=== PATIENT | female | born 1945 | race Hispanic/Latino ===

== ENCOUNTER 2016-11-25 12:51 | Inpatient (IN) | payer MEDICARE, MEDICAID ==
[2016-11-25 13:02] VITALS: BMI 23.1
--- NOTE | 2016-11-25 13:15 | ED PDOC ---
Arrival/HPI - General Time Seen by Provider: 11/25/16 13:14 Historian: Patient - History of Present Illness Narrative History of Present Illness (Text): 11/25/16 13:15 A 71 year old female is brought into the emergency department by EMS after a mechanical fall from this morning. Patient reports she tripped while getting out of bed and hit the back of her head. Patient denies any loss of consciousness, headache, dizziness, neck pain, back pain, fever, chills, nausea , vomiting, abdominal pain, chest pain, shortness of breath or any other complaints. PMD: Dr. Gallego Time/Duration: Other (This morning) Quality: Other Context: Home Past Medical History - Provider Review Nursing Documentation Reviewed: Yes - Infectious Disease Hx of Infectious Diseases: None - Cardiac Hx Cardiac Disorders: Yes Hx Pacemaker: No - Pulmonary Hx Respiratory Disorders: Yes Hx Chronic Obstructive Pulmonary Disease (COPD): Yes - Neurological Hx Neurological Disorder: No Hx Paralysis: No - HEENT Hx HEENT Disorder: No - Renal Hx Renal Disorder: No - Endocrine/Metabolic Hx Endocrine Disorders: No - Hematological/Oncological Hx Blood Disorders: No Hx Blood Transfusions: No Hx Blood Transfusion Reaction: No - Integumentary Hx Dermatological Disorder: No - Musculoskeletal/Rheumatological Hx Musculoskeletal Disorders: Yes - Gastrointestinal Hx Gastrointestinal Disorders: No - Genitourinary/Gynecological Hx Genitourinary Disorders: No - Psychiatric Hx Psychophysiologic Disorder: Yes Hx Depression: Yes Hx Emotional Abuse: No Hx Physical Abuse: No Hx Substance Use: No - Surgical History Other/Comment: cardiac stent. L carotid artery surgery. R kidney surgery - Anesthesia Hx Anesthesia Reactions: No Hx Malignant Hyperthermia: No - Suicidal Assessment Feels Threatened In Home Enviroment: No Family/Social History - Physician Review Nursing Documentation Reviewed: Yes Family/Social History: No Known Family HX Smoking Status: Never Smoked Hx Alcohol Use: No Hx Substance Use: No Allergies/Home Meds Allergies/Adverse Reactions: Allergies acetaminophen [From Percocet] Allergy (Verified 06/13/16 13:09) ANAPHYLAXIS codeine Allergy (Verified 06/13/16 13:09) ANAPHYLAXIS oxycodone HCl [From Percocet] Allergy (Verified 06/13/16 13:09) ANAPHYLAXIS Penicillins Allergy (Verified 06/13/16 13:09) ANAPHYLAXIS Home Medications: Home Meds Medication Instructions Recorded Confirmed Alprazolam [Xanax] 1 mg PO QID 03/18/14 06/13/16 Carvedilol [Coreg] 3.125 mg PO BID 03/18/14 06/13/16 Citalopram Hydrobromide [Celexa] 20 mg PO HS 03/18/14 06/13/16 Fluticasone/Salmeterol 250/50 2 puff IH BID 03/18/14 06/13/16 [Advair Diskus 250/50] Ipratropium/Albuterol Sulfate 2 marcelle IH QID 03/18/14 06/13/16 [Combivent] Levothyroxine Sodium [Levoxyl] 100 mcg PO QAM 03/18/14 06/13/16 Rosuvastatin Calcium [Crestor] 20 mg PO HS 03/18/14 06/13/16 Apixaban [Eliquis] 5 mg PO BID 03/10/15 12/09/15 Irbesartan [Avapro] 150 mg PO QAM 03/10/15 06/13/16 Isosorbide Mononitrate [Imdur] 60 mg PO QAM 09/18/15 06/13/16 diltiaZEM [Cardizem] 120 mg PO DAILY 09/18/15 06/13/16 Aspirin [Ecotrin] 81 mg PO DAILY 12/08/15 06/13/16 Omeprazole [Prilosec] 40 mg PO DAILY 12/09/15 06/13/16 Physical Exam - Physical Exam Narrative Physical Exam (Text): - Review of Systems Constitutional: (+) Head injury absent: Fatigue, Weight Change, Fevers Eyes: Normal ENT: Normal Respiratory: Normal absent: SOB, Cough, Sputum Cardiovascular: Normal absent: Chest pain, Palpitations, Syncope Gastrointestinal: Normal absent: Abdominal pain, Diarrhea, Nausea, Vomiting Genitourinary: Normal. absent: Dysuria, Frequency, Hematuria Musculoskeletal: Normal. absent: Arthralgias, Back Pain, Neck Pain Skin: Normal Neurological: Normal absent: Focal Weakness Endocrine: Normal Hemo/Lymphatic: Normal Psychiatric: Normal - Physical exam Patient appears age appropriate, speaking full sentences without difficulty Head atraumatic. No nasal bone deformity or tenderness, no facial or jaw pain/ swelling. No neck midline tenderness, thoracic and lumbar spine with no midline tenderness. Pt moving b/l upper and lower extremities without difficulty, 5/5 strength, with full active and passive ROM. Distal neurovasc fully intact. Abd soft/nt/ng, no hematomas, no peritoneal signs. Neg. pelvic rock. - Systems Exam Head: Present: Atraumatic, Normocephalic Pupils: Present: PERRL Extraocular Muscles: Present: EOMI Conjunctiva: Present: Normal Mouth: Present: Moist Mucous Membranes Neck: Present: Normal Range of Motion. No: MIDLINE TENDERNESS, Paraspinal Tenderness Respiratory/Chest: Present: Clear to Auscultation, Good Air Exchange. No: Respiratory Distress, Accessory Muscle Use, Tachypnic Cardiovascular: Present: Regular Rate and Rhythm, Normal S1, S2, Peripheral Pulses Present. No: Murmurs Abdomen: Present: Normal Bowel Sounds, No: Tenderness, Peritoneal Signs, Rebound, Guarding, Distention Back: Present: Normal Inspection. No: Midline Tenderness, Paraspinal Tenderness Upper Extremity: Present: Normal Inspection. No: Cyanosis, Edema Lower Extremity: Present: Normal Inspection. No: Edema Neurological: Present: GCS=15, Speech Normal, cranial nerves II through XII fully intact with no cerebellar abnormality, neuro-sensory fully intact. No focal neurological deficits. Skin: Present: Warm, Dry, Normal Color. No: Rashes Lymphatic: Present: OX3, NI, NC Psychiatric: Present: Alert, Oriented x 3, Normal Insight, Normal Concentration Vital Signs Reviewed: Yes Vital Signs Temp Pulse Resp BP Pulse Ox 11/25/16 15:39 67 18 133/66 98 11/25/16 14:43 68 18 135/64 98 11/25/16 13:02 98.2 F 62 18 137/67 98 Temperature: Afebrile Blood Pressure: Normal Pulse: Regular Respiratory Rate: Normal Appearance: Positive for: Well-Appearing, Non-Toxic, Comfortable Pain Distress: None Mental Status: Positive for: Alert and Oriented X 3 Medical Decision Making ED Course and Treatment: 11/25/16 13:15 Impression: A 71 year old female with head injury after mechanical fall. Physical exam unremarkable. Plan: -- Head CT -- Cervical spine CT -- Motrin -- Reassess and disposition Progress Notes: Report Date : 11/25/2016 13:53:35 PROCEDURE: CT HEAD WITHOUT CONTRAST. Dictator : Hebert Sanders MD IMPRESSION: No intracranial hemorrhage. Age-appropriate involutional change. Minimal chronic ethmoid sinusitis. Report Date : 11/25/2016 14:16:16 PROCEDURE: CT Cervical Spine without contrast Dictator : Hebert Sanders MD IMPRESSION: No fracture/dislocation. Degenerative disc disease C4-5 and C5-6. Emphysema. 11/25/16 15:58 pt unable to ambulate without assistance, states she feels too weak labs ordered will be obs'd for further w/u Dr. Shamika agustin, awaiting callback 11/25/16 16:[address] Gallego, agrees with obs under his service pt aware of and agrees with plan - RAD Interpretation Radiology Orders: 11/25/16 13:15 CERVICAL SPINE W/O CONTRAST [CT] Stat HEAD W/O CONTRAST [CT] Stat - Medication Orders Current Medication Orders: Sodium Chloride (Sodium Chloride 0.9%) 1,000 mls @ 1,000 mls/hr IV .Q1H STA Stop: 11/25/16 16:50 Discontinued Medications Acetaminophen (Tylenol 325mg Tab) 975 mg PO STAT STA Stop: 11/25/16 15:41 Ibuprofen (Motrin Tab) 600 mg PO STAT STA Stop: 11/25/16 13:16 Meclizine HCl (Antivert) 25 mg PO STAT STA Stop: 11/25/16 15:52 - Scribe Statement The provider has reviewed the documentation as recorded by the Mildred Baker Provider Scribe Attestation: All medical record entries made by the Scribe were at my direction and personally dictated by me. I have reviewed the chart and agree that the record accurately reflects my personal performance of the history, physical exam, medical decision making, and the department course for this patient. I have also personally directed, reviewed, and agree with the discharge instructions and disposition. Disposition/Present on Arrival - Present on Arrival Any Indicators Present on Arrival: No History of DVT/PE: No History of Uncontrolled Diabetes: No Urinary Catheter: No History Surgical Site Infection Following: None - Disposition Have Diagnosis and Disposition been Completed?: Yes Diagnosis: Weakness Disposition: HOSPITALIZED Disposition Time: 16:02 Patient Plan: Observation Patient Problems: Current Active Problems Problem Status Onset Weakness Acute Condition: FAIR Discharge Instructions (ExitCare): Weakness (ED)
--- NOTE | 2016-11-25 13:55 | CT ---
PROCEDURE: CT HEAD WITHOUT CONTRAST. HISTORY: fall COMPARISON: 06/13/2016 TECHNIQUE: Axial computed tomography images were obtained through the head/brain without intravenous contrast. Radiation dose: Total exam DLP = 677.45 mGy-cm. This CT exam was performed using one or more of the following dose reduction techniques: Automated exposure control, adjustment of the mA and/or kV according to patient size, and/or use of iterative reconstruction technique. FINDINGS: HEMORRHAGE: No intracranial hemorrhage. BRAIN: No mass effect or edema. Moderate diffuse age-appropriate cerebral atrophy. Mild periventricular white matter lucency consistent with chronic microvascular ischemic change. No evidence of acute infarct. VENTRICLES: Unremarkable. No hydrocephalus. CALVARIUM: Unremarkable. PARANASAL SINUSES: Minimal chronic ethmoid sinusitis. MASTOID AIR CELLS: Unremarkable as visualized. No inflammatory changes. OTHER FINDINGS: None. IMPRESSION: No intracranial hemorrhage. Age-appropriate involutional change. Minimal chronic ethmoid sinusitis.
--- NOTE | 2016-11-25 14:18 | CT ---
PROCEDURE: CT Cervical Spine without contrast HISTORY: Status post fall COMPARISON: None available. TECHNIQUE: Axial computed tomography images were obtained of the cervical spine without the use of intravenous contrast. Coronal and sagittal reformatted images were created and reviewed. Radiation dose: Total exam DLP = 456.87 mGy-cm. This CT exam was performed using one or more of the following dose reduction techniques: Automated exposure control, adjustment of the mA and/or kV according to patient size, and/or use of iterative reconstruction technique. FINDINGS: VERTEBRAE: Vertebral bodies are maintained height. Transverse processes and posterior elements are intact. Atlantoaxial articulation and odontoid process are intact. Normal alignment is maintained. DISCS/SPINAL CANAL/NEURAL FORAMINA: Narrowing of the C4-5 and C5-6 intervertebral disc spaces consistent with degenerative disc disease. Bilateral neural foraminal stenosis at C4-5 and C5-6. No significant central spinal stenosis. PARASPINAL SOFT TISSUES: Unremarkable. OTHER FINDINGS: Severe bilateral emphysematous change noted. IMPRESSION: No fracture/dislocation. Degenerative disc disease C4-5 and C5-6. Emphysema.
[2016-11-25] MEDS ORDERED: Sodium Chloride 0.9% 1,000 ML IV STA (15:51)
[2016-11-25] MEDS ORDERED: Fluticasone-Salmeterol 250-50mcg Diskus IH SCH (18:00)
[2016-11-25 19:07] LABS: ALB/GLOB RATIO 1.2 (1.1-1.8); ALKALINE PHOSPHATASE 56 U/L (38-133); ALT/SGPT 26 U/L (7-56); AST/SGOT 19 U/L (15-39); BILIRUBIN,TOTAL 0.7 mg/dL (0.2-1.3); BLOOD UREA NITROGEN 10 mg/dL (7-21); CARBON DIOXIDE 31 mmol/L (21-33); CHLORIDE 100 mmol/L (98-107); GFR AFRICAN-AMERICAN 54; GLUCOSE,RANDOM 124 mg/dL (70-110); SODIUM 138 mmol/L (132-148)
[2016-11-25 19:39] LABS: TROPONIN I < 0.01 ng/mL
[2016-11-25] MEDS ORDERED: Albuterol-Ipratrop 3 mg / 0.5 (3 ml) UD IH PRN (20:00)
[2016-11-25 20:13] LABS: ADD MANUAL DIFF? NO
[2016-11-25 20:17] LABS: BASO # 0.06 K/mm3 (0.0-2.0); BASO % 0.9 % (0.0-3.0); EOS # 0.3 (0.0-0.7); EOS % 4.5 % (1.5-5.0); GRAN # 4.56 (1.4-6.5); GRAN % 64.6 % (50.0-68.0); HEMATOCRIT 36.7 % (36.0-48.0); LYMPH # 1.6 (1.2-3.4); LYMPH % 22.3 % (22.0-35.0); MEAN CELL VOLUME 90.4 fL (80.0-105.0); MEAN CORPUSCULAR HEMOGLOBIN 29.1 pg (25.0-35.0); MEAN CORPUSCULAR HGB CONC 32.2 g/dl (31.0-37.0); MEAN PLATELET VOLUME 10.8 fl (7.0-11.0); MONO # 0.5 (0.1-0.6); MONO % 7.7 % (1.0-6.0); PLATELET COUNT 214 10^3/uL (120.0-450.0); RED CELL DISTRIBUTION WIDTH 13.8 % (11.5-14.5); WHITE BLOOD COUNT 7.1 10^3/ul (4.5-11.0)
--- NOTE | 2016-11-25 20:55 | CON ---
DATE: 11/25/2016 HISTORY OF PRESENT ILLNESS: This is a 71-year-old female with past medical history of chronic COPD, also had a stroke and history of stroke and cardiac problem, came here because she tripped while gett ing out of the bed and hit the back of her head. Before this, patient was trying to sit in a chair a nd fell. Denies any loss of consciousness. Slight neck pain and dizziness. Denies any back pain. No nausea, vomiting, or abdominal pain. PAST MEDICAL HISTORY: Coronary artery disease, COPD, stroke. ALLERGIES: ACETAMINOPHEN, CODEINE, OXYCODONE AND PENICILLIN. HOME MEDICATIONS: The patient is on Coreg, Xanax, Celexa, Levoxyl, diltiazem, Cardizem, Ecotrin. REVIEW OF SYSTEMS: A 10-point review of systems was negative. PHYSICAL EXAMINATION: HEENT: Normocephalic, atraumatic. NECK: Supple. NEUROLOGIC: Alert, awake, oriented to self and place. Cranial nerves II through XII were tested. P upils reactive. EOM intact. Visual terrazas full. No facial asymmetry. Tongue midline. Motor exami nation: Moves all the extremities spontaneously. Deep tendon reflexes 1+. Both plantars are downg oing. Sensory appears intact. Cerebellar gait deferred. IMPRESSION: Syncope and status post fall and multiple medical problems, hypothyroidism, coronary art gina disease, asthma, chronic obstructive pulmonary disease. No loss of consciousness. CAT scan of t he head was done, which was reported negative and CT spine was also negative and workup is in progres s. We will follow up. Karri Whitfield MD cc: [id number] TT: 11/25/2016 20:54:42 Confirmation # [id number] Dictation # [id number] talita
--- NOTE | 2016-11-25 22:26 | CP.PCM.HP ---
<Waylon Barr - Last Filed: 11/25/16 22:43> History of Present Illness - History of Present Illness History of Present Illness: A 71 year old female with pmh of vertigo, CAD, HTN, hypothyroidism is brought into the emergency department by EMS after a mechanical fall from this morning. Patient reports she tripped while getting out of bed and hit the back of her head on her heater and then on her cabinet. She also fell on 2 days earlier in her dining room while trying to sit. She complains of headache, dizziness, mild SOB, and nausea. She denies any loss of consciousness, fever, chills, chest pain , abdominal pain or vomiting PMD: Dr. Wick PMH: Vertigo CAD HTN 3 Strokes Hypothyroidism COPD PSH: 7 bypass surgeries Subclavian bypass cataracts Kidney Surgery SH: lives alone denies recent travel Tob: smoked 2.5packs/day for 40 years, quit 5 years ago Alc: denies Drugs: denies All: PCN, codein Present on Admission - Present on Admission Any Indicators Present on Admission: No Review of Systems - Constitutional Constitutional: Headache. absent: Chills, Fever, Weakness - EENT Eyes: absent: Change in Vision Ears: absent: Decreased Hearing Nose/Mouth/Throat: Neck Pain. absent: Sore Throat - Cardiovascular Cardiovascular: Dyspnea, Palpitations. absent: Chest Pain, Irregular Heart Rhythm, Pedal Edema - Respiratory Respiratory: Cough (dry), Dyspnea (mild) - Gastrointestinal Gastrointestinal: Nausea. absent: Abdominal Pain, Diarrhea, Vomiting - Genitourinary Genitourinary: absent: Dysuria - Musculoskeletal Musculoskeletal: Back Pain, Neck Pain. absent: Joint Swelling - Integumentary Integumentary: absent: Rash, Skin Pain, Wounds - Neurological Neurological: Dizziness. absent: Focal Weakness, Loss of Vision, Syncope, Weakness - Psychiatric Psychiatric: Depression - Endocrine Endocrine: Palpitations. absent: Polydipsia, Polyphagia, Polyuria Past Patient History - Infectious Disease Hx of Infectious Diseases: None - Past Medical History & Family History Past Medical History?: Yes - Past Social History Smoking Status: Former Smoker Chewing Tobacco Use: No Cigar Use: No Alcohol: None Drugs: Denies Home Situation {Lives}: Alone - CARDIAC Hx Cardiac Disorders: Yes Hx Pacemaker: No - PULMONARY Hx Respiratory Disorders: Yes Hx Chronic Obstructive Pulmonary Disease (COPD): Yes - NEUROLOGICAL Hx Neurological Disorder: No Hx Paralysis: No - HEENT Hx HEENT Problems: No - RENAL Hx Chronic Kidney Disease: No - ENDOCRINE/METABOLIC Hx Endocrine Disorders: No - HEMATOLOGICAL/ONCOLOGICAL Hx Blood Disorders: No Hx Blood Transfusions: No Hx Blood Transfusion Reaction: No - INTEGUMENTARY Hx Dermatological Problems: No - MUSCULOSKELETAL/RHEUMATOLOGICAL Hx Musculoskeletal Disorders: Yes - GASTROINTESTINAL Hx Gastrointestinal Disorders: No - GENITOURINARY/GYNECOLOGICAL Hx Genitourinary Disorders: No - PSYCHIATRIC Hx Psychophysiologic Disorder: Yes Hx Depression: Yes Hx Emotional Abuse: No Hx Physical Abuse: No Hx Substance Use: No - SURGICAL HISTORY Other/Comment: cardiac stent. L carotid artery surgery. R kidney surgery - ANESTHESIA Hx Anesthesia Reactions: No Hx Malignant Hyperthermia: No Meds Allergies/Adverse Reactions: Allergies Allergy/AdvReac Type Severity Reaction Status Date / Time acetaminophen [From Percocet] Allergy ANAPHYLAXIS Verified 12/01/16 20:08 codeine Allergy ANAPHYLAXIS Verified 12/01/16 20:08 oxycodone HCl [From Percocet] Allergy ANAPHYLAXIS Verified 12/01/16 20:08 Penicillins Allergy ANAPHYLAXIS Verified 12/01/16 20:08 Physical Exam - Constitutional Appears: Non-toxic, No Acute Distress - Head Exam Head Exam: ATRAUMATIC, NORMAL INSPECTION, NORMOCEPHALIC Additional comments: mild swelling on occiput with no visible trauma - Eye Exam Eye Exam: EOMI - ENT Exam ENT Exam: Mucous Membranes Moist - Neck Exam Neck exam: Positive for: Full Rom Additional comments: tenderness to palpation - Respiratory Exam Respiratory Exam: Clear to Auscultation Bilateral, NORMAL BREATHING PATTERN - Cardiovascular Exam Cardiovascular Exam: REGULAR RHYTHM, RRR, +S1, +S2 Additional comments: distant heart sounds - GI/Abdominal Exam GI & Abdominal Exam: Normal Bowel Sounds, Soft. absent: Tenderness - Extremities Exam Extremities exam: Positive for: full ROM, normal inspection. Negative for: joint swelling, pedal edema - Back Exam Back exam: paraspinal tenderness (lumbar spine). absent: CVA tenderness (L), CVA tenderness (R) - Neurological Exam Neurological exam: Alert, CN II-XII Intact, Oriented x3 - Psychiatric Exam Psychiatric exam: Normal Affect, Normal Mood - Skin Skin Exam: Dry, Intact, Normal Color, Warm Results - Vital Signs Recent Vital Signs: Last Vital Signs Temp 98.2 F 11/25/16 13:02 Pulse 63 11/25/16 20:07 Resp 18 11/25/16 20:07 BP 135/69 11/25/16 20:07 Pulse Ox 98 11/25/16 20:07 - Labs Result Diagrams: 11/25/16 20:00 11/25/16 18:45 Labs: Laboratory Results - last 24 hr 11/25/16 11/25/16 18:45 20:00 WBC 7.1 D RBC 4.06 Hgb 11.8 L Hct 36.7 MCV 90.4 MCH 29.1 MCHC 32.2 RDW 13.8 Plt Count 214 MPV 10.8 Gran % 64.6 Lymph % (Auto) 22.3 [place] % (Auto) 7.7 H Eos % (Auto) 4.5 Baso % (Auto) 0.9 Gran # 4.56 Lymph # 1.6 [place] # 0.5 Eos # 0.3 Baso # 0.06 Sodium 138 Potassium 4.0 Chloride 100 Carbon Dioxide 31 Anion Gap 11 BUN 10 Creatinine 1.2 Est GFR ( Amer) 54 Est GFR (Non-Af Amer) 44 Random Glucose 124 H Calcium 9.0 Total Bilirubin 0.7 AST 19 ALT 26 Alkaline Phosphatase 56 Troponin I < 0.01 Total Protein 7.0 Albumin 3.8 Globulin 3.2 Albumin/Globulin Ratio 1.2 Assessment & Plan - Assessment and Plan (Free Text) Assessment: 71F presents s/p mulitple falls 2/2 to syncope vs mechanical Plan: Head/Neck Trauma -CT Head w/o contrast - see full report -no hemorrhage -no mass effect or edema -Ct Cervical spine - see full report -No fracture/dislocation -Degenerative disk dz -emphysema Neuro consult - Dr. Georgina Whitfield - appreciate recs Syncope -Orthostatic vitals -Caroitd Doppler -Echocardiogram -EKG -Chest Xray -Trop negative x1 -Cardio consult - Dr. Leiva - appreciate recs Vertigo -Meclizine -Phys Therapy Hypertension -Cozaar -Carvedilol -Cardizem Hypothyroidism -Synthroid CAD -ASA -Eliquis -Lipitor COPD -Albuterol/Ipratropium -Brovana Anxiety/Depression -Xanax GERD -Protonix - Date & Time Date: 11/25/16 Time: 04:00 <Lopez Gallego - Last Filed: 12/18/16 18:53> Results - Vital Signs Recent Vital Signs: Last Vital Signs Temp 98.2 F 11/29/16 08:07 Pulse 58 L 11/29/16 09:23 Resp 18 11/29/16 08:07 BP 113/52 L 11/29/16 09:23 Pulse Ox 97 11/29/16 08:07 - Labs Result Diagrams: 11/29/16 06:30 11/29/16 06:30 Attending/Attestation - Attestation I have personally seen and examined this patient.: Yes I have fully participated in the care of the patient.: Yes I have reviewed all pertinent clinical information: Yes Notes (Text): 12/18/16 18:53 Medical record note made by the resident after discussion with my direction and input after the patient was personally seen and examined by me. I have reviewed the chart and agree that the record accurately reflects by personal performance of the history, physical exam, data review, and medical decision-making, in the course for the patient. I have also personally directed the plan of care.
--- NOTE | 2016-11-26 07:07 | CP.PCM.PN ---
<Sarah Mendez - Last Filed: 11/26/16 10:56> Subjective - Date & Time of Evaluation Date of Evaluation: 11/26/16 Time of Evaluation: 07:55 - Subjective Subjective: Medicine progress note for Dr Wick and Dr Gallego service. Patient with no overnight acute events. Patient denies cp or sob. Patient the dizziness and nausea has improved. Patient denies dysurea, vomiting or diarrhea. Objective - Vital Signs/Intake and Output Vital Signs (last 24 hours): Temp Pulse Resp BP Pulse Ox 98 F 58 L 19 118/40 L 98 11/26/16 02:20 11/26/16 02:20 11/26/16 02:20 11/26/16 02:20 11/25/16 20:07 Intake and Output: 11/26/16 11/26/16 06:59 18:59 Intake Total 120 Balance 120 - Medications Medications: Current Medications Albuterol/Ipratropium (Duoneb 3 Mg/0.5 Mg (3 Ml) Ud) 3 ml IH [id number] PRN PRN Reason: Shortness of Breath Alprazolam (Xanax) 1 mg PO QID [facility] PRN Reason: Protocol Last Admin: 11/26/16 04:07 Dose: 1 mg Apixaban (Eliquis) 5 mg PO BID [facility] PRN Reason: Protocol Arformoterol Tartrate (Brovana) 15 mcg IH [id number] [facility] Aspirin (Ecotrin) 81 mg PO DAILY [facility] Atorvastatin Calcium (Lipitor) 80 mg PO HS [facility] Budesonide (Pulmicort Respules) 0.5 mg IH [id number] [facility] Carvedilol (Coreg) 3.125 mg PO BID [facility] Citalopram Hydrobromide (Celexa) 20 mg PO HS [facility] Last Admin: 11/25/16 22:38 Dose: 20 mg Diltiazem HCl (Cardizem Cd) 120 mg PO DAILY [facility] Ibuprofen (Motrin Tab) 600 mg PO Q6 PRN PRN Reason: Pain, moderate (4-7) Isosorbide Mononitrate (Imdur) 60 mg PO QAM [facility] Levothyroxine Sodium (Synthroid) 100 mcg PO ACB [facility] Losartan Potassium (Cozaar) 50 mg PO DAILY [facility] Pantoprazole Sodium (Protonix Ec Tab) 40 mg PO ACB [facility] - Labs Labs: 11/25/16 20:00 11/25/16 18:45 - Constitutional Appears: No Acute Distress, Chronically Ill - Head Exam Head Exam: ATRAUMATIC, NORMAL INSPECTION, NORMOCEPHALIC - Eye Exam Eye Exam: Normal appearance, PERRL. absent: Scleral icterus - ENT Exam ENT Exam: Mucous Membranes Dry - Neck Exam Neck Exam: Normal Inspection - Respiratory Exam Respiratory Exam: Clear to Ausculation Bilateral, NORMAL BREATHING PATTERN. absent: Rales, Rhonchi, Wheezes, Respiratory Distress, Stridor - Cardiovascular Exam Cardiovascular Exam: REGULAR RHYTHM, +S1, +S2. absent: Murmur - GI/Abdominal Exam GI & Abdominal Exam: Soft, Normal Bowel Sounds. absent: Distended, Firm, Guarding, Rigid, Tenderness - Extremities Exam Extremities Exam: absent: Pedal Edema - Back Exam Back Exam: NORMAL INSPECTION - Neurological Exam Neurological Exam: Alert, Awake, CN II-XII Intact, Oriented x3, Reflexes Normal Neuro motor strength exam: Left Upper Extremity: 5, Right Upper Extremity: 5, Left Lower Extremity: 5, Right Lower Extremity: 5 - Psychiatric Exam Psychiatric exam: Normal Affect, Normal Mood - Skin Skin Exam: Dry, Intact, Normal Color, Warm Assessment and Plan - Assessment and Plan (Free Text) Assessment: Patient is a 71 y/o F with PMH of Vertigo, CAD, HTN, h/o CVA x3, Hypothyroidism , afib, COPD ( on 2 l home oxygen), subclavian bypass and stent presenting s/p syncope and fall. Plan: 1) Syncope and fall - autonomic versus vertigo versus gait instability. r/o CVA - CT of head w/o contrast with no acute ischemic changes - carotid artery u/s pending - orthostatic vital signs pending - will obtain ua and TSH - Trop was normal, ekg with no acute ST/T wave changes. - neuro on consult - cardio on consult - echo pending - Pending PT/OT eval 2) h/o afib - will continue eliquis and cardizem 3) CAD - continue lipitor, and asa - continue imdur for angina - coreg on hold 4) HTN - cozaar on hold 5) Hypothyroidism - continue synthroid 100 mcg daily 6) COPD - continue home oxygen - continue pulmocort, duoneb, brovana 7) h/o depression and anxiety - continue celexa and xanax. 8) Cervical neck pain/spasm: - CT spine with degenerative changes. - will start flexeril 5 mg tid. 9) DVT and gi prophylaxis: on eliquis, and protonix. Patient seen, examined, case discussed with the attending. <Lopez Gallego - Last Filed: 12/18/16 18:54> Objective - Vital Signs/Intake and Output Vital Signs (last 24 hours): Temp Pulse Resp BP Pulse Ox 98.2 F 58 L 18 113/52 L 97 11/29/16 08:07 11/29/16 09:23 11/29/16 08:07 11/29/16 09:23 11/29/16 08:07 - Labs Labs: 11/29/16 06:30 11/29/16 06:30 PT 11.5 Seconds (9.9-11.8) 11/26/16 09:05 INR 1.06 (0.93-1.08) 11/26/16 09:05 APTT 27.3 Seconds (23.7-30.8) 11/26/16 09:05 Attending/Attestation - Attestation I have personally seen and examined this patient.: Yes I have fully participated in the care of the patient.: Yes I have reviewed all pertinent clinical information, including history, physical exam and plan: Yes Notes (Text): 12/18/16 18:54 Medical record note made by the resident after discussion with my direction and input after the patient was personally seen and examined by me. I have reviewed the chart and agree that the record accurately reflects by personal performance of the history, physical exam, data review, and medical decision-making, in the course for the patient. I have also personally directed the plan of care.
[2016-11-26] MEDS: Budesonide 0.5 mg/2 ml Inhal Susp UD IH SCH ×2 (07:14→21:24)
[2016-11-26] MEDS: Arformoterol 15 mcg/2 ml Inh Sol IH SCH ×2 (07:15→21:23)
[2016-11-26 08:12] LABS: ADD MANUAL DIFF? NO
[2016-11-26 08:29] LABS: ALB/GLOB RATIO 1.1 (1.1-1.8); ALKALINE PHOSPHATASE 60 U/L (38-133); ALT/SGPT 31 U/L (7-56); AST/SGOT 16 U/L (15-39); BILIRUBIN,TOTAL 0.7 mg/dL (0.2-1.3); BLOOD UREA NITROGEN 10 mg/dL (7-21); CALCIUM 9.1 mg/dL (8.4-10.5); CARBON DIOXIDE 35 mmol/L (21-33); CHLORIDE 101 mmol/L (98-107); GFR AFRICAN-AMERICAN > 60; GLUCOSE,RANDOM 101 mg/dL (70-110); POTASSIUM 4.2 mmol/L (3.6-5.0); SODIUM 140 mmol/L (132-148); TOTAL PROTEIN 6.6 g/dL (5.8-8.3)
[2016-11-26 08:31] LABS: BASO # 0.06 K/mm3 (0.0-2.0); EOS # 0.3 (0.0-0.7); EOS % 4.9 % (1.5-5.0); GRAN # 3.93 (1.4-6.5); GRAN % 65.9 % (50.0-68.0); HEMATOCRIT 36.9 % (36.0-48.0); LYMPH # 1.3 (1.2-3.4); LYMPH % 21.5 % (22.0-35.0); MEAN CELL VOLUME 91.3 fL (80.0-105.0); MEAN CORPUSCULAR HGB CONC 31.7 g/dl (31.0-37.0); MONO # 0.4 (0.1-0.6); MONO % 6.7 % (1.0-6.0); PLATELET COUNT 215 10^3/uL (120.0-450.0); RED CELL DISTRIBUTION WIDTH 13.8 % (11.5-14.5)
[2016-11-26 08:39] LABS: TROPONIN I < 0.01 ng/mL
[2016-11-26 09:00] LABS: FREE T4 1.45 ng/dL (0.78-2.19)
[2016-11-26 09:14] LABS: THYROID STIMULATING HORMONE 0.78 mIU/mL (0.46-4.68)
[2016-11-26 09:26] LABS: INR 1.06 (0.93-1.08); PARTIAL THROMBOPLASTIN TIME 27.3 Seconds (23.7-30.8)
--- NOTE | 2016-11-26 09:45 | CARD ---
APPROVED REPORT EKG Measurement Heart [id number] <Conclusion> Normal sinus rhythm with sinus arrhythmia No change
[2016-11-26] MEDS: Pantoprazole 40 mg EC Tab PO SCH (10:42)
[2016-11-26] MEDS: diltiaZEM 120 mg/24 Hours CD Cap PO SCH (10:43)
[2016-11-26] MEDS: Levothyroxine 100 MCG TAB PO SCH (10:43)
--- NOTE | 2016-11-26 10:54 | RAD ---
PROCEDURE: CHEST RADIOGRAPH, 1 VIEW HISTORY: r/o acs COMPARISON: 12/03/2013 FINDINGS: LUNGS: Clear. PLEURA: There is blunting of the left costophrenic angle when compared to the prior radiograph. This could represent scarring versus a small effusion. CARDIOVASCULAR: Normal. OSSEOUS STRUCTURES: The osseous structures demonstrate degenerative changes. VISUALIZED UPPER ABDOMEN: Upper abdomen is suboptimally evaluated. OTHER FINDINGS: None. IMPRESSION: Clear lungs. Questionable small effusion on the left. Please note that chest radiographs have low sensitivity for small pulmonary nodules. If indicated, chest CT should be obtained.
--- NOTE | 2016-11-26 13:42 | PN ---
DATE: 11/26/2016 CHIEF COMPLAINT: Status post fall. SUBJECTIVE: The patient seen and examined at bedside. Denies any dizziness or any headache or any c hange in sense of vision, taste or smell. She had a carotid Doppler, results are pending. Her CT he ad from yesterday showed no acute intracranial abnormalities. She is on Eliquis for AFib. She has h ad a history of falls in the past. She is no longer dizzy in terms of lightheaded. Orthostatic pamela l signs are pending. No acute events overnight. PAST MEDICAL HISTORY: History of vertigo, CAD, hypertension, history of cerebrovascular accident x 3 , hypothyroidism, AFib, COPD, subclavian bypass and stent. REVIEW OF SYSTEMS: A 14-point review of systems is negative except as in HPI. MEDICATIONS: Reviewed via nurse's reconciliation sheet. ALLERGIES: ALLERGIC TO ACETAMINOPHEN, CODEINE, OXYCODONE, PENICILLINS. SOCIAL HISTORY: No illicit drug use, smoking, or ETOH abuse at this time. FAMILY HISTORY: Noncontributory. PHYSICAL EXAMINATION: VITAL SIGNS: Temperature 98.4, pulse rate of 54, blood pressure 127/52, respiratory rate of 18, oxyg en saturation 98% on room air. GENERAL: The patient is sitting up in bed in no acute distress. HEENT: Atraumatic, normocephalic. PERRLA. Extraocular muscles intact. NECK: Supple, no JVD, no adenopathy noted. LUNGS: Clear to auscultation. No adventitious sounds. HEART: S1, S2, normal rate and rhythm. No murmurs, rubs, or gallops. ABDOMEN: Soft, nontender, nondistended. Bowel sounds are present. EXTREMITIES: No clubbing, no cyanosis. Peripheral pulses 2+ felt bilaterally. NEUROLOGIC: The patient is alert, oriented to person, place, month and year. Speech is fluent, with out any errors. Recall after 5 minutes is 2/3. Poor attention span. Slow thought process. Cranial nerves II-XII are intact. Speech is fluent, without any errors. MOTOR: Normal tone, normal bulk of muscle. Moves all extremities equally. Toes are downgoing bilat erally. SENSORY: Light touch, pinprick, proprioception, vibration intact. DTRs 2+ throughout except for 1 a t the knees and ankles. COORDINATION: Obtllt-wg-vpcu intact. GAIT: Deferred for now. LABORATORIES: Sodium is 140, potassium 4.2, chloride 101, carbon dioxide 35, BUN of 10, creatinine a t 1. Random glucose of 101. ASSESSMENT AND PLAN: This is a 71-year-old woman with past medical history of vertigo, coronary johnny ry disease, hypertension, history of cerebrovascular accident, hypothyroidism, atrial fibrillation on Eliquis, chronic obstructive pulmonary disease on home oxygen, subclavian bypass and stent, presente d with a mechanical fall and dizziness. She has had multiple falls in the past. Gait instability is likely secondary to deconditioned state and possibly transient drop in blood pressures. At this cyril e, recommend carotid ultrasound, which is pending, as well as orthostatic vital signs and physical th erapy and possibly subacute rehabilitation. At this time, she is clinically stable from my standpoin t. Please reconsult if necessary and awaiting the results of the carotids. Dallas Whitfield MD cc: [id number] TT: 11/26/2016 13:42:01 Confirmation # [id number] Dictation # [id number] lakshmi
[2016-11-27 08:01] LABS: ADD MANUAL DIFF? NO
[2016-11-27 08:29] LABS: BASO # 0.04 K/mm3 (0.0-2.0); BASO % 0.6 % (0.0-3.0); EOS # 0.3 (0.0-0.7); EOS % 4.8 % (1.5-5.0); GRAN # 4.31 (1.4-6.5); HEMATOCRIT 37.3 % (36.0-48.0); LYMPH # 1.4 (1.2-3.4); MEAN CELL VOLUME 91.2 fL (80.0-105.0); MEAN CORPUSCULAR HEMOGLOBIN 29.1 pg (25.0-35.0); MEAN CORPUSCULAR HGB CONC 31.9 g/dl (31.0-37.0); MEAN PLATELET VOLUME 11.2 fl (7.0-11.0); MONO # 0.4 (0.1-0.6); MONO % 5.6 % (1.0-6.0); PLATELET COUNT 215 10^3/uL (120.0-450.0); RED CELL DISTRIBUTION WIDTH 13.8 % (11.5-14.5); WHITE BLOOD COUNT 6.4 10^3/ul (4.5-11.0)
[2016-11-27 08:34] LABS: BLOOD UREA NITROGEN 14 mg/dL (7-21); CALCIUM 8.9 mg/dL (8.4-10.5); CARBON DIOXIDE 32 mmol/L (21-33); CHLORIDE 100 mmol/L (98-107); GFR AFRICAN-AMERICAN > 60; GLUCOSE,RANDOM 103 mg/dL (70-110); POTASSIUM 4.4 mmol/L (3.6-5.0); SODIUM 138 mmol/L (132-148)
[2016-11-27] MEDS: Levothyroxine 100 MCG TAB PO SCH (09:49)
[2016-11-27] MEDS: diltiaZEM 120 mg/24 Hours CD Cap PO SCH (09:50)
[2016-11-27] MEDS: Pantoprazole 40 mg EC Tab PO SCH (09:50)
--- NOTE | 2016-11-27 10:03 | CARD ---
APPROVED REPORT EXAM: Two-dimensional and M-mode echocardiogram with Doppler and color Doppler. Other Information Quality : FairRhythm : INDICATION Syncope 2D DIMENSIONS IVSd0.7 (0.7-1.1cm)LVDd4.6 (3.9-5.9cm) PWd1.0 (0.7-1.1cm)LVDs3.3 (2.5-4.0cm) FS (%) 29.3 %LVEF (%)56.0 (>50%) M-Mode DIMENSIONS Left Atrium (MM)3.00 (2.5-4.0cm)Aortic Root2.30 (2.2-3.7cm) Aortic Cusp Exc.1.60 (1.5-2.0cm) Aortic Valve AoV Peak Gbkxdrxt935.0cm/sAoV VTI29.3cmLVOT Peak Cfjunrrw50.2cm/s LVOT VTI15.10cm Mitral Valve MV E Xkwmsicn69.5cm/sMV A Vshnprix47.9cm/sE/A ratio1.0 TDI Lateral E' Peak V10.70cm/sMedial E' Peak V7.31cm/sE/Lateral E'7.5 E/Medial E'11.0 Tricuspid Valve TR Peak Dvkhfiwf223dl/sTR Peak Gr.5mmHg LEFT VENTRICLE The left ventricle is normal size. There is normal left ventricular wall thickness. The left ventricular function is normal. The left ventricular ejection fraction is within the normal range. RIGHT VENTRICLE The right ventricle is normal size. ATRIA The left atrium size is normal. The right atrium size is normal. The interatrial septum is intact with no evidence for an atrial septal defect. AORTIC VALVE The aortic valve is not well visualized. MITRAL VALVE The mitral valve is moderately thickened but opens well. Mitral regurgitation is trace. TRICUSPID VALVE The tricuspid valve is normal in structure. There is trace tricuspid regurgitation. PULMONIC VALVE The pulmonic valve is not well visualized. GREAT VESSELS The aortic root is normal in size. PERICARDIAL EFFUSION There is no pericardial effusion. <Conclusion> This is a limited study. The left ventricle is normal size. There is normal left ventricular wall thickness. The left ventricular function is normal.
--- NOTE | 2016-11-27 11:22 | PN ---
DATE: 11/27/[address] Wick and Dr. Gallego. She is resting comfortably in bed, no acute distress. No chest pain or shortness of breath. I talke d to her about going to rehab, TCU. She understands what might happen. She is being seen by neurolo elias. PHYSICAL EXAMINATION: VITAL SIGNS: She has a 98.7 temp, 58 pulse, 104/49 blood pressure, 18 respiratory rate, 96% O2 sat o n room air. HEENT: Head is atraumatic, normocephalic. GENERAL: No acute distress. LUNGS: Clear to auscultation. HEART: Regular rate. Normal S1, S2. ABDOMEN: Soft, positive bowel sounds, nontender, no guarding, no rebound. EXTREMITIES: Have no edema. CENTRAL NERVOUS SYSTEM: She is alert and comfortable. She had syncope and a fall. It looks like she might need to have some physical therapy before she go es home. She has history of hypertension, hypothyroid, chronic obstructive pulmonary disease, depres michael. She is currently on Ambien, Brovana, Cardizem, Celexa, Coreg, Cozaar, DuoNeb, Ecotrin, Eliquis, Flexe ril, Imdur, Lipitor, Motrin, Protonix, Pulmicort, Synthroid, Xanax. White count 6.4, 11.9 hemoglobin, 37.3 hematocrit with 215 platelets. She had a fall. Sodium 138, p otassium 4.4, BUN is 14, creatinine 0.8, GFR is greater than 60, sugar is 103, calcium is 8.9. She is weak and will probably need TCU or subacute rehabilitation. I do not see a physical therapy e penny. I will reorder physical therapy and try and get her out of bed to chair. Ted Molina DO cc: [id number] TT: 11/27/2016 11:21:34 Confirmation # [id number] Dictation # [id number] en
[2016-11-27] MEDS: Arformoterol 15 mcg/2 ml Inh Sol IH SCH (22:23)
[2016-11-27] MEDS: Budesonide 0.5 mg/2 ml Inhal Susp UD IH SCH (22:24)
[2016-11-28 06:48] LABS: ADD MANUAL DIFF? NO
[2016-11-28 07:16] LABS: BASO # 0.05 K/mm3 (0.0-2.0); BASO % 0.7 % (0.0-3.0); EOS # 0.4 (0.0-0.7); EOS % 5.3 % (1.5-5.0); GRAN # 4.51 (1.4-6.5); GRAN % 66.6 % (50.0-68.0); HEMATOCRIT 37.5 % (36.0-48.0); LYMPH # 1.4 (1.2-3.4); LYMPH % 21.1 % (22.0-35.0); MEAN CELL VOLUME 91.2 fL (80.0-105.0); MEAN CORPUSCULAR HEMOGLOBIN 29.2 pg (25.0-35.0); MEAN PLATELET VOLUME 11.3 fl (7.0-11.0); MONO # 0.4 (0.1-0.6); MONO % 6.3 % (1.0-6.0); PLATELET COUNT 217 10^3/uL (120.0-450.0); RED CELL DISTRIBUTION WIDTH 13.9 % (11.5-14.5); WHITE BLOOD COUNT 6.8 10^3/ul (4.5-11.0)
[2016-11-28 07:39] LABS: BLOOD UREA NITROGEN 15 mg/dL (7-21); CALCIUM 9.4 mg/dL (8.4-10.5); CARBON DIOXIDE 33 mmol/L (21-33); CHLORIDE 100 mmol/L (98-107); GFR AFRICAN-AMERICAN > 60; GLUCOSE,RANDOM 102 mg/dL (70-110); POTASSIUM 4.3 mmol/L (3.6-5.0); SODIUM 139 mmol/L (132-148)
[2016-11-28] MEDS: Levothyroxine 100 MCG TAB PO SCH (08:37)
[2016-11-28] MEDS: Pantoprazole 40 mg EC Tab PO SCH (08:37)
[2016-11-28] MEDS: Budesonide 0.5 mg/2 ml Inhal Susp UD IH SCH ×2 (08:56→20:35)
[2016-11-28] MEDS: Arformoterol 15 mcg/2 ml Inh Sol IH SCH ×2 (08:57→20:35)
--- NOTE | 2016-11-28 09:25 | US ---
PROCEDURE: Bilateral carotid artery duplex ultrasound HISTORY: Carotid stenosis dizziness. Previous right -left subclavian bypass. Known left common carotid artery occlusion PHYSICIAN(S): Hebert Lawrence MD. TECHNIQUE: Duplex sonography and color-flow Doppler were used to evaluate the carotid bifurcations and limited segments of the vertebral arteries bilaterally. FINDINGS: There is moderate smooth heterogeneous echogenic plaque noted at the carotid bifurcations bilaterally. The peak systolic velocity in the proximal right internal carotid artery is 101 cm/sec. This corresponds to a 20 to 39% proximal right ICA stenosis. Normal systolic velocities are noted in the proximal right external carotid artery. There is antegrade flow in the right vertebral artery. The patient has a known left common carotid artery occlusion. There is reconstitution of the left carotid bifurcation. The left vertebral artery is not visualized and may be occluded P IMPRESSION: 1. 20-39 percent proximal right ICA stenosis. 2. Known chronic left common carotid artery occlusion. 3. Patent right vertebral artery. The left vertebral artery is not visualized and may be occluded.
[2016-11-28] MEDS: diltiaZEM 120 mg/24 Hours CD Cap PO SCH (09:30)
--- NOTE | 2016-11-28 11:08 | CP.PCM.PN ---
<Sarah Mendez - Last Filed: 11/28/16 14:47> Subjective - Date & Time of Evaluation Date of Evaluation: 11/28/16 Time of Evaluation: 07:50 - Subjective Subjective: Medicine progress note for Dr Gallego and Dr Wick service. Patient with no acute events overnight. Patient feel better overall. Patient denies fever, chills, n/v/d. Patient had PT yesterday, with unsteady gait. Patient requesting to go to TCU for PT. Objective - Vital Signs/Intake and Output Vital Signs (last 24 hours): Temp Pulse Resp BP Pulse Ox 98.0 F 67 16 107/57 L 98 11/28/16 08:00 11/28/16 08:00 11/28/16 08:00 11/28/16 09:30 11/28/16 08:00 - Medications Medications: Current Medications Albuterol/Ipratropium (Duoneb 3 Mg/0.5 Mg (3 Ml) Ud) 3 ml IH [id number] PRN PRN Reason: Shortness of Breath Alprazolam (Xanax) 1 mg PO Q6 [facility] PRN Reason: Protocol Last Admin: 11/28/16 06:25 Dose: 1 mg Apixaban (Eliquis) 5 mg PO BID [facility] PRN Reason: Protocol Last Admin: 11/28/16 09:29 Dose: 5 mg Arformoterol Tartrate (Brovana) 15 mcg IH [id number] [facility] Last Admin: 11/28/16 08:57 Dose: 15 mcg Aspirin (Ecotrin) 81 mg PO DAILY [facility] Last Admin: 11/28/16 09:29 Dose: 81 mg Atorvastatin Calcium (Lipitor) 80 mg PO [facility] Last Admin: 11/27/16 22:11 Dose: 80 mg Budesonide (Pulmicort Respules) 0.5 mg IH [id number] [facility] Last Admin: 11/28/16 08:56 Dose: 0.5 mg Carvedilol (Coreg) 3.125 mg PO BID [facility] Last Admin: 11/26/16 10:42 Dose: 3.125 mg Citalopram Hydrobromide (Celexa) 20 mg PO [facility] Last Admin: 11/27/16 22:10 Dose: 20 mg Cyclobenzaprine HCl (Flexeril) 5 mg PO Q8 [facility] Last Admin: 11/28/16 08:37 Dose: 5 mg Diltiazem HCl (Cardizem Cd) 120 mg PO DAILY [facility] Last Admin: 11/28/16 09:30 Dose: Not Given Ibuprofen (Motrin Tab) 600 mg PO Q6 PRN PRN Reason: Pain, moderate (4-7) Isosorbide Mononitrate (Imdur) 60 mg PO QAM [facility] Last Admin: 11/28/16 09:29 Dose: 60 mg Levothyroxine Sodium (Synthroid) 100 mcg PO ACB [facility] Last Admin: 11/28/16 08:37 Dose: 100 mcg Losartan Potassium (Cozaar) 50 mg PO DAILY [facility] Last Admin: 11/26/16 10:42 Dose: 50 mg Pantoprazole Sodium (Protonix Ec Tab) 40 mg PO ACB [facility] Last Admin: 11/28/16 08:37 Dose: 40 mg Zolpidem Tartrate (Ambien) 5 mg PO HS PRN; Protocol PRN Reason: Insomnia Last Admin: 11/28/16 00:50 Dose: 5 mg - Labs Labs: 11/28/16 06:30 11/28/16 06:30 PT 11.5 Seconds (9.9-11.8) 11/26/16 09:05 INR 1.06 (0.93-1.08) 11/26/16 09:05 APTT 27.3 Seconds (23.7-30.8) 11/26/16 09:05 - Constitutional Appears: No Acute Distress, Chronically Ill - Head Exam Head Exam: ATRAUMATIC, NORMAL INSPECTION, NORMOCEPHALIC - Eye Exam Eye Exam: Normal appearance - ENT Exam ENT Exam: Mucous Membranes Moist - Neck Exam Neck Exam: Normal Inspection - Respiratory Exam Respiratory Exam: Clear to Ausculation Bilateral, NORMAL BREATHING PATTERN. absent: Rales, Rhonchi, Wheezes, Respiratory Distress, Stridor - Cardiovascular Exam Cardiovascular Exam: REGULAR RHYTHM, RRR, +S1, +S2 - GI/Abdominal Exam GI & Abdominal Exam: Soft, Normal Bowel Sounds. absent: Distended, Tenderness - Extremities Exam Extremities Exam: Normal Inspection. absent: Pedal Edema - Back Exam Back Exam: NORMAL INSPECTION - Neurological Exam Neurological Exam: Alert, Awake, Oriented x3 - Psychiatric Exam Psychiatric exam: Normal Affect, Normal Mood - Skin Skin Exam: Dry, Intact, Normal Color, Warm Assessment and Plan - Assessment and Plan (Free Text) Assessment: Patient is a 71 y/o F with PMH of Vertigo, CAD, HTN, h/o CVA x3, Hypothyroidism , afib, COPD ( on 2 l home oxygen), subclavian bypass and stent presenting s/p syncope and fall. Plan: 1) Syncope and fall 2nd to gait instability and hypotension - Carotid smith/s with 20-39% ICA stenosis, known chronic left common carotid artery occlusion - CT of head w/o contrast with no acute ischemic changes - cardiac echo with normal ef - TSH and ua kathy, chest x-ray with no acute pathology - neuro signed - cardio on consult - TCU for PT 2) h/o afib - will continue eliquis and cardizem 3) CAD - continue lipitor, and asa - continue imdur for angina - coreg on hold 4) HTN - cozaar on hold 5) Hypothyroidism - continue synthroid 100 mcg daily 6) COPD - continue home oxygen - continue pulmocort, duoneb, brovana 7) h/o depression and anxiety - continue celexa and xanax. 8) Cervical neck pain/spasm: - CT spine with degenerative changes. - will continue flexeril 5 mg tid. 9) DVT and gi prophylaxis: on eliquis, and protonix. Patient seen, examined, case discussed with Dr Gallego. <Lopez Gallego - Last Filed: 12/18/16 18:55> Objective - Vital Signs/Intake and Output Vital Signs (last 24 hours): Temp Pulse Resp BP Pulse Ox 98.2 F 58 L 18 113/52 L 97 11/29/16 08:07 11/29/16 09:23 11/29/16 08:07 11/29/16 09:23 11/29/16 08:07 - Labs Labs: 11/29/16 06:30 11/29/16 06:30 PT 11.5 Seconds (9.9-11.8) 11/26/16 09:05 INR 1.06 (0.93-1.08) 11/26/16 09:05 APTT 27.3 Seconds (23.7-30.8) 11/26/16 09:05 Attending/Attestation - Attestation I have personally seen and examined this patient.: Yes I have fully participated in the care of the patient.: Yes I have reviewed all pertinent clinical information, including history, physical exam and plan: Yes Notes (Text): 12/18/16 18:55 Medical record note made by the resident after discussion with my direction and input after the patient was personally seen and examined by me. I have reviewed the chart and agree that the record accurately reflects by personal performance of the history, physical exam, data review, and medical decision-making, in the course for the patient. I have also personally directed the plan of care.
--- NOTE | 2016-11-28 17:14 | CON ---
DATE: 11/28/2016 HISTORY OF PRESENT ILLNESS: The patient is a 71-year-old woman who presented after a mechanical fall . She does admit to tripping and hitting the back of her head, no loss of consciousness noted. PAST MEDICAL HISTORY: Notable for history of coronary artery disease and status post PTCA and stent remotely. The last stress test over a year ago was unremarkable. The patient is on anticoagulation with a questionable history of paroxysmal atrial fibrillation in th e past. She does suffer from COPD from a previous smoking history, hypercholesterolemia and hypertension. SOCIAL HISTORY: She is a former smoker. REVIEW OF SYSTEMS: A 14-point review of systems was reviewed. Negative palpitations. Negative valerie na, negative shortness of breath, negative edema in the lower extremities. PHYSICAL EXAMINATION: VITAL SIGNS: Blood pressure is 107/30, heart rate in the 60s. NECK: Negative JVD. LUNGS: Without rales. HEART: Reveals S1, S2. EXTREMITIES: Without edema. EKG shows normal sinus rhythm with nonspecific ST-T changes. LABORATORY DATA: Hemoglobin is 12.0. Chemistries were unremarkable. Troponins are negative x 2. TF Ts unremarkable. Echocardiogram reveals good LV function. IMPRESSION: 1. Status post mechanical fall. 2. Stable angina. 3. Remote history of percutaneous transluminal coronary angioplasty and stent. 4. Chronic obstructive pulmonary disease. 5. Hypercholesterolemia. 6. Hypertension. 7. History of paroxysmal atrial fibrillation. The patient is on Eliquis. Given these findings, the patient's cardiac status appears to be stable. She is participating with p hysical therapy. After she recovers from this fall, will consider an outpatient stress test. Hebert Leiva MD cc: [id number] TT: 11/28/2016 17:13:20 Confirmation # [id number] Dictation # [id number] ln
[2016-11-28 19:15] VITALS: RESP 18
[2016-11-29 06:54] LABS: ADD MANUAL DIFF? NO
[2016-11-29 07:12] LABS: BASO # 0.06 K/mm3 (0.0-2.0); BASO % 0.9 % (0.0-3.0); EOS # 0.4 (0.0-0.7); EOS % 5.2 % (1.5-5.0); GRAN # 4.71 (1.4-6.5); GRAN % 69.8 % (50.0-68.0); HEMATOCRIT 36.9 % (36.0-48.0); LYMPH # 1.2 (1.2-3.4); MEAN CELL VOLUME 91.3 fL (80.0-105.0); MEAN CORPUSCULAR HGB CONC 31.7 g/dl (31.0-37.0); MEAN PLATELET VOLUME 11.1 fl (7.0-11.0); MONO # 0.4 (0.1-0.6); MONO % 6.1 % (1.0-6.0); PLATELET COUNT 211 10^3/uL (120.0-450.0); RED CELL DISTRIBUTION WIDTH 13.9 % (11.5-14.5); WHITE BLOOD COUNT 6.7 10^3/ul (4.5-11.0)
[2016-11-29] MEDS: Budesonide 0.5 mg/2 ml Inhal Susp UD IH SCH (07:15)
[2016-11-29] MEDS: Arformoterol 15 mcg/2 ml Inh Sol IH SCH (07:15)
[2016-11-29 07:28] LABS: BLOOD UREA NITROGEN 13 mg/dL (7-21); CALCIUM 9.2 mg/dL (8.4-10.5); CARBON DIOXIDE 33 mmol/L (21-33); CHLORIDE 99 mmol/L (98-107); GFR AFRICAN-AMERICAN > 60; GLUCOSE,RANDOM 102 mg/dL (70-110); POTASSIUM 4.4 mmol/L (3.6-5.0); SODIUM 140 mmol/L (132-148)
[2016-11-29] MEDS: Pantoprazole 40 mg EC Tab PO SCH (07:56)
[2016-11-29] MEDS: Levothyroxine 100 MCG TAB PO SCH (07:56)
[2016-11-29 08:08] VITALS: TEMP 98.2; O2SAT 97
[2016-11-29] MEDS: diltiaZEM 120 mg/24 Hours CD Cap PO SCH (09:23)
[2016-11-29 09:26] VITALS: BP 113/52; PULSE 58
--- NOTE | 2016-11-29 11:11 | CP.PCM.DIS ---
<Sarah Mendez - Last Filed: 12/03/16 07:23> Provider - Provider Date of Admission: 11/26/16 11:15 Attending physician: Macho Wick MD Primary care physician: Macho Wick MD Consults: Cardiology- Dr Leiva. Neurology- Dr Whitfield. Time Spent in preparation of Discharge (in minutes): 40 Diagnosis - Discharge Diagnosis (1) Gait instability Status: Acute (2) Hypotension Status: Acute (3) Afib Status: Chronic (4) Vertigo Status: Chronic (5) Anxiety Status: Chronic Hospital Course - Lab Results Lab Results: Most Recent Lab Values WBC 6.7 10^3/ul (4.5-11.0) 11/29/16 06:30 RBC 4.04 10^6/uL (3.5-6.1) 11/29/16 06:30 Hgb 11.7 gm/dL (12.0-16.0) L 11/29/16 06:30 Hct 36.9 % (36.0-48.0) 11/29/16 06:30 MCV 91.3 fL (80.0-105.0) 11/29/16 06:30 MCH 29.0 pg (25.0-35.0) 11/29/16 06:30 MCHC 31.7 g/dl (31.0-37.0) 11/29/16 06:30 RDW 13.9 % (11.5-14.5) 11/29/16 06:30 Plt Count 211 10^3/uL (120.0-450.0) 11/29/16 06:30 MPV 11.1 fl (7.0-11.0) H 11/29/16 06:30 Gran % 69.8 % (50.0-68.0) H 11/29/16 06:30 Lymph % (Auto) 18.0 % (22.0-35.0) L 11/29/16 06:30 [place] % (Auto) 6.1 % (1.0-6.0) H 11/29/16 06:30 Eos % (Auto) 5.2 % (1.5-5.0) H 11/29/16 06:30 Baso % (Auto) 0.9 % (0.0-3.0) 11/29/16 06:30 Gran # 4.71 (1.4-6.5) 11/29/16 06:30 Lymph # 1.2 (1.2-3.4) 11/29/16 06:30 [place] # 0.4 (0.1-0.6) 11/29/16 06:30 Eos # 0.4 (0.0-0.7) 11/29/16 06:30 Baso # 0.06 K/mm3 (0.0-2.0) 11/29/16 06:30 PT 11.5 Seconds (9.9-11.8) 11/26/16 09:05 INR 1.06 (0.93-1.08) 11/26/16 09:05 APTT 27.3 Seconds (23.7-30.8) 11/26/16 09:05 Sodium 140 mmol/L (132-148) 11/29/16 06:30 Potassium 4.4 mmol/L (3.6-5.0) 11/29/16 06:30 Chloride 99 mmol/L (98-107) 11/29/16 06:30 Carbon Dioxide 33 mmol/L (21-33) 11/29/16 06:30 Anion Gap 12 (10-20) 11/29/16 06:30 BUN 13 mg/dL (7-21) 11/29/16 06:30 Creatinine 1.0 mg/dL (0.5-1.4) 11/29/16 06:30 Est GFR ( Amer) > 60 11/29/16 06:30 Est GFR (Non-Af Amer) 55 11/29/16 06:30 Random Glucose 102 mg/dL (70-110) 11/29/16 06:30 Calcium 9.2 mg/dL (8.4-10.5) 11/29/16 06:30 Total Bilirubin 0.7 mg/dL (0.2-1.3) 11/26/16 08:11 AST 16 U/L (15-39) 11/26/16 08:11 ALT 31 U/L (7-56) 11/26/16 08:11 Alkaline Phosphatase 60 U/L (38-133) 11/26/16 08:11 Troponin I < 0.01 ng/mL 11/26/16 08:11 Total Protein 6.6 g/dL (5.8-8.3) 11/26/16 08:11 Albumin 3.5 g/dL (3.0-4.8) 11/26/16 08:11 Globulin 3.1 gm/dL 11/26/16 08:11 Albumin/Globulin Ratio 1.1 (1.1-1.8) 11/26/16 08:11 Free T4 1.45 ng/dL (0.78-2.19) 11/26/16 07:00 TSH 3rd Generation 0.78 mIU/mL (0.46-4.68) 11/26/16 07:00 - Hospital Course Hospital Course: Patient is a 71 y/o with pmh of Vertigo, CAD, HTN, cva x3 , Hypothyroidism, COPD on home oxygen whom presented to [facility] s/p syncope and fall and was admitted for further work up. Patient had CT head with no acute ischemic changes. Patient had carotid u/s which revealed chronic left carotid occlusion. Patient was suspected to have hypotension. Patient's BP meds were held. Patient was evaluated by PT, and was transferred to TCU to continue PT. - Date & Time of H&P Date of H&P: 11/25/16 Time of H&P: 22:26 Discharge Exam - Head Exam Head Exam: ATRAUMATIC, NORMAL INSPECTION, NORMOCEPHALIC - Eye Exam Eye Exam: EOMI, Normal appearance, PERRL. absent: Scleral icterus - ENT Exam ENT Exam: Mucous Membranes Moist - Neck Exam Neck exam: Full Rom, Normal Inspection, Tenderness - Respiratory Exam Respiratory Exam: Clear to PA & Lateral, NORMAL BREATHING PATTERN, UNREMARKABLE. absent: Rales, Rhonchi, Wheezes, Respiratory Distress, Stridor - Cardiovascular Exam Cardiovascular Exam: REGULAR RHYTHM, RRR, +S1, +S2. absent: Systolic Murmur - GI/Abdominal Exam GI & Abdominal Exam: Normal Bowel Sounds, Unremarkable. absent: Distended, Firm , Guarding, Rigid, Soft, Tenderness - Extremities Exam Extremities exam: normal inspection - Back Exam Back exam: NORMAL INSPECTION - Neurological Exam Neurological exam: Abnormal Gait, Alert, Oriented x3, Reflexes Normal - Psychiatric Exam Psychiatric exam: Normal Affect, Normal Mood - Skin Skin Exam: Dry, Intact, Normal Color, Warm Discharge Plan - Follow Up Plan Condition: GOOD Disposition: TRANSF TO SNF Patient education suggested?: Yes Instructions: Coronary Artery Disease (DC), Atrial Fibrillation (DC), Vertigo ( DC), COPD (Chronic Obstructive Pulmonary Disease) (DC), Weakness (GEN), Hypertension (DC), Anxiety (GEN), Fall Prevention (GEN) Referrals: Macho Wick MD [Primary Care Provider] - <Macho Wick - Last Filed: 12/21/16 13:45> Provider - Provider Date of Admission: 11/26/16 11:15 Attending physician: Macho Wick MD Primary care physician: Macho Wick MD Hospital Course - Lab Results Lab Results: Most Recent Lab Values WBC 6.7 10^3/ul (4.5-11.0) 11/29/16 06:30 RBC 4.04 10^6/uL (3.5-6.1) 11/29/16 06:30 Hgb 11.7 gm/dL (12.0-16.0) L 11/29/16 06:30 Hct 36.9 % (36.0-48.0) 11/29/16 06:30 MCV 91.3 fL (80.0-105.0) 11/29/16 06:30 MCH 29.0 pg (25.0-35.0) 11/29/16 06:30 MCHC 31.7 g/dl (31.0-37.0) 11/29/16 06:30 RDW 13.9 % (11.5-14.5) 11/29/16 06:30 Plt Count 211 10^3/uL (120.0-450.0) 11/29/16 06:30 MPV 11.1 fl (7.0-11.0) H 11/29/16 06:30 Gran % 69.8 % (50.0-68.0) H 11/29/16 06:30 Lymph % (Auto) 18.0 % (22.0-35.0) L 11/29/16 06:30 [place] % (Auto) 6.1 % (1.0-6.0) H 11/29/16 06:30 Eos % (Auto) 5.2 % (1.5-5.0) H 11/29/16 06:30 Baso % (Auto) 0.9 % (0.0-3.0) 11/29/16 06:30 Gran # 4.71 (1.4-6.5) 11/29/16 06:30 Lymph # 1.2 (1.2-3.4) 11/29/16 06:30 [place] # 0.4 (0.1-0.6) 11/29/16 06:30 Eos # 0.4 (0.0-0.7) 11/29/16 06:30 Baso # 0.06 K/mm3 (0.0-2.0) 11/29/16 06:30 PT 11.5 Seconds (9.9-11.8) 11/26/16 09:05 INR 1.06 (0.93-1.08) 11/26/16 09:05 APTT 27.3 Seconds (23.7-30.8) 11/26/16 09:05 Sodium 140 mmol/L (132-148) 11/29/16 06:30 Potassium 4.4 mmol/L (3.6-5.0) 11/29/16 06:30 Chloride 99 mmol/L (98-107) 11/29/16 06:30 Carbon Dioxide 33 mmol/L (21-33) 11/29/16 06:30 Anion Gap 12 (10-20) 11/29/16 06:30 BUN 13 mg/dL (7-21) 11/29/16 06:30 Creatinine 1.0 mg/dL (0.5-1.4) 11/29/16 06:30 Est GFR ( Amer) > 60 11/29/16 06:30 Est GFR (Non-Af Amer) 55 11/29/16 06:30 Random Glucose 102 mg/dL (70-110) 11/29/16 06:30 Calcium 9.2 mg/dL (8.4-10.5) 11/29/16 06:30 Total Bilirubin 0.7 mg/dL (0.2-1.3) 11/26/16 08:11 AST 16 U/L (15-39) 11/26/16 08:11 ALT 31 U/L (7-56) 11/26/16 08:11 Alkaline Phosphatase 60 U/L (38-133) 11/26/16 08:11 Troponin I < 0.01 ng/mL 11/26/16 08:11 Total Protein 6.6 g/dL (5.8-8.3) 11/26/16 08:11 Albumin 3.5 g/dL (3.0-4.8) 11/26/16 08:11 Globulin 3.1 gm/dL 11/26/16 08:11 Albumin/Globulin Ratio 1.1 (1.1-1.8) 11/26/16 08:11 Free T4 1.45 ng/dL (0.78-2.19) 11/26/16 07:00 TSH 3rd Generation 0.78 mIU/mL (0.46-4.68) 11/26/16 07:00 Attending/Attestation - Attestation I have personally seen and examined this patient.: Yes I have fully participated in the care of the patient.: Yes I have reviewed all pertinent clinical information, including history, physical exam and plan: Yes Notes (Text): 12/21/16 13:45 Resident note done after seen and examined by me with discussion. The note is a representation of my history, physical and plan for patient.
--- NOTE | 2016-11-29 14:05 | PN ---
DATE: 11/29/2016 The patient is no longer dizzy. PHYSICAL EXAMINATION: VITAL SIGNS: Blood pressure is 113/52. The heart rate is in the 50s. NECK: Negative JVD. LUNGS: Without rales. HEART: Revealed S1, S2. EXTREMITIES: Without edema. Echocardiogram shows no LV outflow obstruction. The hemoglobin is 11.7. Chemistry is unremarkable. IMPRESSION: 1. Status post dizziness, which is now resolved. 2. No evidence for left ventricular outflow obstruction on echocardiogram. 3. History of percutaneous transluminal coronary angioplasty. 4. Chronic obstructive pulmonary disease. 5. Hypertension. 6. Hypercholesterolemia. Given these findings, the patient is stable from a cardiac perspective for discharge. We will arrang e for an outpatient stress test. Hebert Leiva MD cc: [id number] TT: 11/29/2016 14:04:56 Confirmation # [id number] Dictation # [id number]
== END 2016-11-29 16:03 | DRG 316 ==
LOC: ED 12:51 → ERH 16:04 → 5RSO 21:35 → OBSVTOIN 11-26 11:15 → 5RNO 11-27 21:44
PROVIDERS: ADMIT Internal Medicine; ATTEND Internal Medicine
DX: I95.9 Hypotension, unspecified (principal); R26.81 Unsteadiness on feet; R42 Dizziness and giddiness; J44.9 Chronic obstructive pulmonary disease, unspecified; I25.118 Atherosclerotic heart disease of native coronary artery with other forms of angina pectoris; I10 Essential (primary) hypertension; E78.00 Pure hypercholesterolemia, unspecified; E03.9 Hypothyroidism, unspecified; I48.0 Paroxysmal atrial fibrillation; F41.9 Anxiety disorder, unspecified; F32.9 Major depressive disorder, single episode, unspecified; Z99.81 Dependence on supplemental oxygen; R29.6 Repeated falls; Z91.81 History of falling; Z79.01 Long term (current) use of anticoagulants; Z86.73 Personal history of transient ischemic attack (TIA), and cerebral infarction without residual deficits; Z95.5 Presence of coronary angioplasty implant and graft; Z87.891 Personal history of nicotine dependence

== ENCOUNTER 2016-11-29 15:34 | Inpatient (IN) | payer OTHER, MEDICAID ==
[2016-11-29 16:13] VITALS: BMI 24.0
[2016-11-29] MEDS ORDERED: Albuterol-Ipratrop 3 mg / 0.5 (3 ml) UD IH PRN (16:50)
--- NOTE | 2016-11-29 19:18 | CON ---
DATE: 11/29/2016 CHIEF COMPLAINT: Fall. HISTORY OF PRESENT ILLNESS: A 71-year-old woman with past medical history of vertigo, history of cor onary artery disease, hypertension, history of CVA, hypothyroidism, AFib on Eliquis, chronic obstruct amara pulmonary disease, on home oxygen, subclavian bypass and stent, presented initially to ____ [facility] for mechanical fall and dizziness in terms of lightheadedness and occasional spinning sensation i n the room. She has multiple falls in the past. She has gait instability, which is secondary decond itioned state and transient drop in her blood pressures. A carotid Doppler showed 20%-39% proximal I CA stenosis and chronic left common carotid occlusion. Cardiology has seen the patient and deemed sh aniceto is on Eliquis 5 mg p.o. b.i.d. and aspirin 81 mg, and Lipitor for stroke prevention. She is on José Luis ax for her underlying anxiety. Her blood pressures have been systolically and diastolically on the l ower side. Currently, she is following commands, moving all extremities. PAST MEDICAL HISTORY: Vertigo, coronary artery disease, history of CVA x 3, , hypothyroidism, AFib, COPD, subclavian bypass stent. REVIEW OF SYSTEMS: A 14-point review of systems is negative except for the HPI. MEDICATIONS: Reviewed via nurse's reconciliation sheet. ALLERGIES: ACETAMINOPHEN, CODEINE, OXYCODONE, PENICILLIN. SOCIAL HISTORY: No illicit drug use, smoking, or ETOH abuse. FAMILY HISTORY: Noncontributory. PHYSICAL EXAMINATION: VITAL SIGNS: Temperature of 98.3, pulse rate is 66, blood pressure 112/58, respiratory rate 20, oxyg en 97% on room air. GENERAL: The patient is sitting up in bed in no acute distress. HEENT: Atraumatic, normocephalic. PERRLA. Extraocular muscles intact. NECK: Supple, no JVD, no adenopathy noted. LUNGS: Clear to auscultation. No adventitious sounds. HEART: S1, S2, normal rate and rhythm. No murmurs, rubs, or gallops. ABDOMEN: Soft, nontender, nondistended. Bowel sounds are present. EXTREMITIES: No clubbing, no cyanosis. Peripheral pulses 2+ felt bilaterally. NEUROLOGIC: The patient is alert, oriented to person, place, month and year. Speech is fluent, with out any errors. Cranial nerves II through XII are intact. MOTOR: Moves all extremities equally. Toes are downgoing bilaterally. SENSORY: Light touch, pinprick, proprioception, vibration at DTRs 2+ throughout, 1 at the ankles and knees. COORDINATION: [id number] intact. GAIT: Deferred for now. LABORATORIES: Sodium is 140, potassium 4.4, chloride 99, BUN of 13, carbon dioxide 33, creatinine of 1. Random glucose of 102.. ASSESSMENT AND PLAN: This is a 71-year-old woman with past medical history of vertigo, coronary johnny ry disease, hypertension, history of cerebrovascular accident, history of hypothyroidism, atrial fibr illation on Eliquis, chronic obstructive pulmonary disease on home oxygen, subclavian bypass and sten t, presented initially to the hospital for mechanical fall and was worked up and found to have dizzin ess which is likely secondary to transient drop in her blood pressures. She has had multiple falls i n the past, likely secondary deconditioned state, causing her gait instability. At this time she at [facility] for rehabilitation. Her carotid Doppler showed 20%-39% proximal right internal carotid artery s tenosis and chronic left common carotid artery occlusion. Her CT head showed no acute intracranial a bnormality. Currently, recommend: 1. Continue with physical and occupational therapy for underlying deconditioned state and for dizzin ess in the current rehabilitation. 2. Continue aspirin, Eliquis as well as statin for stroke prevention. 3. Keep her systolic blood pressure slightly elevated above 120-130 mmHg given her systolic and henry tolic blood pressures have fluctuated be low causing her to be dizzy and continue on current present medical management. Thank you for this consult. Dallas Whitfield MD cc: [phone] TT: 11/29/2016 19:17:26 Confirmation # [id number] Dictation # [id number]
[2016-11-29] MEDS: Budesonide 0.5 mg/2 ml Inhal Susp UD IH SCH (19:39)
[2016-11-29] MEDS: Arformoterol 15 mcg/2 ml Inh Sol IH SCH ×2 (19:39)
[2016-11-30] MEDS: Pantoprazole 40 mg EC Tab PO SCH (05:42)
[2016-11-30] MEDS: Levothyroxine 100 MCG TAB PO SCH (05:42)
--- NOTE | 2016-11-30 07:01 | CP.PCM.HP ---
<Sarah Mendez - Last Filed: 11/30/16 17:06> History of Present Illness - History of Present Illness History of Present Illness: Patient is a 71 y/o with pmh of Vertigo, CAD, HTN, cva x3 , Hypothyroidism, COPD on home oxygen whom presented to [facility] s/p syncope and fall and was admitted for further work up. Patient had CT head with no acute ischemic changes. Patient had carotid u/s which revealed chronic left carotid occlusion. Patient was suspected to have hypotension. Patient's BP meds were held. Patient was evaluated by PT, and was transferred to TCU to continue PT. Patient is currently resting on the bed, denies cp, sob, headache, dizziness, n/ v/d. Patient admits to constipation. Pmh: as mentioned above PSH: cardiac bypass, carotid endarterectomy. Social: former tobacco use. Present on Admission - Present on Admission Any Indicators Present on Admission: No History of DVT/PE: No History of Uncontrolled Diabetes: No Urinary Catheter: No Decubitus Ulcer Present: No Review of Systems - Review of Systems All systems: reviewed and no additional remarkable complaints except Review of Systems: As mentioned in HPI. Past Patient History - Infectious Disease Hx of Infectious Diseases: None - Past Medical History & Family History Past Medical History?: Yes - Past Social History Smoking Status: Former Smoker Alcohol: None Drugs: Denies Home Situation {Lives}: With Family - CARDIAC Hx Cardiac Disorders: Yes Hx Hypertension: Yes - PULMONARY Hx Chronic Obstructive Pulmonary Disease (COPD): Yes - NEUROLOGICAL Hx Neurological Disorder: No - HEENT Hx HEENT Problems: No - RENAL Hx Chronic Kidney Disease: No - ENDOCRINE/METABOLIC Hx Hypothyroidism: Yes - HEMATOLOGICAL/ONCOLOGICAL Hx Blood Disorders: No - INTEGUMENTARY Hx Dermatological Problems: No - MUSCULOSKELETAL/RHEUMATOLOGICAL Hx Falls: Yes - GASTROINTESTINAL Hx Gastrointestinal Disorders: No - GENITOURINARY/GYNECOLOGICAL Hx Genitourinary Disorders: No Hx Reproductive Disorders: No - PSYCHIATRIC Hx Psychophysiologic Disorder: Yes Hx Depression: Yes Hx Emotional Abuse: No Hx Physical Abuse: No - SURGICAL HISTORY Other/Comment: cardiac stent. L carotid artery surgery. R kidney surgery - ANESTHESIA Hx Anesthesia Reactions: No Hx Malignant Hyperthermia: No Meds Allergies/Adverse Reactions: Allergies Allergy/AdvReac Type Severity Reaction Status Date / Time acetaminophen [From Percocet] Allergy ANAPHYLAXIS Verified 05/18/17 20:08 codeine Allergy ANAPHYLAXIS Verified 12/01/16 20:08 oxycodone HCl [From Percocet] Allergy ANAPHYLAXIS Verified 12/01/16 20:08 Penicillins Allergy ANAPHYLAXIS Verified 12/01/16 20:08 Physical Exam - Constitutional Appears: No Acute Distress - Head Exam Head Exam: ATRAUMATIC, NORMAL INSPECTION, NORMOCEPHALIC - Eye Exam Eye Exam: Normal appearance, PERRL. absent: Scleral icterus - ENT Exam ENT Exam: Mucous Membranes Moist - Neck Exam Neck exam: Positive for: Normal Inspection - Respiratory Exam Respiratory Exam: Clear to Auscultation Bilateral, NORMAL BREATHING PATTERN. absent: Rales, Rhonchi, Wheezes, Respiratory Distress, Stridor - Cardiovascular Exam Cardiovascular Exam: REGULAR RHYTHM, RRR, +S1, +S2. absent: Systolic Murmur - GI/Abdominal Exam GI & Abdominal Exam: Normal Bowel Sounds, Soft. absent: Distended, Firm, Guarding, Tenderness - Extremities Exam Extremities exam: Positive for: normal inspection - Back Exam Back exam: NORMAL INSPECTION - Neurological Exam Neurological exam: Alert, Oriented x3 - Psychiatric Exam Psychiatric exam: Normal Affect, Normal Mood - Skin Skin Exam: Dry, Intact, Normal Color, Warm Results - Vital Signs Recent Vital Signs: Last Vital Signs Temp 98.3 F 11/29/16 16:16 Pulse 66 11/29/16 16:16 Resp 20 11/29/16 16:16 BP 112/58 L 11/29/16 16:16 Pulse Ox Assessment & Plan - Assessment and Plan (Free Text) Assessment: Patient is a 71 y/o with pmh of Vertigo, CAD, HTN, cva x3 , Hypothyroidism, COPD on home oxygen whom presented to [facility] s/p syncope and fall. Patient is admitted to tcu for PT. Plan: 1) Syncope and fall 2nd to gait instability and hypotension - Patient to resume PT in tcu. 2) h/o afib - will continue eliquis and cardizem 3) CAD - continue lipitor, and asa - continue imdur for angina - coreg on hold 4) HTN - cozaar on hold 5) Hypothyroidism - continue synthroid 100 mcg daily 6) COPD - continue home oxygen - continue pulmocort, duoneb, brovana 7) h/o depression and anxiety - continue celexa and xanax. 8) Cervical neck pain/spasm: - continue flexeril. 9) DVT and gi prophylaxis: on eliquis, and protonix. Patient seen, examined, case discussed with Dr Gallego. - Date & Time Date: 11/30/16 Time: 08:45 <Lopez Gallego - Last Filed: 12/18/16 19:00> Results - Vital Signs Recent Vital Signs: Last Vital Signs Temp 98 F 12/06/16 10:00 Pulse 63 12/06/16 11:18 Resp 16 12/06/16 10:00 BP 119/46 L 12/06/16 11:18 Pulse Ox 100 12/06/16 10:00 - Labs Result Diagrams: 12/04/16 08:15 12/04/16 08:15 Attending/Attestation - Attestation I have personally seen and examined this patient.: Yes I have fully participated in the care of the patient.: Yes I have reviewed all pertinent clinical information: Yes Notes (Text): 12/18/16 19:00 Medical record note made by the resident after discussion with my direction and input after the patient was personally seen and examined by me. I have reviewed the chart and agree that the record accurately reflects by personal performance of the history, physical exam, data review, and medical decision-making, in the course for the patient. I have also personally directed the plan of care.
[2016-11-30] MEDS: Arformoterol 15 mcg/2 ml Inh Sol IH SCH ×3 (07:30→20:48)
[2016-11-30] MEDS: Budesonide 0.5 mg/2 ml Inhal Susp UD IH SCH ×2 (07:30→20:48)
[2016-11-30] MEDS: diltiaZEM 120 mg/24 Hours CD Cap PO SCH (11:09)
[2016-12-01] MEDS: Arformoterol 15 mcg/2 ml Inh Sol IH SCH (21:13)
[2016-12-01] MEDS: Budesonide 0.5 mg/2 ml Inhal Susp UD IH SCH (21:14)
[2016-12-02] MEDS: Pantoprazole 40 mg EC Tab PO SCH (05:30)
[2016-12-02] MEDS: Levothyroxine 100 MCG TAB PO SCH (05:30)
--- NOTE | 2016-12-02 06:37 | CP.PCM.PN ---
<Sarah Mendez - Last Filed: 12/02/16 19:30> Subjective - Date & Time of Evaluation Date of Evaluation: 12/02/16 Time of Evaluation: 07:00 - Subjective Subjective: Medicine progress note for Dr Wick and Dr Gallego. Patient in no acute distress. Patient undergoing PT. Patient states her gait has been improving. Patient denies cp, sob, headache, dizziness. Patient states she has h/o chronic diarrhea, no recent antibiotic use. Takes imodium at home. Objective - Vital Signs/Intake and Output Vital Signs (last 24 hours): Temp Pulse Resp BP Pulse Ox 97.8 F 66 15 120/55 L 96 11/30/16 16:00 11/30/16 18:12 11/30/16 16:00 11/30/16 18:12 11/30/16 16:00 Intake and Output: 12/01/16 12/02/16 18:59 06:59 Intake Total 480 Balance 480 - Medications Medications: Current Medications Albuterol/Ipratropium (Duoneb 3 Mg/0.5 Mg (3 Ml) Ud) 3 ml IH [id number] PRN; Protocol PRN Reason: Shortness of Breath Alprazolam (Xanax) 1 mg PO Q6 STACY PRN Reason: Protocol Last Admin: 12/02/16 05:30 Dose: 1 mg Apixaban (Eliquis) 5 mg PO BID STACY PRN Reason: Protocol Last Admin: 11/30/16 18:12 Dose: 5 mg Arformoterol Tartrate (Brovana) 15 mcg IH [id number] STACY PRN Reason: Protocol Last Admin: 12/01/16 21:13 Dose: 15 mcg Arformoterol Tartrate (Brovana) 15 mcg IH [id number] STACY Last Admin: 11/30/16 07:31 Dose: Not Given Aspirin (Ecotrin) 81 mg PO 0800 STACY PRN Reason: Protocol Last Admin: 11/30/16 08:48 Dose: 81 mg Atorvastatin Calcium (Lipitor) 80 mg PO HS STACY PRN Reason: Protocol Last Admin: 12/01/16 21:30 Dose: 80 mg Budesonide (Pulmicort Respules) 0.5 mg IH [id number] STACY PRN Reason: Protocol Last Admin: 12/01/16 21:14 Dose: 0.5 mg Carvedilol (Coreg) 3.125 mg PO 0800,1800 [facility] PRN Reason: Protocol Last Admin: 11/30/16 18:12 Dose: 3.125 mg Citalopram Hydrobromide (Celexa) 20 mg PO HS STACY PRN Reason: Protocol Last Admin: 12/01/16 21:30 Dose: 20 mg Cyclobenzaprine HCl (Flexeril) 5 mg PO 0600,1400,2200 [facility] PRN Reason: Protocol Last Admin: 12/02/16 05:29 Dose: 5 mg Diltiazem HCl (Cardizem Cd) 120 mg PO DAILY [facility] Last Admin: 11/30/16 11:09 Dose: 120 mg Ibuprofen (Motrin Tab) 600 mg PO Q6 PRN; Protocol PRN Reason: Pain, moderate (4-7) Isosorbide Mononitrate (Imdur) 60 mg PO 0630 STACY PRN Reason: Protocol Last Admin: 12/02/16 05:29 Dose: 60 mg Levothyroxine Sodium (Synthroid) 100 mcg PO 0630 STACY PRN Reason: Protocol Last Admin: 12/02/16 05:30 Dose: 100 mcg Pantoprazole Sodium (Protonix Ec Tab) 40 mg PO 0630 STACY PRN Reason: Protocol Last Admin: 12/02/16 05:30 Dose: 40 mg Zolpidem Tartrate (Ambien) 5 mg PO HS PRN; Protocol PRN Reason: Insomnia Last Admin: 12/01/16 21:30 Dose: 5 mg - Constitutional Appears: No Acute Distress - Head Exam Head Exam: ATRAUMATIC, NORMAL INSPECTION, NORMOCEPHALIC - Eye Exam Eye Exam: Normal appearance, PERRL. absent: Scleral icterus - ENT Exam ENT Exam: Mucous Membranes Moist - Neck Exam Neck Exam: Normal Inspection - Respiratory Exam Respiratory Exam: Clear to Ausculation Bilateral, NORMAL BREATHING PATTERN. absent: Rales, Rhonchi, Wheezes, Respiratory Distress, Stridor - Cardiovascular Exam Cardiovascular Exam: REGULAR RHYTHM, RRR, +S1, +S2 - GI/Abdominal Exam GI & Abdominal Exam: Soft, Normal Bowel Sounds. absent: Distended, Firm, Guarding, Rigid, Tenderness - Extremities Exam Extremities Exam: Normal Inspection - Back Exam Back Exam: NORMAL INSPECTION - Neurological Exam Neurological Exam: Alert, Awake, Oriented x3 - Psychiatric Exam Psychiatric exam: Normal Affect, Normal Mood - Skin Skin Exam: Dry, Intact, Normal Color, Warm Assessment and Plan - Assessment and Plan (Free Text) Assessment: Patient is a 71 y/o with pmh of htn, Vertigo, CAD, cva x3 , Hypothyroidism, COPD on home oxygen presented with syncope and fall, currently admitted in TCU for physical rehabilitation. Plan: 1) Right knee pain -Knee x-ray pending. - pain control - continue PT. 2) Chronic diarrhea - will resume home imodium. 3) syncope and fall - continue PT - holding htn meds, except cardizem. 4) Hypothyroidism- continue synthroid 5) h/o afib- continue cardizem and eliquis 6) COPD- continue oxygen, and bronchodilators. 7) h/o htn- hold htn meds 2nd to hypotension. 8) DVT/GI prophylaxis: protonix and scds. <Lopez Gallego - Last Filed: 12/18/16 19:03> Objective - Vital Signs/Intake and Output Vital Signs (last 24 hours): Temp Pulse Resp BP Pulse Ox 98 F 63 16 119/46 L 100 12/06/16 10:00 12/06/16 11:18 12/06/16 10:00 12/06/16 11:18 12/06/16 10:00 - Labs Labs: 12/04/16 08:15 12/04/16 08:15 Attending/Attestation - Attestation I have personally seen and examined this patient.: Yes I have fully participated in the care of the patient.: Yes I have reviewed all pertinent clinical information, including history, physical exam and plan: Yes Notes (Text): 12/18/16 19:02 Medical record note made by the resident after discussion with my direction and input after the patient was personally seen and examined by me. I have reviewed the chart and agree that the record accurately reflects by personal performance of the history, physical exam, data review, and medical decision-making, in the course for the patient. I have also personally directed the plan of care.
[2016-12-02] MEDS: Arformoterol 15 mcg/2 ml Inh Sol IH SCH ×3 (07:23→21:00)
[2016-12-02] MEDS: Budesonide 0.5 mg/2 ml Inhal Susp UD IH SCH ×2 (07:24→21:00)
[2016-12-02 08:50] LABS: ADD MANUAL DIFF? NO
[2016-12-02 08:55] LABS: BASO # 0.03 K/mm3 (0.0-2.0); BASO % 0.4 % (0.0-3.0); EOS # 0.4 (0.0-0.7); EOS % 5.7 % (1.5-5.0); GRAN # 5.03 (1.4-6.5); GRAN % 72.4 % (50.0-68.0); HEMATOCRIT 36.6 % (36.0-48.0); LYMPH # 1.2 (1.2-3.4); LYMPH % 16.5 % (22.0-35.0); MEAN CELL VOLUME 89.7 fL (80.0-105.0); MEAN CORPUSCULAR HEMOGLOBIN 29.2 pg (25.0-35.0); MEAN CORPUSCULAR HGB CONC 32.5 g/dl (31.0-37.0); MEAN PLATELET VOLUME 11.3 fl (7.0-11.0); MONO # 0.4 (0.1-0.6); PLATELET COUNT 212 10^3/uL (120.0-450.0); RED CELL DISTRIBUTION WIDTH 13.8 % (11.5-14.5)
[2016-12-02 09:18] LABS: BLOOD UREA NITROGEN 18 mg/dL (7-21); CALCIUM 9.2 mg/dL (8.4-10.5); CARBON DIOXIDE 29 mmol/L (21-33); CHLORIDE 98 mmol/L (98-107); GFR AFRICAN-AMERICAN > 60; GLUCOSE,RANDOM 157 mg/dL (70-110); POTASSIUM 4.5 mmol/L (3.6-5.0); SODIUM 140 mmol/L (132-148)
--- NOTE | 2016-12-02 10:11 | PN ---
DATE: 12/02/2016 SUBJECTIVE: The patient is in the TCU participating with physical therapy. PHYSICAL EXAMINATION: VITAL SIGNS: Blood pressure 117/54, heart rate in the 60s. NECK: Negative JVD. LUNGS: Decreased breath sounds. HEART: Revealed S1, S2. EXTREMITIES: Without edema. LABORATORY DATA: Hemoglobin is 11.9. Chemistries: The glucose is 157. IMPRESSION: 1. Stable angina. 2. Coronary artery disease. 3. Chronic obstructive pulmonary disease. 4. Resolution of dizziness. 5. Hypertension. 6. Hypercholesterolemia. PLAN: Given these findings, the patient will continue on her physical therapy. We will arrange for an outpatient stress test when she is discharged from physical therapy. Hebert Leiva MD cc: [id number] TT: 12/02/2016 10:10:27 Confirmation # [id number] Dictation # [id number]
[2016-12-02] MEDS: diltiaZEM 120 mg/24 Hours CD Cap PO SCH (12:06)
--- NOTE | 2016-12-02 12:59 | RAD ---
PROCEDURE: Right Knee Radiographs. HISTORY: r/o fracture COMPARISON: None. FINDINGS: BONES: Normal. No fracture. JOINTS: Normal. No osteoarthritis. JOINT EFFUSION: None. OTHER FINDINGS: None. IMPRESSION: Normal radiographs of the right knee.
[2016-12-03] MEDS: Pantoprazole 40 mg EC Tab PO SCH (05:54)
[2016-12-03] MEDS: Levothyroxine 100 MCG TAB PO SCH (05:54)
[2016-12-03] MEDS: Arformoterol 15 mcg/2 ml Inh Sol IH SCH ×2 (07:38→20:35)
[2016-12-03] MEDS: Budesonide 0.5 mg/2 ml Inhal Susp UD IH SCH ×2 (07:38→20:34)
[2016-12-03] MEDS: diltiaZEM 120 mg/24 Hours CD Cap PO SCH (10:45)
--- NOTE | 2016-12-03 14:27 | PN ---
DATE: 12/03/2016 I saw the patient in the transitional care unit. She is resting comfortably. She had a fall with so me hypertension. She is being seen by cardiology. She had a right knee x-ray normal. She had some knee pain, angina, CAD, COPD, status post dizziness, high cholesterol, hypertension, chronic diarrhea , hypothyroid, atrial fibrillation and the right knee pain with a normal x-ray. PHYSICAL EXAMINATION: VITAL SIGNS: 97.9 temp, 62 pulse, 124/61 blood pressure, 18 respiratory rate. HEENT: Head is atraumatic, normocephalic. NECK: Supple. HEART: Regular rate. LUNGS: Decreased breath sounds, but clear. ABDOMEN: Soft. EXTREMITIES: No edema. LABORATORY DATA: 7 white count, 11.9 hemoglobin, 36.6 hematocrit with 212 platelets. Sodium 140, po tassium 4.5, BUN 18, creatinine 0.8, GFR is greater than 60, sugar is 157, calcium 9.2. We will continue with physical therapy and care. For Dr. Wick who is off this weekend. Ted Molina DO cc: [id number] TT: 12/03/2016 14:27:24 Confirmation # [id number] Dictation # [id number]
[2016-12-04] MEDS: Pantoprazole 40 mg EC Tab PO SCH (05:44)
[2016-12-04] MEDS: Levothyroxine 100 MCG TAB PO SCH (05:44)
--- NOTE | 2016-12-04 07:27 | CP.PCM.CON ---
Past Patient History - Infectious Disease Hx of Infectious Diseases: None - Past Medical History & Family History Past Medical History?: Yes - Past Social History Smoking Status: Former Smoker Alcohol: None Drugs: Denies Home Situation {Lives}: With Family - CARDIAC Hx Cardiac Disorders: Yes Hx Hypertension: Yes - PULMONARY Hx Chronic Obstructive Pulmonary Disease (COPD): Yes - NEUROLOGICAL Hx Neurological Disorder: No - HEENT Hx HEENT Problems: No - RENAL Hx Chronic Kidney Disease: No - ENDOCRINE/METABOLIC Hx Hypothyroidism: Yes - HEMATOLOGICAL/ONCOLOGICAL Hx Blood Disorders: No - INTEGUMENTARY Hx Dermatological Problems: No - MUSCULOSKELETAL/RHEUMATOLOGICAL Hx Falls: Yes - GASTROINTESTINAL Hx Gastrointestinal Disorders: No - GENITOURINARY/GYNECOLOGICAL Hx Genitourinary Disorders: No Hx Reproductive Disorders: No - PSYCHIATRIC Hx Psychophysiologic Disorder: Yes Hx Depression: Yes Hx Emotional Abuse: No Hx Physical Abuse: No - SURGICAL HISTORY Other/Comment: cardiac stent. L carotid artery surgery. R kidney surgery - ANESTHESIA Hx Anesthesia Reactions: No Hx Malignant Hyperthermia: No Meds Allergies/Adverse Reactions: Allergies Allergy/AdvReac Type Severity Reaction Status Date / Time acetaminophen [From Percocet] Allergy ANAPHYLAXIS Verified 12/01/16 20:08 codeine Allergy ANAPHYLAXIS Verified 12/01/16 20:08 oxycodone HCl [From Percocet] Allergy ANAPHYLAXIS Verified 12/01/16 20:08 Penicillins Allergy ANAPHYLAXIS Verified 12/01/16 20:08 - Medications Medications: Current Medications Albuterol/Ipratropium (Duoneb 3 Mg/0.5 Mg (3 Ml) Ud) 3 ml IH [id number] PRN; Protocol PRN Reason: Shortness of Breath Alprazolam (Xanax) 1 mg PO Q6 STACY PRN Reason: Protocol Last Admin: 12/04/16 05:04 Dose: 1 mg Apixaban (Eliquis) 5 mg PO BID STACY PRN Reason: Protocol Last Admin: 12/03/16 17:38 Dose: 5 mg Arformoterol Tartrate (Brovana) 15 mcg IH [id number] STACY PRN Reason: Protocol Last Admin: 12/03/16 20:35 Dose: 15 mcg Aspirin (Ecotrin) 81 mg PO 0800 STACY PRN Reason: Protocol Last Admin: 12/03/16 08:39 Dose: 81 mg Atorvastatin Calcium (Lipitor) 80 mg PO HS STACY PRN Reason: Protocol Last Admin: 12/03/16 21:10 Dose: 80 mg Budesonide (Pulmicort Respules) 0.5 mg IH [id number] STACY PRN Reason: Protocol Last Admin: 12/03/16 20:34 Dose: 0.5 mg Carvedilol (Coreg) 3.125 mg PO 0800,1800 STACY PRN Reason: Protocol Last Admin: 12/02/16 17:25 Dose: 3.125 mg Citalopram Hydrobromide (Celexa) 20 mg PO HS STACY PRN Reason: Protocol Last Admin: 12/03/16 21:10 Dose: 20 mg Cyclobenzaprine HCl (Flexeril) 5 mg PO 0600,1400,2200 STACY PRN Reason: Protocol Last Admin: 12/04/16 05:05 Dose: 5 mg Diltiazem HCl (Cardizem Cd) 120 mg PO DAILY [facility] Last Admin: 12/03/16 10:45 Dose: Not Given Ibuprofen (Motrin Tab) 600 mg PO Q6 PRN; Protocol PRN Reason: Pain, moderate (4-7) Isosorbide Mononitrate (Imdur) 60 mg PO 0630 STACY PRN Reason: Protocol Last Admin: 12/02/16 05:29 Dose: 60 mg Levothyroxine Sodium (Synthroid) 100 mcg PO 0630 STACY PRN Reason: Protocol Last Admin: 12/04/16 05:44 Dose: 100 mcg Loperamide HCl (Imodium) 2 mg PO QID PRN PRN Reason: Diarrhea Pantoprazole Sodium (Protonix Ec Tab) 40 mg PO 0630 STACY PRN Reason: Protocol Last Admin: 12/04/16 05:44 Dose: 40 mg Zolpidem Tartrate (Ambien) 5 mg PO HS PRN; Protocol PRN Reason: Insomnia Last Admin: 12/03/16 21:10 Dose: 5 mg Results - Vital Signs Recent Vital Signs: Last Vital Signs Temp 97.9 F 12/02/16 16:00 Pulse 56 L 12/03/16 10:45 Resp 18 12/02/16 16:00 BP 122/53 L 12/03/16 10:45 Pulse Ox 97 12/02/16 10:00 - Labs Result Diagrams: 12/02/16 08:30 12/02/16 08:30
[2016-12-04] MEDS: Arformoterol 15 mcg/2 ml Inh Sol IH SCH ×2 (07:29→20:12)
[2016-12-04] MEDS: Budesonide 0.5 mg/2 ml Inhal Susp UD IH SCH ×2 (07:30→20:12)
[2016-12-04 09:06] LABS: ALB/GLOB RATIO 1.3 (1.1-1.8); ALKALINE PHOSPHATASE 52 U/L (38-133); ALT/SGPT 31 U/L (7-56); AST/SGOT 29 U/L (15-39); BILIRUBIN,TOTAL 0.8 mg/dL (0.2-1.3); BLOOD UREA NITROGEN 12 mg/dL (7-21); CALCIUM 9.2 mg/dL (8.4-10.5); CARBON DIOXIDE 29 mmol/L (21-33); CHLORIDE 103 mmol/L (98-107); GFR AFRICAN-AMERICAN > 60; GLUCOSE,RANDOM 159 mg/dL (70-110); POTASSIUM 4.6 mmol/L (3.6-5.0); SODIUM 139 mmol/L (132-148); TOTAL PROTEIN 7.2 g/dL (5.8-8.3)
[2016-12-04 09:14] LABS: HEMATOCRIT 38.1 % (36.0-48.0); MEAN CELL VOLUME 90.3 fL (80.0-105.0); MEAN CORPUSCULAR HEMOGLOBIN 28.9 pg (25.0-35.0); MEAN PLATELET VOLUME 11.4 fl (7.0-11.0); RED CELL DISTRIBUTION WIDTH 13.8 % (11.5-14.5); WHITE BLOOD COUNT 6.8 10^3/ul (4.5-11.0)
[2016-12-04] MEDS: diltiaZEM 120 mg/24 Hours CD Cap PO SCH (11:00)
--- NOTE | 2016-12-04 12:08 | PN ---
DATE: 12/04/2016 I saw her in the transitional care unit. She is resting comfortably in bed. She ate her breakfast w ell. She is trying in physical therapy. She is slowly improving. She is in good spirits, no acute complaints this morning. She is on Ambien, Brovana, Cardizem, Celexa, Coreg, DuoNeb, Ecotrin, Eliquis, Flexeril, Imdur, Imodiu m, Lipitor, Motrin, Protonix, Pulmicort, Synthroid, and Xanax. PHYSICAL EXAMINATION: VITAL SIGNS: She has a 97.9 temp, 62 pulse, 124/61 blood pressure, 18 respiratory rate, 97% O2 sat. HEENT: Head is atraumatic, normocephalic. HEART: Regular rate. LUNGS: Clear to auscultation. ABDOMEN: Soft, mildly obese. EXTREMITIES: No edema. She has a 6.8 white count, 12.2 hemoglobin, 38.1 hematocrit with 203 platelets. Sodium 139, potassiu m is 4.6, BUN 12, creatinine 0.8, GFR is greater than 60, sugar is 159, calcium is 9.2, total bili is 0.8, AST is 29, ALT is 31, alk phos 52, total protein 7.2, albumin is 4.3. She is being seen by GI, cardiology. She is here for stable angina, coronary artery disease, chronic obstructive pulmonary disease, status post dizziness, chronic diarrhea, hypothyroidism, atrial fibri llation, right knee pain, high cholesterol, hypertension. The x-ray showed normal radiographs of the knee. We will continue with aggressive treatment and care and physical therapy. Ted Molina DO cc: [id number] TT: 12/04/2016 12:07:50 Confirmation # [id number] Dictation # [id number]
[2016-12-05] MEDS: Pantoprazole 40 mg EC Tab PO SCH (05:49)
[2016-12-05] MEDS: Levothyroxine 100 MCG TAB PO SCH (05:50)
[2016-12-05] MEDS: Arformoterol 15 mcg/2 ml Inh Sol IH SCH ×2 (07:37→21:10)
[2016-12-05] MEDS: Budesonide 0.5 mg/2 ml Inhal Susp UD IH SCH ×2 (07:37→21:11)
[2016-12-05] MEDS: diltiaZEM 120 mg/24 Hours CD Cap PO SCH (09:13)
[2016-12-05] MEDS: Simethicone 40 mg/0.6 ml Liquid (30 ml) PO SCH (17:31)
--- NOTE | 2016-12-05 19:18 | CON ---
DATE: 12/05/2016 REQUESTING PHYSICIAN: Dr. Wick. REASON FOR CONSULTATION: I have been asked to see this 71-year-old female who was admitted to the [facility] with syncope and fall who is currently in TCU whom I have been asked to see for abdominal bloa ting, distension and reflux. The patient has a history of intermittent chronic constipation and GERD . She denies any nausea, vomiting, rectal bleeding or melena. PAST MEDICAL HISTORY: Notable for coronary artery disease, peripheral artery disease, COPD on home o xygen, hypothyroidism, CVA, vertigo. PAST SURGICAL HISTORY: Notable for coronary artery bypass surgery, carotid endarterectomy. SOCIAL HISTORY: The patient quit cigarette smoking years ago. FAMILY HISTORY: Noncontributory. REVIEW OF SYSTEMS: A 14-point review of systems is notable for abdominal distention, constipation an d GERD. The patient also has intermittent diarrhea. She has not had any diarrhea recently. RECOMMENDATIONS: 1. Continue PPI. 2. Check stool for C. diff toxin. 3. Stool softeners as needed should the patient develop constipation. Macho Garcia MD cc: [phone] TT: 12/05/2016 19:17:35 Confirmation # [id number] Dictation # [id number] mn
[2016-12-06] MEDS: Simethicone 40 mg/0.6 ml Liquid (30 ml) PO SCH ×2 (03:55→11:20)
[2016-12-06] MEDS: Pantoprazole 40 mg EC Tab PO SCH (06:15)
[2016-12-06] MEDS: Levothyroxine 100 MCG TAB PO SCH (06:16)
[2016-12-06 11:12] VITALS: BP 119/46; PULSE 63; RESP 16; TEMP 98; O2SAT 100
[2016-12-06] MEDS: diltiaZEM 120 mg/24 Hours CD Cap PO SCH (11:18)
--- NOTE | 2016-12-06 12:35 | CP.PCM.DIS ---
<Sarah Mendez - Last Filed: 12/08/16 06:44> Provider - Provider Date of Admission: 11/29/16 15:34 Attending physician: Macho Wick MD Primary care physician: Macho Wick MD Consults: GI- Cardiology Neurology Time Spent in preparation of Discharge (in minutes): 50 Diagnosis - Discharge Diagnosis (1) Hypotension Status: Acute (2) Gait instability Status: Acute (3) Constipation Status: Chronic (4) Diarrhea Status: Chronic (5) Afib Status: Chronic (6) Anxiety Status: Chronic (7) Left carotid artery occlusion Status: Chronic (8) Cervical paraspinal muscle spasm Status: Acute (9) History of right-sided carotid endarterectomy Status: Chronic Hospital Course - Lab Results Lab Results: Most Recent Lab Values WBC 6.8 10^3/ul (4.5-11.0) 12/04/16 08:15 RBC 4.22 10^6/uL (3.5-6.1) 12/04/16 08:15 Hgb 12.2 gm/dL (12.0-16.0) 12/04/16 08:15 Hct 38.1 % (36.0-48.0) 12/04/16 08:15 MCV 90.3 fL (80.0-105.0) 12/04/16 08:15 MCH 28.9 pg (25.0-35.0) 12/04/16 08:15 MCHC 32.0 g/dl (31.0-37.0) 12/04/16 08:15 RDW 13.8 % (11.5-14.5) 12/04/16 08:15 Plt Count 203 10^3/uL (120.0-450.0) 12/04/16 08:15 MPV 11.4 fl (7.0-11.0) H 12/04/16 08:15 Gran % 72.4 % (50.0-68.0) H 12/02/16 08:30 Lymph % (Auto) 16.5 % (22.0-35.0) L 12/02/16 08:30 [place] % (Auto) 5.0 % (1.0-6.0) 12/02/16 08:30 Eos % (Auto) 5.7 % (1.5-5.0) H 12/02/16 08:30 Baso % (Auto) 0.4 % (0.0-3.0) 12/02/16 08:30 Gran # 5.03 (1.4-6.5) 12/02/16 08:30 Lymph # 1.2 (1.2-3.4) 12/02/16 08:30 [place] # 0.4 (0.1-0.6) 12/02/16 08:30 Eos # 0.4 (0.0-0.7) 12/02/16 08:30 Baso # 0.03 K/mm3 (0.0-2.0) 12/02/16 08:30 Sodium 139 mmol/L (132-148) 12/04/16 08:15 Potassium 4.6 mmol/L (3.6-5.0) 12/04/16 08:15 Chloride 103 mmol/L (98-107) 12/04/16 08:15 Carbon Dioxide 29 mmol/L (21-33) 12/04/16 08:15 Anion Gap 12 (10-20) 12/04/16 08:15 BUN 12 mg/dL (7-21) 12/04/16 08:15 Creatinine 0.8 mg/dL (0.5-1.4) 12/04/16 08:15 Est GFR ( Amer) > 60 12/04/16 08:15 Est GFR (Non-Af Amer) > 60 12/04/16 08:15 Random Glucose 159 mg/dL (70-110) H 12/04/16 08:15 Calcium 9.2 mg/dL (8.4-10.5) 12/04/16 08:15 Total Bilirubin 0.8 mg/dL (0.2-1.3) 12/04/16 08:15 AST 29 U/L (15-39) 12/04/16 08:15 ALT 31 U/L (7-56) 12/04/16 08:15 Alkaline Phosphatase 52 U/L (38-133) 12/04/16 08:15 Total Protein 7.2 g/dL (5.8-8.3) 12/04/16 08:15 Albumin 4.1 g/dL (3.0-4.8) 12/04/16 08:15 Globulin 3.1 gm/dL 12/04/16 08:15 Albumin/Globulin Ratio 1.3 (1.1-1.8) 12/04/16 08:15 - Hospital Course Hospital Course: Patient is a 71 y/o with pmh of Vertigo, CAD WITH H/O CABG, carotid endarterectomy, HTN, cva x3 , Hypothyroidism, COPD on home oxygen whom presented to [facility] s/p syncope and fall and was admitted for further work up. Patient had CT head with no acute ischemic changes. Patient had carotid u/s which revealed chronic left carotid occlusion. Patient was suspected to have hypotension. Patient's BP meds were held. Patient was evaluated by PT, and was transferred to TCU to continue PT secondary to gait instability. Patient's gait and strength improved as per TCU records. Patient to be discharged home. patient will follow up with Dr Wick, and Dr Leiva for stress test. Coreg held due to hypotension, and bradycardia. Patient to continue cardizem and eliquis. - Date & Time of H&P Date of H&P: 11/30/16 Time of H&P: 07:00 Discharge Exam - Head Exam Head Exam: ATRAUMATIC, NORMAL INSPECTION, NORMOCEPHALIC - Eye Exam Eye Exam: Normal appearance, PERRL. absent: Scleral icterus - ENT Exam ENT Exam: Mucous Membranes Moist - Neck Exam Neck exam: Normal Inspection - Respiratory Exam Respiratory Exam: Clear to PA & Lateral, NORMAL BREATHING PATTERN, UNREMARKABLE. absent: Rhonchi, Wheezes, Respiratory Distress, Stridor - Cardiovascular Exam Cardiovascular Exam: REGULAR RHYTHM, RRR, +S1, +S2 - GI/Abdominal Exam GI & Abdominal Exam: Normal Bowel Sounds, Unremarkable. absent: Distended, Firm , Guarding, Soft, Tenderness - Extremities Exam Extremities exam: normal inspection - Back Exam Back exam: NORMAL INSPECTION. absent: vertebral tenderness - Neurological Exam Neurological exam: Alert, Oriented x3, Reflexes Normal - Psychiatric Exam Psychiatric exam: Normal Affect, Normal Mood - Skin Skin Exam: Dry, Intact, Normal Color, Warm Discharge Plan - Discharge Medications Prescriptions: Simethicone [Mylicon Liq] 40 mg PO QID #30 ml - Follow Up Plan Condition: GOOD Disposition: HOME/ ROUTINE Instructions: Atrial Fibrillation (DC), Fall Prevention for Older Adults (GEN) , Hypotension (DC) Additional Instructions: Take cardizem 120 mg once a day Don't take coreg Continue eliquis Follow up with Dr Leiva as outpatient for stress test. Follow up with Dr Wick in the office. Drink plenty of water Continue PT. Referrals: Macho Wick MD [Primary Care Provider] - <JuliánLopez - Last Filed: 12/29/16 18:43> Provider - Provider Date of Admission: 11/29/16 15:34 Attending physician: Macho Wick MD Primary care physician: Macho Wick MD Hospital Course - Lab Results Lab Results: Most Recent Lab Values WBC 6.8 10^3/ul (4.5-11.0) 12/04/16 08:15 RBC 4.22 10^6/uL (3.5-6.1) 12/04/16 08:15 Hgb 12.2 gm/dL (12.0-16.0) 12/04/16 08:15 Hct 38.1 % (36.0-48.0) 12/04/16 08:15 MCV 90.3 fL (80.0-105.0) 12/04/16 08:15 MCH 28.9 pg (25.0-35.0) 12/04/16 08:15 MCHC 32.0 g/dl (31.0-37.0) 12/04/16 08:15 RDW 13.8 % (11.5-14.5) 12/04/16 08:15 Plt Count 203 10^3/uL (120.0-450.0) 12/04/16 08:15 MPV 11.4 fl (7.0-11.0) H 12/04/16 08:15 Gran % 72.4 % (50.0-68.0) H 12/02/16 08:30 Lymph % (Auto) 16.5 % (22.0-35.0) L 12/02/16 08:30 [place] % (Auto) 5.0 % (1.0-6.0) 12/02/16 08:30 Eos % (Auto) 5.7 % (1.5-5.0) H 12/02/16 08:30 Baso % (Auto) 0.4 % (0.0-3.0) 12/02/16 08:30 Gran # 5.03 (1.4-6.5) 12/02/16 08:30 Lymph # 1.2 (1.2-3.4) 12/02/16 08:30 [place] # 0.4 (0.1-0.6) 12/02/16 08:30 Eos # 0.4 (0.0-0.7) 12/02/16 08:30 Baso # 0.03 K/mm3 (0.0-2.0) 12/02/16 08:30 Sodium 139 mmol/L (132-148) 12/04/16 08:15 Potassium 4.6 mmol/L (3.6-5.0) 12/04/16 08:15 Chloride 103 mmol/L (98-107) 12/04/16 08:15 Carbon Dioxide 29 mmol/L (21-33) 12/04/16 08:15 Anion Gap 12 (10-20) 12/04/16 08:15 BUN 12 mg/dL (7-21) 12/04/16 08:15 Creatinine 0.8 mg/dL (0.5-1.4) 12/04/16 08:15 Est GFR ( Amer) > 60 12/04/16 08:15 Est GFR (Non-Af Amer) > 60 12/04/16 08:15 Random Glucose 159 mg/dL (70-110) H 12/04/16 08:15 Calcium 9.2 mg/dL (8.4-10.5) 12/04/16 08:15 Total Bilirubin 0.8 mg/dL (0.2-1.3) 12/04/16 08:15 AST 29 U/L (15-39) 12/04/16 08:15 ALT 31 U/L (7-56) 12/04/16 08:15 Alkaline Phosphatase 52 U/L (38-133) 12/04/16 08:15 Total Protein 7.2 g/dL (5.8-8.3) 12/04/16 08:15 Albumin 4.1 g/dL (3.0-4.8) 12/04/16 08:15 Globulin 3.1 gm/dL 12/04/16 08:15 Albumin/Globulin Ratio 1.3 (1.1-1.8) 12/04/16 08:15 Attending/Attestation - Attestation I have personally seen and examined this patient.: Yes I have fully participated in the care of the patient.: Yes I have reviewed all pertinent clinical information, including history, physical exam and plan: Yes Notes (Text): 12/28/16 15:12 Medical record note made by the resident after discussion with my direction and input after the patient was personally seen and examined by me. I have reviewed the chart and agree that the record accurately reflects by personal performance of the history, physical exam, data review, and medical decision-making, in the course for the patient. I have also personally directed the plan of care.
--- NOTE | 2016-12-06 14:02 | PN ---
DATE: 12/06/2016 SUBJECTIVE: The patient is lying in bed, comfortable. She has not had any further diarrhea. She singh d 2 soft bowel movements yesterday. She denies any reflux. PHYSICAL EXAMINATION: Reflux: VITAL SIGNS: Reveal temperature of 98, blood pressure 119/46, heart rate 63. ABDOMEN: Soft, nontender. There is no new laboratory data. IMPRESSION: A 71-year-old female admitted to the hospital with exacerbation of chronic obstructive p ulmonary disease with chronic gastroesophageal reflux disease, diarrhea alternating with constipation , most likely secondary to irritable bowel. RECOMMENDATIONS: 1. Continue PPI. 2. Continue MiraLax as needed for constipation. The patient is stable from GI. Macho Garcia MD cc: 79 TT: 12/06/2016 14:02:05 Confirmation # [id number] Dictation # [id number] tn
== END 2016-12-06 16:55 | disposition home or self-care (01) | DRG 315 ==
LOC: TRCU 15:34
PROVIDERS: ADMIT Internal Medicine; ATTEND Internal Medicine
PROC: F07Z9FZ Gait Training/Functional Ambulation Treatment using Assistive, Adaptive, Supportive or Protective Equipment (ICD-10-PCS; principal; 2016-12-02)
PROC: F07Z8ZZ Transfer Training Treatment (ICD-10-PCS; 2016-12-02)
PROC: F07L6ZZ Therapeutic Exercise Treatment of Musculoskeletal System - Lower Back / Lower Extremity (ICD-10-PCS; 2016-12-02)
PROC: F08Z2FZ Grooming/Personal Hygiene Treatment using Assistive, Adaptive, Supportive or Protective Equipment (ICD-10-PCS; 2016-12-04)
PROC: F08Z1ZZ Dressing Techniques Treatment (ICD-10-PCS; 2016-12-05)
DX: I95.9 Hypotension, unspecified (principal); J44.1 Chronic obstructive pulmonary disease with (acute) exacerbation; I48.2 Chronic atrial fibrillation; Z99.81 Dependence on supplemental oxygen; R26.9 Unspecified abnormalities of gait and mobility; F41.9 Anxiety disorder, unspecified; M62.830 Muscle spasm of back; I25.118 Atherosclerotic heart disease of native coronary artery with other forms of angina pectoris; I10 Essential (primary) hypertension; E03.9 Hypothyroidism, unspecified; F32.9 Major depressive disorder, single episode, unspecified; I65.23 Occlusion and stenosis of bilateral carotid arteries; K21.9 Gastro-esophageal reflux disease without esophagitis; K59.09 Other constipation; M25.561 Pain in right knee; E78.00 Pure hypercholesterolemia, unspecified; K58.0 Irritable bowel syndrome with diarrhea; Z95.1 Presence of aortocoronary bypass graft; Z88.0 Allergy status to penicillin; Z86.73 Personal history of transient ischemic attack (TIA), and cerebral infarction without residual deficits

== ENCOUNTER 2017-02-08 12:46 | Inpatient (IN) | payer MEDICARE, MEDICAID ==
[2017-02-08 13:02] VITALS: BMI 23.0
--- NOTE | 2017-02-08 14:33 | ED PDOC ---
Arrival/HPI - General Historian: Patient - General Chief Complaint: Female Genitourinary Time Seen by Provider: 02/08/17 13:22 - History of Present Illness Narrative History of Present Illness (Text): 02/08/17 15:19 Pt is a 71 year old female with past medical history of CAD s/p CABG, Carotid enarterectomy, cva x3, hypothyroidism, COPD on home O2 and renal reconfiguration surgery who complains of bilateral lower back pain. She reports that starting yesterday the patient began experiencing her symptoms with associated nausea and vomiting. She describes the pain as dull with out radiation. She also describes experiencing an increase in her urine with a burning sensation and dark discoloration of her urine. She denies fever, chest pain, and shortness of breath. (Jose A Mcdermott) Past Medical History - Provider Review Nursing Documentation Reviewed: Yes - Infectious Disease Hx of Infectious Diseases: None - Cardiac Hx Cardiac Disorders: Yes Hx Hypertension: Yes - Pulmonary Hx Chronic Obstructive Pulmonary Disease (COPD): Yes - Neurological Hx Neurological Disorder: No - HEENT Hx HEENT Disorder: No - Renal Hx Renal Disorder: No - Endocrine/Metabolic Hx Hypothyroidism: Yes - Hematological/Oncological Hx Blood Disorders: No - Integumentary Hx Dermatological Disorder: No - Musculoskeletal/Rheumatological Hx Falls: Yes - Gastrointestinal Hx Gastrointestinal Disorders: No - Genitourinary/Gynecological Hx Genitourinary Disorders: No Hx Reproductive Disorders: No - Psychiatric Hx Psychophysiologic Disorder: Yes Hx Depression: Yes Hx Emotional Abuse: No Hx Physical Abuse: No Hx Substance Use: No - Surgical History Other/Comment: cardiac stent. L carotid artery surgery. R kidney surgery - Anesthesia Hx Anesthesia Reactions: No Hx Malignant Hyperthermia: No - Suicidal Assessment Feels Threatened In Home Enviroment: No Family/Social History - Physician Review Nursing Documentation Reviewed: Yes Family/Social History: Unknown Family HX Smoking Status: Former Smoker Hx Alcohol Use: No Hx Substance Use: No Allergies/Home Meds Allergies/Adverse Reactions: Allergies acetaminophen [From Percocet] Allergy (Verified 12/01/16 20:08) ANAPHYLAXIS codeine Allergy (Verified 12/01/16 20:08) ANAPHYLAXIS oxycodone HCl [From Percocet] Allergy (Verified 12/01/16 20:08) ANAPHYLAXIS Penicillins Allergy (Verified 12/01/16 20:08) ANAPHYLAXIS Home Medications: Home Meds Medication Instructions Recorded Confirmed Alprazolam [Xanax] 1 mg PO QID 03/18/14 12/01/16 Citalopram Hydrobromide [Celexa] 20 mg PO HS 03/18/14 12/01/16 Fluticasone/Salmeterol 250/50 2 puff IH BID 03/18/14 12/01/16 [Advair Diskus 250/50] Ipratropium/Albuterol Sulfate 2 marcelle IH QID 03/18/14 12/01/16 [Combivent Inhaler] Levothyroxine Sodium [Levoxyl] 100 mcg PO QAM 03/18/14 12/01/16 Rosuvastatin Calcium [Crestor] 20 mg PO HS 03/18/14 12/01/16 Apixaban [Eliquis] 5 mg PO BID 03/10/15 12/01/16 Isosorbide Mononitrate [Imdur] 60 mg PO QAM 09/18/15 12/01/16 diltiaZEM [Cardizem] 120 mg PO DAILY 09/18/15 12/01/16 Aspirin [Ecotrin] 81 mg PO DAILY 12/08/15 12/01/16 Omeprazole [Prilosec] 40 mg PO DAILY 12/09/15 12/01/16 Review of Systems - Physician Review All systems were reviewed & negative as marked: Yes - Review of Systems Constitutional: absent: Fevers Gastrointestinal: absent: Abdominal Pain Genitourinary Female: Dysuria, Frequency (elevated). absent: Hematuria Musculoskeletal: Back Pain (lower back - both sides) Physical Exam Vital Signs Reviewed: Yes Temperature: Afebrile Blood Pressure: Normal Pulse: Tachycardic Respiratory Rate: Normal Appearance: Positive for: Well-Appearing Pain Distress: None Mental Status: Positive for: Alert and Oriented X 3 - Systems Exam Head: Present: Atraumatic, Normocephalic Pupils: Present: PERRL Extroacular Muscles: Present: EOMI Conjunctiva: Present: Normal Mouth: Present: Moist Mucous Membranes Neck: Present: Normal Range of Motion Respiratory/Chest: Present: Good Air Exchange, Wheezes (expiratory ), Decreased Breath Sounds. No: Respiratory Distress, Accessory Muscle Use Cardiovascular: Present: Regular Rate and Rhythm, Normal S1, S2. No: Murmurs Abdomen: Present: Normal Bowel Sounds. No: Tenderness, Distention, Peritoneal Signs Upper Extremity: Present: Normal Inspection. No: Cyanosis, Edema Lower Extremity: Present: Normal Inspection. No: Edema Neurological: Present: GCS=15, CN II-XII Intact, Speech Normal Skin: Present: Warm, Dry, Normal Color. No: Rashes Psychiatric: Present: Alert, Oriented x 3, Normal Insight, Normal Concentration Vital Signs Temp Pulse Resp BP Pulse Ox 02/08/17 17:32 65 18 144/61 98 02/08/17 16:17 69 16 146/63 98 02/08/17 15:30 102 H 18 117/65 97 02/08/17 12:56 97.8 F 121 H 18 115/68 Medical Decision Making - Lab Interpretations I have reviewed the lab results: Yes - RAD Interpretation Derrick Boat Operator: Radiologist ED Course and Treatment: 02/08/17 15:36 Patient Seen With Resident: In agreement with resident note which contains more details about the patient. Patient was seen and evaluated with resident. Came up with plan and treatment together.. (Moisés Melvin DO) 02/08/17 15:25 Impression: Differential Diagnosis included but are not limited to: - UTI - Pyelonephritis - Cystitis - Renal stones Plan: - Labs: CBC, CMP, Urinalysis, - Meds: Toradol, IVF, Tylenol - Imaging: CT scan abdomen and pelvis without contrast - Reassess and disposition Progress Notes: 02/08/17 15:35 PROCEDURE: CT Abdomen and Pelvis without intravenous contrast LOWER THORAX:Unremarkable. LIVER:Unremarkable. No gross lesion or ductal dilatation. GALLBLADDER AND BILE DUCTS:Gallbladder removed PANCREAS:Unremarkable. No gross lesion or ductal dilatation. SPLEEN:Unremarkable. ADRENALS:Unremarkable. No mass. KIDNEYS AND URETERS:The renal collecting systems are dilated bilaterally. This is a chronic finding. There is an extrarenal pelvis configuration bilaterally. There is some perinephric stranding on the right side which could represent a urinary tract infection. VASCULATURE:Unremarkable. No aortic aneurysm. BOWEL:Unremarkable. No obstruction. No gross mural thickening. Diverticulosis of the sigmoid colon APPENDIX:Unremarkable. Normal appendix. PERITONEUM:Unremarkable. No free fluid. No free air. LYMPH NODES:Unremarkable. No enlarged lymph nodes. BLADDER:Unremarkable. REPRODUCTIVE:Unremarkable. BONES:Degenerative changes are seen at L3-4 and L4-5 OTHER FINDINGS:None. IMPRESSION:Minimal perinephric stranding around the right kidney. Possible UTI. 02/08/17 17:57 - Discussed case with Dr. Heart and resident covering for admistion. 02/08/17 18:09 (Jose A Mcdermott) - Lab Interpretations Lab Results: 02/08/17 15:09 02/08/17 16:10 Lab Results 02/08/17 17:30: Urine Color Yellow, Urine Appearance Turbid, Urine pH 6.0, Ur Specific [place] 1.025, Urine Protein >=300 H, Urine Glucose (UA) Negative, Urine Ketones Negative, Urine Blood Large H, Urine Nitrate Positive H, Urine Bilirubin Negative, Urine Urobilinogen 0.2, Ur Leukocyte Esterase Small H, Urine RBC 25 - 30, Urine WBC Tntc, Urine Bacteria Many 02/08/17 16:10: Sodium 137, Potassium 3.9, Chloride 95 L, Carbon Dioxide 34 H, Anion Gap 12, BUN 13, Creatinine 0.7, Est GFR ( Amer) > 60, Est GFR (Non- Af Amer) > 60, Random Glucose 105, Calcium 8.9, Total Bilirubin 0.6, AST 19, ALT 25, Alkaline Phosphatase 68, Total Protein 6.9, Albumin 3.7, Globulin 3.2, Albumin/Globulin Ratio 1.2, Lipase 29 02/08/17 15:09: APTT 27.3 02/08/17 15:09: WBC 17.1 H D, RBC 4.53, Hgb 13.1, Hct 40.6, MCV 89.6, MCH 28.9, MCHC 32.3, RDW 13.4, Plt Count 230, MPV 11.2 H, Gran % 90.8 H, Lymph % (Auto) 3.0 L, [place] % (Auto) 5.7, Eos % (Auto) 0.3 L, Baso % (Auto) 0.2, Gran # 15.51 H , Lymph # 0.5 L, [place] # 1.0 H, Eos # 0.1, Baso # 0.03 - RAD Interpretation Narrative RAD Interpretations (Text): 02/08/17 15:33 02/08/17 15:35 (Jose A Mcdermott) Radiology Orders: 02/08/17 13:44 ABD & PELVIS W/O PO OR IV CONT [CT] Stat - Medication Orders Current Medication Orders: Levofloxacin/Dextrose (Levaquin 500mg) 500 mg in 100 mls @ 100 mls/hr IVPB STAT STA Stop: 02/08/17 18:50 Discontinued Medications Ketorolac Tromethamine (Toradol) 30 mg IVP STAT STA Stop: 02/08/17 13:32 - PA / BLOCK MECHANIC / Resident Statement ETHAN has reviewed & agrees with the documentation as recorded. ETHAN has examined the patient and agrees with the treatment plan. - Scribe Statement Magan Goodwin Provider Scribe Attestation: All medical record entries made by the Scribe were at my direction and personally dictated by me. I have reviewed the chart and agree that the record accurately reflects my personal performance of the history, physical exam, medical decision making, and the department course for this patient. I have also personally directed, reviewed, and agree with the discharge instructions and disposition. (Moisés Melvin DO) Disposition/Present on Arrival - Present on Arrival Any Indicators Present on Arrival: No History of DVT/PE: No History of Uncontrolled Diabetes: No Urinary Catheter: No History of Decub. Ulcer: No History Surgical Site Infection Following: None - Disposition Have Diagnosis and Disposition been Completed?: Yes Disposition Time: 17:20 Patient Plan: Admission - Disposition Diagnosis: Pyelonephritis Disposition: HOSPITALIZED Patient Problems: Current Active Problems Problem Status Onset Pyelonephritis Acute Condition: STABLE Referrals: Macho Wick MD [Primary Care Provider] - Follow up with primary Forms: [employer] (Samoan)
--- NOTE | 2017-02-08 14:57 | CT ---
PROCEDURE: CT Abdomen and Pelvis without intravenous contrast HISTORY: bilateral flank pain/lower back pain COMPARISON: None. TECHNIQUE: Without contrast. Contrast Dose: Radiation dose: Total exam DLP = 283 mGy-cm. This CT exam was performed using one or more of the following dose reduction techniques: Automated exposure control, adjustment of the mA and/or kV according to patient size, and/or use of iterative reconstruction technique. FINDINGS: LOWER THORAX: Unremarkable. LIVER: Unremarkable. No gross lesion or ductal dilatation. GALLBLADDER AND BILE DUCTS: Gallbladder removed PANCREAS: Unremarkable. No gross lesion or ductal dilatation. SPLEEN: Unremarkable. ADRENALS: Unremarkable. No mass. KIDNEYS AND URETERS: The renal collecting systems are dilated bilaterally. This is a chronic finding. There is an extrarenal pelvis configuration bilaterally. There is some perinephric stranding on the right side which could represent a urinary tract infection. VASCULATURE: Unremarkable. No aortic aneurysm. BOWEL: Unremarkable. No obstruction. No gross mural thickening. Diverticulosis of the sigmoid colon APPENDIX: Unremarkable. Normal appendix. PERITONEUM: Unremarkable. No free fluid. No free air. LYMPH NODES: Unremarkable. No enlarged lymph nodes. BLADDER: Unremarkable. REPRODUCTIVE: Unremarkable. BONES: Degenerative changes are seen at L3-4 and L4-5 OTHER FINDINGS: None. IMPRESSION: Minimal perinephric stranding around the right kidney. Possible UTI.
[2017-02-08 15:16] LABS: ADD MANUAL DIFF? NO
[2017-02-08 15:29] LABS: BASO # 0.03 K/mm3 (0.0-2.0); BASO % 0.2 % (0.0-3.0); EOS # 0.1 (0.0-0.7); EOS % 0.3 % (1.5-5.0); GRAN # 15.51 (1.4-6.5); GRAN % 90.8 % (50.0-68.0); HEMATOCRIT 40.6 % (36.0-48.0); LYMPH # 0.5 (1.2-3.4); MEAN CELL VOLUME 89.6 fL (80.0-105.0); MEAN CORPUSCULAR HEMOGLOBIN 28.9 pg (25.0-35.0); MEAN CORPUSCULAR HGB CONC 32.3 g/dl (31.0-37.0); MEAN PLATELET VOLUME 11.2 fl (7.0-11.0); MONO % 5.7 % (1.0-6.0); PLATELET COUNT 230 10^3/uL (120.0-450.0); RED CELL DISTRIBUTION WIDTH 13.4 % (11.5-14.5); WHITE BLOOD COUNT 17.1 10^3/ul (4.5-11.0)
[2017-02-08 16:30] LABS: ALB/GLOB RATIO 1.2 (1.1-1.8); ALKALINE PHOSPHATASE 68 U/L (38-133); ALT/SGPT 25 U/L (7-56); AST/SGOT 19 U/L (15-39); BILIRUBIN,TOTAL 0.6 mg/dL (0.2-1.3); BLOOD UREA NITROGEN 13 mg/dL (7-21); CALCIUM 8.9 mg/dL (8.4-10.5); CARBON DIOXIDE 34 mmol/L (21-33); GFR AFRICAN-AMERICAN > 60; GLUCOSE,RANDOM 105 mg/dL (70-110); LIPASE 29 U/L (23-300); POTASSIUM 3.9 mmol/L (3.6-5.0); SODIUM 137 mmol/L (132-148); TOTAL PROTEIN 6.9 g/dL (5.8-8.3)
[2017-02-08 16:31] LABS: CHLORIDE 95 mmol/L (98-107)
[2017-02-08 17:38] LABS: URINE BILIRUBIN NEGATIVE (NEGATIVE); URINE BLOOD LARGE (NEGATIVE); URINE GLUCOSE (UA) NEGATIVE (NEGATIVE); URINE KETONE NEGATIVE (NEGATIVE); URINE LEUKOCYTE ESTERASE SMALL Leu/uL (NEGATIVE); URINE PROTEIN >=300 mg/dL (<30 mg/dL); URINE UROBILINOGEN 0.2 E.U./dL (<1 E.U./dL)
[2017-02-08 17:40] LABS: URINE APPEARANCE TURBID (CLEAR); URINE COLOR YELLOW (YELLOW)
[2017-02-08 17:47] LABS: URINE RBC 25 - 30 /hpf (0-2)
[2017-02-08 17:48] LABS: URINE BACTERIA MANY (NEG); URINE WBC TNTC /hpf (0-6)
[2017-02-08] MEDS ORDERED: levoFLOXacin 500 mg in D5W 500 MG/100 ML BAG IVPB STA (17:51)
[2017-02-08] MEDS ORDERED: Sodium Chloride 0.9% 1,000 ML IV ONE (18:03)
[2017-02-08] MEDS ORDERED: Arformoterol 15 mcg/2 ml Inh Sol IH SCH (20:00)
--- NOTE | 2017-02-08 21:30 | CP.PCM.HP ---
<AnthonyHernán - Last Filed: 02/08/17 21:38> History of Present Illness - History of Present Illness History of Present Illness: Pt is a 71 year old female with past medical history of CAD s/p CABG, Carotid endarterectomy, cva x3, hypothyroidism, COPD on home O2 and renal reconfiguration surgery who complains of abdominal pain. Ms. Del Rosario states that 2 weeks ago she presented with similar symptoms that resolved in the hospital. Then, two days ago, she began experiencing her symptoms with associated nausea and vomiting. She describes the pain as dull and radiating to her lower back, bilaterally. She also describes experiencing an increase in urination and dark discoloration of her urine. She denies fever, chest pain, and shortness of breath. PSurgHx: 7 CABGs, Carotid endarterectomy, Cataract PMHx: Atrial fibrillation, CAD, Carotid stenosis, CVAX3, hypothyroidism, COPD on home O2, Depression/anxiety, Vertigo All: PCNs; minor rash with oxycodone and codeine SocHx:Tob: Smoked 2.5packs/day for 40 years, quit 5 years ago; Denies EtOH, Illicits FamHx: CAD, HLD Meds: See MAR Present on Admission - Present on Admission Any Indicators Present on Admission: No Review of Systems - Hematologic/Lymphatic Additional comments: ROS: Constitutional: pt denies fever, chills, generalized weakness ENT: pt denies dysphagia, otalgia, hearing deficit, rhinorrhea Eyes: pt denies sudden loss of vision, diplopia, blurred vision MSK: pt denies muscle stiffness, joint pain, extremity cramping Cardio: pt denies sob, heart murmur, cp Pulm: pt denies cough, hemoptysis, wheeze GI: +diffusely tender abdomen; +Nausea; pt denies loss of appetite, constipation , melena, v/d : +hematuria; pt denies burning on urination, urinary frequency, urinary urgency Neuro: pt denies paresis, paresthesia, dizziness, singh, numbness, tingling Derm: pt denies skin changes, lesions, nail changes Endo: pt denies intolerance to heat/cold, diaphoresis, night sweats, polydipsia Psych: pt denies anxiety, depression, mood changes Past Patient History - Infectious Disease Hx of Infectious Diseases: None - Past Medical History & Family History Past Medical History?: Yes - Past Social History Smoking Status: Former Smoker - CARDIAC Hx Cardiac Disorders: Yes Hx Hypertension: Yes - PULMONARY Hx Chronic Obstructive Pulmonary Disease (COPD): Yes - NEUROLOGICAL Hx Neurological Disorder: No - HEENT Hx HEENT Problems: No - RENAL Hx Chronic Kidney Disease: No - ENDOCRINE/METABOLIC Hx Hypothyroidism: Yes - HEMATOLOGICAL/ONCOLOGICAL Hx Blood Disorders: No - INTEGUMENTARY Hx Dermatological Problems: No - MUSCULOSKELETAL/RHEUMATOLOGICAL Hx Falls: Yes - GASTROINTESTINAL Hx Gastrointestinal Disorders: No - GENITOURINARY/GYNECOLOGICAL Hx Genitourinary Disorders: No Hx Reproductive Disorders: No - PSYCHIATRIC Hx Psychophysiologic Disorder: Yes Hx Depression: Yes Hx Emotional Abuse: No Hx Physical Abuse: No Hx Substance Use: No - SURGICAL HISTORY Other/Comment: cardiac stent. L carotid artery surgery. R kidney surgery - ANESTHESIA Hx Anesthesia Reactions: No Hx Malignant Hyperthermia: No Meds Allergies/Adverse Reactions: Allergies Allergy/AdvReac Type Severity Reaction Status Date / Time codeine Allergy ANAPHYLAXIS Verified 12/01/16 20:08 oxycodone HCl [From Percocet] Allergy ANAPHYLAXIS Verified 12/01/16 20:08 Penicillins Allergy ANAPHYLAXIS Verified 12/01/16 20:08 Physical Exam - Additional Findings Additional findings: Phys Exam: VS as below Constitutional: a&o x 4, mild distress Head and Neck: neck supple, no jvd, trachea midline, carotid midline, no cervical/head mass Eyes: [place], nonicteric sclera, eom intact ENT: auditory acuity grossly intact, throat not congested, no nasal deformity Cardio: +tachycardia, regular rhythm, no m/r/g, no carotid bruit, nml s1, s2 Pulm: no accessory muscle use, equal nml breath sounds bilaterally, ctab Abd: +tender, s/nd, nbs x 4 q, no palpable masses Derm: no rashes, no ulcers, no lesions Extr: no edema, no cyanosis, no calf tenderness, no lesions, no varicosities Neuro: cn II-XII grossly intact, ue and le 5/5 muscle strength bilaterally, no los ue, le bilaterally and core Results - Vital Signs Recent Vital Signs: Last Vital Signs Temp 97.8 F 02/08/17 12:56 Pulse 88 02/08/17 19:40 Resp 16 02/08/17 19:40 BP 157/66 H 02/08/17 19:40 Pulse Ox 96 02/08/17 19:40 - Labs Result Diagrams: 02/08/17 15:09 02/08/17 16:10 Labs: Laboratory Results - last 24 hr 02/08/17 17:30 Urine Color Yellow Urine Appearance Turbid Urine pH 6.0 Ur Specific [place] 1.025 Urine Protein >=300 H Urine Glucose (UA) Negative Urine Ketones Negative Urine Blood Large H Urine Nitrate Positive H Urine Bilirubin Negative Urine Urobilinogen 0.2 Ur Leukocyte Esterase Small H Urine RBC 25 - 30 Urine WBC Tntc Urine Bacteria Many Assessment & Plan - Assessment and Plan (Free Text) Assessment: Assessment: Pt is a 71 year old female with past medical history of CAD s/p CABG , Carotid enarterectomy, cva x3, hypothyroidism, COPD on home O2 and renal reconfiguration surgery who complains of abdominal pain radiating two her back, bilaterally. 1. Pyelonephritis -Levaquin -Pain control with prn morphine -Fluids -ID C/s 2. Leukocytosis - Likely secondary to #1 - Monitor CBC 3. Hx/O Atrial fibrillation - On eliquis - Cont home diltiazem - Currently rate-controlled 4. Hx/O CAD s/p CABG - Cont asa, lipitor, imdur 5. Hx/O L carotid stenosis s/p endarterectomy - On US carotids 11/2016 6. Hx/O cva x3 - Cont asa, lipitor 7. Hx/O hypothyroidism - Cont synthroid 8. Hx/O COPD on home O2 - Cont home pulmicort, brovana, combivent inh 9. Depression/anxiety - Cont home celexa, xanax, ambien 10. GI/DVT prophylaxis - Protonix/Heparin <Lopez Gallego - Last Filed: 02/10/17 19:32> Results - Vital Signs Recent Vital Signs: Last Vital Signs Temp 97.3 F L 02/10/17 17:02 Pulse 51 L 02/10/17 17:02 Resp 18 02/10/17 17:02 BP 125/51 L 02/10/17 17:02 Pulse Ox 98 02/10/17 17:02 - Labs Result Diagrams: 02/10/17 07:00 02/10/17 06:30 Labs: Laboratory Results - last 24 hr 02/09/17 02/10/17 02/10/17 06:00 06:30 07:00 WBC 6.6 RBC 3.43 L Hgb 9.5 L Hct 30.6 L MCV 89.2 MCH 27.7 MCHC 31.0 RDW 13.5 Plt Count 181 MPV 11.1 H Gran % 70.4 H Lymph % (Auto) 16.7 L [place] % (Auto) 7.8 H Eos % (Auto) 4.5 Baso % (Auto) 0.6 Gran # 4.67 Lymph # 1.1 L [place] # 0.5 Eos # 0.3 Baso # 0.04 Sodium 139 Potassium 3.9 Chloride 100 Carbon Dioxide 31 Anion Gap 12 BUN 8 Creatinine 0.7 Est GFR ( Amer) > 60 Est GFR (Non-Af Amer) > 60 Random Glucose 82 Calcium 8.8 Total Bilirubin 0.4 AST 27 ALT 70 H Alkaline Phosphatase 66 Total Protein 5.8 Albumin 3.2 Globulin 2.5 Albumin/Globulin Ratio 1.3 Serum Immunofixation Not detected Attending/Attestation - Attestation I have personally seen and examined this patient.: Yes I have fully participated in the care of the patient.: Yes I have reviewed all pertinent clinical information: Yes Notes (Text): 02/10/17 19:32 Medical record note made by the resident after discussion with my direction and input after the patient was personally seen and examined by me. I have reviewed the chart and agree that the record accurately reflects by personal performance of the history, physical exam, data review, and medical decision-making, in the course for the patient. I have also personally directed the plan of care.
[2017-02-08] MEDS: Arformoterol 15 mcg/2 ml Inh Sol IH SCH ×2 (21:47→23:17)
[2017-02-08] MEDS: Sodium Chloride 0.9% 1,000 ML IV SCH (21:48)
[2017-02-08] MEDS: Budesonide 0.5 mg/2 ml Inhal Susp UD IH SCH ×2 (21:48→23:17)
[2017-02-08] MEDS: IPRATROPIUM IH SCH (21:52)
[2017-02-08] MEDS: ALBUTEROL SULFATE IH SCH (21:52)
[2017-02-08] MEDS ORDERED: Non Formulary Medication (Rosuvastatin Calcium [Crestor] 20 MG) PO SCH (22:00)
[2017-02-08] MEDS: Morphine 2 mg/ml ISec IVP PRN (22:27)
[2017-02-09] MEDS: Sodium Chloride 0.9% 1,000 ML IV SCH (03:52)
[2017-02-09] MEDS: Morphine 2 mg/ml ISec IVP PRN (04:36)
[2017-02-09 06:56] LABS: ADD MANUAL DIFF? NO
[2017-02-09 07:39] LABS: ALB/GLOB RATIO 1.1 (1.1-1.8); ALKALINE PHOSPHATASE 67 U/L (38-133); ALT/SGPT 94 U/L (7-56); AST/SGOT 100 U/L (15-39); BILIRUBIN,TOTAL 0.6 mg/dL (0.2-1.3); BLOOD UREA NITROGEN 15 mg/dL (7-21); CALCIUM 8.2 mg/dL (8.4-10.5); CARBON DIOXIDE 30 mmol/L (21-33); CHLORIDE 99 mmol/L (98-107); GFR AFRICAN-AMERICAN > 60; GLUCOSE,RANDOM 83 mg/dL (70-110); POTASSIUM 3.6 mmol/L (3.6-5.0); SODIUM 135 mmol/L (132-148); TOTAL PROTEIN 5.8 g/dL (5.8-8.3)
[2017-02-09 07:55] LABS: BASO # 0.03 K/mm3 (0.0-2.0); BASO % 0.4 % (0.0-3.0); EOS # 0.2 (0.0-0.7); GRAN # 5.17 (1.4-6.5); GRAN % 73.1 % (50.0-68.0); LYMPH % 14.6 % (22.0-35.0); MEAN CELL VOLUME 88.2 fL (80.0-105.0); MEAN CORPUSCULAR HEMOGLOBIN 27.5 pg (25.0-35.0); MEAN CORPUSCULAR HGB CONC 31.1 g/dl (31.0-37.0); MONO # 0.6 (0.1-0.6); MONO % 8.9 % (1.0-6.0); PLATELET COUNT 146 10^3/uL (120.0-450.0); RED CELL DISTRIBUTION WIDTH 13.2 % (11.5-14.5); WHITE BLOOD COUNT 7.1 10^3/ul (4.5-11.0)
[2017-02-09 07:58] LABS: HEMATOCRIT 30.5 % (36.0-48.0)
[2017-02-09] MEDS: Arformoterol 15 mcg/2 ml Inh Sol IH SCH ×2 (08:05→19:42)
[2017-02-09] MEDS: Budesonide 0.5 mg/2 ml Inhal Susp UD IH SCH ×2 (08:05→19:43)
[2017-02-09] MEDS: Levothyroxine 100 MCG TAB PO SCH (08:25)
[2017-02-09 09:52] LABS: IRON 48 ug/dL (45-180)
[2017-02-09] MEDS ORDERED: levoFLOXacin 750 mg in D5W 750 MG/150 ML BAG IVPB SCH (10:00)
[2017-02-09] MEDS ORDERED: Levothyroxine 75 MCG TAB PO SCH (10:00)
[2017-02-09] MEDS ORDERED: Fluticasone-Salmeterol 250-50mcg Diskus IH SCH (10:00)
[2017-02-09] MEDS: diltiaZEM 120 mg/24 Hours CD Cap PO SCH (10:26)
[2017-02-09] MEDS: IPRATROPIUM IH SCH ×4 (10:50→23:56)
[2017-02-09] MEDS: ALBUTEROL SULFATE IH SCH ×4 (10:50→23:56)
--- NOTE | 2017-02-09 11:18 | CP.PCM.CON ---
History of Present Illness - History of Present Illness History of Present Illness: PGY-[address] Whitfield. Reason for consult: worsening dementia Patient is a 71 y/o with pmh of afib, cad s.p cabg, carotid endarterectomy, vertigo, cvax3, hypothyroidism, copd ( home o2), renal surgery, depression, anxiety whom presented with abdominal pain and was found to have pyelonephritis. Neurology is consulted for worsening dementia. Patient reports she has been forgetful lately, however patient can't tell exactly what she has been forgetting. Patient used to Dr Lopez in the past, however has not been able to follow up in the office due to oxygen tank. Patient currently has no complaints, denies headache, dizziness, n.v.d. Patient states she's worried about dementia because her mom of it. PSurgHx: 7 CABGs, Carotid endarterectomy, Cataract PMHx: Atrial fibrillation, CAD, Carotid stenosis, CVAX3, hypothyroidism, COPD on home O2, Depression/anxiety, Vertigo Review of Systems - Review of Systems All systems: reviewed and no additional remarkable complaints except Review of Systems: All 12 point ROS reviewed, all negative except as per HPI. Past Patient History - Infectious Disease Hx of Infectious Diseases: None - Past Medical History & Family History Past Medical History?: Yes - Past Social History Smoking Status: Former Smoker Home Situation {Lives}: Alone - CARDIAC Hx Cardiac Disorders: Yes Hx Hypertension: Yes - PULMONARY Hx Chronic Obstructive Pulmonary Disease (COPD): Yes - NEUROLOGICAL Hx Neurological Disorder: No - HEENT Hx HEENT Problems: No - RENAL Hx Chronic Kidney Disease: No - ENDOCRINE/METABOLIC Hx Hypothyroidism: Yes - HEMATOLOGICAL/ONCOLOGICAL Hx Blood Disorders: No - INTEGUMENTARY Hx Dermatological Problems: No - MUSCULOSKELETAL/RHEUMATOLOGICAL Hx Falls: Yes - GASTROINTESTINAL Hx Gastrointestinal Disorders: No - GENITOURINARY/GYNECOLOGICAL Hx Genitourinary Disorders: No Hx Reproductive Disorders: No - PSYCHIATRIC Hx Psychophysiologic Disorder: Yes Hx Depression: Yes Hx Emotional Abuse: No Hx Physical Abuse: No Hx Substance Use: No - SURGICAL HISTORY Other/Comment: cardiac stent. L carotid artery surgery. R kidney surgery - ANESTHESIA Hx Anesthesia Reactions: No Hx Malignant Hyperthermia: No Meds Allergies/Adverse Reactions: Allergies Allergy/AdvReac Type Severity Reaction Status Date / Time codeine Allergy ANAPHYLAXIS Verified 12/01/16 20:08 oxycodone HCl [From Percocet] Allergy ANAPHYLAXIS Verified 12/01/16 20:08 Penicillins Allergy ANAPHYLAXIS Verified 12/01/16 20:08 - Medications Medications: Current Medications Acetaminophen (Tylenol 325mg Tab) 650 mg PO Q6H PRN PRN Reason: Fever >100.4 F Alprazolam (Xanax) 1 mg PO QID [facility] PRN Reason: Protocol Last Admin: 02/09/17 10:51 Dose: Not Given Apixaban (Eliquis) 5 mg PO BID [facility] PRN Reason: Protocol Last Admin: 02/09/17 10:28 Dose: 5 mg Arformoterol Tartrate (Brovana) 15 mcg IH [id number] [facility] Last Admin: 02/09/17 08:05 Dose: 15 mcg Aspirin (Ecotrin) 81 mg PO DAILY [facility] Last Admin: 02/09/17 10:26 Dose: 81 mg Atorvastatin Calcium (Lipitor) 80 mg PO HS [facility] Last Admin: 02/08/17 21:52 Dose: 80 mg Budesonide (Pulmicort Respules) 0.5 mg IH [id number] [facility] Last Admin: 02/09/17 08:05 Dose: 0.5 mg Citalopram Hydrobromide (Celexa) 20 mg PO HS [facility] Last Admin: 02/08/17 21:52 Dose: 20 mg Diltiazem HCl (Cardizem Cd) 120 mg PO DAILY [facility] Last Admin: 02/09/17 10:26 Dose: 120 mg Heparin Sodium (Porcine) (Heparin) 5,000 units SC Q12 [facility] PRN Reason: Protocol Last Admin: 02/09/17 10:27 Dose: 5,000 units Levofloxacin/Dextrose (Levaquin 750mg) 750 mg in 150 mls @ 100 mls/hr IVPB DAILY [facility] Last Admin: 02/09/17 10:30 Dose: 100 mls/hr Ibuprofen (Motrin Tab) 600 mg PO Q6 PRN PRN Reason: Pain, moderate (4-7) Last Admin: 02/09/17 03:51 Dose: 600 mg Isosorbide Mononitrate (Imdur) 60 mg PO QAM [facility] Last Admin: 02/09/17 10:26 Dose: 60 mg Levothyroxine Sodium (Synthroid) 100 mcg PO ACB [facility] Last Admin: 02/09/17 08:25 Dose: 100 mcg Morphine Sulfate (Morphine) 1 mg IVP Q6H PRN PRN Reason: Pain, severe (8-10) Last Admin: 02/09/17 04:36 Dose: 1 mg Ipratropium/Albuterol Sulfate [ Combivent Inhaler] 2 marcelle IH QID [facility] Last Admin: 02/09/17 10:50 Dose: Not Given Ondansetron HCl (Zofran Inj) 4 mg IVP Q6H PRN PRN Reason: Nausea/Vomiting Last Admin: 02/09/17 00:31 Dose: 4 mg Pantoprazole Sodium (Protonix Inj) 40 mg IVP DAILY [facility] Last Admin: 02/09/17 10:26 Dose: 40 mg Zolpidem Tartrate (Ambien) 5 mg PO HS PRN; Protocol PRN Reason: Insomnia Last Admin: 02/08/17 22:28 Dose: 5 mg Physical Exam - Constitutional Appears: No Acute Distress, Cachectic, Chronically Ill - Head Exam Head Exam: ATRAUMATIC, NORMAL INSPECTION, NORMOCEPHALIC - Eye Exam Eye Exam: EOMI, Normal appearance, PERRL. absent: Scleral icterus Pupil Exam: NORMAL ACCOMODATION, PERRL - ENT Exam ENT Exam: Mucous Membranes Moist - Neck Exam Neck exam: Positive for: Full Rom, Normal Inspection - Respiratory Exam Respiratory Exam: Clear to Auscultation Bilateral, NORMAL BREATHING PATTERN. absent: Rales, Rhonchi, Wheezes, Respiratory Distress, Stridor - Cardiovascular Exam Cardiovascular Exam: REGULAR RHYTHM, +S1, +S2 - GI/Abdominal Exam GI & Abdominal Exam: Normal Bowel Sounds, Soft. absent: Distended, Tenderness - Extremities Exam Extremities exam: Positive for: full ROM, normal inspection - Back Exam Back exam: NORMAL INSPECTION - Neurological Exam Neurological exam: Alert, CN II-XII Intact, Oriented x3, Reflexes Normal Additional comments: Mini mental status exam of 2 ( able to recall 1 out 3 objects). Patient appears sad, but is in no distress wake and alert, thought process is normal. Patient speaking in full sentences, aware of her surrounding and is able to focus. CNII to VII intact, tongue is midline, masseter muscle symmetrical. No pronator drift, Patient has mixed resting and intention tremors. 5/5 flexion and extension motor strength in upper and lower extremities b/l. Negative babinski, reflexes +2 throughout Gait deferred. - Psychiatric Exam Psychiatric exam: Depressed - Skin Skin Exam: Dry, Warm Results - Vital Signs Recent Vital Signs: Last Vital Signs Temp 98.3 F 02/09/17 09:38 Pulse 60 02/09/17 09:38 Resp 20 02/09/17 09:38 BP 127/50 L 02/09/17 09:38 Pulse Ox 97 02/09/17 09:38 - Labs Result Diagrams: 02/09/17 06:30 02/09/17 06:30 Labs: Laboratory Results - last 24 hr 02/08/17 02/09/17 02/09/17 17:30 06:00 06:30 WBC 7.1 D RBC 3.46 L Hgb 9.5 L Hct 30.5 L MCV 88.2 MCH 27.5 MCHC 31.1 RDW 13.2 Plt Count 146 MPV 10.0 Gran % 73.1 H Lymph % (Auto) 14.6 L [place] % (Auto) 8.9 H Eos % (Auto) 3.0 Baso % (Auto) 0.4 Gran # 5.17 Lymph # 1.0 L [place] # 0.6 Eos # 0.2 Baso # 0.03 Sodium Potassium Chloride Carbon Dioxide Anion Gap BUN Creatinine Est GFR ( Amer) Est GFR (Non-Af Amer) Random Glucose Calcium Iron 48 TIBC 339 % Saturation 14 L Total Bilirubin AST ALT Alkaline Phosphatase Total Protein Albumin Globulin Albumin/Globulin Ratio Urine Color Yellow Urine Appearance Turbid Urine pH 6.0 Ur Specific [place] 1.025 Urine Protein >=300 H Urine Glucose (UA) Negative Urine Ketones Negative Urine Blood Large H Urine Nitrate Positive H Urine Bilirubin Negative Urine Urobilinogen 0.2 Ur Leukocyte Esterase Small H Urine RBC 25 - 30 Urine WBC Tntc Urine Bacteria Many 02/09/17 06:30 WBC RBC Hgb Hct MCV MCH MCHC RDW Plt Count MPV Gran % Lymph % (Auto) [place] % (Auto) Eos % (Auto) Baso % (Auto) Gran # Lymph # [place] # Eos # Baso # Sodium 135 Potassium 3.6 Chloride 99 Carbon Dioxide 30 Anion Gap 10 BUN 15 Creatinine 0.8 Est GFR ( Amer) > 60 Est GFR (Non-Af Amer) > 60 Random Glucose 83 Calcium 8.2 L Iron TIBC % Saturation Total Bilirubin 0.6 AST 100 H ALT 94 H Alkaline Phosphatase 67 Total Protein 5.8 Albumin 3.1 Globulin 2.7 Albumin/Globulin Ratio 1.1 Urine Color Urine Appearance Urine pH Ur Specific [place] Urine Protein Urine Glucose (UA) Urine Ketones Urine Blood Urine Nitrate Urine Bilirubin Urine Urobilinogen Ur Leukocyte Esterase Urine RBC Urine WBC Urine Bacteria Assessment & Plan - Assessment and Plan (Free Text) Assessment: Patient is a 71 y/o with pmh of afib, cad s.p cabg, carotid endarterectomy, cvax3, hypothyroidism, copd ( home o2), renal surgery, depression, anxiety whom presented with abdominal pain and was found to have pyelonephritis. Neuro consulted for worsening dementia. CT head from 11/30 with no acute ischemic changes, age appropriate involutional changes. Impression: mild cognitive impairment Plan: - Treat the underlying infection - Avoid delirium - Avoid night time interruption - Maintain adequate hydration - avoid sedatives and opioid - Recommend attention and memory training exercises - Consider B complex vitamins - Rec Tumeric 1000 mg once a day as outpatient - Follow up as outpatient for dementia work up - Thank you for consulting Dr whitfield. Patient seen, examined, and case discussed with Dr Whitfeild. - Date & Time Date: 02/09/17 Time: 13:00
[2017-02-09 14:24] LABS: FOLATE 12.4 ng/mL
--- NOTE | 2017-02-09 15:44 | CP.PCM.PN ---
Addendum entered and electronically signed by Barron Rapp DO 02/15/17 15:46: Patient was seen and case was discussed at length with Dr. Bach. Patient to continue on IV abx at this time. Continue hydration. Pending anemia work up. Barron Rapp D.O. PGY-2 Original Note: <LORENA BACH - Last Filed: 02/09/17 15:34> Subjective - Date & Time of Evaluation Date of Evaluation: 02/09/17 Time of Evaluation: 06:45 - Subjective Subjective: Lorena Bach DO PGY1 - Internal Medicine Progress Note - Dedousis/Adaniel Service Patient seed and examined at bedside. Admitted yesterday for abdominal pain radiating to the back, diagnosed as pyelonephritis on CT abd/pelv. Today, patient still has mild abdominal pain, but significantly improved since yesterday. She is complaining of difficulty sleeping last night. She denies any CP, SOB, palpitations, F/V, N/V/D/C. Objective - Vital Signs/Intake and Output Vital Signs (last 24 hours): Temp Pulse Resp BP Pulse Ox 98.3 F 60 20 127/50 L 97 02/09/17 09:38 02/09/17 09:38 02/09/17 09:38 02/09/17 09:38 02/09/17 09:38 Intake and Output: 02/09/17 02/09/17 06:59 18:59 Intake Total 0 1330 Balance 0 1330 - Medications Medications: Current Medications Acetaminophen (Tylenol 325mg Tab) 650 mg PO Q6H PRN PRN Reason: Fever >100.4 F Alprazolam (Xanax) 1 mg PO QID [facility] PRN Reason: Protocol Last Admin: 02/09/17 14:51 Dose: 1 mg Apixaban (Eliquis) 5 mg PO BID [facility] PRN Reason: Protocol Last Admin: 02/09/17 10:28 Dose: 5 mg Arformoterol Tartrate (Brovana) 15 mcg IH [id number] [facility] Last Admin: 02/09/17 08:05 Dose: 15 mcg Aspirin (Ecotrin) 81 mg PO DAILY [facility] Last Admin: 02/09/17 10:26 Dose: 81 mg Atorvastatin Calcium (Lipitor) 80 mg PO HS [facility] Last Admin: 02/08/17 21:52 Dose: 80 mg Budesonide (Pulmicort Respules) 0.5 mg IH [id number] [facility] Last Admin: 02/09/17 08:05 Dose: 0.5 mg Citalopram Hydrobromide (Celexa) 20 mg PO HS [facility] Last Admin: 02/08/17 21:52 Dose: 20 mg Diltiazem HCl (Cardizem Cd) 120 mg PO DAILY [facility] Last Admin: 02/09/17 10:26 Dose: 120 mg Heparin Sodium (Porcine) (Heparin) 5,000 units SC Q12 [facility] PRN Reason: Protocol Last Admin: 02/09/17 10:27 Dose: 5,000 units Levofloxacin/Dextrose (Levaquin 750mg) 750 mg in 150 mls @ 100 mls/hr IVPB DAILY [facility] Last Admin: 02/09/17 10:30 Dose: 100 mls/hr Ibuprofen (Motrin Tab) 600 mg PO Q6 PRN PRN Reason: Pain, moderate (4-7) Last Admin: 02/09/17 03:51 Dose: 600 mg Isosorbide Mononitrate (Imdur) 60 mg PO QAM [facility] Last Admin: 02/09/17 10:26 Dose: 60 mg Levothyroxine Sodium (Synthroid) 100 mcg PO ACB [facility] Last Admin: 02/09/17 08:25 Dose: 100 mcg Morphine Sulfate (Morphine) 1 mg IVP Q6H PRN PRN Reason: Pain, severe (8-10) Last Admin: 02/09/17 04:36 Dose: 1 mg Ipratropium/Albuterol Sulfate [ Combivent Inhaler] 2 marcelle IH QID [facility] Last Admin: 02/09/17 10:50 Dose: Not Given Ondansetron HCl (Zofran Inj) 4 mg IVP Q6H PRN PRN Reason: Nausea/Vomiting Last Admin: 02/09/17 00:31 Dose: 4 mg Pantoprazole Sodium (Protonix Inj) 40 mg IVP DAILY [facility] Last Admin: 02/09/17 10:26 Dose: 40 mg Zolpidem Tartrate (Ambien) 5 mg PO HS PRN; Protocol PRN Reason: Insomnia Last Admin: 02/08/17 22:28 Dose: 5 mg - Labs Labs: 02/09/17 06:30 02/09/17 06:30 APTT 27.3 Seconds (23.7-30.8) 02/08/17 15:09 - Constitutional Appears: Non-toxic, No Acute Distress - Head Exam Head Exam: ATRAUMATIC, NORMOCEPHALIC - Eye Exam Eye Exam: EOMI, Normal appearance, PERRL - ENT Exam ENT Exam: Mucous Membranes Moist - Respiratory Exam Respiratory Exam: Clear to Ausculation Bilateral. absent: Rales, Rhonchi, Wheezes - Cardiovascular Exam Cardiovascular Exam: RRR, +S1, +S2 - GI/Abdominal Exam GI & Abdominal Exam: Soft, Tenderness (Right mid-abdomen), Normal Bowel Sounds - Extremities Exam Extremities Exam: Normal Inspection - Back Exam Back Exam: CVA tenderness (R) - Neurological Exam Neurological Exam: Alert, Oriented x3 - Psychiatric Exam Psychiatric exam: Normal Affect, Normal Mood - Skin Skin Exam: Dry, Intact, Normal Color Assessment and Plan - Assessment and Plan (Free Text) Assessment: Pt is a 71 year old female with past medical history of CAD s/p CABG, Carotid enarterectomy, cva x3, hypothyroidism, COPD on home O2 and renal reconfiguration surgery who complains of abdominal pain radiating two her back, bilaterally. Plan: 1. Pyelonephritis - H&P, leukocytosis, urinalysis with hematuria, leukocytes, nitrites, and bacteriuria, and CT of abdomen and pelvis with hydronephrosis and perinephric fat stranding all lead to the most likely diagnosis of pyelonephritis. - Urine culture pending - Continue levaquin - Continue pain control with prn morphine - Patient has committed to drinking plenty of fluids, and the importance of this was stressed; will d/c IVF - ID consulted (Alexis) 2. Leukocytosis - 2/2 to pyelonephritis, resolved after starting levaquin and hydration 3. Acute anemia - Likely 2/2 to aggresive rehydration vs GI bleed - IVF stopped - Order iron studies, folate, B12, stool for occult blood - Check CBC in AM 4. Insomnia - Patient is on ambien at home, as well as Xanax 1mg QID, did recieve ambien last night, but has not been taking the Xanax since coming to the hospital - Continue ambien - Start Xanax 1mg QID 3. Hx of Atrial fibrillation - Continue Eliquis - Cont home diltiazem - Currently rate-controlled 4. Hx of CAD s/p CABG, CVA - Cont asa, lipitor, imdur 7. Hx of hypothyroidism - Cont Synthroid 8. Hx of COPD on home O2 - Cont home pulmicort, brovana, combivent inh 9. Hx of MDD/JENNIFER - Cont home celexa, xanax, ambien GI/DVT prophylaxis - Protonix, on Eliquis, stop heparin <Macho Wick - Last Filed: 02/23/17 09:11> Objective - Vital Signs/Intake and Output Vital Signs (last 24 hours): Temp Pulse Resp BP Pulse Ox 98.2 F 60 18 124/56 L 100 02/11/17 08:55 02/11/17 09:37 02/11/17 08:55 02/11/17 09:37 02/11/17 08:55 - Labs Labs: 02/11/17 06:00 02/11/17 06:00 APTT 27.3 Seconds (23.7-30.8) 02/08/17 15:09 Attending/Attestation - Attestation I have personally seen and examined this patient.: Yes I have fully participated in the care of the patient.: Yes I have reviewed all pertinent clinical information, including history, physical exam and plan: Yes Notes (Text): 02/23/17 09:11 Medical record note made by the resident done after discussion with my direction and input after the patient was personally seen by me. I have reviewed the chart and agree that the record accurately reflects my personal history, physical, data review, decision making and course for the patient.
[2017-02-09] MEDS: Aztreonam 1 Gm in NS 100mL 100 ML IV SCH ×2 (17:06→23:56)
--- NOTE | 2017-02-09 21:53 | CON ---
DATE: 02/09/2017 The patient was seen in room 371, bed 2. CHIEF COMPLAINT: Weakness from several days. HISTORY OF PRESENT ILLNESS: This is a 71-year-old female with past medical history of coronary artery disease, hypertension, cerebrovascular accident, hypothyroidism, chronic obstructive lung disease on home O2 therapy, was admitted with a diagnosis of pyelonephritis, urinary tract infection and infectious disease consultation requested. REVIEW OF SYSTEMS: The patient has low-grade fevers, no chills. She did have flank pain more so on the left side, although she states she felt that this is bilaterally at times. No nausea or vomiting. No chest pain. No abdominal pain now. No headaches or blurred vision. PAST MEDICAL HISTORY: Significant for COPD, on home O2 therapy, chronic respiratory failure, hypothyroidism, cerebrovascular accident, coronary artery disease, and hypertension. PAST SURGICAL HISTORY: Significant for coronary bypass graft and carotid endarterectomy. ALLERGIES: THE PATIENT IS ALLERGIC TO PENICILLIN. SHE DESCRIBES A TYPE 1 ANAPHYLAXIS WITH PENICILLIN. THE PATIENT IS ALSO ALLERGIC TO CODEINE AND OXYCODONE. HOME MEDICATIONS: Include the patient to be on Cardizem, rosuvastatin, omeprazole, levothyroxine, Imdur, Xanax, Eliquis, Brovana and Ecotrin. PHYSICAL EXAMINATION: GENERAL: The patient is in bed, in no acute distress and nontoxic; however weak. VITAL SIGNS: Temperature of 98, blood pressure 127/50, respiratory rate of 20, and heart rate of 102 to 121 down to 60 now. HEENT: Unremarkable. NECK: Supple. LUNGS: Decreased breath sounds. HEART: Normal S1 and S2. ABDOMEN: Soft and nontender. No rebound or guarding. No masses. There is left-sided CVA tenderness. LABORATORY DATA: Reveals a white count of 17,000 with 90% granulocytosis. Coagulation and chemistry reveals a BUN of 13, creatinine of 0.7, AST of 100 and was normal yesterday. Urinalysis reveals too numerous to count WBCs with many bacteria with a small leucocyte esterase and positive nitrite and greater than 300 protein. Microbiology is pending. The patient had a CAT scan of the abdomen and pelvis, which revealed to be without p.o. or IV contrast and showed perinephric stranding on the right kidney. Dr. Rodriguez's progress note is reviewed. ASSESSMENT AND PLAN: This is a 71-year-old female with coronary artery disease, hypertension, cerebrovascular accident, hypothyroidism and chronic obstructive lung disease, on home O2 therapy with positive leukocytosis of 17,000, tachycardia with a heart rate of 121 and positive urinalysis and positive CAT scan for a right-sided pyelonephritis sepsis with right-sided pyelonephritis in a patient, who is allergic to penicillin type 1 allergy. We will treat the patient with Azactam and pending blood and urine culture. We will discontinue the Levaquin, is 45-48% resistant to Escherichia coli to Levaquin, was a common organism; although we do not have the blood and urine cultures at this time and a patient with history of coronary artery disease, hypertension, cerebrovascular accident hypothyroidism, chronic obstructive lung disease, history of coronary artery bypass graft and carotid endarterectomy. We will follow closely with you. Weston Espinoza MD
[2017-02-10] MEDS: Aztreonam 1 Gm in NS 100mL 100 ML IV SCH ×3 (05:52→21:17)
[2017-02-10] MEDS: Pantoprazole 40 mg EC Tab PO SCH (05:57)
[2017-02-10] MEDS: Levothyroxine 100 MCG TAB PO SCH (07:51)
[2017-02-10] MEDS: Budesonide 0.5 mg/2 ml Inhal Susp UD IH SCH ×2 (08:02→19:36)
[2017-02-10] MEDS: Arformoterol 15 mcg/2 ml Inh Sol IH SCH ×2 (08:02→19:36)
[2017-02-10 08:52] LABS: ALB/GLOB RATIO 1.3 (1.1-1.8); ALKALINE PHOSPHATASE 66 U/L (38-133); ALT/SGPT 70 U/L (7-56); AST/SGOT 27 U/L (15-39); BILIRUBIN,TOTAL 0.4 mg/dL (0.2-1.3); BLOOD UREA NITROGEN 8 mg/dL (7-21); CALCIUM 8.8 mg/dL (8.4-10.5); CARBON DIOXIDE 31 mmol/L (21-33); CHLORIDE 100 mmol/L (95-110); GFR AFRICAN-AMERICAN > 60; GLUCOSE,RANDOM 82 mg/dL (70-110); POTASSIUM 3.9 mmol/L (3.6-5.0); SODIUM 139 mmol/L (132-148); TOTAL PROTEIN 5.8 g/dL (5.8-8.3)
[2017-02-10 09:06] LABS: ADD MANUAL DIFF? NO
[2017-02-10] MEDS: diltiaZEM 120 mg/24 Hours CD Cap PO SCH (09:13)
[2017-02-10 09:17] LABS: BASO # 0.04 K/mm3 (0.0-2.0); BASO % 0.6 % (0.0-3.0); EOS # 0.3 (0.0-0.7); EOS % 4.5 % (1.5-5.0); GRAN # 4.67 (1.4-6.5); GRAN % 70.4 % (50.0-68.0); HEMATOCRIT 30.6 % (36.0-48.0); LYMPH # 1.1 (1.2-3.4); LYMPH % 16.7 % (22.0-35.0); MEAN CELL VOLUME 89.2 fL (80.0-105.0); MEAN CORPUSCULAR HEMOGLOBIN 27.7 pg (25.0-35.0); MEAN PLATELET VOLUME 11.1 fl (7.0-11.0); MONO # 0.5 (0.1-0.6); MONO % 7.8 % (1.0-6.0); PLATELET COUNT 181 10^3/uL (120.0-450.0); RED CELL DISTRIBUTION WIDTH 13.5 % (11.5-14.5); WHITE BLOOD COUNT 6.6 10^3/ul (4.5-11.0)
[2017-02-10] MEDS: IPRATROPIUM IH SCH (10:24)
[2017-02-10] MEDS: ALBUTEROL SULFATE IH SCH (10:24)
--- NOTE | 2017-02-10 14:14 | PN ---
DATE: 02/10/2017 SUBJECTIVE: The patient seen earlier this morning in room 371, Bed 2. She is doing well. She had from night. No fevers. She tolerating antibiotics well. PHYSICAL EXAMINATION: VITAL SIGNS: Temperature is 98, blood pressure is 109/40, respiratory rate of 18, and heart rate of 60. HEENT: Unremarkable. NECK: Supple. LUNGS: Decrease breath sounds. HEART: Normal S1 and S2. ABDOMEN: Soft and nontender. LABORATORY DATA: Reveals white count of 6.6, hemoglobin of 9.5, and platelets of 181. Chemistry reveals BUN of 8, creatinine of 0.7 and urinalysis is noted. Microbiology reveals a Gram-negative wilbert in the urine culture and waiting for identification and sensitivity, the blood cultures are pending and review of orders reveals the patient to be on aztreonam. ASSESSMENT AND PLAN: This is a 71-year-old female with past medical history of coronary artery disease, hypertension, cerebrovascular accident, hypothyroidism, chronic obstructive lung disease on home oxygen therapy, and chronic respiratory failure. Admitted with Gram-negative wilbert, pyelonephritis, has a TYPE-I ALLERGY TO PENICILLIN currently on Azactam day #2 and waiting for identification Gram-negative wilbert in the urine and awaiting for blood culture results and will continue the Azactam, will need a total of 10 days of antibiotics today is day #2. We will follow with you. Weston Espinoza MD
[2017-02-10 17:03] VITALS: RESP 18
--- NOTE | 2017-02-11 06:23 | CP.PCM.PN ---
Subjective - Date & Time of Evaluation Date of Evaluation: 02/10/17 Time of Evaluation: 06:45 - Subjective Subjective: Lorena Bach DO PGY1 - Internal Medicine Progress Note - Shamika/Julián Service Patient seed and examined at bedside. No acute events reported overnight. Today , patient no longer complains of abdominal pain, but continues to have some dysuria. She is also no longer complaining of trouble sleeping since restarting Xanax. She was seen by ID yesterday and Abx were switched, but culture and sensitivity are still pending before she can safely be d/c'd on PO medications. She denies any CP, SOB, palpitations, F/V, N/V/D/C. Objective - Vital Signs/Intake and Output Vital Signs (last 24 hours): Temp Pulse Resp BP Pulse Ox 97.3 F L 51 L 18 125/51 L 98 02/10/17 17:02 02/10/17 17:02 02/10/17 17:02 02/10/17 17:02 02/10/17 17:02 Intake and Output: 02/10/17 02/11/17 18:59 06:59 Intake Total 420 Balance 420 - Medications Medications: Current Medications Acetaminophen (Tylenol 325mg Tab) 650 mg PO Q6H PRN PRN Reason: Fever >100.4 F Alprazolam (Xanax) 1 mg PO QID [facility] PRN Reason: Protocol Last Admin: 02/10/17 21:18 Dose: 1 mg Apixaban (Eliquis) 5 mg PO BID [facility] PRN Reason: Protocol Last Admin: 02/10/17 18:01 Dose: 5 mg Arformoterol Tartrate (Brovana) 15 mcg IH [id number] [facility] Last Admin: 02/10/17 19:36 Dose: 15 mcg Aspirin (Ecotrin) 81 mg PO DAILY [facility] Last Admin: 02/10/17 09:14 Dose: 81 mg Atorvastatin Calcium (Lipitor) 80 mg PO [facility] Last Admin: 02/10/17 21:52 Dose: 80 mg Budesonide (Pulmicort Respules) 0.5 mg IH [id number] [facility] Last Admin: 02/10/17 19:36 Dose: 0.5 mg Citalopram Hydrobromide (Celexa) 20 mg PO [facility] Last Admin: 02/10/17 21:52 Dose: 20 mg Diltiazem HCl (Cardizem Cd) 120 mg PO DAILY [facility] Last Admin: 02/10/17 09:13 Dose: 120 mg Docusate Sodium (Colace) 100 mg PO BID [facility] Last Admin: 02/10/17 21:17 Dose: 100 mg Aztreonam (Azactam 1 Gm) 100 mls @ 100 mls/hr IV Q8 STACY PRN Reason: Protocol Stop: 02/18/17 16:08 Last Admin: 02/10/17 21:17 Dose: 100 mls/hr Ibuprofen (Motrin Tab) 600 mg PO Q6 PRN PRN Reason: Pain, moderate (4-7) Last Admin: 02/10/17 10:52 Dose: 600 mg Isosorbide Mononitrate (Imdur) 60 mg PO QAM [facility] Last Admin: 02/10/17 09:13 Dose: 60 mg Levothyroxine Sodium (Synthroid) 100 mcg PO ACB [facility] Last Admin: 02/10/17 07:51 Dose: 100 mcg Morphine Sulfate (Morphine) 1 mg IVP Q6H PRN PRN Reason: Pain, severe (8-10) Last Admin: 02/09/17 04:36 Dose: 1 mg Ipratropium/Albuterol Sulfate [ Combivent Inhaler] 2 marcelle IH QID [facility] Last Admin: 02/10/17 10:24 Dose: Not Given Ondansetron HCl (Zofran Inj) 4 mg IVP Q6H PRN PRN Reason: Nausea/Vomiting Last Admin: 02/09/17 00:31 Dose: 4 mg Pantoprazole Sodium (Protonix Ec Tab) 40 mg PO 0600 [facility] Last Admin: 02/10/17 05:57 Dose: 40 mg Zolpidem Tartrate (Ambien) 5 mg PO HS PRN; Protocol PRN Reason: Insomnia Last Admin: 02/09/17 23:56 Dose: 5 mg - Labs Labs: 02/10/17 07:00 02/10/17 06:30 APTT 27.3 Seconds (23.7-30.8) 02/08/17 15:09 - Constitutional Appears: Non-toxic, No Acute Distress - Head Exam Head Exam: ATRAUMATIC, NORMOCEPHALIC - Eye Exam Eye Exam: EOMI, Normal appearance, PERRL - ENT Exam ENT Exam: Mucous Membranes Moist - Neck Exam Neck Exam: Full ROM, Normal Inspection. absent: Lymphadenopathy, Meningismus, Thyromegaly - Respiratory Exam Respiratory Exam: Clear to Ausculation Bilateral. absent: Rales, Rhonchi, Wheezes - Cardiovascular Exam Cardiovascular Exam: RRR, +S1, +S2, Murmur (early systolic) - GI/Abdominal Exam GI & Abdominal Exam: Soft, Normal Bowel Sounds. absent: Tenderness - Extremities Exam Extremities Exam: Normal Inspection. absent: Calf Tenderness, Pedal Edema - Back Exam Back Exam: CVA tenderness (L), CVA tenderness (R) - Neurological Exam Neurological Exam: Alert, Awake, Oriented x3 - Psychiatric Exam Psychiatric exam: Normal Affect, Normal Mood Additional comments: Forgetful - Skin Skin Exam: Dry, Intact Assessment and Plan - Assessment and Plan (Free Text) Assessment: Pt is a 71 year old female with past medical history of CAD s/p CABG, Carotid enarterectomy, cva x3, hypothyroidism, COPD on home O2 and renal reconfiguration surgery who complains of abdominal pain radiating to her back, bilaterally. Currently being treated emperically for pyelonephritis. Plan: 1. Pyelonephritis - H&P, leukocytosis, urinalysis with hematuria, leukocytes, nitrites, and bacteriuria, and CT of abdomen and pelvis with hydronephrosis and perinephric fat stranding all lead to the most likely diagnosis of pyelonephritis. - Urine culture and sensitivity pending - Stop levaquin, continue Aztreonam due to local resistance per ID - Continue pain control with prn morphine - Restart IVF to push fluids - ID consulted (Alexis), all recs appreciated 3. Acute anemia - Stable - Likely 2/2 to aggresive rehydration vs GI bleed - Order iron studies, folate, B12 normal. Stool for occult blood pending - Continue to monitor CBC 4. Insomnia - improved - Restarted Xanax, patient slept well last night - Continue circadian rhythm retraining - Continue ambien 3. Hx of Atrial fibrillation - Continue Eliquis - Cont home diltiazem - Currently rate-controlled 4. Hx of CAD s/p CABG, CVA - Cont asa, lipitor, imdur 7. Hx of hypothyroidism - Cont Synthroid 8. Hx of COPD on home O2 - Cont home pulmicort, brovana, combivent inh 9. Hx of MDD/JENNIFER - Cont home celexa, xanax, ambien GI/DVT prophylaxis - Protonix, Eliquis Patient seen and discussed with attending Dr. Gallego
[2017-02-11] MEDS: Pantoprazole 40 mg EC Tab PO SCH (06:38)
[2017-02-11] MEDS: Aztreonam 1 Gm in NS 100mL 100 ML IV SCH ×2 (06:38→14:18)
[2017-02-11 06:50] LABS: ADD MANUAL DIFF? NO
[2017-02-11 07:09] LABS: ALB/GLOB RATIO 1.1 (1.1-1.8); ALKALINE PHOSPHATASE 50 U/L (38-133); ALT/SGPT 52 U/L (7-56); AST/SGOT 18 U/L (15-39); BILIRUBIN,TOTAL 0.4 mg/dL (0.2-1.3); BLOOD UREA NITROGEN 9 mg/dL (7-21); CALCIUM 8.7 mg/dL (8.4-10.5); CARBON DIOXIDE 33 mmol/L (21-33); CHLORIDE 102 mmol/L (98-107); GFR AFRICAN-AMERICAN > 60; GLUCOSE,RANDOM 86 mg/dL (70-110); POTASSIUM 3.9 mmol/L (3.6-5.0); SODIUM 140 mmol/L (132-148); TOTAL PROTEIN 5.8 g/dL (5.8-8.3)
[2017-02-11 07:11] LABS: BASO # 0.05 K/mm3 (0.0-2.0); BASO % 0.8 % (0.0-3.0); EOS # 0.3 (0.0-0.7); EOS % 3.8 % (1.5-5.0); GRAN # 4.55 (1.4-6.5); GRAN % 68.9 % (50.0-68.0); HEMATOCRIT 29.5 % (36.0-48.0); LYMPH # 1.2 (1.2-3.4); LYMPH % 17.5 % (22.0-35.0); MEAN CELL VOLUME 89.4 fL (80.0-105.0); MEAN CORPUSCULAR HEMOGLOBIN 27.6 pg (25.0-35.0); MEAN CORPUSCULAR HGB CONC 30.8 g/dl (31.0-37.0); MEAN PLATELET VOLUME 10.4 fl (7.0-11.0); MONO # 0.6 (0.1-0.6); PLATELET COUNT 189 10^3/uL (120.0-450.0); RED CELL DISTRIBUTION WIDTH 13.6 % (11.5-14.5); WHITE BLOOD COUNT 6.6 10^3/ul (4.5-11.0)
[2017-02-11] MEDS: Arformoterol 15 mcg/2 ml Inh Sol IH SCH (07:50)
[2017-02-11] MEDS: Budesonide 0.5 mg/2 ml Inhal Susp UD IH SCH (07:50)
[2017-02-11] MEDS: Levothyroxine 100 MCG TAB PO SCH (07:53)
[2017-02-11 08:56] VITALS: TEMP 98.2; O2SAT 100
[2017-02-11] MEDS: diltiaZEM 120 mg/24 Hours CD Cap PO SCH (09:37)
[2017-02-11] MEDS: ALBUTEROL SULFATE IH SCH ×2 (09:39→14:19)
[2017-02-11] MEDS: IPRATROPIUM IH SCH ×2 (09:39→14:19)
[2017-02-11 09:41] VITALS: BP 124/56; PULSE 60
--- NOTE | 2017-02-11 10:53 | PN ---
DATE: 02/11/2017 SUBJECTIVE: The patient is in bed, no acute distress, nontoxic. PHYSICAL EXAMINATION: VITAL SIGNS: Temperature is 98, blood pressure is 120/50, respiratory rate of 18, and heart rate of 46. HEENT: Unremarkable. NECK: Supple. LUNGS: Decreased breath sounds. HEART: Normal S1, S2. ABDOMEN: Soft and nontender. LABORATORY DATA: Reveals the blood cultures are negative. The urine cultures are Gram-negative wilbert. Review of orders reveal the patient is on aztreonam. ASSESSMENT AND PLAN: This is a 71-year-old female with past medical history of coronary artery disease, hypertension, cerebrovascular accident, hypothyroidism, chronic obstructive lung disease and chronic respiratory failure on home O2 oxygen therapy, and admitted with pyelonephritis with a Gram-negative wilbert, waiting for identification of sensitivity of Gram-negative wilbert, currently on Azactam day #3. The patient does have TYPE-1 ALLERGY TO PENICILLIN and limited with p.o. antibiotics pending identification of sensitivity of a Gram-negative wilbert. Case discussed with . We will follow with you. Weston Espinoza MD
--- NOTE | 2017-02-11 15:55 | CP.PCM.DIS ---
<STEPHANEMILIA - Last Filed: 02/11/17 15:09> Provider - Provider Date of Admission: 02/08/17 17:20 Attending physician: Macho Wick MD Primary care physician: Macho Wick MD Consults: ID: Alexis Neuro: Roseann Time Spent in preparation of Discharge (in minutes): 55 Diagnosis - Discharge Diagnosis (1) Pyelonephritis Status: Acute Priority: High (2) Gait instability Status: Chronic Priority: Medium (3) Weakness Status: Chronic Priority: Medium Hospital Course - Lab Results Lab Results: Micro Results 02/08/17 17:30 Urine Urine Culture - Final Escherichia Coli 02/10/17 06:30 Blood Blood Culture - Preliminary NO GROWTH AFTER 24 HOURS 02/10/17 06:30 Blood Blood Culture - Preliminary NO GROWTH AFTER 24 HOURS Most Recent Lab Values WBC 6.6 10^3/ul (4.5-11.0) 02/11/17 06:00 RBC 3.30 10^6/uL (3.5-6.1) L 02/11/17 06:00 Hgb 9.1 gm/dL (12.0-16.0) L 02/11/17 06:00 Hct 29.5 % (36.0-48.0) L 02/11/17 06:00 MCV 89.4 fL (80.0-105.0) 02/11/17 06:00 MCH 27.6 pg (25.0-35.0) 02/11/17 06:00 MCHC 30.8 g/dl (31.0-37.0) L 02/11/17 06:00 RDW 13.6 % (11.5-14.5) 02/11/17 06:00 Plt Count 189 10^3/uL (120.0-450.0) 02/11/17 06:00 MPV 10.4 fl (7.0-11.0) 02/11/17 06:00 Gran % 68.9 % (50.0-68.0) H 02/11/17 06:00 Lymph % (Auto) 17.5 % (22.0-35.0) L 02/11/17 06:00 [place] % (Auto) 9.0 % (1.0-6.0) H 02/11/17 06:00 Eos % (Auto) 3.8 % (1.5-5.0) 02/11/17 06:00 Baso % (Auto) 0.8 % (0.0-3.0) 02/11/17 06:00 Gran # 4.55 (1.4-6.5) 02/11/17 06:00 Lymph # 1.2 (1.2-3.4) 02/11/17 06:00 [place] # 0.6 (0.1-0.6) 02/11/17 06:00 Eos # 0.3 (0.0-0.7) 02/11/17 06:00 Baso # 0.05 K/mm3 (0.0-2.0) 02/11/17 06:00 APTT 27.3 Seconds (23.7-30.8) 02/08/17 15:09 Sodium 140 mmol/L (132-148) 02/11/17 06:00 Potassium 3.9 mmol/L (3.6-5.0) 02/11/17 06:00 Chloride 102 mmol/L (98-107) 02/11/17 06:00 Carbon Dioxide 33 mmol/L (21-33) 02/11/17 06:00 Anion Gap 9 (10-20) L 02/11/17 06:00 BUN 9 mg/dL (7-21) 02/11/17 06:00 Creatinine 0.7 mg/dL (0.5-1.4) 02/11/17 06:00 Est GFR ( Amer) > 60 02/11/17 06:00 Est GFR (Non-Af Amer) > 60 02/11/17 06:00 Random Glucose 86 mg/dL (70-110) 02/11/17 06:00 Calcium 8.7 mg/dL (8.4-10.5) 02/11/17 06:00 Iron 48 ug/dL (45-180) 02/09/17 06:00 TIBC 339 ug/dL (265-497) 02/09/17 06:00 % Saturation 14 % (20-55) L 02/09/17 06:00 Ferritin 21.8 ng/mL 02/09/17 06:00 Total Bilirubin 0.4 mg/dL (0.2-1.3) 02/11/17 06:00 AST 18 U/L (15-39) 02/11/17 06:00 ALT 52 U/L (7-56) 02/11/17 06:00 Alkaline Phosphatase 50 U/L (38-133) 02/11/17 06:00 Total Protein 5.8 g/dL (5.8-8.3) 02/11/17 06:00 Albumin 3.1 g/dL (3.0-4.8) 02/11/17 06:00 Globulin 2.8 gm/dL 02/11/17 06:00 Albumin/Globulin Ratio 1.1 (1.1-1.8) 02/11/17 06:00 Lipase 29 U/L (23-300) 02/08/17 16:10 Vitamin B12 309 pg/mL (239-931) 02/09/17 06:00 Folate 12.4 ng/mL 02/09/17 06:00 Urine Color Yellow (YELLOW) 02/08/17 17:30 Urine Appearance Turbid (CLEAR) 02/08/17 17:30 Urine pH 6.0 (4.7-8.0) 02/08/17 17:30 Ur Specific [place] 1.025 (1.005-1.035) 02/08/17 17:30 Urine Protein >=300 mg/dL (<30 mg/dL) H 02/08/17 17:30 Urine Glucose (UA) Negative mg/dL (NEGATIVE) 02/08/17 17:30 Urine Ketones Negative mg/dL (NEGATIVE) 02/08/17 17:30 Urine Blood Large (NEGATIVE) H 02/08/17 17:30 Urine Nitrate Positive (NEGATIVE) H 02/08/17 17:30 Urine Bilirubin Negative (NEGATIVE) 02/08/17 17:30 Urine Urobilinogen 0.2 E.U./dL (<1 E.U./dL) 02/08/17 17:30 Ur Leukocyte Esterase Small Gonzalez/uL (NEGATIVE) H 02/08/17 17:30 Urine RBC 25 - 30 /hpf (0-2) 02/08/17 17:30 Urine WBC Tntc /hpf (0-6) 02/08/17 17:30 Urine Bacteria Many (NEG) 02/08/17 17:30 Serum Immunofixation Not detected (Not Detected) 02/09/17 06:00 - Hospital Course Hospital Course: 71 yo F with PMH of CAD s/p CABG, carotid endarterectomy, CVAx3, hypothyroidism , COPD on home O2, renal reconfiguration surgery, aortic stenosis, and subclavian stenosis s/p stent, [place] [facility] with abdominal pain radiating to low back bilaterally, as well as polyuria and dark urine. UA and CT abd/pel in ER were indicative of pyelonephritis. Blood and urine samples were collected for culture and sensitivity, levaquin was started, and ID was consulted. The following day, her abdominal pain improved and she felt significantly better, though she still had CVA tenderness. She was also noted to have an acute anemia, which was deemed 2/2 to aggressive rehydration when FOBT was negative and H/H stabilized. That day, her abx were changed to Azactam by ID. Today, patient denies any abdominal pain or back pain. She is sleeping much better. Today is day 3 for Azactam. Urine culture and sensitive came back positive for E. coli, resistant to ampicillin, ciprofloxacin, and TMP/SMX. Per ID, she will need to stay on IV Azactam to complete a 10 day course. She admits to weakness and fatigue. Patients medications were discussed and all questions were answered to her satisfaction, and she was discharged to TCU for rehabilitation of weakness and deconditioning. Patient seen and reviewed with attending Dr. Molina Discharge Exam - Head Exam Head Exam: ATRAUMATIC, NORMOCEPHALIC - Eye Exam Eye Exam: EOMI, Normal appearance - ENT Exam ENT Exam: Mucous Membranes Moist - Neck Exam Neck exam: Full Rom, Normal Inspection - Respiratory Exam Respiratory Exam: Clear to PA & Lateral. absent: Rales, Rhonchi, Wheezes - Cardiovascular Exam Cardiovascular Exam: RRR, +S1, +S2 - GI/Abdominal Exam GI & Abdominal Exam: Normal Bowel Sounds, Soft. absent: Tenderness - Extremities Exam Extremities exam: normal inspection - Back Exam Back exam: CVA tenderness (L), CVA tenderness (R) Additional comments: Decreased since yesterday - Neurological Exam Neurological exam: Alert, Oriented x3 - Psychiatric Exam Psychiatric exam: Normal Affect, Normal Mood - Skin Skin Exam: Dry, Intact Discharge Plan - Follow Up Plan Condition: STABLE Disposition: REHAB FACILITY/REHAB UNIT Instructions: Urinary Tract Infection in Women (DC), Urinary Tract Infection in Men (DC), Dysuria (GEN) Additional Instructions: 1. Start physical therapy in TCU 2. Continue IV Abx 3. Follow up with PCP after discharge from TCU Referrals: Macho Wick MD [Primary Care Provider] - <Ted Molina - Last Filed: 02/11/17 16:09> Provider - Provider Date of Admission: 02/08/17 17:20 Attending physician: Macho Wick MD Primary care physician: Macho Wick MD Hospital Course - Lab Results Lab Results: Micro Results 02/08/17 17:30 Urine Urine Culture - Final Escherichia Coli 02/10/17 06:30 Blood Blood Culture - Preliminary NO GROWTH AFTER 24 HOURS 02/10/17 06:30 Blood Blood Culture - Preliminary NO GROWTH AFTER 24 HOURS Most Recent Lab Values WBC 6.6 10^3/ul (4.5-11.0) 02/11/17 06:00 RBC 3.30 10^6/uL (3.5-6.1) L 02/11/17 06:00 Hgb 9.1 gm/dL (12.0-16.0) L 02/11/17 06:00 Hct 29.5 % (36.0-48.0) L 02/11/17 06:00 MCV 89.4 fL (80.0-105.0) 02/11/17 06:00 MCH 27.6 pg (25.0-35.0) 02/11/17 06:00 MCHC 30.8 g/dl (31.0-37.0) L 02/11/17 06:00 RDW 13.6 % (11.5-14.5) 02/11/17 06:00 Plt Count 189 10^3/uL (120.0-450.0) 02/11/17 06:00 MPV 10.4 fl (7.0-11.0) 02/11/17 06:00 Gran % 68.9 % (50.0-68.0) H 02/11/17 06:00 Lymph % (Auto) 17.5 % (22.0-35.0) L 02/11/17 06:00 [place] % (Auto) 9.0 % (1.0-6.0) H 02/11/17 06:00 Eos % (Auto) 3.8 % (1.5-5.0) 02/11/17 06:00 Baso % (Auto) 0.8 % (0.0-3.0) 02/11/17 06:00 Gran # 4.55 (1.4-6.5) 02/11/17 06:00 Lymph # 1.2 (1.2-3.4) 02/11/17 06:00 [place] # 0.6 (0.1-0.6) 02/11/17 06:00 Eos # 0.3 (0.0-0.7) 02/11/17 06:00 Baso # 0.05 K/mm3 (0.0-2.0) 02/11/17 06:00 APTT 27.3 Seconds (23.7-30.8) 02/08/17 15:09 Sodium 140 mmol/L (132-148) 02/11/17 06:00 Potassium 3.9 mmol/L (3.6-5.0) 02/11/17 06:00 Chloride 102 mmol/L (98-107) 02/11/17 06:00 Carbon Dioxide 33 mmol/L (21-33) 02/11/17 06:00 Anion Gap 9 (10-20) L 02/11/17 06:00 BUN 9 mg/dL (7-21) 02/11/17 06:00 Creatinine 0.7 mg/dL (0.5-1.4) 02/11/17 06:00 Est GFR ( Amer) > 60 02/11/17 06:00 Est GFR (Non-Af Amer) > 60 02/11/17 06:00 Random Glucose 86 mg/dL (70-110) 02/11/17 06:00 Calcium 8.7 mg/dL (8.4-10.5) 02/11/17 06:00 Iron 48 ug/dL (45-180) 02/09/17 06:00 TIBC 339 ug/dL (265-497) 02/09/17 06:00 % Saturation 14 % (20-55) L 02/09/17 06:00 Ferritin 21.8 ng/mL 02/09/17 06:00 Total Bilirubin 0.4 mg/dL (0.2-1.3) 02/11/17 06:00 AST 18 U/L (15-39) 02/11/17 06:00 ALT 52 U/L (7-56) 02/11/17 06:00 Alkaline Phosphatase 50 U/L (38-133) 02/11/17 06:00 Total Protein 5.8 g/dL (5.8-8.3) 02/11/17 06:00 Albumin 3.1 g/dL (3.0-4.8) 02/11/17 06:00 Globulin 2.8 gm/dL 02/11/17 06:00 Albumin/Globulin Ratio 1.1 (1.1-1.8) 02/11/17 06:00 Lipase 29 U/L (23-300) 02/08/17 16:10 Vitamin B12 309 pg/mL (239-931) 02/09/17 06:00 Folate 12.4 ng/mL 02/09/17 06:00 Urine Color Yellow (YELLOW) 02/08/17 17:30 Urine Appearance Turbid (CLEAR) 02/08/17 17:30 Urine pH 6.0 (4.7-8.0) 02/08/17 17:30 Ur Specific [place] 1.025 (1.005-1.035) 02/08/17 17:30 Urine Protein >=300 mg/dL (<30 mg/dL) H 02/08/17 17:30 Urine Glucose (UA) Negative mg/dL (NEGATIVE) 02/08/17 17:30 Urine Ketones Negative mg/dL (NEGATIVE) 02/08/17 17:30 Urine Blood Large (NEGATIVE) H 02/08/17 17:30 Urine Nitrate Positive (NEGATIVE) H 02/08/17 17:30 Urine Bilirubin Negative (NEGATIVE) 02/08/17 17:30 Urine Urobilinogen 0.2 E.U./dL (<1 E.U./dL) 02/08/17 17:30 Ur Leukocyte Esterase Small Gonzalez/uL (NEGATIVE) H 02/08/17 17:30 Urine RBC 25 - 30 /hpf (0-2) 02/08/17 17:30 Urine WBC Tntc /hpf (0-6) 02/08/17 17:30 Urine Bacteria Many (NEG) 02/08/17 17:30 Serum Immunofixation Not detected (Not Detected) 02/09/17 06:00 - Hospital Course Hospital Course: went over labs orders consults iv abs and to d/c to tcu for further iv abs and pt and care discussed w/ nurse and resident
--- NOTE | 2017-02-13 15:29 | PQF SEPSIS ---
02/13/17 Dr. Gallego/DONAL Wick physician mentions "sepsis" on consult of 02/09. Was systemic sepsis ruled out , ruled in, other, undetermined? Thank you. Clarification of your documentation is requested to better reflect the severity of illness and intensity of treatment of your patient. Indicators present [] Temp < 96.8 or > 100.4 [] WBC count > 12,000/mm3 or <000/mm3 or 10% immature neutrophils [] Heart Rate > 90 [] Respiratory Rate > 20 [] Fever or hypothermia [] Chills [] Positive blood cultures [] Hypotension [] Metabolic acidosis (Elevated lactate level, anion gap or reduced blood pH) [] Acute confusion /Altered Mental Status [] Shock [X] Other: [] Please elaborate on the sepsis diagnosis Location in the medical record that reflects the above clinical findings: [] Treatment Provided: [] PHYSICIAN'S RESPONSE Based on your medical judgment of the clinical indicators outlined above, are you treating this patient for a known or suspected: [] Sepsis / Septicemia Please specify organism if known [] [] SIRS (Systemic Inflammatory Response Syndrome) [] Severe Sepsis (Sepsis with Associated Organ Dysfunction) [] Fever of Unknown Origin [] Other, please indicate: [] [] If Unable to Determine, please check the box, sign and date. Present On Admission (POA) Indicator: [] Present at the time of admission [] Not present at the time of admission [] Clinically Undetermined In responding to this query, please exercise your independent professional judgment. The fact that a question is asked does not imply that any particular answer is desired or expected. Thank you for your clarification on this documentation. If you have any questions please call:[ ] * Thank you, [ ] animal caretaker RAMONA
== END 2017-02-11 17:03 | DRG 690 ==
LOC: ED 12:46 → ERH 17:20 → 3RSO 20:15
PROVIDERS: ADMIT Internal Medicine; ATTEND Internal Medicine
DX: N10 Acute pyelonephritis (principal); J96.10 Chronic respiratory failure, unspecified whether with hypoxia or hypercapnia; Z99.81 Dependence on supplemental oxygen; R65.10 Systemic inflammatory response syndrome (SIRS) of non-infectious origin without acute organ dysfunction; F03.90 Unspecified dementia, unspecified severity, without behavioral disturbance, psychotic disturbance, mood disturbance, and anxiety; I48.91 Unspecified atrial fibrillation; J44.9 Chronic obstructive pulmonary disease, unspecified; N12 Tubulo-interstitial nephritis, not specified as acute or chronic; D64.9 Anemia, unspecified; E03.9 Hypothyroidism, unspecified; R53.1 Weakness; R26.81 Unsteadiness on feet; Z82.49 Family history of ischemic heart disease and other diseases of the circulatory system; F32.89 Other specified depressive episodes; F41.9 Anxiety disorder, unspecified; Z98.49 Cataract extraction status, unspecified eye; I10 Essential (primary) hypertension; I25.10 Atherosclerotic heart disease of native coronary artery without angina pectoris; Z95.1 Presence of aortocoronary bypass graft; Z95.5 Presence of coronary angioplasty implant and graft; Z88.0 Allergy status to penicillin; Z87.891 Personal history of nicotine dependence; I35.0 Nonrheumatic aortic (valve) stenosis; Z86.73 Personal history of transient ischemic attack (TIA), and cerebral infarction without residual deficits; I70.8 Atherosclerosis of other arteries; N20.0 Calculus of kidney; N30.90 Cystitis, unspecified without hematuria; B96.20 Unspecified Escherichia coli [E. coli] as the cause of diseases classified elsewhere; Z16.11 Resistance to penicillins; Z79.01 Long term (current) use of anticoagulants; Z79.82 Long term (current) use of aspirin; Z79.899 Other long term (current) drug therapy; Z88.6 Allergy status to analgesic agent; Z88.5 Allergy status to narcotic agent; Z87.892 Personal history of anaphylaxis; M54.5 Low back pain; R00.0 Tachycardia, unspecified; G47.00 Insomnia, unspecified; F41.1 Generalized anxiety disorder

== ENCOUNTER 2017-02-11 17:05 | Inpatient (IN) | payer OTHER, MEDICAID ==
[2017-02-11 17:29] VITALS: BMI 24.8
[2017-02-11] MEDS ORDERED: IPRATROPIUM IH SCH (18:00)
[2017-02-11] MEDS ORDERED: ALBUTEROL SULFATE IH SCH (18:00)
[2017-02-11] MEDS ORDERED: Levothyroxine 100 MCG TAB PO ONE (18:45)
[2017-02-11] MEDS: Arformoterol 15 mcg/2 ml Inh Sol IH SCH (19:58)
[2017-02-11] MEDS: Budesonide 0.5 mg/2 ml Inhal Susp UD IH SCH (19:59)
[2017-02-11] MEDS: Albuterol-Ipratrop 3 mg / 0.5 (3 ml) UD IH SCH (19:59)
[2017-02-11] MEDS: Aztreonam 1 Gm in NS 100mL 100 ML IVPB SCH (23:42)
[2017-02-12] MEDS ORDERED: Pneumococcal 23-Valent Vaccine IM ONE (01:11)
[2017-02-12] MEDS: Albuterol-Ipratrop 3 mg / 0.5 (3 ml) UD IH SCH ×4 (02:20→19:46)
[2017-02-12] MEDS: Aztreonam 1 Gm in NS 100mL 100 ML IVPB SCH ×3 (05:44→21:42)
[2017-02-12] MEDS: Levothyroxine 100 MCG TAB PO SCH (05:46)
[2017-02-12] MEDS: Pantoprazole 40 mg EC Tab PO SCH (05:46)
[2017-02-12] MEDS ORDERED: Levothyroxine 75 MCG TAB PO SCH (06:00)
[2017-02-12 06:51] LABS: ALB/GLOB RATIO 1.1 (1.1-1.8); ALBUMIN 3.1 g/dL (3.0-4.8); ALT/SGPT 42 U/L (7-56); AST/SGOT 20 U/L (15-39); BLOOD UREA NITROGEN 10 mg/dL (7-21); CALCIUM 8.7 mg/dL (8.4-10.5); GFR AFRICAN-AMERICAN > 60; GFR NON-AFRICAN AMERICAN > 60
[2017-02-12 07:07] LABS: BASO # 0.03 K/mm3 (0.0-2.0); BASO % 0.4 % (0.0-3.0); EOS # 0.2 (0.0-0.7); EOS % 3.3 % (1.5-5.0); GRAN % 74.5 % (50.0-68.0); HEMOGLOBIN 9.2 gm/dL (12.0-16.0); LYMPH # 0.9 (1.2-3.4); LYMPH % 13.9 % (22.0-35.0); MEAN CELL VOLUME 89.4 fL (80.0-105.0); MEAN CORPUSCULAR HEMOGLOBIN 27.1 pg (25.0-35.0); MEAN CORPUSCULAR HGB CONC 30.3 g/dl (31.0-37.0); MEAN PLATELET VOLUME 10.6 fl (7.0-11.0); MONO # 0.5 (0.1-0.6); MONO % 7.9 % (1.0-6.0); PLATELET COUNT 175 10^3/uL (120.0-450.0); RED CELL DISTRIBUTION WIDTH 13.7 % (11.5-14.5); WHITE BLOOD COUNT 6.7 10^3/ul (4.5-11.0)
[2017-02-12] MEDS: Arformoterol 15 mcg/2 ml Inh Sol IH SCH ×2 (07:31→19:45)
[2017-02-12] MEDS: Budesonide 0.5 mg/2 ml Inhal Susp UD IH SCH ×2 (07:31→19:45)
--- NOTE | 2017-02-12 09:39 | CP.PCM.HP ---
History of Present Illness - History of Present Illness History of Present Illness: 71 yo F with Past medical hx of of CAD s/p CABG, carotid endarterectomy, CVA x3 , hypothyroidism, COPD with home O2, renal reconfiguration surgery, aortic stenosis, and subclavian stenosis s/p stent, presented with abdominal pain radiating to low back bilaterally, as well as polyuria and dark urine. UA and CT abd/pel in ER were indicative of pyelonephritis. Blood and urine samples were collected for culture and sensitivity, antibiotics - levaquin was started, and ID was consulted. The following day, her abdominal pain improved and she felt significantly better, though she still had CVA tenderness. She was also noted to have an acute anemia, which was deemed 2/2 to aggressive rehydration when FOBT was negative and H/H stabilized. Antibiotics Azactam by ID. Sent to TCU for deconditioning and rehab. PSurgHx: 7 CABGs, Carotid endarterectomy, Cataract PMHx: Atrial fibrillation, CAD, Carotid stenosis, CVAX3, hypothyroidism, COPD on home O2, Depression/anxiety, Vertigo All: PCNs; minor rash with oxycodone and codeine SocHx:Tob: Smoked 2.5packs/day for 40 years, quit 5 years ago; Denies EtOH, Illicits FamHx: CAD, HLD Meds: See MAR Present on Admission - Present on Admission Any Indicators Present on Admission: No Review of Systems - Review of Systems All systems: reviewed and no additional remarkable complaints except (HPI) Past Patient History - Infectious Disease Hx of Infectious Diseases: None - Past Medical History & Family History Past Medical History?: Yes - Past Social History Smoking Status: Former Smoker - CARDIAC Hx Cardiac Disorders: Yes Hx Hypertension: Yes - PULMONARY Hx Chronic Obstructive Pulmonary Disease (COPD): Yes - NEUROLOGICAL Hx Neurological Disorder: No - HEENT Hx HEENT Problems: No - RENAL Hx Chronic Kidney Disease: No - ENDOCRINE/METABOLIC Hx Hypothyroidism: Yes - HEMATOLOGICAL/ONCOLOGICAL Hx Blood Disorders: No - INTEGUMENTARY Hx Dermatological Problems: No - MUSCULOSKELETAL/RHEUMATOLOGICAL Hx Falls: Yes - GASTROINTESTINAL Hx Gastrointestinal Disorders: No - GENITOURINARY/GYNECOLOGICAL Hx Genitourinary Disorders: Yes Hx Reproductive Disorders: No - PSYCHIATRIC Hx Psychophysiologic Disorder: Yes Hx Depression: Yes Hx Emotional Abuse: No Hx Physical Abuse: No Hx Substance Use: No - SURGICAL HISTORY Other/Comment: cardiac stent. L carotid artery surgery. R kidney surgery - ANESTHESIA Hx Anesthesia Reactions: No Hx Malignant Hyperthermia: No Meds Allergies/Adverse Reactions: Allergies Allergy/AdvReac Type Severity Reaction Status Date / Time codeine Allergy ANAPHYLAXIS Verified 02/11/17 17:29 oxycodone HCl [From Percocet] Allergy ANAPHYLAXIS Verified 02/11/17 17:29 Penicillins Allergy ANAPHYLAXIS Verified 02/11/17 17:29 Physical Exam - Constitutional Appears: No Acute Distress - Head Exam Head Exam: ATRAUMATIC, NORMAL INSPECTION, NORMOCEPHALIC - Eye Exam Eye Exam: EOMI, Normal appearance, PERRL Pupil Exam: NORMAL ACCOMODATION, PERRL - ENT Exam ENT Exam: Mucous Membranes Moist, Normal Exam - Neck Exam Neck exam: Positive for: Normal Inspection - Respiratory Exam Respiratory Exam: Clear to Auscultation Bilateral, NORMAL BREATHING PATTERN. absent: Wheezes - Cardiovascular Exam Cardiovascular Exam: REGULAR RHYTHM, RRR, +S1, +S2 - GI/Abdominal Exam GI & Abdominal Exam: Normal Bowel Sounds, Soft. absent: Tenderness - Extremities Exam Extremities exam: Positive for: normal inspection - Back Exam Back exam: NORMAL INSPECTION - Neurological Exam Neurological exam: Alert, CN II-XII Intact, Normal Gait, Oriented x3, Reflexes Normal - Psychiatric Exam Psychiatric exam: Normal Affect, Normal Mood - Skin Skin Exam: Dry, Intact, Normal Color, Warm Results - Vital Signs Recent Vital Signs: Last Vital Signs Temp 97.6 F 02/12/17 00:34 Pulse 66 02/12/17 00:34 Resp 16 02/12/17 00:34 BP 137/54 L 02/12/17 00:34 Pulse Ox - Labs Result Diagrams: 02/12/17 06:00 02/12/17 06:00 Labs: Laboratory Results - last 24 hr 02/12/17 02/12/17 06:00 06:00 WBC 6.7 RBC 3.40 L Hgb 9.2 L Hct 30.4 L MCV 89.4 MCH 27.1 MCHC 30.3 L RDW 13.7 Plt Count 175 MPV 10.6 Gran % 74.5 H Lymph % (Auto) 13.9 L [place] % (Auto) 7.9 H Eos % (Auto) 3.3 Baso % (Auto) 0.4 Gran # 5.00 Lymph # 0.9 L [place] # 0.5 Eos # 0.2 Baso # 0.03 Sodium 140 Potassium 3.9 Chloride 102 Carbon Dioxide 33 Anion Gap 9 L BUN 10 Creatinine 0.6 Est GFR ( Amer) > 60 Est GFR (Non-Af Amer) > 60 Random Glucose 104 Calcium 8.7 Total Bilirubin 0.3 AST 20 ALT 42 Alkaline Phosphatase 53 Total Protein 5.7 L Albumin 3.1 Globulin 2.7 Albumin/Globulin Ratio 1.1 Assessment & Plan - Assessment and Plan (Free Text) Assessment: 71 year old female with past medical history of CAD s/p CABG, Carotid enarterectomy, cva x3, hypothyroidism, COPD on home O2 and renal reconfiguration surgery who complains of abdominal pain radiating to her back, bilaterally. Currently being treated for pyelonephritis. Sent to TCU for rehab. 1. TCU - Deconditioning and cont rehab - PT and OT 2. Pyelonephritis - continue Aztreonam due to local resistance per ID - Continue pain control with prn morphine - Restart IVF to push fluids - ID consulted , all recs appreciated 3. Acute anemia - Stable - Likely 2/2 to aggresive rehydration vs GI bleed - Continue to monitor CBC 4. Insomnia - improved - Restarted Xanax, patient slept well last night - Continue circadian rhythm retraining - Continue ambien 5. Hx of Atrial fibrillation - Continue Eliquis - Cont home diltiazem - Currently rate-controlled 6. Hx of CAD s/p CABG, CVA - Cont asa, lipitor, imdur 7. Hx of hypothyroidism - Cont Synthroid 8. Hx of COPD on home O2 - Cont home pulmicort, brovana, combivent inh 9. Hx of MDD/JENNIFER - Cont home celexa, xanax, ambien GI/DVT prophylaxis - Protonix, Eliquis Patient reviewed and discussed in detail with Dr. Molina.
[2017-02-12] MEDS: diltiaZEM 120 mg/24 Hours CD Cap PO SCH (09:56)
--- NOTE | 2017-02-12 13:05 | CP.PCM.CON ---
History of Present Illness - History of Present Illness History of Present Illness: 02/12/17 Reason for consult: worsening dementia H/P: Patient is a 71 y/o with pmh of afib, cad s.p cabg, carotid endarterectomy, vertigo, cvax3, hypothyroidism, copd ( home o2), renal surgery, depression, anxiety whom presented with abdominal pain and was found to have pyelonephritis. Neurology is consulted for worsening dementia. Patient reports she has been forgetful lately, however patient can't tell exactly what she has been forgetting. Patient used to Dr Lopez in the past, however has not been able to follow up in the office due to oxygen tank. Patient currently has no complaints, denies headache, dizziness, n.v.d. Patient states she's worried about dementia because her mom of it. She is TCU for reconditioning. She does have cognitive impairment. PSurgHx: 7 CABGs, Carotid endarterectomy, Cataract PMHx: Atrial fibrillation, CAD, Carotid stenosis, CVAX3, hypothyroidism, COPD on home O2, Depression/anxiety, Vertigo Review of Systems - Review of Systems All systems: reviewed and no additional remarkable complaints except Review of Systems: All 12 point ROS reviewed, all negative except as per HPI. Past Patient History - Infectious Disease Hx of Infectious Diseases: None - Past Medical History & Family History Past Medical History?: Yes - Past Social History Smoking Status: Former Smoker Home Situation {Lives}: Alone - CARDIAC Hx Cardiac Disorders: Yes Hx Hypertension: Yes - PULMONARY Hx Chronic Obstructive Pulmonary Disease (COPD): Yes - NEUROLOGICAL Hx Neurological Disorder: No - HEENT Hx HEENT Problems: No - RENAL Hx Chronic Kidney Disease: No - ENDOCRINE/METABOLIC Hx Hypothyroidism: Yes - HEMATOLOGICAL/ONCOLOGICAL Hx Blood Disorders: No - INTEGUMENTARY Hx Dermatological Problems: No - MUSCULOSKELETAL/RHEUMATOLOGICAL Hx Falls: Yes - GASTROINTESTINAL Hx Gastrointestinal Disorders: No - GENITOURINARY/GYNECOLOGICAL Hx Genitourinary Disorders: No Hx Reproductive Disorders: No - PSYCHIATRIC Hx Psychophysiologic Disorder: Yes Hx Depression: Yes Hx Emotional Abuse: No Hx Physical Abuse: No Hx Substance Use: No - SURGICAL HISTORY Other/Comment: cardiac stent. L carotid artery surgery. R kidney surgery - ANESTHESIA Hx Anesthesia Reactions: No Hx Malignant Hyperthermia: No Meds Allergies/Adverse Reactions: Allergies Allergy/AdvReac Type Severity Reaction Status Date / Time codeine Allergy ANAPHYLAXIS Verified 12/01/16 20:08 oxycodone HCl [From Percocet] Allergy ANAPHYLAXIS Verified 12/01/16 20:08 Penicillins Allergy ANAPHYLAXIS Verified 12/01/16 20:08 - Medications Medications: Current Medications REVIEWED VIA NURSE RECONCILLATION SHEET Physical Exam - Constitutional Appears: No Acute Distress, Cachectic, Chronically Ill - Head Exam Head Exam: ATRAUMATIC, NORMAL INSPECTION, NORMOCEPHALIC - Eye Exam Eye Exam: EOMI, Normal appearance, PERRL. absent: Scleral icterus Pupil Exam: NORMAL ACCOMODATION, PERRL - ENT Exam ENT Exam: Mucous Membranes Moist - Neck Exam Neck exam: Positive for: Full Rom, Normal Inspection - Respiratory Exam Respiratory Exam: Clear to Auscultation Bilateral, NORMAL BREATHING PATTERN. absent: Rales, Rhonchi, Wheezes, Respiratory Distress, Stridor - Cardiovascular Exam Cardiovascular Exam: REGULAR RHYTHM, +S1, +S2 - GI/Abdominal Exam GI & Abdominal Exam: Normal Bowel Sounds, Soft. absent: Distended, Tenderness - Extremities Exam Extremities exam: Positive for: full ROM, normal inspection - Back Exam Back exam: NORMAL INSPECTION - Neurological Exam Neurological exam: Alert, CN II-XII Intact, Oriented x3, Reflexes Normal Additional comments: Mini mental status exam of 2 ( able to recall 1 out 3 objects). Patient appears sad, but is in no distress wake and alert, thought process is normal. Patient speaking in full sentences, aware of her surrounding and is able to focus. CNII to VII intact, tongue is midline, masseter muscle symmetrical. No pronator drift, Patient has mixed resting and intention tremors. 5/5 flexion and extension motor strength in upper and lower extremities b/l. Negative babinski, reflexes +2 throughout Gait deferred. - Psychiatric Exam Psychiatric exam: Depressed - Skin Skin Exam: Dry, Warm Results - Vital Signs REVEIWED VIA CHART. Assessment: Patient is a 71 y/o with pmh of afib, cad s.p cabg, carotid endarterectomy, cvax3, hypothyroidism, copd ( home o2), renal surgery, depression, anxiety whom presented with abdominal pain and was found to have pyelonephritis. Neuro consulted for worsening dementia. CT head from 11/30 with no acute ischemic changes, age appropriate involutional changes. Impression: Mild cognitive impairment superimposed deconditioned state. Plan: - Treat the underlying infection - Avoid delirium - Avoid night time interruption. - Maintain adequate hydration. - Avoid sedatives and opioid. - Recommend attention and memory training exercises. - Consider B complex vitamins. - Rec Tumeric 1000 mg once a day as outpatient. - Follow up as outpatient for dementia work up. - Physical therapy for recondition state. Past Patient History - Infectious Disease Hx of Infectious Diseases: None - Past Medical History & Family History Past Medical History?: Yes - Past Social History Smoking Status: Former Smoker - CARDIAC Hx Cardiac Disorders: Yes Hx Hypertension: Yes - PULMONARY Hx Chronic Obstructive Pulmonary Disease (COPD): Yes - NEUROLOGICAL Hx Neurological Disorder: No - HEENT Hx HEENT Problems: No - RENAL Hx Chronic Kidney Disease: No - ENDOCRINE/METABOLIC Hx Hypothyroidism: Yes - HEMATOLOGICAL/ONCOLOGICAL Hx Blood Disorders: No - INTEGUMENTARY Hx Dermatological Problems: No - MUSCULOSKELETAL/RHEUMATOLOGICAL Hx Falls: Yes - GASTROINTESTINAL Hx Gastrointestinal Disorders: No - GENITOURINARY/GYNECOLOGICAL Hx Genitourinary Disorders: Yes Hx Reproductive Disorders: No - PSYCHIATRIC Hx Psychophysiologic Disorder: Yes Hx Depression: Yes Hx Emotional Abuse: No Hx Physical Abuse: No Hx Substance Use: No - SURGICAL HISTORY Other/Comment: cardiac stent. L carotid artery surgery. R kidney surgery - ANESTHESIA Hx Anesthesia Reactions: No Hx Malignant Hyperthermia: No Meds Allergies/Adverse Reactions: Allergies Allergy/AdvReac Type Severity Reaction Status Date / Time codeine Allergy ANAPHYLAXIS Verified 02/11/17 17:29 oxycodone HCl [From Percocet] Allergy ANAPHYLAXIS Verified 02/11/17 17:29 Penicillins Allergy ANAPHYLAXIS Verified 02/11/17 17:29 - Medications Medications: Current Medications Acetaminophen (Tylenol 325mg Tab) 650 mg PO Q6H PRN; Protocol PRN Reason: Fever >100.4 F Last Admin: 02/11/17 19:10 Dose: 650 mg Albuterol/Ipratropium (Duoneb 3 Mg/0.5 Mg (3 Ml) Ud) 3 ml IH [id number] [facility] Last Admin: 02/12/17 07:31 Dose: Not Given Alprazolam (Xanax) 1 mg PO QID [facility] PRN Reason: Protocol Last Admin: 02/12/17 10:00 Dose: 1 mg Apixaban (Eliquis) 5 mg PO BID [facility] PRN Reason: Protocol Last Admin: 02/12/17 09:58 Dose: 5 mg Arformoterol Tartrate (Brovana) 15 mcg IH [id number] [facility] PRN Reason: Protocol Last Admin: 02/12/17 07:31 Dose: Not Given Aspirin (Ecotrin) 81 mg PO DAILY [facility] PRN Reason: Protocol Last Admin: 02/12/17 11:50 Dose: Not Given Atorvastatin Calcium (Lipitor) 80 mg PO DIN [facility] PRN Reason: Protocol Last Admin: 02/11/17 18:45 Dose: 80 mg Budesonide (Pulmicort Respules) 0.5 mg IH [id number] [facility] PRN Reason: Protocol Last Admin: 02/12/17 07:31 Dose: Not Given Citalopram Hydrobromide (Celexa) 20 mg PO HS [facility] PRN Reason: Protocol Last Admin: 02/12/17 02:10 Dose: 20 mg Diltiazem HCl (Cardizem Cd) 120 mg PO DAILY [facility] Last Admin: 02/12/17 09:56 Dose: Not Given Docusate Sodium (Colace) 100 mg PO BID [facility] PRN Reason: Protocol Last Admin: 02/12/17 09:57 Dose: 100 mg Aztreonam (Azactam 1 Gm) 100 mls @ 100 mls/hr IVPB Q8 [facility] PRN Reason: Protocol Stop: 02/18/17 06:59 Last Admin: 02/12/17 05:44 Dose: 100 mls/hr Ibuprofen (Motrin Tab) 600 mg PO Q6 PRN; Protocol PRN Reason: Pain, moderate (4-7) Isosorbide Mononitrate (Imdur) 60 mg PO QAM [facility] PRN Reason: Protocol Last Admin: 02/12/17 09:58 Dose: Not Given Levothyroxine Sodium (Synthroid) 100 mcg PO 0600 [facility] PRN Reason: Protocol Last Admin: 02/12/17 05:46 Dose: 100 mcg Morphine Sulfate (Morphine) 1 mg IVP Q6H PRN; Protocol PRN Reason: Pain, severe (8-10) Ondansetron HCl (Zofran Inj) 4 mg IVP Q6H PRN; Protocol PRN Reason: Nausea/Vomiting Pantoprazole Sodium (Protonix Ec Tab) 40 mg PO 0600 [facility] PRN Reason: Protocol Last Admin: 02/12/17 05:46 Dose: 40 mg Zolpidem Tartrate (Ambien) 5 mg PO HS PRN; Protocol PRN Reason: Insomnia Results - Vital Signs Recent Vital Signs: Last Vital Signs Temp 97.6 F 02/12/17 00:34 Pulse 58 L 02/12/17 09:56 Resp 16 02/12/17 00:34 BP 129/45 L 02/12/17 09:56 Pulse Ox - Labs Result Diagrams: 02/12/17 06:00 02/12/17 06:00 Labs: Laboratory Results - last 24 hr 02/12/17 02/12/17 06:00 06:00 WBC 6.7 RBC 3.40 L Hgb 9.2 L Hct 30.4 L MCV 89.4 MCH 27.1 MCHC 30.3 L RDW 13.7 Plt Count 175 MPV 10.6 Gran % 74.5 H Lymph % (Auto) 13.9 L [place] % (Auto) 7.9 H Eos % (Auto) 3.3 Baso % (Auto) 0.4 Gran # 5.00 Lymph # 0.9 L [place] # 0.5 Eos # 0.2 Baso # 0.03 Sodium 140 Potassium 3.9 Chloride 102 Carbon Dioxide 33 Anion Gap 9 L BUN 10 Creatinine 0.6 Est GFR ( Amer) > 60 Est GFR (Non-Af Amer) > 60 Random Glucose 104 Calcium 8.7 Total Bilirubin 0.3 AST 20 ALT 42 Alkaline Phosphatase 53 Total Protein 5.7 L Albumin 3.1 Globulin 2.7 Albumin/Globulin Ratio 1.1
--- NOTE | 2017-02-12 22:16 | CON ---
DATE: 02/12/2017 CHIEF COMPLAINT: Weakness times several days. HISTORY OF PRESENT ILLNESS: This is a 71-year-old female who was seen and transitional care, room 317. This morning, patient was seen in the acute care and now transferred here for physical therapy and antibiotic therapy. This is a 71-year-old female with history of coronary artery disease, hypertension, cerebrovascular accident, hypothyroidism, chronic obstructive lung disease on home O2 therapy who was admitted with diagnosis of pyelonephritis, urinary tract infection. Review of systems reveals the patient had low-grade fevers at home and flank pain and there were no chills and she did have no nausea or vomiting. PAST MEDICAL HISTORY: Significant for COPD, on home O2 therapy; chronic respiratory failure; hypothyroidism; cerebrovascular accident; coronary artery disease; and hypertension. PAST SURGICAL HISTORY: Significant for coronary artery bypass graft and carotid endarterectomy. ALLERGIES: THE PATIENT IS ALLERGIC TO PENICILLIN, WHICH IS SHE DESCRIBES TYPE 1 ANAPHYLAXIS AND SHE HAD TO BE HOSPITALIZED FOR. MEDICATIONS: Reviewed. PHYSICAL EXAMINATION: VITAL SIGNS: Temperature of 98, blood pressure 130/70, and respiratory rate of 16. HEENT: Unremarkable. NECK: Supple. LUNGS: Decreased breath sounds. HEART: Normal S1 and S2. ABDOMEN: Soft and nontender. No rebound or guarding. There is CVA tenderness. LABORATORY DATA: She did have white count is 17,000 which is improved to 6000, hemoglobin of 9, platelets are noted. BUN of 9 and creatinine 0.6. Microbiology did grow E. coli in the urine. The blood cultures are negative. The E. coli is resistant to Cipro, resistant to Bactrim and sensitive to amikacin, aztreonam, ceftriaxone, and cefazolin. IMAGING DATA: The patient also had a CAT scan of the abdomen pelvis, results are noted. ASSESSMENT AND PLAN: This is a 71-year-old female with coronary artery disease, hypertension, cerebrovascular accident, hypothyroidism, chronic obstructive lung disease and chronic respiratory failure on home O2 therapy, admitted with Escherichia coli, pyelonephritis with TYPE-1 PENICILLIN ALLERGY, Escherichia coli resistant to Cipro and Bactrim, no other option, currently on Azactam, today is day number 4 of 10 days of Azactam and case discussed with resistant. The patient at the acute care was did have leukocytosis and had tachycardia. By definition, the patient had sepsis with Escherichia coli,pyelonephritis day number 4 of Azactam of 10 days. Review of the orders reveals that the patient's Azactam to be active. Weston Espinoza MD
[2017-02-13] MEDS: Morphine 2 mg/ml ISec IVP PRN (01:09)
[2017-02-13] MEDS: Albuterol-Ipratrop 3 mg / 0.5 (3 ml) UD IH SCH ×4 (01:44→20:35)
[2017-02-13] MEDS: Aztreonam 1 Gm in NS 100mL 100 ML IVPB SCH ×3 (06:08→21:56)
[2017-02-13] MEDS: Pantoprazole 40 mg EC Tab PO SCH (06:09)
[2017-02-13] MEDS: Levothyroxine 100 MCG TAB PO SCH (06:09)
[2017-02-13 07:04] LABS: BASO # 0.03 K/mm3 (0.0-2.0); BASO % 0.5 % (0.0-3.0); EOS # 0.2 (0.0-0.7); EOS % 3.5 % (1.5-5.0); GRAN # 4.36 (1.4-6.5); GRAN % 69.2 % (50.0-68.0); HEMOGLOBIN 9.4 gm/dL (12.0-16.0); LYMPH # 1.1 (1.2-3.4); LYMPH % 17.9 % (22.0-35.0); MEAN CELL VOLUME 89.6 fL (80.0-105.0); MEAN CORPUSCULAR HEMOGLOBIN 27.2 pg (25.0-35.0); MEAN CORPUSCULAR HGB CONC 30.3 g/dl (31.0-37.0); MEAN PLATELET VOLUME 11.2 fl (7.0-11.0); MONO # 0.6 (0.1-0.6); MONO % 8.9 % (1.0-6.0); PLATELET COUNT 172 10^3/uL (120.0-450.0); RBC 3.46 10^6/uL (3.5-6.1); RED CELL DISTRIBUTION WIDTH 13.7 % (11.5-14.5); WHITE BLOOD COUNT 6.3 10^3/ul (4.5-11.0)
[2017-02-13 07:18] LABS: ALB/GLOB RATIO 1.1 (1.1-1.8); ALBUMIN 3.1 g/dL (3.0-4.8); ALT/SGPT 41 U/L (7-56); AST/SGOT 18 U/L (15-39); BLOOD UREA NITROGEN 13 mg/dL (7-21); CALCIUM 8.9 mg/dL (8.4-10.5); GFR AFRICAN-AMERICAN > 60; GFR NON-AFRICAN AMERICAN > 60
[2017-02-13] MEDS: Arformoterol 15 mcg/2 ml Inh Sol IH SCH ×2 (08:38→20:35)
[2017-02-13] MEDS: Budesonide 0.5 mg/2 ml Inhal Susp UD IH SCH (08:39)
--- NOTE | 2017-02-13 08:58 | HP ---
ADDENDUM The patient is in the transitional care unit. She is doing well IV antibiotics. She has multiple issues besides deconditioning, pyelonephritis and anemia. She is doing fairly well. MEDICATIONS: She will be on Ambien, Azactam IV, Brovana, Cardizem, Celexa, Colace, DuoNebs, Ecotrin, Eliquis, Imdur, Lipitor, morphine, ibuprofen, pantoprazole, Pulmicort, Synthroid, Tylenol, Xanax and Zofran. LABORATORY DATA: Sodium 140, potassium 3.9, BUN is 10, creatinine 0.6, GFR is greater than 62, sugar is 104, calcium is 8.7. Total bilirubin is 0.38, AST is 20, ALT is 42, alkaline phosphatase is 53, albumin is 3.1. White count is 6.7, hemoglobin 9.2, hematocrit 30.4, platelets are 175. She is going to be seen by infectious disease, neurology. Continue with IV antibiotics and physical therapy. We will check her labs tomorrow. Discussed with the resident_. Ted Molina DO MTDD
[2017-02-13] MEDS: diltiaZEM 120 mg/24 Hours CD Cap PO SCH (10:54)
--- NOTE | 2017-02-13 16:44 | CP.PCM.PN ---
Subjective - Date & Time of Evaluation Date of Evaluation: 02/13/17 Time of Evaluation: 11:10 - Subjective Subjective: Comfortable, no fevers overnight. Objective - Vital Signs/Intake and Output Vital Signs (last 24 hours): Temp Pulse Resp BP Pulse Ox 98.6 F 70 20 131/49 L 99 02/13/17 16:01 02/13/17 16:01 02/13/17 16:01 02/13/17 16:01 02/13/17 16:01 Intake and Output: 02/13/17 02/13/17 06:59 18:59 Intake Total 480 Balance 480 - Medications Medications: Current Medications Acetaminophen (Tylenol 325mg Tab) 650 mg PO Q6H PRN; Protocol PRN Reason: Fever >100.4 F Last Admin: 02/11/17 19:10 Dose: 650 mg Albuterol/Ipratropium (Duoneb 3 Mg/0.5 Mg (3 Ml) Ud) 3 ml IH [id number] [facility] Last Admin: 02/13/17 13:51 Dose: Not Given Alprazolam (Xanax) 1 mg PO QID [facility]AC[facility] PRN Reason: Protocol Last Admin: 02/13/17 14:06 Dose: 1 mg Apixaban (Eliquis) 5 mg PO BID [facility] PRN Reason: Protocol Last Admin: 02/13/17 10:56 Dose: 5 mg Arformoterol Tartrate (Brovana) 15 mcg IH [id number] [facility] PRN Reason: Protocol Last Admin: 02/13/17 08:38 Dose: Not Given Aspirin (Ecotrin) 81 mg PO DAILY [facility] PRN Reason: Protocol Last Admin: 02/13/17 10:56 Dose: 81 mg Atorvastatin Calcium (Lipitor) 80 mg PO DIN [facility] PRN Reason: Protocol Last Admin: 02/12/17 17:52 Dose: 80 mg Budesonide (Pulmicort Respules) 0.5 mg IH [id number] [facility] PRN Reason: Protocol Last Admin: 02/13/17 08:39 Dose: Not Given Citalopram Hydrobromide (Celexa) 20 mg PO HS [facility]Y PRN Reason: Protocol Last Admin: 02/12/17 21:43 Dose: 20 mg Diltiazem HCl (Cardizem Cd) 120 mg PO DAILY [facility] Last Admin: 02/13/17 10:54 Dose: Not Given Docusate Sodium (Colace) 100 mg PO BID [facility] PRN Reason: Protocol Last Admin: 02/13/17 10:55 Dose: 100 mg Aztreonam (Azactam 1 Gm) 100 mls @ 100 mls/hr IVPB Q8 [facility] PRN Reason: Protocol Stop: 02/16/17 22:01 Last Admin: 02/13/17 14:06 Dose: 100 mls/hr Ibuprofen (Motrin Tab) 600 mg PO Q6 PRN; Protocol PRN Reason: Pain, moderate (4-7) Isosorbide Mononitrate (Imdur) 60 mg PO 0630 [facility] PRN Reason: Protocol Last Admin: 02/13/17 06:09 Dose: Not Given Levothyroxine Sodium (Synthroid) 100 mcg PO 0600 [facility] PRN Reason: Protocol Last Admin: 02/13/17 06:09 Dose: 100 mcg Morphine Sulfate (Morphine) 1 mg IVP Q6H PRN; Protocol PRN Reason: Pain, severe (8-10) Last Admin: 02/13/17 01:09 Dose: 1 mg Ondansetron HCl (Zofran Inj) 4 mg IVP Q6H PRN; Protocol PRN Reason: Nausea/Vomiting Pantoprazole Sodium (Protonix Ec Tab) 40 mg PO 0600 [facility] PRN Reason: Protocol Last Admin: 02/13/17 06:09 Dose: 40 mg Zolpidem Tartrate (Ambien) 5 mg PO HS PRN; Protocol PRN Reason: Insomnia - Labs Labs: 02/13/17 06:45 02/13/17 06:45 - Constitutional Appears: Non-toxic, No Acute Distress - Head Exam Head Exam: NORMAL INSPECTION - Respiratory Exam Respiratory Exam: Decreased Breath Sounds - Cardiovascular Exam Cardiovascular Exam: +S1, +S2 - GI/Abdominal Exam GI & Abdominal Exam: Soft. absent: Tenderness Assessment and Plan - Assessment and Plan (Free Text) Plan: Assessment Sepsis due to E. coli pyelonephritis CAD S/P CABG HTN COPD on home oxygen therapy CVA hypothyroidism S/P carotid endarterectomy Plan Continue Azactam (day 5) to complete 10 days of therapy
--- NOTE | 2017-02-13 19:58 | US ---
EXAM: US Abdomen Complete CLINICAL HISTORY: The patient age is 71 years old and is female; Pain; Abdominal pain; Additional info: [facility] exam id and description: Us abd abdomen complete TECHNIQUE: Real-time ultrasound of the abdomen (complete) with image documentation. EXAM DATE/TIME: 02/13/2017 4:47 PM COMPARISON: CT - ABD PELVIS W/O PO OR IV CONT 02/08/2017 2:12:47 PM FINDINGS: Liver: The liver is increased in echogenicity, most commonly due to fatty infiltration, but other chronic liver diseases may have a similar appearance. The liver meaures 15.50 cm in length. Gallbladder: The gallbladder is absent. Common bile duct: The common bile duct measures 1.1 cm in diameter, which is dilated. Pancreas: There is suboptimal evaluation of the tail of the pancreas due to bowel gas. No focal abnormality is seen within the visualized head or body of the pancreas. Kidneys: There is dilatation of the visualized proximal ureters and each renal pelvis. The right kidney measures 10.5 x 3.7 x 5.8 cm. The left kidney measures 10.0 x 5.0 x 4.8 cm. At the upper pole the right kidney, there is a 1.2 x 1.1 x 1.0 cm hypoechoic cyst, with posterior acoustic enhancement. At the mid to lower pole of the left kidney, there is a 1.7 x 1.6 x 1.6 cm hypoechoic cyst. Spleen: The spleen meaures 11.3 x 5.5 cm, with normal echotexture. Aorta: Not imaged. Inferior vena cava: Patent, as visualized. IMPRESSION: 1. The liver is increased in echogenicity, most commonly due to fatty infiltration, but other chronic liver diseases may have a similar appearance. 2. The common bile duct measures 1.1 cm in diameter, which is dilated. Correlation with serum bilirubin is recommended. 3. There is dilatation of the visualized proximal ureters and each renal pelvis. Dilatation of the renal collecting systems is visualized on the previous CT as well. Urinary obstruction cannot be excluded. 4. Small left renal cysts. 5. Additional findings described above.
[2017-02-14] MEDS: Albuterol-Ipratrop 3 mg / 0.5 (3 ml) UD IH SCH ×4 (01:04→20:06)
[2017-02-14] MEDS: Morphine 2 mg/ml ISec IVP PRN (02:38)
[2017-02-14] MEDS: Aztreonam 1 Gm in NS 100mL 100 ML IVPB SCH ×3 (06:35→22:26)
[2017-02-14] MEDS: Levothyroxine 100 MCG TAB PO SCH (06:36)
[2017-02-14] MEDS: Pantoprazole 40 mg EC Tab PO SCH (06:36)
[2017-02-14] MEDS: Arformoterol 15 mcg/2 ml Inh Sol IH SCH ×2 (07:34→20:05)
[2017-02-14] MEDS: Budesonide 0.5 mg/2 ml Inhal Susp UD IH SCH ×2 (07:34→20:06)
[2017-02-14] MEDS: diltiaZEM 120 mg/24 Hours CD Cap PO SCH (11:08)
--- NOTE | 2017-02-14 15:17 | CP.PCM.PN ---
Subjective - Date & Time of Evaluation Date of Evaluation: 02/14/17 Time of Evaluation: 10:10 - Subjective Subjective: Comfortable on a chair, no fevers. Objective - Vital Signs/Intake and Output Vital Signs (last 24 hours): Temp Pulse Resp BP Pulse Ox 98.2 F 52 L 19 123/44 L 100 02/14/17 06:00 02/14/17 06:00 02/14/17 06:00 02/14/17 06:00 02/14/17 06:00 - Medications Medications: Current Medications Acetaminophen (Tylenol 325mg Tab) 650 mg PO Q6H PRN; Protocol PRN Reason: Fever >100.4 F Last Admin: 02/11/17 19:10 Dose: 650 mg Albuterol/Ipratropium (Duoneb 3 Mg/0.5 Mg (3 Ml) Ud) 3 ml IH [id number] [facility] Last Admin: 02/14/17 07:34 Dose: Not Given Alprazolam (Xanax) 1 mg PO QID [facility]ACY PRN Reason: Protocol Last Admin: 02/13/17 22:03 Dose: 1 mg Apixaban (Eliquis) 5 mg PO BID [facility]ACY PRN Reason: Protocol Last Admin: 02/13/17 17:54 Dose: 5 mg Arformoterol Tartrate (Brovana) 15 mcg IH [id number] [facility] PRN Reason: Protocol Last Admin: 02/14/17 07:34 Dose: Not Given Aspirin (Ecotrin) 81 mg PO DAILY [facility]Y PRN Reason: Protocol Last Admin: 02/13/17 10:56 Dose: 81 mg Atorvastatin Calcium (Lipitor) 80 mg PO DIN [facility]ACY PRN Reason: Protocol Last Admin: 02/13/17 17:54 Dose: 80 mg Budesonide (Pulmicort Respules) 0.5 mg IH [id number] [facility] PRN Reason: Protocol Last Admin: 02/14/17 07:34 Dose: Not Given Citalopram Hydrobromide (Celexa) 20 mg PO HS STACY PRN Reason: Protocol Last Admin: 02/13/17 21:59 Dose: 20 mg Diltiazem HCl (Cardizem Cd) 120 mg PO DAILY [facility] Last Admin: 02/13/17 10:54 Dose: Not Given Docusate Sodium (Colace) 100 mg PO BID [facility]ACY PRN Reason: Protocol Last Admin: 02/13/17 18:14 Dose: 100 mg Aztreonam (Azactam 1 Gm) 100 mls @ 100 mls/hr IVPB Q8 [facility]Y PRN Reason: Protocol Stop: 02/16/17 22:01 Last Admin: 02/14/17 06:35 Dose: 100 mls/hr Ibuprofen (Motrin Tab) 600 mg PO Q6 PRN; Protocol PRN Reason: Pain, moderate (4-7) Isosorbide Mononitrate (Imdur) 60 mg PO 0630 [facility]Y PRN Reason: Protocol Last Admin: 02/14/17 06:36 Dose: 60 mg Levothyroxine Sodium (Synthroid) 100 mcg PO 0600 [facility] PRN Reason: Protocol Last Admin: 02/14/17 06:36 Dose: 100 mcg Morphine Sulfate (Morphine) 1 mg IVP Q6H PRN; Protocol PRN Reason: Pain, severe (8-10) Last Admin: 02/14/17 02:38 Dose: 1 mg Ondansetron HCl (Zofran Inj) 4 mg IVP Q6H PRN; Protocol PRN Reason: Nausea/Vomiting Pantoprazole Sodium (Protonix Ec Tab) 40 mg PO 0600 [facility]Y PRN Reason: Protocol Last Admin: 02/14/17 06:36 Dose: 40 mg - Labs Labs: 02/13/17 06:45 02/13/17 06:45 - Constitutional Appears: Non-toxic, No Acute Distress - Head Exam Head Exam: NORMAL INSPECTION - Neck Exam Neck Exam: absent: Meningismus - Respiratory Exam Respiratory Exam: Decreased Breath Sounds - Cardiovascular Exam Cardiovascular Exam: +S1, +S2 - GI/Abdominal Exam GI & Abdominal Exam: Soft. absent: Tenderness Assessment and Plan - Assessment and Plan (Free Text) Plan: Assessment Sepsis due to E. coli pyelonephritis, clinically improving CAD S/P CABG HTN COPD on home oxygen therapy CVA hypothyroidism S/P carotid endarterectomy Plan Continue Azactam (day 6) to complete 10 days of therapy
--- NOTE | 2017-02-14 21:03 | CP.PCM.PN ---
Subjective - Date & Time of Evaluation Date of Evaluation: 02/14/17 Time of Evaluation: 07:55 - Subjective Subjective: Pt s/e bedside. Patient did not sleep well w/o her xanax last night. Pain controlled, no new complaints. Objective - Vital Signs/Intake and Output Vital Signs (last 24 hours): Temp Pulse Resp BP Pulse Ox 98.3 F 50 L 18 123/60 99 02/14/17 16:06 02/14/17 16:06 02/14/17 16:06 02/14/17 16:06 02/14/17 16:06 - Medications Medications: Current Medications Acetaminophen (Tylenol 325mg Tab) 650 mg PO Q6H PRN; Protocol PRN Reason: Fever >100.4 F Last Admin: 02/11/17 19:10 Dose: 650 mg Albuterol/Ipratropium (Duoneb 3 Mg/0.5 Mg (3 Ml) Ud) 3 ml IH [id number] [facility] Last Admin: 02/14/17 20:06 Dose: Not Given Alprazolam (Xanax) 1 mg PO QID [facility] PRN Reason: Protocol Last Admin: 02/14/17 19:25 Dose: 1 mg Apixaban (Eliquis) 5 mg PO BID [facility] PRN Reason: Protocol Last Admin: 02/14/17 18:49 Dose: 5 mg Arformoterol Tartrate (Brovana) 15 mcg IH [id number] [facility] PRN Reason: Protocol Last Admin: 02/14/17 20:05 Dose: Not Given Aspirin (Ecotrin) 81 mg PO DAILY [facility] PRN Reason: Protocol Last Admin: 02/14/17 11:09 Dose: 81 mg Atorvastatin Calcium (Lipitor) 80 mg PO DIN [facility] PRN Reason: Protocol Last Admin: 02/14/17 18:47 Dose: 80 mg Budesonide (Pulmicort Respules) 0.5 mg IH [id number] [facility] PRN Reason: Protocol Last Admin: 02/14/17 20:06 Dose: Not Given Citalopram Hydrobromide (Celexa) 20 mg PO HS [facility] PRN Reason: Protocol Last Admin: 02/13/17 21:59 Dose: 20 mg Diltiazem HCl (Cardizem Cd) 120 mg PO DAILY [facility] Last Admin: 02/14/17 11:08 Dose: Not Given Diphenhydramine HCl (Benadryl) 50 mg PO HS [facility] Docusate Sodium (Colace) 100 mg PO BID [facility] PRN Reason: Protocol Last Admin: 02/14/17 18:50 Dose: Not Given Aztreonam (Azactam 1 Gm) 100 mls @ 100 mls/hr IVPB Q8 [facility] PRN Reason: Protocol Stop: 02/16/17 22:01 Last Admin: 02/14/17 13:11 Dose: 100 mls/hr Ibuprofen (Motrin Tab) 600 mg PO Q6 PRN; Protocol PRN Reason: Pain, moderate (4-7) Isosorbide Mononitrate (Imdur) 60 mg PO 0630 [facility] PRN Reason: Protocol Last Admin: 02/14/17 06:36 Dose: 60 mg Levothyroxine Sodium (Synthroid) 100 mcg PO 0600 [facility] PRN Reason: Protocol Last Admin: 02/14/17 06:36 Dose: 100 mcg Morphine Sulfate (Morphine) 1 mg IVP Q6H PRN; Protocol PRN Reason: Pain, severe (8-10) Last Admin: 02/14/17 02:38 Dose: 1 mg Ondansetron HCl (Zofran Inj) 4 mg IVP Q6H PRN; Protocol PRN Reason: Nausea/Vomiting Pantoprazole Sodium (Protonix Ec Tab) 40 mg PO 0600 [facility] PRN Reason: Protocol Last Admin: 02/14/17 06:36 Dose: 40 mg - Labs Labs: 02/13/17 06:45 02/13/17 06:45 - Additional Findings Additional findings: Phys Exam: VS as below Constitutional: a&o x 4, nad, Head and Neck: neck supple, no jvd, trachea midline, carotid midline, no cervical/head mass Eyes: elton, nonicteric sclera, eom intact ENT: auditory acuity grossly intact, throat not congested, no nasal deformity Cardio: rrr, no m/r/g, no carotid bruit, nml s1, s2 Pulm: no accessory muscle use, equal nml breath sounds bilaterally, ctab Abd: +Terry's sign positive; Diffuse tenderness; s/nd, nbs x 4 q, no palpable masses Derm: no rashes, no ulcers, no lesions Extr: no edema, no cyanosis, no calf tenderness, no lesions, no varicosities Neuro: cn II-XII grossly intact, ue and le 5/5 muscle strength bilaterally, no los ue, le bilaterally and core Assessment and Plan - Assessment and Plan (Free Text) Assessment: 71 F admitted for pyelonephritis, now d/c'd to TCU for ABx and deconditioning Plan: 1. TCU - Deconditioning and cont rehab - PT and OT 2. Pyelonephritis - Continue Aztreonam due to local resistance per ID - Continue pain control with prn morphine - Restart IVF to push fluids - ID consulted, all recs appreciated 3. Acute anemia - Stable - Likely 2/2 to aggresive rehydration vs GI bleed - Continue to monitor CBC - CT Abd/Pelvis shows CBD Dilation - 02/14/17 - GI to explore cause of CBD dilation - 02/15/17 4. Insomnia - improved - Restarted Xanax, patient did not sleep well last night - Continue circadian rhythm retraining 5. Hx of Atrial fibrillation - Continue Eliquis - Cont home diltiazem - Currently rate-controlled 6. Hx of CAD s/p CABG, CVA - Cont asa, lipitor, imdur 7. Hx of hypothyroidism - Cont Synthroid 8. Hx of COPD on home O2 - Cont home pulmicort, brovana, combivent inh 9. Hx of MDD/JENNIFER - Cont home celexa, xanax, ambien GI/DVT prophylaxis - Protonix, Eliquis Hernán Cruz, DO PGY-1 Patient reviewed and discussed in detail with Dr. Wick
[2017-02-15] MEDS: Albuterol-Ipratrop 3 mg / 0.5 (3 ml) UD IH SCH ×4 (02:11→21:06)
[2017-02-15] MEDS: Aztreonam 1 Gm in NS 100mL 100 ML IVPB SCH ×3 (05:55→21:06)
[2017-02-15] MEDS: Levothyroxine 100 MCG TAB PO SCH (05:56)
[2017-02-15] MEDS: Pantoprazole 40 mg EC Tab PO SCH (05:56)
[2017-02-15 07:05] LABS: BASO # 0.05 K/mm3 (0.0-2.0); BASO % 0.7 % (0.0-3.0); EOS # 0.3 (0.0-0.7); EOS % 4.3 % (1.5-5.0); GRAN % 70.7 % (50.0-68.0); HEMOGLOBIN 9.4 gm/dL (12.0-16.0); LYMPH # 1.1 (1.2-3.4); LYMPH % 16.5 % (22.0-35.0); MEAN CELL VOLUME 90.4 fL (80.0-105.0); MEAN CORPUSCULAR HEMOGLOBIN 27.5 pg (25.0-35.0); MEAN CORPUSCULAR HGB CONC 30.4 g/dl (31.0-37.0); MEAN PLATELET VOLUME 10.6 fl (7.0-11.0); MONO # 0.5 (0.1-0.6); MONO % 7.8 % (1.0-6.0); PLATELET COUNT 209 10^3/uL (120.0-450.0); RBC 3.42 10^6/uL (3.5-6.1); RED CELL DISTRIBUTION WIDTH 13.9 % (11.5-14.5); WHITE BLOOD COUNT 6.9 10^3/ul (4.5-11.0)
[2017-02-15 07:11] LABS: ALB/GLOB RATIO 1.1 (1.1-1.8); ALBUMIN 3.2 g/dL (3.0-4.8); ALT/SGPT 35 U/L (7-56); AST/SGOT 25 U/L (15-39); BILIRUBIN,DIRECT 0.3 mg/dL (0.0-0.4); BLOOD UREA NITROGEN 10 mg/dL (7-21); CALCIUM 8.8 mg/dL (8.4-10.5); GFR AFRICAN-AMERICAN > 60; GFR NON-AFRICAN AMERICAN > 60; MAGNESIUM 1.5 mg/dL (1.7-2.2)
[2017-02-15] MEDS: Arformoterol 15 mcg/2 ml Inh Sol IH SCH ×2 (08:34→21:05)
[2017-02-15] MEDS: Budesonide 0.5 mg/2 ml Inhal Susp UD IH SCH ×2 (08:35→21:06)
[2017-02-15] MEDS: diltiaZEM 120 mg/24 Hours CD Cap PO SCH (09:33)
--- NOTE | 2017-02-15 15:44 | CP.PCM.PN ---
Subjective - Date & Time of Evaluation Date of Evaluation: 02/15/17 Time of Evaluation: 09:30 - Subjective Subjective: Comfortable in bed, no flank pain, no dysuria, no fevers. Objective - Vital Signs/Intake and Output Vital Signs (last 24 hours): Temp Pulse Resp BP Pulse Ox 98.3 F 50 L 18 123/60 99 02/14/17 16:06 02/14/17 16:06 02/14/17 16:06 02/14/17 16:06 02/14/17 16:06 - Medications Medications: Current Medications Acetaminophen (Tylenol 325mg Tab) 650 mg PO Q6H PRN; Protocol PRN Reason: Fever >100.4 F Last Admin: 02/11/17 19:10 Dose: 650 mg Albuterol/Ipratropium (Duoneb 3 Mg/0.5 Mg (3 Ml) Ud) 3 ml IH [id number] [facility] Last Admin: 02/15/17 08:34 Dose: 3 ml Alprazolam (Xanax) 1 mg PO QID [facility] PRN Reason: Protocol Last Admin: 02/15/17 00:22 Dose: 1 mg Apixaban (Eliquis) 5 mg PO BID [facility] PRN Reason: Protocol Last Admin: 02/14/17 18:49 Dose: 5 mg Arformoterol Tartrate (Brovana) 15 mcg IH [id number] [facility] PRN Reason: Protocol Last Admin: 02/15/17 08:34 Dose: 15 mcg Aspirin (Ecotrin) 81 mg PO DAILY [facility] PRN Reason: Protocol Last Admin: 02/14/17 11:09 Dose: 81 mg Atorvastatin Calcium (Lipitor) 80 mg PO DIN [facility] PRN Reason: Protocol Last Admin: 02/14/17 18:47 Dose: 80 mg Budesonide (Pulmicort Respules) 0.5 mg IH [id number] [facility] PRN Reason: Protocol Last Admin: 02/15/17 08:35 Dose: 0.5 mg Citalopram Hydrobromide (Celexa) 20 mg PO HS [facility] PRN Reason: Protocol Last Admin: 02/14/17 22:26 Dose: 20 mg Diltiazem HCl (Cardizem Cd) 120 mg PO DAILY [facility] Last Admin: 02/14/17 11:08 Dose: Not Given Diphenhydramine HCl (Benadryl) 50 mg PO HS [facility] Last Admin: 02/14/17 22:26 Dose: 50 mg Docusate Sodium (Colace) 100 mg PO BID [facility] PRN Reason: Protocol Last Admin: 02/14/17 18:50 Dose: Not Given Aztreonam (Azactam 1 Gm) 100 mls @ 100 mls/hr IVPB Q8 [facility] PRN Reason: Protocol Stop: 02/16/17 22:01 Last Admin: 02/15/17 05:55 Dose: 100 mls/hr Ibuprofen (Motrin Tab) 600 mg PO Q6 PRN; Protocol PRN Reason: Pain, moderate (4-7) Isosorbide Mononitrate (Imdur) 60 mg PO 0630 [facility] PRN Reason: Protocol Last Admin: 02/15/17 05:55 Dose: 60 mg Levothyroxine Sodium (Synthroid) 100 mcg PO 0600 [facility] PRN Reason: Protocol Last Admin: 02/15/17 05:56 Dose: 100 mcg Morphine Sulfate (Morphine) 1 mg IVP Q6H PRN; Protocol PRN Reason: Pain, severe (8-10) Last Admin: 02/14/17 02:38 Dose: 1 mg Ondansetron HCl (Zofran Inj) 4 mg IVP Q6H PRN; Protocol PRN Reason: Nausea/Vomiting Pantoprazole Sodium (Protonix Ec Tab) 40 mg PO 0600 [facility] PRN Reason: Protocol Last Admin: 02/15/17 05:56 Dose: 40 mg - Labs Labs: 02/15/17 06:30 02/15/17 06:30 - Constitutional Appears: Non-toxic, No Acute Distress - Head Exam Head Exam: NORMAL INSPECTION - Neck Exam Neck Exam: absent: Meningismus - Respiratory Exam Respiratory Exam: Decreased Breath Sounds - Cardiovascular Exam Cardiovascular Exam: +S1, +S2 - GI/Abdominal Exam GI & Abdominal Exam: Soft. absent: Tenderness Assessment and Plan - Assessment and Plan (Free Text) Plan: Assessment Sepsis due to E. coli pyelonephritis, clinically improving CAD S/P CABG HTN COPD on home oxygen therapy CVA hypothyroidism S/P carotid endarterectomy Plan Continue Azactam (day 7) to complete 10 days of therapy
--- NOTE | 2017-02-15 16:51 | CON ---
DATE: 02/15/2017 SUBJECTIVE: I have been asked to see this 71-year-old female who is in transitional care for deconditioning after being admitted for flank pain and subsequently found to have pyelonephritis for an ultrasound, which shows a dilated common bile duct up to 11 mm. Her liver enzymes are normal. The patient had a cholecystectomy over 30 years ago. She denies any epigastric pain, nausea or vomiting. She currently denies any further flank pain, but does admit to some nausea. The patient had an upper endoscopy a year ago as well as a colonoscopy approximately 3 years ago. PAST MEDICAL HISTORY: Notable for severe COPD requiring oxygen at home, hypothyroidism, CVA, coronary artery disease and hypertension. PAST SURGICAL HISTORY: Notable for coronary artery bypass surgery, carotid endarterectomy. REVIEW OF SYSTEMS: A 14-point review of systems is notable for nausea, flank pain, dysuria. PHYSICAL EXAMINATION GENERAL: Elderly female appearing chronically ill, lying in bed, in no acute distress. VITAL SIGNS: Reveal a temperature of 98.3, blood pressure 118/54, heart rate of 58. HEENT: Reveal sclerae to be white. Conjunctivae pale. NECK: Supple. CHEST: Reveal distant breath sounds. HEART: Reveals regular rate and rhythm. ABDOMEN: Soft, nontender, no mass. EXTREMITIES: Show no edema. LABORATORY DATA: Reveal hemoglobin 9.4, white blood cell count 6.9, bicarbonate of 36, BUN 10, creatinine 0.6. AST, ALT, alkaline phosphatase are all normal. IMPRESSION: A 71-year-old female with multiple comorbidities including severe chronic obstructive pulmonary disease requiring home oxygen, chronic anemia, coronary artery disease, carotid artery disease with an incidental finding of dilated common bile duct on ultrasound. Her liver enzymes are normal. The liver show some increased echogenicity, but there are no dilated intrahepatic biliary ducts. I believed that the dilated common bile duct is secondary to her cholecystectomy. There is no clinical evidence of biliary obstruction. RECOMMENDATIONS: No further GI workup needed at this time for dilated common bile duct. She has had an endoscopy and colonoscopy within last several years and I suspect that her anemia is secondary to chronic disease. Macho Garcia MD [facility] # [id number]
[2017-02-16] MEDS: Albuterol-Ipratrop 3 mg / 0.5 (3 ml) UD IH SCH ×3 (01:20→13:54)
[2017-02-16] MEDS: Levothyroxine 100 MCG TAB PO SCH (06:02)
[2017-02-16] MEDS: Aztreonam 1 Gm in NS 100mL 100 ML IVPB SCH ×3 (07:31→21:22)
[2017-02-16] MEDS: Pantoprazole 40 mg EC Tab PO SCH (07:31)
[2017-02-16] MEDS: Arformoterol 15 mcg/2 ml Inh Sol IH SCH (07:44)
[2017-02-16] MEDS: Budesonide 0.5 mg/2 ml Inhal Susp UD IH SCH (07:44)
[2017-02-16] MEDS: diltiaZEM 120 mg/24 Hours CD Cap PO SCH (10:24)
[2017-02-16 16:15] LABS: BASO # 0.04 K/mm3 (0.0-2.0); BASO % 0.6 % (0.0-3.0); EOS # 0.2 (0.0-0.7); EOS % 3.2 % (1.5-5.0); GRAN % 74.1 % (50.0-68.0); HEMOGLOBIN 9.1 gm/dL (12.0-16.0); LYMPH % 13.6 % (22.0-35.0); MEAN CELL VOLUME 89.7 fL (80.0-105.0); MEAN CORPUSCULAR HEMOGLOBIN 27.7 pg (25.0-35.0); MEAN CORPUSCULAR HGB CONC 30.8 g/dl (31.0-37.0); MONO # 0.6 (0.1-0.6); MONO % 8.5 % (1.0-6.0); PLATELET COUNT 192 10^3/uL (120.0-450.0); RBC 3.29 10^6/uL (3.5-6.1); RED CELL DISTRIBUTION WIDTH 13.7 % (11.5-14.5); WHITE BLOOD COUNT 7.2 10^3/ul (4.5-11.0)
--- NOTE | 2017-02-16 16:16 | CP.PCM.CON ---
<Tejas Chicas - Last Filed: 02/16/17 16:38> History of Present Illness - History of Present Illness History of Present Illness: Heme/Onc Consult note for Dr Santillan: Consult reason: Anemia 71 yo F with Past medical hx of of CAD s/p CABG, carotid endarterectomy, CVA x3 , hypothyroidism, COPD with home O2, renal reconfiguration surgery, aortic stenosis, and subclavian stenosis s/p stent, [place] [facility] [place], dark urine, abd pain radiating to the back, and CVA tenderness. Pt was treated in the hospital for pyelonephritis. IV antibiotics were started. Pt does not report any history of anemia. She states that her last EGD was last year (showed gastroparesis otherwise normal) and last colonoscopy was 5 years ago. Initial Hb on hospital admission was 13 is currently around 9.5 currently. Pt is now in the TCU for deconditioning and cont rehab. PSurgHx: 7 CABGs, Carotid endarterectomy, Cataract PMHx: Atrial fibrillation, CAD, Carotid stenosis, CVAX3, hypothyroidism, COPD on home O2, Depression/anxiety, Vertigo All: PCNs; minor rash with oxycodone and codeine SocHx:Tob: Smoked 2.5packs/day for 40 years, quit 5 years ago; Denies EtOH, Illicits FamHx: CAD, HLD Meds: See MAR Review of Systems - Review of Systems All systems: reviewed and no additional remarkable complaints except (HPI) Past Patient History - Infectious Disease Hx of Infectious Diseases: None - Past Medical History & Family History Past Medical History?: Yes - Past Social History Smoking Status: Former Smoker - CARDIAC Hx Cardiac Disorders: Yes Hx Hypertension: Yes - PULMONARY Hx Chronic Obstructive Pulmonary Disease (COPD): Yes - NEUROLOGICAL Hx Neurological Disorder: No - HEENT Hx HEENT Problems: No - RENAL Hx Chronic Kidney Disease: No - ENDOCRINE/METABOLIC Hx Hypothyroidism: Yes - HEMATOLOGICAL/ONCOLOGICAL Hx Blood Disorders: No - INTEGUMENTARY Hx Dermatological Problems: No - MUSCULOSKELETAL/RHEUMATOLOGICAL Hx Falls: Yes - GASTROINTESTINAL Hx Gastrointestinal Disorders: No - GENITOURINARY/GYNECOLOGICAL Hx Genitourinary Disorders: Yes Hx Reproductive Disorders: No - PSYCHIATRIC Hx Psychophysiologic Disorder: Yes Hx Depression: Yes Hx Emotional Abuse: No Hx Physical Abuse: No Hx Substance Use: No - SURGICAL HISTORY Other/Comment: cardiac stent. L carotid artery surgery. R kidney surgery - ANESTHESIA Hx Anesthesia Reactions: No Hx Malignant Hyperthermia: No Meds Allergies/Adverse Reactions: Allergies Allergy/AdvReac Type Severity Reaction Status Date / Time codeine Allergy ANAPHYLAXIS Verified 02/11/17 17:29 oxycodone HCl [From Percocet] Allergy ANAPHYLAXIS Verified 02/11/17 17:29 Penicillins Allergy ANAPHYLAXIS Verified 02/11/17 17:29 - Medications Medications: Current Medications Acetaminophen (Tylenol 325mg Tab) 650 mg PO Q6H PRN; Protocol PRN Reason: Fever >100.4 F Last Admin: 02/11/17 19:10 Dose: 650 mg Albuterol/Ipratropium (Duoneb 3 Mg/0.5 Mg (3 Ml) Ud) 3 ml IH [id number] [facility] Last Admin: 02/16/17 13:54 Dose: 3 ml Alprazolam (Xanax) 1 mg PO QID [facility] PRN Reason: Protocol Last Admin: 02/16/17 14:37 Dose: 1 mg Apixaban (Eliquis) 5 mg PO BID [facility] PRN Reason: Protocol Last Admin: 02/16/17 10:23 Dose: 5 mg Arformoterol Tartrate (Brovana) 15 mcg IH [id number] [facility] PRN Reason: Protocol Last Admin: 02/16/17 07:44 Dose: 15 mcg Aspirin (Ecotrin) 81 mg PO DAILY [facility] PRN Reason: Protocol Last Admin: 02/16/17 10:23 Dose: 81 mg Atorvastatin Calcium (Lipitor) 80 mg PO DIN [facility] PRN Reason: Protocol Last Admin: 02/15/17 17:55 Dose: 80 mg Budesonide (Pulmicort Respules) 0.5 mg IH [id number] [facility] PRN Reason: Protocol Last Admin: 02/16/17 07:44 Dose: 0.5 mg Citalopram Hydrobromide (Celexa) 20 mg PO HS [facility] PRN Reason: Protocol Last Admin: 02/15/17 21:07 Dose: 20 mg Diltiazem HCl (Cardizem Cd) 120 mg PO DAILY [facility] Last Admin: 02/16/17 10:24 Dose: 120 mg Docusate Sodium (Colace) 100 mg PO BID [facility] PRN Reason: Protocol Last Admin: 02/16/17 10:23 Dose: 100 mg Aztreonam (Azactam 1 Gm) 100 mls @ 100 mls/hr IVPB Q8 [facility] PRN Reason: Protocol Stop: 02/16/17 22:01 Last Admin: 02/16/17 14:02 Dose: 100 mls/hr Iron Sucrose 100 mg/ Sodium (Chloride) 105 mls @ 210 mls/hr IVPB DAILY [facility] Stop: 02/18/17 10:29 Ibuprofen (Motrin Tab) 600 mg PO Q6 PRN; Protocol PRN Reason: Pain, moderate (4-7) Last Admin: 02/16/17 14:49 Dose: 600 mg Isosorbide Mononitrate (Imdur) 60 mg PO 0630 [facility] PRN Reason: Protocol Last Admin: 02/16/17 07:31 Dose: 60 mg Levothyroxine Sodium (Synthroid) 100 mcg PO 0600 [facility] PRN Reason: Protocol Last Admin: 02/16/17 06:02 Dose: 100 mcg Morphine Sulfate (Morphine) 1 mg IVP Q6H PRN; Protocol PRN Reason: Pain, severe (8-10) Last Admin: 02/14/17 02:38 Dose: 1 mg Ondansetron HCl (Zofran Inj) 4 mg IVP Q6H PRN; Protocol PRN Reason: Nausea/Vomiting Pantoprazole Sodium (Protonix Ec Tab) 40 mg PO 0600 [facility] PRN Reason: Protocol Last Admin: 02/16/17 07:31 Dose: 40 mg Physical Exam - Constitutional Appears: No Acute Distress - Head Exam Head Exam: ATRAUMATIC, NORMAL INSPECTION, NORMOCEPHALIC - Eye Exam Eye Exam: EOMI, Normal appearance, PERRL Pupil Exam: NORMAL ACCOMODATION, PERRL - ENT Exam ENT Exam: Mucous Membranes Moist, Normal Exam - Respiratory Exam Respiratory Exam: Clear to Auscultation Bilateral, NORMAL BREATHING PATTERN. absent: Wheezes - Cardiovascular Exam Cardiovascular Exam: REGULAR RHYTHM, RRR, +S1, +S2 - GI/Abdominal Exam GI & Abdominal Exam: Normal Bowel Sounds, Soft. absent: Tenderness - Extremities Exam Extremities exam: Negative for: calf tenderness - Back Exam Back exam: NORMAL INSPECTION - Neurological Exam Neurological exam: Alert, Oriented x3, Reflexes Normal - Psychiatric Exam Psychiatric exam: Normal Affect, Normal Mood - Skin Skin Exam: Dry, Intact, Normal Color, Warm Results - Vital Signs Recent Vital Signs: Last Vital Signs Temp 98.5 F 02/15/17 16:00 Pulse 57 L 02/15/17 16:00 Resp 14 02/15/17 16:00 BP 132/56 L 02/16/17 10:24 Pulse Ox 95 02/15/17 16:00 - Labs Result Diagrams: 02/16/17 16:11 02/15/17 06:30 Labs: Laboratory Results - last 24 hr 02/15/17 11:36 POC Glucose (mg/dL) 159 H Assessment & Plan - Assessment and Plan (Free Text) Assessment: 71 yo F with Past medical hx of of CAD s/p CABG, carotid endarterectomy, CVA x3 , hypothyroidism, COPD with home O2, renal reconfiguration surgery, aortic stenosis, and subclavian stenosis s/p stent, initially presented with pyelonephritis currently being treated with antibiotics. We are being consulted for work up of anemia. Pt is currently in TCU for deconditioning and cont rehab. Anemia Likely 2/2 anemia of chronic dx: - Lab on 02/09: Iron of 48 and % sat of 14 - F/u CBC, retic count, erythropoitin level - Iron sucrose 100mg daily x 3 - F/u peripheral smear with path review - F/u stool occult - F/u GI recs Thank you for the courtesy of the consult. Will follow closely. Case and plan was reviewed and discussed in detail with Dr Santillan. <Liat Santillan - Last Filed: 02/18/17 11:31> Meds - Medications Medications: Current Medications Acetaminophen (Tylenol 325mg Tab) 650 mg PO Q6H PRN; Protocol PRN Reason: Fever >100.4 F Last Admin: 02/11/17 19:10 Dose: 650 mg Albuterol/Ipratropium (Duoneb 3 Mg/0.5 Mg (3 Ml) Ud) 3 ml IH [id number] [facility] Last Admin: 02/18/17 07:16 Dose: Not Given Alprazolam (Xanax) 1 mg PO TID [facility] PRN Reason: Protocol Last Admin: 02/18/17 11:02 Dose: 1 mg Alprazolam (Xanax) 1 mg PO HS [facility] PRN Reason: Protocol Apixaban (Eliquis) 5 mg PO BID [facility] PRN Reason: Protocol Last Admin: 02/18/17 11:01 Dose: 5 mg Arformoterol Tartrate (Brovana) 15 mcg IH [id number] [facility] PRN Reason: Protocol Last Admin: 02/18/17 07:16 Dose: Not Given Aspirin (Ecotrin) 81 mg PO DAILY [facility] PRN Reason: Protocol Last Admin: 02/18/17 11:01 Dose: 81 mg Atorvastatin Calcium (Lipitor) 80 mg PO DIN [facility] PRN Reason: Protocol Last Admin: 02/17/17 17:08 Dose: 80 mg Budesonide (Pulmicort Respules) 0.5 mg IH [id number] [facility] PRN Reason: Protocol Last Admin: 02/18/17 07:16 Dose: Not Given Citalopram Hydrobromide (Celexa) 20 mg PO HS [facility] PRN Reason: Protocol Last Admin: 02/17/17 22:04 Dose: 20 mg Diltiazem HCl (Cardizem Cd) 120 mg PO DAILY [facility] Last Admin: 02/18/17 11:00 Dose: 120 mg Docusate Sodium (Colace) 100 mg PO BID [facility] PRN Reason: Protocol Last Admin: 02/18/17 11:00 Dose: 100 mg Aztreonam (Azactam 1 Gm) 100 mls @ 100 mls/hr IVPB Q8 [facility] PRN Reason: Protocol Stop: 02/19/17 14:01 Last Admin: 02/18/17 05:28 Dose: 100 mls/hr Ibuprofen (Motrin Tab) 600 mg PO Q6 PRN; Protocol PRN Reason: Pain, moderate (4-7) Last Admin: 02/16/17 21:14 Dose: 600 mg Isosorbide Mononitrate (Imdur) 60 mg PO 0630 [facility] PRN Reason: Protocol Last Admin: 02/18/17 07:01 Dose: 60 mg Levothyroxine Sodium (Synthroid) 100 mcg PO 0600 [facility] PRN Reason: Protocol Last Admin: 02/18/17 05:27 Dose: 100 mcg Morphine Sulfate (Morphine) 1 mg IVP Q6H PRN; Protocol PRN Reason: Pain, severe (8-10) Last Admin: 02/17/17 01:27 Dose: 1 mg Ondansetron HCl (Zofran Inj) 4 mg IVP Q6H PRN; Protocol PRN Reason: Nausea/Vomiting Pantoprazole Sodium (Protonix Ec Tab) 40 mg PO 0600 [facility] PRN Reason: Protocol Last Admin: 02/18/17 05:27 Dose: 40 mg Results - Vital Signs Recent Vital Signs: Last Vital Signs Temp 97.8 F 02/18/17 10:00 Pulse 78 02/18/17 11:00 Resp 20 02/18/17 10:00 BP 150/70 02/18/17 11:00 Pulse Ox 96 02/18/17 10:00 - Labs Result Diagrams: 02/18/17 07:30 02/18/17 07:30 Labs: Laboratory Results - last 24 hr 02/17/17 02/18/17 02/18/17 12:00 07:30 07:30 WBC 7.9 RBC 3.47 L Hgb 9.4 L Hct 30.8 L MCV 88.8 MCH 27.1 MCHC 30.5 L RDW 13.9 Plt Count 239 MPV 10.5 Sodium 140 Potassium 3.7 Chloride 101 Carbon Dioxide 32 Anion Gap 11 BUN 11 Creatinine 0.6 Est GFR ( Amer) > 60 Est GFR (Non-Af Amer) > 60 Random Glucose 74 Calcium 8.9 Total Bilirubin 0.4 AST 17 ALT 31 Alkaline Phosphatase 61 Total Protein 6.2 Albumin 3.3 Globulin 2.9 Albumin/Globulin Ratio 1.1 Urine Color Yellow Urine Appearance Clear Urine pH 6.5 Ur Specific [place] <= 1.005 Urine Protein Negative Urine Glucose (UA) Negative Urine Ketones Negative Urine Blood Negative Urine Nitrate Negative Urine Bilirubin Negative Urine Urobilinogen 0.2 Ur Leukocyte Esterase Trace H Urine RBC Negative Urine WBC 1 - 3 Ur Epithelial Cells 1 - 3 Urine Bacteria Few Attending/Attestation - Attestation I have personally seen and examined this patient.: Yes I have fully participated in the care of the patient.: Yes I have reviewed all pertinent clinical information: Yes
--- NOTE | 2017-02-16 18:27 | CP.PCM.PN ---
Subjective - Date & Time of Evaluation Date of Evaluation: 02/16/17 Time of Evaluation: 11:20 - Subjective Subjective: Not in distress, afebrile, no dysuria. Objective - Vital Signs/Intake and Output Vital Signs (last 24 hours): Temp Pulse Resp BP Pulse Ox 98.5 F 57 L 14 111/47 L 95 02/15/17 16:00 02/15/17 16:00 02/15/17 16:00 02/15/17 16:00 02/15/17 16:00 - Medications Medications: Current Medications Acetaminophen (Tylenol 325mg Tab) 650 mg PO Q6H PRN; Protocol PRN Reason: Fever >100.4 F Last Admin: 02/11/17 19:10 Dose: 650 mg Albuterol/Ipratropium (Duoneb 3 Mg/0.5 Mg (3 Ml) Ud) 3 ml IH [id number] [facility] Last Admin: 02/16/17 07:44 Dose: 3 ml Alprazolam (Xanax) 1 mg PO QID [facility] PRN Reason: Protocol Last Admin: 02/15/17 21:07 Dose: 1 mg Apixaban (Eliquis) 5 mg PO BID [facility] PRN Reason: Protocol Last Admin: 02/15/17 17:54 Dose: 5 mg Arformoterol Tartrate (Brovana) 15 mcg IH [id number] [facility] PRN Reason: Protocol Last Admin: 02/16/17 07:44 Dose: 15 mcg Aspirin (Ecotrin) 81 mg PO DAILY [facility] PRN Reason: Protocol Last Admin: 02/15/17 09:34 Dose: 81 mg Atorvastatin Calcium (Lipitor) 80 mg PO DIN [facility] PRN Reason: Protocol Last Admin: 02/15/17 17:55 Dose: 80 mg Budesonide (Pulmicort Respules) 0.5 mg IH [id number] [facility] PRN Reason: Protocol Last Admin: 02/16/17 07:44 Dose: 0.5 mg Citalopram Hydrobromide (Celexa) 20 mg PO HS [facility] PRN Reason: Protocol Last Admin: 02/15/17 21:07 Dose: 20 mg Diltiazem HCl (Cardizem Cd) 120 mg PO DAILY [facility] Last Admin: 02/15/17 09:33 Dose: Not Given Diphenhydramine HCl (Benadryl) 50 mg PO HS [facility] Last Admin: 02/15/17 21:07 Dose: 50 mg Docusate Sodium (Colace) 100 mg PO BID [facility] PRN Reason: Protocol Last Admin: 02/15/17 17:54 Dose: 100 mg Aztreonam (Azactam 1 Gm) 100 mls @ 100 mls/hr IVPB Q8 [facility] PRN Reason: Protocol Stop: 02/16/17 22:01 Last Admin: 02/16/17 07:31 Dose: 100 mls/hr Ibuprofen (Motrin Tab) 600 mg PO Q6 PRN; Protocol PRN Reason: Pain, moderate (4-7) Isosorbide Mononitrate (Imdur) 60 mg PO 0630 [facility] PRN Reason: Protocol Last Admin: 02/16/17 07:31 Dose: 60 mg Levothyroxine Sodium (Synthroid) 100 mcg PO 0600 [facility] PRN Reason: Protocol Last Admin: 02/15/17 05:56 Dose: 100 mcg Morphine Sulfate (Morphine) 1 mg IVP Q6H PRN; Protocol PRN Reason: Pain, severe (8-10) Last Admin: 02/14/17 02:38 Dose: 1 mg Ondansetron HCl (Zofran Inj) 4 mg IVP Q6H PRN; Protocol PRN Reason: Nausea/Vomiting Pantoprazole Sodium (Protonix Ec Tab) 40 mg PO 0600 [facility] PRN Reason: Protocol Last Admin: 02/16/17 07:31 Dose: 40 mg - Labs Labs: 02/15/17 06:30 02/15/17 06:30 - Constitutional Appears: Non-toxic, No Acute Distress - Head Exam Head Exam: NORMAL INSPECTION - ENT Exam ENT Exam: Mucous Membranes Moist - Neck Exam Neck Exam: absent: Meningismus - Respiratory Exam Respiratory Exam: Decreased Breath Sounds - Cardiovascular Exam Cardiovascular Exam: +S1, +S2 - GI/Abdominal Exam GI & Abdominal Exam: Soft. absent: Tenderness Assessment and Plan - Assessment and Plan (Free Text) Plan: Assessment Sepsis due to E. coli pyelonephritis, clinically improving CAD S/P CABG HTN COPD on home oxygen therapy CVA hypothyroidism S/P carotid endarterectomy Plan Continue Azactam (day 8) to complete 10 days of therapy
--- NOTE | 2017-02-16 21:56 | CP.PCM.PN ---
Subjective - Date & Time of Evaluation Date of Evaluation: 02/16/17 Time of Evaluation: 08:00 - Subjective Subjective: Pt s/e bedside. No new complaints, denies Fatigue/MEANS/Dizziness/F/Ch/CP/SOB/N/V/ D/Const. Patient's hgb/hct were low - heme consulted. Objective - Vital Signs/Intake and Output Vital Signs (last 24 hours): Temp Pulse Resp BP Pulse Ox 98 F 55 L 15 143/67 95 02/16/17 17:09 02/16/17 17:09 02/16/17 17:09 02/16/17 17:09 02/15/17 16:00 - Medications Medications: Current Medications Acetaminophen (Tylenol 325mg Tab) 650 mg PO Q6H PRN; Protocol PRN Reason: Fever >100.4 F Last Admin: 02/11/17 19:10 Dose: 650 mg Albuterol/Ipratropium (Duoneb 3 Mg/0.5 Mg (3 Ml) Ud) 3 ml IH [id number] [facility] Last Admin: 02/16/17 13:54 Dose: 3 ml Alprazolam (Xanax) 1 mg PO QID [facility] PRN Reason: Protocol Last Admin: 02/16/17 18:19 Dose: 1 mg Apixaban (Eliquis) 5 mg PO BID [facility] PRN Reason: Protocol Last Admin: 02/16/17 18:17 Dose: 5 mg Arformoterol Tartrate (Brovana) 15 mcg IH [id number] [facility] PRN Reason: Protocol Last Admin: 02/16/17 07:44 Dose: 15 mcg Aspirin (Ecotrin) 81 mg PO DAILY [facility] PRN Reason: Protocol Last Admin: 02/16/17 10:23 Dose: 81 mg Atorvastatin Calcium (Lipitor) 80 mg PO DIN [facility] PRN Reason: Protocol Last Admin: 02/16/17 18:17 Dose: 80 mg Budesonide (Pulmicort Respules) 0.5 mg IH [id number] [facility] PRN Reason: Protocol Last Admin: 02/16/17 07:44 Dose: 0.5 mg Citalopram Hydrobromide (Celexa) 20 mg PO HS [facility] PRN Reason: Protocol Last Admin: 02/15/17 21:07 Dose: 20 mg Diltiazem HCl (Cardizem Cd) 120 mg PO DAILY [facility] Last Admin: 02/16/17 10:24 Dose: 120 mg Docusate Sodium (Colace) 100 mg PO BID [facility] PRN Reason: Protocol Last Admin: 02/16/17 18:17 Dose: 100 mg Aztreonam (Azactam 1 Gm) 100 mls @ 100 mls/hr IVPB Q8 [facility] PRN Reason: Protocol Stop: 02/16/17 22:01 Last Admin: 02/16/17 21:22 Dose: 100 mls/hr Iron Sucrose 100 mg/ Sodium (Chloride) 105 mls @ 210 mls/hr IVPB DAILY [facility] Stop: 02/18/17 10:29 Last Admin: 02/16/17 18:17 Dose: 210 mls/hr Ibuprofen (Motrin Tab) 600 mg PO Q6 PRN; Protocol PRN Reason: Pain, moderate (4-7) Last Admin: 02/16/17 21:14 Dose: 600 mg Isosorbide Mononitrate (Imdur) 60 mg PO 0630 [facility] PRN Reason: Protocol Last Admin: 02/16/17 07:31 Dose: 60 mg Levothyroxine Sodium (Synthroid) 100 mcg PO 0600 [facility] PRN Reason: Protocol Last Admin: 02/16/17 06:02 Dose: 100 mcg Morphine Sulfate (Morphine) 1 mg IVP Q6H PRN; Protocol PRN Reason: Pain, severe (8-10) Last Admin: 02/14/17 02:38 Dose: 1 mg Ondansetron HCl (Zofran Inj) 4 mg IVP Q6H PRN; Protocol PRN Reason: Nausea/Vomiting Pantoprazole Sodium (Protonix Ec Tab) 40 mg PO 0600 [facility] PRN Reason: Protocol Last Admin: 02/16/17 07:31 Dose: 40 mg - Labs Labs: 02/16/17 16:11 02/15/17 06:30 - Additional Findings Additional findings: Phys Exam: VS as below Constitutional: a&o x 4, nad, Head and Neck: neck supple, no jvd, trachea midline, carotid midline, no cervical/head mass Eyes: elton, nonicteric sclera, eom intact ENT: auditory acuity grossly intact, throat not congested, no nasal deformity Cardio: rrr, no m/r/g, no carotid bruit, nml s1, s2 Pulm: no accessory muscle use, equal nml breath sounds bilaterally, ctab Abd: +Terry's sign positive; Diffuse tenderness; s/nd, nbs x 4 q, no palpable masses Derm: no rashes, no ulcers, no lesions Extr: no edema, no cyanosis, no calf tenderness, no lesions, no varicosities Neuro: cn II-XII grossly intact, ue and le 5/5 muscle strength bilaterally, no los ue, le bilaterally and core Assessment and Plan - Assessment and Plan (Free Text) Assessment: 71 F admitted for pyelonephritis, now d/c'd to TCU for ABx and deconditioning Plan: 1. TCU - Deconditioning and cont rehab - PT and OT 2. Pyelonephritis - Continue Aztreonam due to local resistance per ID - Continue pain control with prn morphine - Restart IVF to push fluids - ID consulted: continue Azactam (day 7) to complete 10 days of therapy. Pt doing better clinically 3. Acute anemia - Stable - likely 2/2 Anemia of Chronic Dz VS Aggressive Rehydration - GI c/s: s/o, no acute bleed - Heme C/s: likely 2/2 ACD - Peripheral smear with path review - f/u - Stool occult - f/u - Iron Sucrose 100 mg daily X 3 - Continue to monitor CBC 4. Insomnia - improved - Restarted Xanax, patient did not sleep well last night - Continue circadian rhythm retraining 5. Hx of Atrial fibrillation - Continue Eliquis - Cont home diltiazem - Currently rate-controlled 6. Hx of CAD s/p CABG, CVA - Cont asa, lipitor, imdur 7. Hx of hypothyroidism - Cont Synthroid 8. Hx of COPD on home O2 - Cont home pulmicort, brovana, combivent inh 9. Hx of MDD/JENNIFER - Cont home celexa, xanax, ambien GI/DVT prophylaxis - Protonix, Eliquis Hernán Cruz DO PGY-1 Patient reviewed and discussed in detail with Dr. Wick
[2017-02-17] MEDS: Morphine 2 mg/ml ISec IVP PRN (01:27)
[2017-02-17] MEDS: Pantoprazole 40 mg EC Tab PO SCH (05:37)
[2017-02-17] MEDS: Levothyroxine 100 MCG TAB PO SCH (05:37)
[2017-02-17] MEDS: Arformoterol 15 mcg/2 ml Inh Sol IH SCH ×2 (07:23→20:24)
[2017-02-17] MEDS: Albuterol-Ipratrop 3 mg / 0.5 (3 ml) UD IH SCH ×3 (07:24→20:24)
[2017-02-17] MEDS: Budesonide 0.5 mg/2 ml Inhal Susp UD IH SCH ×2 (07:24→20:25)
[2017-02-17] MEDS: diltiaZEM 120 mg/24 Hours CD Cap PO SCH (09:27)
[2017-02-17 12:25] LABS: PH,URINE 6.5 (4.7-8.0); URINE BILIRUBIN NEGATIVE (NEGATIVE); URINE BLOOD NEGATIVE (NEGATIVE); URINE GLUCOSE (UA) NEGATIVE (NEGATIVE); URINE LEUKOCYTE ESTERASE TRACE Leu/uL (NEGATIVE); URINE NITRATE NEGATIVE (NEGATIVE); URINE PROTEIN NEGATIVE mg/dL (<30 mg/dL); URINE UROBILINOGEN 0.2 E.U./dL (<1 E.U./dL)
[2017-02-17 12:27] LABS: URINE APPEARANCE CLEAR (CLEAR); URINE COLOR YELLOW (YELLOW)
[2017-02-17 12:38] LABS: URINE RBC NEGATIVE /hpf (0-2)
[2017-02-17 12:39] LABS: URINE BACTERIA FEW (NEG)
--- NOTE | 2017-02-17 14:02 | CP.PCM.PN ---
Subjective - Date & Time of Evaluation Date of Evaluation: 02/17/17 Time of Evaluation: 10:15 - Subjective Subjective: Comfortable in bed, not in distress, no flank pain, no dysuria, no fevers. Objective - Vital Signs/Intake and Output Vital Signs (last 24 hours): Temp Pulse Resp BP Pulse Ox 98 F 55 L 15 143/67 95 02/16/17 17:09 02/16/17 17:09 02/16/17 17:09 02/16/17 17:09 02/15/17 16:00 - Medications Medications: Current Medications Acetaminophen (Tylenol 325mg Tab) 650 mg PO Q6H PRN; Protocol PRN Reason: Fever >100.4 F Last Admin: 02/11/17 19:10 Dose: 650 mg Albuterol/Ipratropium (Duoneb 3 Mg/0.5 Mg (3 Ml) Ud) 3 ml IH [id number] [facility] Last Admin: 02/16/17 13:54 Dose: 3 ml Alprazolam (Xanax) 1 mg PO QID [facility] PRN Reason: Protocol Last Admin: 02/16/17 22:55 Dose: 1 mg Apixaban (Eliquis) 5 mg PO BID [facility] PRN Reason: Protocol Last Admin: 02/16/17 18:17 Dose: 5 mg Arformoterol Tartrate (Brovana) 15 mcg IH [id number] [facility] PRN Reason: Protocol Last Admin: 02/16/17 07:44 Dose: 15 mcg Aspirin (Ecotrin) 81 mg PO DAILY [facility] PRN Reason: Protocol Last Admin: 02/16/17 10:23 Dose: 81 mg Atorvastatin Calcium (Lipitor) 80 mg PO DIN [facility] PRN Reason: Protocol Last Admin: 02/16/17 18:17 Dose: 80 mg Budesonide (Pulmicort Respules) 0.5 mg IH [id number] [facility] PRN Reason: Protocol Last Admin: 02/16/17 07:44 Dose: 0.5 mg Citalopram Hydrobromide (Celexa) 20 mg PO HS [facility] PRN Reason: Protocol Last Admin: 02/16/17 22:53 Dose: 20 mg Diltiazem HCl (Cardizem Cd) 120 mg PO DAILY [facility] Last Admin: 02/16/17 10:24 Dose: 120 mg Docusate Sodium (Colace) 100 mg PO BID [facility] PRN Reason: Protocol Last Admin: 02/16/17 18:17 Dose: 100 mg Iron Sucrose 100 mg/ Sodium (Chloride) 105 mls @ 210 mls/hr IVPB DAILY [facility] Stop: 02/18/17 10:29 Last Admin: 02/16/17 18:17 Dose: 210 mls/hr Ibuprofen (Motrin Tab) 600 mg PO Q6 PRN; Protocol PRN Reason: Pain, moderate (4-7) Last Admin: 02/16/17 21:14 Dose: 600 mg Isosorbide Mononitrate (Imdur) 60 mg PO 0630 [facility] PRN Reason: Protocol Last Admin: 02/17/17 05:37 Dose: 60 mg Levothyroxine Sodium (Synthroid) 100 mcg PO 0600 [facility] PRN Reason: Protocol Last Admin: 02/17/17 05:37 Dose: 100 mcg Morphine Sulfate (Morphine) 1 mg IVP Q6H PRN; Protocol PRN Reason: Pain, severe (8-10) Last Admin: 02/17/17 01:27 Dose: 1 mg Ondansetron HCl (Zofran Inj) 4 mg IVP Q6H PRN; Protocol PRN Reason: Nausea/Vomiting Pantoprazole Sodium (Protonix Ec Tab) 40 mg PO 0600 [facility] PRN Reason: Protocol Last Admin: 02/17/17 05:37 Dose: 40 mg - Labs Labs: 02/16/17 16:11 02/15/17 06:30 - Constitutional Appears: Non-toxic, No Acute Distress - Head Exam Head Exam: NORMAL INSPECTION - ENT Exam ENT Exam: Mucous Membranes Moist - Neck Exam Neck Exam: absent: Meningismus - Respiratory Exam Respiratory Exam: Decreased Breath Sounds - Cardiovascular Exam Cardiovascular Exam: +S1, +S2 - GI/Abdominal Exam GI & Abdominal Exam: Soft. absent: Tenderness Assessment and Plan - Assessment and Plan (Free Text) Plan: Assessment Sepsis due to E. coli pyelonephritis, clinically improving CAD S/P CABG HTN COPD on home oxygen therapy CVA hypothyroidism S/P carotid endarterectomy Plan Continue Azactam (day 9) to complete 10 days of therapy
[2017-02-17] MEDS: Aztreonam 1 Gm in NS 100mL 100 ML IVPB SCH ×2 (15:00→22:03)
--- NOTE | 2017-02-17 20:20 | CP.PCM.PN ---
Subjective - Date & Time of Evaluation Date of Evaluation: 02/17/17 Time of Evaluation: 09:55 - Subjective Subjective: Pt s/e bedside. No new complaints, denies Fatigue/MEANS/Dizziness/F/Ch/CP/SOB/N/V/ D/Const. Yesterday, patient's hgb/hct were low - heme consulted, gave recs. Patient states that she is still not getting her Xanax as Rx'd. Spoke to nursing staff with specific instructions, put orders in again. Objective - Vital Signs/Intake and Output Vital Signs (last 24 hours): Temp Pulse Resp BP Pulse Ox 97.3 F L 59 L 18 129/64 97 02/17/17 16:00 02/17/17 16:00 02/17/17 16:00 02/17/17 16:00 02/17/17 16:00 - Medications Medications: Current Medications Acetaminophen (Tylenol 325mg Tab) 650 mg PO Q6H PRN; Protocol PRN Reason: Fever >100.4 F Last Admin: 02/11/17 19:10 Dose: 650 mg Albuterol/Ipratropium (Duoneb 3 Mg/0.5 Mg (3 Ml) Ud) 3 ml IH [id number] [facility] Last Admin: 02/17/17 13:34 Dose: 3 ml Alprazolam (Xanax) 1 mg PO TID [facility] PRN Reason: Protocol Alprazolam (Xanax) 1 mg PO HS [facility] PRN Reason: Protocol Alprazolam (Xanax) 2 mg PO HS ONE PRN Reason: Protocol Stop: 02/17/17 22:01 Apixaban (Eliquis) 5 mg PO BID [facility] PRN Reason: Protocol Last Admin: 02/17/17 17:08 Dose: 5 mg Arformoterol Tartrate (Brovana) 15 mcg IH [id number] [facility] PRN Reason: Protocol Last Admin: 02/17/17 07:23 Dose: 15 mcg Aspirin (Ecotrin) 81 mg PO DAILY [facility] PRN Reason: Protocol Last Admin: 02/17/17 09:03 Dose: 81 mg Atorvastatin Calcium (Lipitor) 80 mg PO DIN [facility] PRN Reason: Protocol Last Admin: 02/17/17 17:08 Dose: 80 mg Budesonide (Pulmicort Respules) 0.5 mg IH [id number] [facility] PRN Reason: Protocol Last Admin: 02/17/17 07:24 Dose: 0.5 mg Citalopram Hydrobromide (Celexa) 20 mg PO HS [facility] PRN Reason: Protocol Last Admin: 02/16/17 22:53 Dose: 20 mg Diltiazem HCl (Cardizem Cd) 120 mg PO DAILY [facility] Last Admin: 02/17/17 09:27 Dose: Not Given Docusate Sodium (Colace) 100 mg PO BID [facility] PRN Reason: Protocol Last Admin: 02/17/17 17:08 Dose: Not Given Iron Sucrose 100 mg/ Sodium (Chloride) 105 mls @ 210 mls/hr IVPB DAILY [facility] Stop: 02/18/17 10:29 Last Admin: 02/17/17 09:09 Dose: 210 mls/hr Aztreonam (Azactam 1 Gm) 100 mls @ 100 mls/hr IVPB Q8 [facility] PRN Reason: Protocol Stop: 02/19/17 14:01 Last Admin: 02/17/17 15:00 Dose: 100 mls/hr Ibuprofen (Motrin Tab) 600 mg PO Q6 PRN; Protocol PRN Reason: Pain, moderate (4-7) Last Admin: 02/16/17 21:14 Dose: 600 mg Isosorbide Mononitrate (Imdur) 60 mg PO 0630 [facility] PRN Reason: Protocol Last Admin: 02/17/17 05:37 Dose: 60 mg Levothyroxine Sodium (Synthroid) 100 mcg PO 0600 [facility] PRN Reason: Protocol Last Admin: 02/17/17 05:37 Dose: 100 mcg Morphine Sulfate (Morphine) 1 mg IVP Q6H PRN; Protocol PRN Reason: Pain, severe (8-10) Last Admin: 02/17/17 01:27 Dose: 1 mg Ondansetron HCl (Zofran Inj) 4 mg IVP Q6H PRN; Protocol PRN Reason: Nausea/Vomiting Pantoprazole Sodium (Protonix Ec Tab) 40 mg PO 0600 [facility] PRN Reason: Protocol Last Admin: 02/17/17 05:37 Dose: 40 mg - Labs Labs: 02/16/17 16:11 02/15/17 06:30 - Additional Findings Additional findings: Phys Exam: VS as below Constitutional: a&o x 4, nad, Head and Neck: neck supple, no jvd, trachea midline, carotid midline, no cervical/head mass Eyes: elton, nonicteric sclera, eom intact ENT: auditory acuity grossly intact, throat not congested, no nasal deformity Cardio: rrr, no m/r/g, no carotid bruit, nml s1, s2 Pulm: no accessory muscle use, equal nml breath sounds bilaterally, ctab Abd: Diffuse tenderness; s/nd, nbs x 4 q, no palpable masses Derm: no rashes, no ulcers, no lesions Extr: no edema, no cyanosis, no calf tenderness, no lesions, no varicosities Neuro: cn II-XII grossly intact, ue and le 5/5 muscle strength bilaterally, no los ue, le bilaterally and core Assessment and Plan - Assessment and Plan (Free Text) Assessment: 71 F admitted for pyelonephritis, now d/c'd to TCU for ABx and deconditioning Plan: 1. TCU - Deconditioning and cont rehab - PT and OT 2. Pyelonephritis - Continue Aztreonam due to local resistance per ID - Continue pain control with prn morphine - Restart IVF to push fluids - ID consulted: continue Azactam (day 7) to complete 10 days of therapy. Pt doing better clinically 3. Acute anemia - Stable - likely 2/2 Anemia of Chronic Dz VS Aggressive Rehydration - GI c/s: s/o, no acute bleed - Heme C/s: likely 2/2 ACD - Peripheral smear with path review: Normochromic normochromic anemia with mild anisopoikilocytosis; No schistocytes or nucelated red blood cells - Stool occult - Negative - Iron Sucrose 100 mg daily X 3 - Continue to monitor CBC 4. Insomnia - improved - Restarted Xanax, patient did not sleep well last night. Put in orders again, spoke to nursing staff - Continue circadian rhythm retraining 5. Hx of Atrial fibrillation - Continue Eliquis - Cont home diltiazem - Currently rate-controlled 6. Hx of CAD s/p CABG, CVA - Cont asa, lipitor, imdur 7. Hx of hypothyroidism - Cont Synthroid 8. Hx of COPD on home O2 - Cont home pulmicort, brovana, combivent inh 9. Hx of MDD/JENNIFER - Cont home celexa, xanax, ambien GI/DVT prophylaxis - Protonix, Eliquis Hernán Cruz, PGY-1 Patient reviewed and discussed in detail with Dr. Wick
[2017-02-18] MEDS: Albuterol-Ipratrop 3 mg / 0.5 (3 ml) UD IH SCH ×4 (01:38→22:06)
[2017-02-18] MEDS: Pantoprazole 40 mg EC Tab PO SCH (05:27)
[2017-02-18] MEDS: Levothyroxine 100 MCG TAB PO SCH (05:27)
[2017-02-18] MEDS: Aztreonam 1 Gm in NS 100mL 100 ML IVPB SCH ×3 (05:28→22:07)
[2017-02-18] MEDS: Arformoterol 15 mcg/2 ml Inh Sol IH SCH ×2 (07:16→22:06)
[2017-02-18] MEDS: Budesonide 0.5 mg/2 ml Inhal Susp UD IH SCH ×2 (07:16→22:06)
[2017-02-18 07:48] LABS: HEMOGLOBIN 9.4 gm/dL (12.0-16.0); MEAN CELL VOLUME 88.8 fL (80.0-105.0); MEAN CORPUSCULAR HEMOGLOBIN 27.1 pg (25.0-35.0); MEAN CORPUSCULAR HGB CONC 30.5 g/dl (31.0-37.0); MEAN PLATELET VOLUME 10.5 fl (7.0-11.0); RBC 3.47 10^6/uL (3.5-6.1); RED CELL DISTRIBUTION WIDTH 13.9 % (11.5-14.5); WHITE BLOOD COUNT 7.9 10^3/ul (4.5-11.0)
[2017-02-18 08:01] LABS: ALB/GLOB RATIO 1.1 (1.1-1.8); ALBUMIN 3.3 g/dL (3.0-4.8); ALT/SGPT 31 U/L (7-56); AST/SGOT 17 U/L (15-39); BLOOD UREA NITROGEN 11 mg/dL (7-21); CALCIUM 8.9 mg/dL (8.4-10.5); GFR AFRICAN-AMERICAN > 60; GFR NON-AFRICAN AMERICAN > 60
[2017-02-18] MEDS: diltiaZEM 120 mg/24 Hours CD Cap PO SCH (11:00)
--- NOTE | 2017-02-18 14:20 | CP.PCM.PN ---
Subjective - Date & Time of Evaluation Date of Evaluation: 02/18/17 Time of Evaluation: 12:50 - Subjective Subjective: Comfortable in bed, no fevers, no flank pain, no dysuria. Objective - Vital Signs/Intake and Output Vital Signs (last 24 hours): Temp Pulse Resp BP Pulse Ox 97.3 F L 59 L 18 129/64 97 02/17/17 16:00 02/17/17 16:00 02/17/17 16:00 02/17/17 16:00 02/17/17 16:00 - Medications Medications: Current Medications Acetaminophen (Tylenol 325mg Tab) 650 mg PO Q6H PRN; Protocol PRN Reason: Fever >100.4 F Last Admin: 02/11/17 19:10 Dose: 650 mg Albuterol/Ipratropium (Duoneb 3 Mg/0.5 Mg (3 Ml) Ud) 3 ml IH [id number] [facility] Last Admin: 02/18/17 07:16 Dose: Not Given Alprazolam (Xanax) 1 mg PO TID [facility] PRN Reason: Protocol Alprazolam (Xanax) 1 mg PO HS [facility] PRN Reason: Protocol Apixaban (Eliquis) 5 mg PO BID [facility] PRN Reason: Protocol Last Admin: 02/17/17 17:08 Dose: 5 mg Arformoterol Tartrate (Brovana) 15 mcg IH [id number] [facility] PRN Reason: Protocol Last Admin: 02/18/17 07:16 Dose: Not Given Aspirin (Ecotrin) 81 mg PO DAILY [facility] PRN Reason: Protocol Last Admin: 02/17/17 09:03 Dose: 81 mg Atorvastatin Calcium (Lipitor) 80 mg PO DIN [facility] PRN Reason: Protocol Last Admin: 02/17/17 17:08 Dose: 80 mg Budesonide (Pulmicort Respules) 0.5 mg IH [id number] [facility] PRN Reason: Protocol Last Admin: 02/18/17 07:16 Dose: Not Given Citalopram Hydrobromide (Celexa) 20 mg PO HS [facility] PRN Reason: Protocol Last Admin: 02/17/17 22:04 Dose: 20 mg Diltiazem HCl (Cardizem Cd) 120 mg PO DAILY [facility] Last Admin: 02/17/17 09:27 Dose: Not Given Docusate Sodium (Colace) 100 mg PO BID [facility] PRN Reason: Protocol Last Admin: 02/17/17 17:08 Dose: Not Given Iron Sucrose 100 mg/ Sodium (Chloride) 105 mls @ 210 mls/hr IVPB DAILY [facility] Stop: 02/18/17 10:29 Last Admin: 02/17/17 09:09 Dose: 210 mls/hr Aztreonam (Azactam 1 Gm) 100 mls @ 100 mls/hr IVPB Q8 [facility] PRN Reason: Protocol Stop: 02/19/17 14:01 Last Admin: 02/18/17 05:28 Dose: 100 mls/hr Ibuprofen (Motrin Tab) 600 mg PO Q6 PRN; Protocol PRN Reason: Pain, moderate (4-7) Last Admin: 02/16/17 21:14 Dose: 600 mg Isosorbide Mononitrate (Imdur) 60 mg PO 0630 [facility] PRN Reason: Protocol Last Admin: 02/18/17 07:01 Dose: 60 mg Levothyroxine Sodium (Synthroid) 100 mcg PO 0600 [facility] PRN Reason: Protocol Last Admin: 02/18/17 05:27 Dose: 100 mcg Morphine Sulfate (Morphine) 1 mg IVP Q6H PRN; Protocol PRN Reason: Pain, severe (8-10) Last Admin: 02/17/17 01:27 Dose: 1 mg Ondansetron HCl (Zofran Inj) 4 mg IVP Q6H PRN; Protocol PRN Reason: Nausea/Vomiting Pantoprazole Sodium (Protonix Ec Tab) 40 mg PO 0600 [facility] PRN Reason: Protocol Last Admin: 02/18/17 05:27 Dose: 40 mg - Labs Labs: 02/18/17 07:30 02/18/17 07:30 - Constitutional Appears: Non-toxic, No Acute Distress - Head Exam Head Exam: NORMAL INSPECTION - ENT Exam ENT Exam: Mucous Membranes Moist - Neck Exam Neck Exam: absent: Meningismus - Respiratory Exam Respiratory Exam: Decreased Breath Sounds - Cardiovascular Exam Cardiovascular Exam: +S1, +S2 - GI/Abdominal Exam GI & Abdominal Exam: Soft. absent: Tenderness Assessment and Plan - Assessment and Plan (Free Text) Plan: Assessment Sepsis due to E. coli pyelonephritis, clinically improving CAD S/P CABG HTN COPD on home oxygen therapy CVA hypothyroidism S/P carotid endarterectomy Plan Continue Azactam (day 10) to complete 10 days of therapy - discussed with Dr. Gallego - ortiz d/c antibiotics after today
--- NOTE | 2017-02-19 01:50 | CP.PCM.PN ---
Subjective - Date & Time of Evaluation Date of Evaluation: 02/17/17 Time of Evaluation: 19:00 - Subjective Subjective: No acute events. Has some difficulty sleeping and some abdominal bloating 12 ROS otherwise negative Objective - Vital Signs/Intake and Output Vital Signs (last 24 hours): Temp Pulse Resp BP Pulse Ox 98 F 71 20 157/80 H 98 02/18/17 16:00 02/18/17 16:00 02/18/17 16:00 02/18/17 16:00 02/18/17 16:00 - Medications Medications: Current Medications Acetaminophen (Tylenol 325mg Tab) 650 mg PO Q6H PRN; Protocol PRN Reason: Fever >100.4 F Last Admin: 02/11/17 19:10 Dose: 650 mg Albuterol/Ipratropium (Duoneb 3 Mg/0.5 Mg (3 Ml) Ud) 3 ml IH [id number] [facility] Last Admin: 02/18/17 22:06 Dose: 3 ml Alprazolam (Xanax) 1 mg PO BID STACY PRN Reason: Protocol Alprazolam (Xanax) 2 mg PO HS STACY PRN Reason: Protocol Last Admin: 02/18/17 22:10 Dose: 2 mg Apixaban (Eliquis) 5 mg PO BID STACY PRN Reason: Protocol Last Admin: 02/18/17 18:13 Dose: 5 mg Arformoterol Tartrate (Brovana) 15 mcg IH [id number] STACY PRN Reason: Protocol Last Admin: 02/18/17 22:06 Dose: 15 mcg Aspirin (Ecotrin) 81 mg PO DAILY STACY PRN Reason: Protocol Last Admin: 02/18/17 11:01 Dose: 81 mg Atorvastatin Calcium (Lipitor) 80 mg PO DIN STACY PRN Reason: Protocol Last Admin: 02/18/17 18:14 Dose: 80 mg Budesonide (Pulmicort Respules) 0.5 mg IH [id number] STACY PRN Reason: Protocol Last Admin: 02/18/17 22:06 Dose: 0.5 mg Citalopram Hydrobromide (Celexa) 20 mg PO HS STACY PRN Reason: Protocol Last Admin: 02/18/17 22:08 Dose: 20 mg Diltiazem HCl (Cardizem Cd) 120 mg PO DAILY [facility] Last Admin: 02/18/17 11:00 Dose: 120 mg Docusate Sodium (Colace) 100 mg PO BID STACY PRN Reason: Protocol Last Admin: 02/18/17 18:14 Dose: Not Given Aztreonam (Azactam 1 Gm) 100 mls @ 100 mls/hr IVPB Q8 STACY PRN Reason: Protocol Stop: 02/19/17 14:01 Last Admin: 02/18/17 22:07 Dose: 100 mls/hr Ibuprofen (Motrin Tab) 600 mg PO Q6 PRN; Protocol PRN Reason: Pain, moderate (4-7) Last Admin: 02/16/17 21:14 Dose: 600 mg Isosorbide Mononitrate (Imdur) 60 mg PO 0630 STACY PRN Reason: Protocol Last Admin: 02/18/17 07:01 Dose: 60 mg Levothyroxine Sodium (Synthroid) 100 mcg PO 0600 STACY PRN Reason: Protocol Last Admin: 02/18/17 05:27 Dose: 100 mcg Ondansetron HCl (Zofran Inj) 4 mg IVP Q6H PRN; Protocol PRN Reason: Nausea/Vomiting Pantoprazole Sodium (Protonix Ec Tab) 40 mg PO 0600 STACY PRN Reason: Protocol Last Admin: 02/18/17 05:27 Dose: 40 mg - Labs Labs: 02/18/17 07:30 02/18/17 07:30 - Constitutional Appears: Well - Respiratory Exam Respiratory Exam: Clear to Ausculation Bilateral, NORMAL BREATHING PATTERN - Cardiovascular Exam Cardiovascular Exam: REGULAR RHYTHM, +S1, +S2. absent: Murmur - Extremities Exam Extremities Exam: Full ROM, Normal Capillary Refill, Normal Inspection. absent : Joint Swelling, Pedal Edema Assessment and Plan - Assessment and Plan (Free Text) Assessment: Ms. Del Rosario is a 71 yo F with Past medical hx of of CAD s/p CABG, carotid endarterectomy, CVA x3 , hypothyroidism, COPD with home O2, renal reconfiguration surgery, aortic stenosis, and subclavian stenosis s/p stent, initially presented with pyelonephritis currently being treated with antibiotics. Anemia is likely mixed due to anemia of chronic disease vs marrow supression given recent infection. Labs are c/w low iron stores and borderline low B12 additionally. Epo level elevated appropriatley and FOBT negative. Would recommend continuing iron supplementation. Would repeat B12 and folate. IF B12 borderline low (300 or lower) can consider obtaining methlymalonic acid and homocysteine levels vs empirically giving 1000mcg of B12 SC Erich Santillan MD Oncology Service p: [phone]
[2017-02-19] MEDS: Albuterol-Ipratrop 3 mg / 0.5 (3 ml) UD IH SCH ×3 (03:07→13:24)
[2017-02-19] MEDS: Aztreonam 1 Gm in NS 100mL 100 ML IVPB SCH (05:58)
[2017-02-19] MEDS: Levothyroxine 100 MCG TAB PO SCH (05:59)
[2017-02-19] MEDS: Pantoprazole 40 mg EC Tab PO SCH (05:59)
[2017-02-19 07:06] VITALS: O2SAT 97
[2017-02-19] MEDS: Budesonide 0.5 mg/2 ml Inhal Susp UD IH SCH (07:34)
[2017-02-19] MEDS: Arformoterol 15 mcg/2 ml Inh Sol IH SCH (07:34)
[2017-02-19 08:15] LABS: MEAN CELL VOLUME 89.9 fL (80.0-105.0); MEAN CORPUSCULAR HEMOGLOBIN 27.7 pg (25.0-35.0); MEAN CORPUSCULAR HGB CONC 30.8 g/dl (31.0-37.0); MEAN PLATELET VOLUME 10.7 fl (7.0-11.0); RBC 3.97 10^6/uL (3.5-6.1); WHITE BLOOD COUNT 9.3 10^3/ul (4.5-11.0)
[2017-02-19 08:27] LABS: ALB/GLOB RATIO 1.2 (1.1-1.8); ALBUMIN 3.9 g/dL (3.0-4.8); ALT/SGPT 32 U/L (7-56); AST/SGOT 20 U/L (15-39); BLOOD UREA NITROGEN 11 mg/dL (7-21); CALCIUM 9.5 mg/dL (8.4-10.5); GFR AFRICAN-AMERICAN > 60; GFR NON-AFRICAN AMERICAN > 60
[2017-02-19] MEDS: diltiaZEM 120 mg/24 Hours CD Cap PO SCH (09:32)
[2017-02-19 09:33] VITALS: BP 121/50
--- NOTE | 2017-02-19 09:45 | CP.PCM.DIS ---
Provider - Provider Date of Admission: 02/11/17 17:05 Attending physician: Macho Wick MD Primary care physician: Macho Wick MD Consults: ID: Dr. Espinoza Neuro: Dr. Whitfield GI: Dr. Garcia Heme: Dr. Santillan Time Spent in preparation of Discharge (in minutes): 55 Hospital Course - Lab Results Lab Results: Micro Results 02/17/17 12:00 Urine Urine Culture - Final Gram Positive Cocci Most Recent Lab Values WBC 9.3 10^3/ul (4.5-11.0) 02/19/17 07:20 RBC 3.97 10^6/uL (3.5-6.1) 02/19/17 07:20 Hgb 11.0 gm/dL (12.0-16.0) L 02/19/17 07:20 Hct 35.7 % (36.0-48.0) L 02/19/17 07:20 MCV 89.9 fL (80.0-105.0) 02/19/17 07:20 MCH 27.7 pg (25.0-35.0) 02/19/17 07:20 MCHC 30.8 g/dl (31.0-37.0) L 02/19/17 07:20 RDW 14.0 % (11.5-14.5) 02/19/17 07:20 Plt Count 270 10^3/uL (120.0-450.0) 02/19/17 07:20 MPV 10.7 fl (7.0-11.0) 02/19/17 07:20 Gran % 74.1 % (50.0-68.0) H 02/16/17 16:11 Lymph % (Auto) 13.6 % (22.0-35.0) L 02/16/17 16:11 [place] % (Auto) 8.5 % (1.0-6.0) H 02/16/17 16:11 Eos % (Auto) 3.2 % (1.5-5.0) 02/16/17 16:11 Baso % (Auto) 0.6 % (0.0-3.0) 02/16/17 16:11 Gran # 5.30 (1.4-6.5) 02/16/17 16:11 Lymph # 1.0 (1.2-3.4) L 02/16/17 16:11 [place] # 0.6 (0.1-0.6) 02/16/17 16:11 Eos # 0.2 (0.0-0.7) 02/16/17 16:11 Baso # 0.04 K/mm3 (0.0-2.0) 02/16/17 16:11 Retic Count 1.15 % (0.5-1.5) 02/16/17 16:11 Sodium 139 mmol/L (132-148) 02/19/17 07:20 Potassium 3.8 mmol/L (3.6-5.0) 02/19/17 07:20 Chloride 99 mmol/L (98-107) 02/19/17 07:20 Carbon Dioxide 31 mmol/L (21-33) 02/19/17 07:20 Anion Gap 13 (10-20) 02/19/17 07:20 BUN 11 mg/dL (7-21) 02/19/17 07:20 Creatinine 0.6 mg/dL (0.5-1.4) 02/19/17 07:20 Est GFR ( Amer) > 60 02/19/17 07:20 Est GFR (Non-Af Amer) > 60 02/19/17 07:20 POC Glucose (mg/dL) 109 mg/dL (65-110) 02/16/17 17:07 Random Glucose 110 mg/dL (70-110) 02/19/17 07:20 Calcium 9.5 mg/dL (8.4-10.5) 02/19/17 07:20 Phosphorus 3.6 mg/dL (2.5-4.5) 02/15/17 06:30 Magnesium 1.5 mg/dL (1.7-2.2) L 02/15/17 06:30 Erythropoietin 30.3 mIU/mL (2.6-18.5) H 02/16/17 16:11 Total Bilirubin 0.3 mg/dL (0.2-1.3) 02/19/17 07:20 Direct Bilirubin 0.3 mg/dL (0.0-0.4) 02/15/17 06:30 AST 20 U/L (15-39) 02/19/17 07:20 ALT 32 U/L (7-56) 02/19/17 07:20 Alkaline Phosphatase 65 U/L (38-133) 02/19/17 07:20 Total Protein 7.1 g/dL (5.8-8.3) 02/19/17 07:20 Albumin 3.9 g/dL (3.0-4.8) 02/19/17 07:20 Globulin 3.2 gm/dL 02/19/17 07:20 Albumin/Globulin Ratio 1.2 (1.1-1.8) 02/19/17 07:20 Urine Color Yellow (YELLOW) 02/17/17 12:00 Urine Appearance Clear (CLEAR) 02/17/17 12:00 Urine pH 6.5 (4.7-8.0) 02/17/17 12:00 Ur Specific [place] <= 1.005 (1.005-1.035) 02/17/17 12:00 Urine Protein Negative mg/dL (<30 mg/dL) 02/17/17 12:00 Urine Glucose (UA) Negative mg/dL (NEGATIVE) 02/17/17 12:00 Urine Ketones Negative mg/dL (NEGATIVE) 02/17/17 12:00 Urine Blood Negative (NEGATIVE) 02/17/17 12:00 Urine Nitrate Negative (NEGATIVE) 02/17/17 12:00 Urine Bilirubin Negative (NEGATIVE) 02/17/17 12:00 Urine Urobilinogen 0.2 E.U./dL (<1 E.U./dL) 02/17/17 12:00 Ur Leukocyte Esterase Trace Gonzalez/uL (NEGATIVE) H 02/17/17 12:00 Urine RBC Negative /hpf (0-2) 02/17/17 12:00 Urine WBC 1 - 3 /hpf (0-6) 02/17/17 12:00 Ur Epithelial Cells 1 - 3 /hpf (0-5) 02/17/17 12:00 Urine Bacteria Few (NEG) 02/17/17 12:00 Stool Occult Blood Negative (NEGATIVE) 02/17/17 05:44 - Hospital Course Hospital Course: This is a 71Y F with PMH CAD s/p CABG, hypothyroidism, CVA x 3, COPD on home O2 , carotid endartectomy and renal surgery who was admitted to [facility] for acute pyelonephritis. She was stabilized and transferred to TCU for further rehabilitation. (Please refer to previous d/c summary for inpatient hospital course.) While in the TCU, hematology was consulted for anemia. As per heme, patient has anemia secondary to chronic disease and can continue outpatient iron infusion. Neurology was consulted for dementia. Dr. Whitfield reports that patient can follow up as outpatient and recommends for the patient to continue attention and memory training exercises. She was also noted to have flank pain during her stay and had a mildly dilated common bile duct on abdominal u/s. GI was consulted and reports no further work up was necessary at this time. As per ID, for pyelonephritis, patient completed her antibiotic course during her hospital stay and will not need any antibiotics as outpatient. She will follow up with Dr. 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 There will be no changes in her medication. Discussed plan with patient and she understands and agrees with plan. - Date & Time of H&P Date of H&P: 03/15/16 Time of H&P: 10:00 Discharge Exam - Head Exam Head Exam: NORMAL INSPECTION - Eye Exam Eye Exam: Normal appearance, PERRL Pupil Exam: NORMAL ACCOMODATION, PERRL - ENT Exam ENT Exam: Mucous Membranes Moist - Respiratory Exam Respiratory Exam: Clear to PA & Lateral, NORMAL BREATHING PATTERN, UNREMARKABLE. absent: Decreased Breath Sounds, Rales, Rhonchi, Wheezes - Cardiovascular Exam Cardiovascular Exam: REGULAR RHYTHM, +S1, +S2. absent: Gallop, Rubs, Systolic Murmur - GI/Abdominal Exam GI & Abdominal Exam: Normal Bowel Sounds, Soft, Unremarkable. absent: Guarding , Rebound, Rigid, Tenderness - Extremities Exam Extremities exam: normal inspection - Neurological Exam Neurological exam: Alert, CN II-XII Intact, Oriented x3 - Psychiatric Exam Psychiatric exam: Normal Affect, Normal Mood - Skin Skin Exam: Dry, Normal Color, Warm Discharge Plan - Follow Up Plan Condition: GOOD Disposition: HOME/ ROUTINE Instructions: Heart Failure (DC), Coronary Artery Disease (DC), Rotavirus Infection (DC), Rotavirus Infection (GEN), Urinary Tract Infection in Women (DC) , Iron Rich Diet (DC), Acute Low Back Pain (DC), Nutrition Tips for Relief of Diarrhea (DC), Nutrition Tips for Relief of Diarrhea (GEN) Additional Instructions: 1. Follow up with Dr. Wick/Dr. Gallego in 1 week. 2. Continue home medications. There will be no change in home medications. 3. Follow up with Dr. Whitfield as outpatient for Dementia work up 4. Follow up with Dr. Garcia () as outpatient. Referrals: Macho Wick MD [Primary Care Provider] - Dallas Whitfield MD [Staff Provider] -
[2017-02-19 10:41] VITALS: PULSE 71; RESP 18; TEMP 98.7
== END 2017-02-19 16:42 | disposition home or self-care (01) | DRG 872 ==
LOC: TRCU 17:05
PROVIDERS: ADMIT Internal Medicine; ATTEND Internal Medicine
PROC: F07Z9FZ Gait Training/Functional Ambulation Treatment using Assistive, Adaptive, Supportive or Protective Equipment (ICD-10-PCS; principal; 2017-02-12)
PROC: F07M6ZZ Therapeutic Exercise Treatment of Musculoskeletal System - Whole Body (ICD-10-PCS; 2017-02-12)
PROC: F08Z4ZZ Home Management Treatment (ICD-10-PCS; 2017-02-12)
DX: A41.51 Sepsis due to Escherichia coli [E. coli] (principal); J96.10 Chronic respiratory failure, unspecified whether with hypoxia or hypercapnia; I48.91 Unspecified atrial fibrillation; Z99.81 Dependence on supplemental oxygen; F03.90 Unspecified dementia, unspecified severity, without behavioral disturbance, psychotic disturbance, mood disturbance, and anxiety; K31.84 Gastroparesis; J44.9 Chronic obstructive pulmonary disease, unspecified; N10 Acute pyelonephritis; I10 Essential (primary) hypertension; G31.84 Mild cognitive impairment of uncertain or unknown etiology; I70.8 Atherosclerosis of other arteries; Z95.1 Presence of aortocoronary bypass graft; Z95.5 Presence of coronary angioplasty implant and graft; Z88.0 Allergy status to penicillin; D63.8 Anemia in other chronic diseases classified elsewhere; E03.9 Hypothyroidism, unspecified; E78.5 Hyperlipidemia, unspecified; G47.00 Insomnia, unspecified; H26.9 Unspecified cataract; I25.10 Atherosclerotic heart disease of native coronary artery without angina pectoris; I35.0 Nonrheumatic aortic (valve) stenosis; Z86.73 Personal history of transient ischemic attack (TIA), and cerebral infarction without residual deficits; Z16.23 Resistance to quinolones and fluoroquinolones; Z87.891 Personal history of nicotine dependence; Z88.5 Allergy status to narcotic agent; Z87.892 Personal history of anaphylaxis; F41.1 Generalized anxiety disorder; R53.81 Other malaise; K83.8 Other specified diseases of biliary tract; D64.9 Anemia, unspecified

== ENCOUNTER 2017-11-03 15:17 | Inpatient (IN) | payer MEDICARE, MEDICAID ==
[2017-11-03 15:22] VITALS: BMI 22.3
[2017-11-03] MEDS ORDERED: Sodium Chloride 0.9% 500 ML IV STA (16:06)
--- NOTE | 2017-11-03 16:09 | ED PDOC ---
Arrival/HPI - General Historian: Patient - History of Present Illness Time/Duration: > month Symptom Onset: Gradual Symptom Course: Worsening <Lorena Bach - Last Filed: 11/03/17 17:42> - History of Present Illness Severity Level: Severe Context: Exertion, Home <Franc Balbuena - Last Filed: 11/03/17 19:46> - General Chief Complaint: Abnormal Labs Time Seen by Provider: 11/03/17 16:00 - History of Present Illness Narrative History of Present Illness (Text): 11/03/17 17:19 72 yo F with PMH of O2 dependant COPD, peripheral arterial disease s/p L carotid stent, L subclavian stenosis, CAD s/p CABG, hypothyroidism, CVA x3, and renal surgery presents to ER sent by her PMD Dr. Wick for low H&H. Patient reports that recently, she has had worsening shortness of breath, falls especially when getting out of bed, increasing fatigue, increased sleep. She reports an episode one week ago of dark black stool, and another episode of hematochezia. She currently denies any chest pain, nausea, vomiting, diarrhea, constipation. She denies recent hematemesis, hemoptysis, easy bruising, epistaxis. She was seen at her doctors office yesterday who ordered labs because she looked pale. Outpatient labs are present, paper copy in the chart. Significant for... Hgb 7.72 Hct 25.3 MCV 75.8 RDW 18.23 Serum Fe 26 TIBC 458 % Sat 6 Ferritin 4 11/03/17 17:45 (Lorena Bach) Past Medical History - Provider Review Nursing Documentation Reviewed: Yes - Travel History Have you recently traveled outside [place] w/in the past 3 mons?: No - Infectious Disease Hx of Infectious Diseases: None - Cardiac Hx Cardiac Disorders: Yes Hx Hypertension: Yes - Pulmonary Hx Chronic Obstructive Pulmonary Disease (COPD): Yes - Neurological Hx Neurological Disorder: No - HEENT Hx HEENT Disorder: No - Renal Hx Renal Disorder: No - Endocrine/Metabolic Hx Hypothyroidism: Yes - Hematological/Oncological Hx Blood Disorders: No - Integumentary Hx Dermatological Disorder: No - Musculoskeletal/Rheumatological Hx Falls: Yes - Gastrointestinal Hx Gastrointestinal Disorders: No - Genitourinary/Gynecological Hx Genitourinary Disorders: Yes Hx Reproductive Disorders: No - Psychiatric Hx Psychophysiologic Disorder: Yes Hx Depression: Yes Hx Emotional Abuse: No Hx Physical Abuse: No Hx Substance Use: No - Surgical History Other/Comment: cardiac stent. L carotid artery surgery. R kidney surgery. colonoscopy - Anesthesia Hx Anesthesia: Yes Hx Anesthesia Reactions: No Hx Malignant Hyperthermia: No - Suicidal Assessment Feels Threatened In Home Enviroment: No <Lorena Bach - Last Filed: 11/03/17 17:42> - Past History Past History: No Previous - Reproductive Menopause: Yes Currently : No <Franc Balbuena - Last Filed: 11/03/17 19:46> Family/Social History - Physician Review Nursing Documentation Reviewed: Yes Family/Social History: Unknown Family HX Smoking Status: Former Smoker Hx Alcohol Use: No Hx Substance Use: No <Lorena Bach - Last Filed: 11/03/17 17:42> - Physician Review Nursing Documentation Reviewed: Yes <Franc Balbuena - Last Filed: 11/03/17 19:46> Allergies/Home Meds <Lorena Bach - Last Filed: 11/03/17 17:42> <Franc Balbuena - Last Filed: 11/03/17 19:46> Allergies/Adverse Reactions: Allergies codeine Allergy (Verified 02/11/17 17:29) ANAPHYLAXIS oxycodone HCl [From Percocet] Allergy (Verified 02/11/17 17:29) ANAPHYLAXIS Penicillins Allergy (Verified 02/11/17 17:29) ANAPHYLAXIS Home Medications: Home Meds Medication Instructions Recorded Confirmed Alprazolam [Xanax] 1 mg PO QID 03/18/14 12/01/16 Citalopram Hydrobromide [Celexa] 20 mg PO HS 03/18/14 12/01/16 Fluticasone/Salmeterol 250/50 2 puff IH BID 03/18/14 12/01/16 [Advair Diskus 250/50] Ipratropium/Albuterol Sulfate 2 marcelle IH QID 03/18/14 12/01/16 [Combivent Inhaler] Levothyroxine Sodium [Levoxyl] 100 mcg PO QAM 03/18/14 12/01/16 Rosuvastatin Calcium [Crestor] 20 mg PO HS 03/18/14 12/01/16 Apixaban [Eliquis] 5 mg PO BID 03/10/15 12/01/16 Isosorbide Mononitrate [Imdur] 60 mg PO QAM 09/18/15 12/01/16 diltiaZEM [Cardizem] 120 mg PO DAILY 09/18/15 12/01/16 Aspirin [Ecotrin] 81 mg PO DAILY 12/08/15 12/01/16 Omeprazole [Prilosec] 40 mg PO DAILY 12/09/15 12/01/16 Review of Systems - Review of Systems Constitutional: Fatigue. absent: Weight Change, Fevers, Night Sweats Eyes: Normal ENT: Normal Respiratory: SOB. absent: Cough, Wheezing Cardiovascular: DAVIS. absent: Chest Pain Gastrointestinal: Abdominal Pain, Stool Changes, Hematochezia. absent: Hematemesis Genitourinary Female: Normal. absent: Hematuria Musculoskeletal: Normal Skin: Normal Neurological: Normal Endocrine: Normal Hemo/Lymphatic: Normal Psychiatric: Anxiety <Lorena Bach - Last Filed: 11/03/17 17:42> Physical Exam Vital Signs Reviewed: Yes Temperature: Afebrile Blood Pressure: Normal Pulse: Regular Respiratory Rate: Normal Appearance: Positive for: Non-Toxic, Comfortable, Other (Chronically ill. Pale) Pain Distress: None Mental Status: Positive for: Alert and Oriented X 3 - Systems Exam Head: Present: Atraumatic, Normocephalic Pupils: Present: PERRL Extroacular Muscles: Present: EOMI Conjunctiva: Present: Other (pale) Mouth: Present: Moist Mucous Membranes Neck: Present: Normal Range of Motion Respiratory/Chest: Present: Clear to Auscultation, Decreased Breath Sounds. No : Good Air Exchange Cardiovascular: Present: Regular Rate and Rhythm, Normal S1, S2 Abdomen: Present: Normal Bowel Sounds. No: Tenderness, Distention, Peritoneal Signs Rectal: Present: Occult Blood, Hemorrhoids (small external hemorrhoid at 10' oclock), Other (GUIAC Positive). No: Rectal Tenderness, Gross Blood, Melena Upper Extremity: Present: Normal Inspection. No: Cyanosis, Edema Lower Extremity: Present: Normal Inspection. No: Edema, CALF TENDERNESS Neurological: Present: GCS=15, CN II-XII Intact, Speech Normal Skin: Present: Warm, Dry, Normal Color Psychiatric: Present: Alert, Oriented x 3, Normal Insight, Normal Concentration <MikalaMumachoram - Last Filed: 11/03/17 17:42> Vital Signs Temp Pulse Resp BP Pulse Ox 11/03/17 18:51 75 18 133/68 96 11/03/17 16:36 79 18 135/65 96 11/03/17 15:41 98.2 F 84 18 138/68 96 Medical Decision Making <MikalaDavejared - Last Filed: 11/03/17 17:42> Re-evaluation Time: 18:30 Reassessment Condition: Unchanged - Critical Care Critical Care Minutes: 45 minutes Critical Care Time: Excluding Proc Time - Lab Interpretations I have reviewed the lab results: Yes Interpretation: Abnormal lab values (decr H/H) - RAD Interpretation Operations Intelligence Superintendent: Radiologist - EKG Interpretation Interpreted by ED Physician: Yes Type: 12 lead EKG Comparison: Similar to previous EKG <Franc Balbuena - Last Filed: 11/03/17 19:46> ED Course and Treatment: 11/03/17 17:31 Impression: Anemia Differential Diagnosis included but are not limited to: GIB, iron deficiency anemia, anemic of chronic disease Plan: -- Labs, type and screen -- 500ml NS IVF bolus -- Protonix 40mg IVP -- Continue home xanax -- Reassess and disposition Prior Visits: Notes and results from previous visits were reviewed. Patient was last seen in the emergency department on 02/08/17 for back pain, diagnosed with and admitted for pyelonephritis Progress Notes: -- Patient reevaluated, comfortable. Outpatient labs noted. Discussed possibility of transfusion with patient. Patient adamantly refused. Discussed benefits, including symptomatic improvement, improved end-organ oxygenation. Discussed risks, including infection, reaction, which are minimal and monitored for. Patient is concerned about risks of infection, despite reassurance regarding screening and low risk of infection. Patient adamantly refuses. Discussed possible consequences, including end organ damage/ischemia, IA, or stroke. Patient still refuses, would like to speak with her son first. 11/03/17 17:42 -- Discussed case with Dr. Torres who accepts patient to hospitalist service , admitted to telemetry for symptomatic anemia and GIB, with history of CAD ( Lorena Bach) 11/03/17 18:27 72 year old female presents to the Emergency department for low hemoglobin ( anemia). In agreement with resident note, which includes further HPI details. Patient was seen and evaluated with resident, came up with plan and treatment together. I performed the hx and physical exam of the patient and discussed their mgt with the RESIDENT. I reviewed the RESIDENT's NOTE and agree with the assessment and plan of care. discussed with patient regarding the benefits of blood transfusion, pt refused pt states her sister received transfusion and developed HIV/AIDS from it and she does not want it pt is aware that the benefits from the transfusion can outweigh the risks, pt expressed understanding; pt refused blood transfusion pt is made aware of her medical results agrees with admission (Franc Balbuena) - Critical Care Narrative Critical Care (Text): 11/03/17 19:41 critical care time: 45min, excluding procedure time, excluding time teaching residents/students/mid-level providers; including initial eval/diagnosis, diagnostic interpretation, re-eval, consultations, final disposition (Franc Balbuena) - Lab Interpretations Lab Results: 11/03/17 16:10 11/03/17 16:10 Lab Results 11/03/17 17:40: Blood Type Confirm A POSITIVE 11/03/17 16:10: Blood Type A POSITIVE, Antibody Screen Negative, Crossmatch See Detail, BBK History Checked No verified bt 11/03/17 16:10: Sodium 141, Potassium 4.1, Chloride 100, Carbon Dioxide 33, Anion Gap 12, BUN 16, Creatinine 0.8, Est GFR ( Amer) > 60, Est GFR (Non- Af Amer) > 60, Random Glucose 105, Calcium 9.4, Total Bilirubin 0.5, AST 18, ALT 20, Alkaline Phosphatase 63, Lactate Dehydrogenase 483, Total Creatine Kinase 37, Troponin I < 0.01, Total Protein 7.5, Albumin 4.3, Globulin 3.2, Albumin/Globulin Ratio 1.3, Amylase 86, Lipase 94 11/03/17 16:10: PT 18.5 H, INR 1.61 H, APTT 24.0 L 11/03/17 16:10: WBC 6.8 D, RBC 3.44 L, Hgb 7.7 L, Hct 27.5 L, MCV 79.9 L, MCH 22.4 L, MCHC 28.0 L, RDW 17.0 H, Plt Count 282, MPV 10.8, Gran % 78.2 H, Lymph % (Auto) 10.4 L, [place] % (Auto) 5.9, Eos % (Auto) 4.9, Baso % (Auto) 0.6, Gran # 5.28, Lymph # (Auto) 0.7 L, [place] # (Auto) 0.4, Eos # (Auto) 0.3, Baso # (Auto) 0.04 - RAD Interpretation Narrative RAD Interpretations (Text): 11/03/17 19:01 Chest X-ray reviewed by radiologist, shows: LUNGS: No active pulmonary disease. PLEURA: No significant pleural effusion identified, no pneumothorax apparent. CARDIOVASCULAR: Normal. OSSEOUS STRUCTURES: No significant abnormalities. VISUALIZED UPPER ABDOMEN: Normal. OTHER FINDINGS: None. IMPRESSION: No active disease. (Franc Balbuena) Radiology Orders: 11/03/17 16:06 CHEST PORTABLE [RAD] Stat - EKG Interpretation EKG Interpretation (Text): 11/03/17 19:41 NSR at 75 bpm, normal axis, no ectopy, no st-t changes, NORMAL EKG; unchanged compare with old ekg 11/2016 (Franc Balbuena) - Medication Orders Current Medication Orders: Sodium Chloride (Sodium Chloride 0.9%) 1,000 mls @ 100 mls/hr IV .Q10H STACY Discontinued Medications Alprazolam (Xanax) 1 mg PO STAT STA PRN Reason: Protocol Stop: 11/03/17 16:11 Last Admin: 11/03/17 17:10 Dose: 1 mg Sodium Chloride (Sodium Chloride 0.9%) 500 mls @ 1,000 mls/hr IV .Q30M STA Stop: 11/03/17 16:35 Last Admin: 11/03/17 17:11 Dose: 1,000 mls/hr eMAR Start Stop Document 11/03/17 17:11 GMD (Rec: 11/03/17 17:11 [id number]) Intravenous Solution Start Date 11/03/17 Start Time 17:11 End Date 11/03/17 End time 17:41 Total Infusion Time 30 Pantoprazole Sodium (Protonix Inj) 40 mg IVP STAT STA Stop: 11/03/17 16:07 Last Admin: 11/03/17 17:11 Dose: 40 mg IVP Administration Document 11/03/17 17:11 GMD (Rec: 11/03/17 17:11 [employer] [id number]) Charges for Administration # of IVP Administrations 1 <Lorena Bach - Last Filed: 11/03/17 17:42> - PA / METAL FABRICATOR / Resident Statement / has reviewed & agrees with the documentation as recorded. MD/ has examined the patient and agrees with the treatment plan. - Scribe Statement The provider has reviewed the documentation as recorded by the Scribe <Franc Balbuena - Last Filed: 11/03/17 19:46> - Scribe Statement Kyle Medel. All medical record entries made by the Scribe were at my direction and personally dictated by me. I have reviewed the chart and agree that the record accurately reflects my personal performance of the history, physical exam, medical decision making, and the department course for this patient. I have also personally directed, reviewed, and agree with the discharge instructions and disposition. (Franc Balbuena) Disposition/Present on Arrival - Present on Arrival Any Indicators Present on Arrival: No History of DVT/PE: No History of Uncontrolled Diabetes: No Urinary Catheter: No History of Decub. Ulcer: No History Surgical Site Infection Following: None - Disposition Have Diagnosis and Disposition been Completed?: Yes Disposition Time: 17:46 Patient Plan: Admission, Telemetry <Lorena Bach - Last Filed: 11/03/17 17:42> <Franc Balbuena - Last Filed: 11/03/17 19:46> - Disposition Diagnosis: Symptomatic anemia, GIB (gastrointestinal bleeding), History of coronary artery disease, Respiratory distress, Lightheaded Disposition: HOSPITALIZED Patient Problems: Current Active Problems Problem Status Onset GIB (gastrointestinal bleeding) Acute History of coronary artery disease Acute Symptomatic anemia Acute Condition: FAIR
[2017-11-03 16:42] LABS: BASO # 0.04 K/mm3 (0.0-2.0); BASO % 0.6 % (0.0-3.0); EOS # 0.3 (0.0-0.7); EOS % 4.9 % (1.5-5.0); GRAN # 5.28 (1.4-6.5); GRAN % 78.2 % (50.0-68.0); HEMOGLOBIN 7.7 g/dL (12.0-16.0); LYMPH # 0.7 (1.2-3.4); LYMPH % 10.4 % (22.0-35.0); MEAN CELL VOLUME 79.9 fl (80.0-105.0); MEAN CORPUSCULAR HEMOGLOBIN 22.4 pg (25.0-35.0); MEAN PLATELET VOLUME 10.8 fl (7.0-11.0); MONO # 0.4 (0.1-0.6); MONO % 5.9 % (1.0-6.0); RBC 3.44 10^6/uL (3.5-6.1); WHITE BLOOD COUNT 6.8 10^3/ul (4.5-11.0)
[2017-11-03 16:57] LABS: ALB/GLOB RATIO 1.3 (1.1-1.8); ALBUMIN 4.3 g/dL (3.0-4.8); ALT/SGPT 20 U/L (7-56); AMYLASE 86 U/L (35-125); AST/SGOT 18 U/L (14-36); BLOOD UREA NITROGEN 16 mg/dL (7-21); CALCIUM 9.4 mg/dL (8.4-10.5); GFR AFRICAN-AMERICAN > 60; GFR NON-AFRICAN AMERICAN > 60; LIPASE 94 U/L (23-300)
[2017-11-03 17:07] LABS: TROPONIN I < 0.01 ng/mL
[2017-11-03 17:08] LABS: INR 1.61 (0.93-1.08); PROTHROMBIN TIME 18.5 SECONDS (9.4-12.5)
--- NOTE | 2017-11-03 18:45 | RAD ---
HISTORY: anemia, GIB COMPARISON: 11/26/2016 FINDINGS: LUNGS: No active pulmonary disease. PLEURA: No significant pleural effusion identified, no pneumothorax apparent. CARDIOVASCULAR: Normal. OSSEOUS STRUCTURES: No significant abnormalities. VISUALIZED UPPER ABDOMEN: Normal. OTHER FINDINGS: None. IMPRESSION: No active disease.
--- NOTE | 2017-11-03 19:24 | CARD ---
APPROVED REPORT EKG Measurement Heart [id number] <Conclusion> Normal sinus rhythm with sinus arrhythmia Normal ECG
[2017-11-03] MEDS: Sodium Chloride 0.9% 1,000 ML IV SCH (21:01)
--- NOTE | 2017-11-03 21:01 | CP.PCM.HP ---
<Josesito Bates - Last Filed: 11/03/17 21:25> History of Present Illness - History of Present Illness History of Present Illness: IM H&P for Hospitalist Service CC: sent by PMD for symptomatic anemia HPI: This is a 72 yo F with PMH of O2 dependent COPD, PAD, Carotid disease s/p L carotid stent, L subclavian stenosis, CAD s/p CABG, hypothyroidism, CVA x3, and prior R kidney surgery who was [place] [facility] [place] after labs obtained in the office yesterday revealed iron deficiency anemia ( Hgb 7.7, MCV 75.8, Fe 26, TIBC 458, % Sat 6, Ferritin 4). Patient had originally presented to PMD's office with complaints of worsening shortness of breath, fatigue, sleepiness, and increased falls when getting out of bed, although then and today she denied any syncope/near-syncope, only attributing it to weakness and somnolence. Patient did admit to 1 episode of mixed melena and hematochezia approximately 1 week ago, but denies any further recurrence. Denies hemoptysis or hematemesis. Denies fevers, chills, emesis, diarrhea, hematuria, dysuria, PO intolerance, room-spinning sensation, or shortness of breath at this time. Not dyspnic with speech. All other ROS in 12-system review negative. Of note, patient had a Mini-mental status exam in the office yesterday, and scored 15, suggestive of moderate cognitive impairment, concerning for dementia. Additionally of note, patient was offerred blood transfusion in the ED, but refused due to fear of aj HIV/AIDS from transfusion (reports a family member who contracted HIV this way), despite being informed of risks of not being transfused in setting of possible GI bleed. Patient again offered transfusion by admitting team, but she again refused, saying she first wanted to discuss it with her son, who was currently coaching a baseball game and not answering his phone. Will follow up with her about this later. PMH: as above PSH:reports 8 CABGs (possibly caths?), Carotid endarterectomy, L Carotid stenting, Cataract removal Soc Hx: Admits former tobacco (cigarettes 2.5 PPD x 40 years, quit 6 years ago) , Denies EtOH/Illicits/IVDA Fam Hx: CAD, HLD PMD: Dr. Wick Present on Admission - Present on Admission Any Indicators Present on Admission: No History of DVT/PE: No History of Uncontrolled Diabetes: No Urinary Catheter: No Review of Systems - Review of Systems All systems: reviewed and no additional remarkable complaints except (as per HPI ) Past Patient History - Infectious Disease Hx of Infectious Diseases: None - Past Medical History & Family History Past Medical History?: Yes - Past Social History Smoking Status: Former Smoker - CARDIAC Hx Cardiac Disorders: Yes Hx Hypertension: Yes - PULMONARY Hx Chronic Obstructive Pulmonary Disease (COPD): Yes - NEUROLOGICAL Hx Neurological Disorder: No - HEENT Hx HEENT Problems: No - RENAL Hx Chronic Kidney Disease: No - ENDOCRINE/METABOLIC Hx Hypothyroidism: Yes - HEMATOLOGICAL/ONCOLOGICAL Hx Blood Disorders: No - INTEGUMENTARY Hx Dermatological Problems: No - MUSCULOSKELETAL/RHEUMATOLOGICAL Hx Falls: Yes - GASTROINTESTINAL Hx Gastrointestinal Disorders: No - GENITOURINARY/GYNECOLOGICAL Hx Genitourinary Disorders: Yes Hx Reproductive Disorders: No - PSYCHIATRIC Hx Psychophysiologic Disorder: Yes Hx Depression: Yes Hx Emotional Abuse: No Hx Physical Abuse: No Hx Substance Use: No - SURGICAL HISTORY Other/Comment: cardiac stent. L carotid artery surgery. R kidney surgery. colonoscopy - ANESTHESIA Hx Anesthesia: Yes Hx Anesthesia Reactions: No Hx Malignant Hyperthermia: No Meds Allergies/Adverse Reactions: Allergies Allergy/AdvReac Type Severity Reaction Status Date / Time codeine Allergy ANAPHYLAXIS Verified 02/11/17 17:29 oxycodone HCl [From Percocet] Allergy ANAPHYLAXIS Verified 02/11/17 17:29 Penicillins Allergy ANAPHYLAXIS Verified 02/11/17 17:29 Physical Exam - Constitutional Appears: Non-toxic, No Acute Distress, Other (Pale) - Head Exam Head Exam: ATRAUMATIC, NORMAL INSPECTION, NORMOCEPHALIC - Eye Exam Eye Exam: EOMI. absent: Conjunctival injection, Normal appearance, Scleral icterus Pupil Exam: absent: Irregular, Unequal Additional comments: pale conjunctiva bilaterally - ENT Exam ENT Exam: Mucous Membranes Dry - Neck Exam Neck exam: Positive for: Full Rom, Normal Inspection - Respiratory Exam Respiratory Exam: Clear to Auscultation Bilateral, NORMAL BREATHING PATTERN. absent: Accessory Muscle Use, Chest Wall Tenderness, Decreased Breath Sounds, Rales, Rhonchi, Wheezes, Respiratory Distress - Cardiovascular Exam Cardiovascular Exam: REGULAR RHYTHM, RRR, +S1, +S2. absent: Bradycardia, Tachycardia, Irregular Rhythm, JVD, +S4 - GI/Abdominal Exam GI & Abdominal Exam: Normal Bowel Sounds, Soft. absent: Diminished Bowel Sounds , Distended, Firm, Hyperactive Bowel Sounds, Hypoactive Bowel Sounds, Rigid, Tenderness - Extremities Exam Extremities exam: Positive for: normal capillary refill, normal inspection, pedal pulses present (+2 radials and dorsalis pedis bilaterally). Negative for : calf tenderness, joint swelling, pedal edema, tenderness - Neurological Exam Additional comments: awake and alert, oriented to place/year/self but appears occasionally forgetful following all commands appropriately moving all extremities spontaneously motor grossly intact and equal in all terrazas - Psychiatric Exam Psychiatric exam: Normal Affect, Normal Mood Additional comments: pleasant but somewhat forgetful - Skin Skin Exam: Dry, Intact, Warm Additional comments: Diffusely Pale Results - Vital Signs Recent Vital Signs: Last Vital Signs Temp 98.2 F 11/03/17 15:41 Pulse 75 11/03/17 18:51 Resp 18 11/03/17 18:51 BP 133/68 11/03/17 18:51 Pulse Ox 96 11/03/17 18:51 - Labs Result Diagrams: 11/03/17 16:10 11/03/17 16:10 Assessment & Plan - Assessment and Plan (Free Text) Assessment: This is a 72 yo F with PMH of O2 dependent COPD, PAD, Carotid disease s/p L carotid stent, L subclavian stenosis, CAD s/p CABG, hypothyroidism, CVA x3, and prior R kidney surgery who was [place] [facility] [place] for symptomatic anemia suspected to be 2/2 GI bleed. Plan: 1) Symptomatic anemia -GI loss vs Iron deficiency vs anemia of chronic disease vs aplastic crisis vs occult loss 2/2 anticoagulant use -symptoms unlikely 2/2 infectious etiology given lack of fevers/chills, no leukocytosis, and clinical picture suggestive of GI bleed, but will check a UA to rule out UTI as cause of falls/lethargy, given age/gender risk factors and hx of pyelonephritis during last admission -Retic count ordered to determine if pt attempting to replace, or if aplastic anemia component present -Reports 1 episode of melena and hematochezia 1 week ago, no further episodes reported, but questionable historian given MMSE in PMD office () -High risk for GI bleed vs occult loss due to chronic ASA and Eliquis (for AFib) -Refused blood transfusion in ED and again when interviewed by admitting team despite aware of risk of end-organ dmg 2/2 ischemia, wants to speak with son first; will obtain type and screen and have 2 units on standby, pending pt's discussion with son; will f/u -Labs from PMD's office indicate iron deficiency (microcytic anemia with Serum Fe 26, TIBC 458, % Sat 6, Ferritin 4), would likely benefit from iron supplementation, will start PO iron, if no improvement might consider Venofer -High fall risk protocol due to reported falls with rising from bed (likely orthostatic hypotension), pending PT eval -received 500cc bolus in ED, continuing on NS 100cc/hr, may have some dilutional effect on AM Hgb -holding ASA and Eliquis in setting of symptomatic anemia, possibly 2/2 GI bleed -would normally keep NPO, but patient insisting on eating despite risk of potentially worsening GI bleed, demonstrates capacity, so HHD ordered -GI and Cardio consulted, appreciate all recs -IVP Protonix 40q12 for GI ppx in setting of possible GI bleed 2) Hx of Atrial fibrillation -Cont home diltiazem -Currently rate-controlled -Holding eliquis in setting of suspected GI bleed anemia -Cardio consulted, appreciate all recs 3) Hx of CAD s/p CABG, CVA -Cont lipitor, imdur -Holding ASA in setting of possible GI bleed, symptomatic anemia 4) Hx of hypothyroidism -Cont Synthroid -TSH ordered 5) Hx of COPD on home O2 -Cont home pulmicort, brovana, supplemental O2 -Home med rec includes several other bronchodilators and inhaled steroids, unlikely to be on all due to overlap; continuing pulmicort and brovana since those were used during last admission, day team to follow up with patient's pharmacy to determine which meds she is actually on 6) Hx of MDD/JENNIFER, Insomnia -Cont home celexa -holding home ambien and xanax, want to avoid any sedating meds at this time given symptomatic anemia with increasing lethargy Dispo: Telemetry, pending eval and recs by GI and Cardio, pending possible transfusion with 2 units pRBCs FEN: HHD, NS 100cc/hr Access: Peripheral IV Consults: GI, Cardio Ppx: Protonix for GI, SCDs for DVT (avoid AC in setting of possible GI bleed) Patient seen, reviewed, and discussed with attending, Dr. Torres. Decision To Admit - Pt Status Changed To: Hospital Disposition Of: Inpatient Admission - Admit Certification Admit to Inpatient:: After my assessment, the patient will require hospitalization for at least two midnights. This is because of the severity of symptoms shown, intensity of services needed, and/or the medical risk in this patient being treated as an outpatient. - . Bed Request Type: Telemetry <Gregoria Torres - Last Filed: 11/04/17 15:42> Results - Vital Signs Recent Vital Signs: Last Vital Signs Temp 98 F 11/04/17 12:00 Pulse 66 11/04/17 12:00 Resp 19 11/04/17 12:00 BP 120/73 11/04/17 12:00 Pulse Ox 100 11/03/17 22:00 - Labs Result Diagrams: 11/04/17 07:00 11/04/17 07:00 Labs: Laboratory Results - last 24 hr 11/04/17 11/04/17 11/04/17 07:00 07:00 07:00 WBC 4.9 D RBC 2.81 L Hgb 6.4 L* Hct 22.4 L MCV 79.7 L MCH 22.8 L MCHC 28.6 L RDW 17.1 H Plt Count 243 MPV 10.4 Gran % 63.2 Lymph % (Auto) 23.4 [place] % (Auto) 7.3 H Eos % (Auto) 5.7 H Baso % (Auto) 0.4 Gran # 3.11 Lymph # (Auto) 1.2 [place] # (Auto) 0.4 Eos # (Auto) 0.3 Baso # (Auto) 0.02 PT 14.0 H INR 1.21 H APTT 30.5 Sodium 141 Potassium 4.1 Chloride 102 Carbon Dioxide 33 Anion Gap 10 BUN 14 Creatinine 0.9 Est GFR ( Amer) > 60 Est GFR (Non-Af Amer) > 60 Random Glucose 102 Calcium 8.3 L Phosphorus 3.9 Magnesium 1.9 Iron TIBC % Saturation Ferritin Total Bilirubin 0.1 L AST 12 L D ALT 16 Alkaline Phosphatase 47 Troponin I < 0.01 Total Protein 5.6 L Albumin 3.1 Globulin 2.5 Albumin/Globulin Ratio 1.2 Vitamin B12 Folate Urine Color Urine Appearance Urine pH Ur Specific [place] Urine Protein Urine Glucose (UA) Urine Ketones Urine Blood Urine Nitrate Urine Bilirubin Urine Urobilinogen Ur Leukocyte Esterase Urine RBC Urine WBC Ur Epithelial Cells Urine Bacteria 11/04/17 11/04/17 11/04/17 09:00 09:00 10:00 WBC RBC Hgb Hct MCV MCH MCHC RDW Plt Count MPV Gran % Lymph % (Auto) Summit % (Auto) Eos % (Auto) Baso % (Auto) Gran # Lymph # (Auto) [place] # (Auto) Eos # (Auto) Baso # (Auto) PT INR APTT Sodium Potassium Chloride Carbon Dioxide Anion Gap BUN Creatinine Est GFR ( Amer) Est GFR (Non-Af Amer) Random Glucose Calcium Phosphorus Magnesium Iron 14 L TIBC 391 % Saturation 4 L Ferritin 4.9 Total Bilirubin AST ALT Alkaline Phosphatase Troponin I Total Protein Albumin Globulin Albumin/Globulin Ratio Vitamin B12 207 L Folate 6.5 Urine Color Yellow Urine Appearance Cloudy Urine pH 6.0 Ur Specific [place] 1.015 Urine Protein Negative Urine Glucose (UA) Negative Urine Ketones Negative Urine Blood Negative Urine Nitrate Positive H Urine Bilirubin Negative Urine Urobilinogen 0.2 Ur Leukocyte Esterase Small H Urine RBC 0 - 2 Urine WBC 2 - 5 Ur Epithelial Cells 1 - 3 Urine Bacteria Many Attending/Attestation - Attestation I have personally seen and examined this patient.: Yes I have fully participated in the care of the patient.: Yes I have reviewed all pertinent clinical information: Yes Notes (Text): 11/04/17 15:38 Attending note ; Patient seen and examined with resident in the ER. Patient is a 72-year-old female with PMH of O2 dependent COPD, PAD, Carotid disease s/p L carotid stent, L subclavian stenosis, CAD s/p CABG, hypothyroidism , CVA x3, and prior R kidney surgery who was instructed [place] [facility] [place] after labs obtained in the office yesterday revealed anemia. Hemoglobin is 7.7. 2 units of blood transfusion ordered. Patient is refusing to sign consent till she talks to her son. Currently hemodynamically stable. No active bleeding. Stool guaiac was positive. Denies any chest pain, shortness of breath. Hold aspirin and Eliquis. Cardiology and GI evaluation requested. COPD; oxygen dependent. Continue oxygen nasal cannula. Monitor closely in telemetry. Upon discharge the patient will follow-up with PMD . 11/04/17 15:42
[2017-11-04 08:04] LABS: BASO # 0.02 K/mm3 (0.0-2.0); BASO % 0.4 % (0.0-3.0); EOS # 0.3 (0.0-0.7); EOS % 5.7 % (1.5-5.0); GRAN # 3.11 (1.4-6.5); GRAN % 63.2 % (50.0-68.0); LYMPH # 1.2 (1.2-3.4); LYMPH % 23.4 % (22.0-35.0); MEAN CELL VOLUME 79.7 fl (80.0-105.0); MEAN CORPUSCULAR HEMOGLOBIN 22.8 pg (25.0-35.0); MEAN CORPUSCULAR HGB CONC 28.6 g/dl (31.0-37.0); MEAN PLATELET VOLUME 10.4 fl (7.0-11.0); MONO # 0.4 (0.1-0.6); MONO % 7.3 % (1.0-6.0); RBC 2.81 10^6/uL (3.5-6.1); RED CELL DISTRIBUTION WIDTH 17.1 % (11.5-14.5); WHITE BLOOD COUNT 4.9 10^3/ul (4.5-11.0)
[2017-11-04 08:11] LABS: HEMOGLOBIN 6.4 g/dL (12.0-16.0)
[2017-11-04] MEDS: Levothyroxine 100 MCG TAB PO SCH (08:17)
[2017-11-04 08:23] LABS: TROPONIN I < 0.01 ng/mL
[2017-11-04 08:32] LABS: ALB/GLOB RATIO 1.2 (1.1-1.8); ALBUMIN 3.1 g/dL (3.0-4.8); ALT/SGPT 16 U/L (7-56); AST/SGOT 12 U/L (14-36); BLOOD UREA NITROGEN 14 mg/dL (7-21); CALCIUM 8.3 mg/dL (8.4-10.5); GFR AFRICAN-AMERICAN > 60; GFR NON-AFRICAN AMERICAN > 60
[2017-11-04 08:37] LABS: INR 1.21 (0.93-1.08); PARTIAL THROMBOPLASTIN TIME 30.5 Seconds (25.1-36.5)
[2017-11-04] MEDS: Arformoterol 15 mcg/2 ml Inh Sol IH SCH (09:17)
[2017-11-04] MEDS: Budesonide 0.5 mg/2 ml Inhal Susp UD IH SCH (09:17)
[2017-11-04 09:24] LABS: URINE BILIRUBIN NEGATIVE (NEGATIVE); URINE BLOOD NEGATIVE (NEGATIVE); URINE GLUCOSE (UA) NEGATIVE (NEGATIVE); URINE LEUKOCYTE ESTERASE SMALL Leu/uL (NEGATIVE); URINE PROTEIN NEGATIVE mg/dL (<30 mg/dL); URINE UROBILINOGEN 0.2 E.U./dL (<1 E.U./dL)
[2017-11-04 09:25] LABS: URINE APPEARANCE CLOUDY (CLEAR); URINE COLOR YELLOW (YELLOW)
[2017-11-04] MEDS: diltiaZEM 120 mg/24 Hours CD Cap PO SCH (09:45)
[2017-11-04 09:46] LABS: URINE BACTERIA MANY (NEG); URINE RBC 0 - 2 /hpf (0-2)
[2017-11-04] MEDS: Iron Complex Polysacch 150mg Cap PO SCH (09:46)
[2017-11-04] MEDS ORDERED: Levothyroxine 75 MCG TAB PO SCH (10:00)
--- NOTE | 2017-11-04 10:14 | CP.PCM.PN ---
<Deena Amador - Last Filed: 11/04/17 15:32> Subjective - Date & Time of Evaluation Date of Evaluation: 11/04/17 Time of Evaluation: 08:00 - Subjective Subjective: Progress note for Hospitalist, Jean Amador PGY2 Patient seen and examined at bedside. As per nursing staff, there were no acute overnight events. Patient reports feeling anxious this morning. She denies chest pain, shortness of breath, nausea/vomiting/diarrhea, dysura, or hematuria. She denies any dark colored stool or overt bleeding from rectum. Patient reports feeling anxious. Her Hgb was noted to drop to 6.4 this am. She was refusing blood transfusion yesterday but after speaking to her son has decided to consent. Objective - Vital Signs/Intake and Output Vital Signs (last 24 hours): Temp Pulse Resp BP Pulse Ox 97.1 F L 66 17 143/58 L 100 11/04/17 00:12 11/04/17 09:45 11/04/17 02:23 11/04/17 09:45 11/03/17 22:00 Intake and Output: 11/04/17 11/04/17 06:59 18:59 Intake Total 340 Output Total 400 Balance -60 - Medications Medications: Current Medications Acetaminophen (Tylenol 325mg Tab) 650 mg PO Q6H PRN PRN Reason: Fever >100.4 F Arformoterol Tartrate (Brovana) 15 mcg IH [id number] [facility] Last Admin: 11/04/17 09:17 Dose: 15 mcg Atorvastatin Calcium (Lipitor) 40 mg PO DIN STACY Budesonide (Pulmicort Respules) 0.5 mg IH [id number] [facility] Last Admin: 11/04/17 09:17 Dose: 0.5 mg Citalopram Hydrobromide (Celexa) 20 mg PO HS STACY Diltiazem HCl (Cardizem Cd) 120 mg PO DAILY [facility] Last Admin: 11/04/17 09:45 Dose: 120 mg Sodium Chloride (Sodium Chloride 0.9%) 1,000 mls @ 100 mls/hr IV .Q10H [facility] Last Admin: 11/03/17 21:01 Dose: 100 mls/hr Levofloxacin/Dextrose (Levaquin 500mg) 500 mg in 100 mls @ 100 mls/hr IVPB DAILY STACY PRN Reason: Protocol Isosorbide Mononitrate (Imdur) 60 mg PO QAM [facility] Last Admin: 11/04/17 09:45 Dose: 60 mg Levothyroxine Sodium (Synthroid) 100 mcg PO ACB [facility] Last Admin: 11/04/17 08:17 Dose: 100 mcg Ondansetron HCl (Zofran Inj) 4 mg IVP Q6H PRN PRN Reason: Nausea/Vomiting Pantoprazole Sodium (Protonix Inj) 40 mg IVP Q12 [facility] Last Admin: 11/04/17 09:45 Dose: 40 mg Polysaccharide Iron Complex (Ferrex-150) 150 mg PO DAILY [facility] Last Admin: 11/04/17 09:46 Dose: 150 mg - Labs Labs: 11/04/17 07:00 11/04/17 07:00 PT 14.0 SECONDS (9.4-12.5) H 11/04/17 07:00 INR 1.21 (0.93-1.08) H 11/04/17 07:00 APTT 30.5 Seconds (25.1-36.5) 11/04/17 07:00 - Constitutional Appears: No Acute Distress - Head Exam Head Exam: ATRAUMATIC, NORMAL INSPECTION, NORMOCEPHALIC - Eye Exam Eye Exam: EOMI, Normal appearance, PERRL Pupil Exam: NORMAL ACCOMODATION Additional comments: pale sclera - ENT Exam ENT Exam: Mucous Membranes Moist - Respiratory Exam Respiratory Exam: Clear to Ausculation Bilateral, NORMAL BREATHING PATTERN. absent: Rales, Rhonchi, Wheezes - Cardiovascular Exam Cardiovascular Exam: REGULAR RHYTHM, +S1, +S2. absent: Gallop, Rubs, Murmur - GI/Abdominal Exam GI & Abdominal Exam: Soft, Normal Bowel Sounds. absent: Rigid, Tenderness, Mass , Rebound - Extremities Exam Extremities Exam: Normal Inspection. absent: Calf Tenderness, Pedal Edema - Neurological Exam Neurological Exam: Alert, Awake, CN II-XII Intact - Psychiatric Exam Psychiatric exam: Normal Affect, Normal Mood - Skin Skin Exam: Dry, Intact, Warm Assessment and Plan - Assessment and Plan (Free Text) Assessment: This is a 72yo F with PMH COPD on home O2, a.fib (on Eliquis), anxiety/ depression, PAD, CAD s/p CABG, hypothyroidism, CVA x3, Carotid disease s/p L carotid stent who was admitted for symptomatic anemia most likely secondary to GI bleed. Plan: 1. Anemia - Secondary to GI bleed most likely, patient also on ASA and Eliquis at home - Hgb 6.4 this AM - will transfuse 2U - GI consulted ordered CT A/P - will follow up - Will check Iron studies, folate, B12 - Will monitor H/H - Continue IV fluids NS@100 - protonix q12 - Iron supplementation - Fall precaution 2. UTI - Afebrile, no leukocytosis - U/A showed positive LE and bacteria and WBC - started on Levaquin - Await cultures 2. Hx of A.fib - Continue Cardizem - Hold ASA and Eliquis - Cardio consulted for recommendations on anticoagulation - Echo ordered 3. Hx of CAD s/p CABG - Continue Lipitor and Imdur 4. Hx of Hypothyroidism - TSH normal - Continue home dose Synthroid 5. Hx of COPD on home O2 - Continue supplemental O2 - Continue Brovana and pulmicort - Duoneb prn 6. Hx of Anxiety/depression - Continue Celexa and Xanax home doses GI ppx: Protonix DVT ppx: SCDs- hold anticoagulation due to active bleed and anemia Case seen, discussed and reviewed with attending. Jean Amador PGY2 <Gregoria Torres - Last Filed: 11/04/17 16:28> Objective - Vital Signs/Intake and Output Vital Signs (last 24 hours): Temp Pulse Resp BP Pulse Ox 98.7 F 62 20 125/48 L 98 11/04/17 15:59 11/04/17 15:59 11/04/17 15:59 11/04/17 15:59 11/04/17 14:00 Intake and Output: 11/04/17 11/04/17 06:59 18:59 Intake Total 340 0 Output Total 400 Balance -60 0 - Medications Medications: Current Medications Acetaminophen (Tylenol 325mg Tab) 650 mg PO Q6H PRN PRN Reason: Fever >100.4 F Last Admin: 11/04/17 13:21 Dose: 650 mg Albuterol/Ipratropium (Duoneb 3 Mg/0.5 Mg (3 Ml) Ud) 3 ml IH Q2H PRN PRN Reason: Shortness of Breath Alprazolam (Xanax) 1 mg PO Q6H PRN; Protocol PRN Reason: Anxiety Last Admin: 11/04/17 13:21 Dose: 1 mg Arformoterol Tartrate (Brovana) 15 mcg IH [id number] [facility] Last Admin: 11/04/17 09:17 Dose: 15 mcg Atorvastatin Calcium (Lipitor) 40 mg PO DIN [facility] Budesonide (Pulmicort Respules) 0.5 mg IH [id number] [facility] Last Admin: 11/04/17 09:17 Dose: 0.5 mg Citalopram Hydrobromide (Celexa) 20 mg PO HS [facility] Diltiazem HCl (Cardizem Cd) 120 mg PO DAILY [facility] Last Admin: 11/04/17 09:45 Dose: 120 mg Sodium Chloride (Sodium Chloride 0.9%) 1,000 mls @ 100 mls/hr IV .Q10H [facility] Last Admin: 11/04/17 14:33 Dose: Not Given Levofloxacin/Dextrose (Levaquin 500mg) 500 mg in 100 mls @ 100 mls/hr IVPB DAILY [facility] PRN Reason: Protocol Last Admin: 11/04/17 10:22 Dose: 100 mls/hr Isosorbide Mononitrate (Imdur) 60 mg PO QAM [facility] Last Admin: 11/04/17 09:45 Dose: 60 mg Levothyroxine Sodium (Synthroid) 100 mcg PO ACB [facility] Last Admin: 11/04/17 08:17 Dose: 100 mcg Memantine (Namenda) 5 mg PO DAILY [facility] Ondansetron HCl (Zofran Inj) 4 mg IVP Q6H PRN PRN Reason: Nausea/Vomiting Pantoprazole Sodium (Protonix Inj) 40 mg IVP Q12 [facility] Last Admin: 11/04/17 09:45 Dose: 40 mg Polysaccharide Iron Complex (Ferrex-150) 150 mg PO DAILY [facility] Last Admin: 11/04/17 09:46 Dose: 150 mg - Labs Labs: 11/04/17 07:00 11/04/17 07:00 PT 14.0 SECONDS (9.4-12.5) H 11/04/17 07:00 INR 1.21 (0.93-1.08) H 11/04/17 07:00 APTT 30.5 Seconds (25.1-36.5) 11/04/17 07:00 Attending/Attestation - Attestation I have personally seen and examined this patient.: Yes I have fully participated in the care of the patient.: Yes I have reviewed all pertinent clinical information, including history, physical exam and plan: Yes Notes (Text): 11/04/17 16:27 Attending note ; Patient seen and examined with resident. Patient is a 72-year-old female with PMH of O2 dependent COPD, PAD, Carotid disease s/p L carotid stent, L subclavian stenosis, CAD s/p CABG, hypothyroidism , CVA x3, and prior R kidney surgery who was [place] [facility] [place] after labs obtained in the office yesterday revealed anemia. Hemoglobin is 7.7. dropped to 6.4 today. 2 units of blood transfusion ordered. Patient signed consent. No active bleeding. Stool guaiac was positive. Case discussed with GI Dr. Garcia in detail. Continue transfusion. Possible endoscopy next week. Denies any chest pain, shortness of breath. Hold aspirin and Eliquis. COPD; oxygen dependent. Continue oxygen nasal cannula. Monitor closely in telemetry. Upon discharge the patient will follow-up with PMD .
[2017-11-04] MEDS: levoFLOXacin 500 mg in D5W 500 MG/100 ML BAG IVPB SCH (10:22)
[2017-11-04 10:29] LABS: IRON 14 ug/dL (45-180)
[2017-11-04 10:38] LABS: % IRON SATURATION 4 % (20-55); TOTAL IRON BINDING CAPACITY 391 ug/dL (265-497)
[2017-11-04 12:29] LABS: FERRITIN 4.9 ng/mL
[2017-11-04 12:59] LABS: FOLATE 6.5 ng/mL
[2017-11-04] MEDS: Sodium Chloride 0.9% 1,000 ML IV SCH (14:33)
[2017-11-04] MEDS ORDERED: Iohexol 240 (50 ml) ONE (14:37)
[2017-11-04] MEDS ORDERED: Albuterol-Ipratrop 3 mg / 0.5 (3 ml) UD IH PRN (15:50)
--- NOTE | 2017-11-04 21:15 | CT ---
EXAM: CT Abdomen and Pelvis Without Intravenous Contrast CLINICAL HISTORY: 72 years old, female; Pain; Abdominal pain; Patient HX: Acute gi bleed, acute symptomatic anemia TECHNIQUE: Axial computed tomography images of the abdomen and pelvis without intravenous contrast. All CT scans at this facility use one or more dose reduction techniques, viz.: automated exposure control; ma/kV adjustment per patient size (including targeted exams where dose is matched to indication; i.e. head); or iterative reconstruction technique. Coronal and sagittal reformatted images were created and reviewed. COMPARISON: CT - ABD PELVIS W/O PO OR IV CONT 2017-02-08 14:12 FINDINGS: Limitations: Lack of intravenous contrast. Lung bases: Centrilobular emphysematous changes. Minimal atelectasis/scarring. ABDOMEN: Liver: Coarse peripheral calcification, stable. Gallbladder and bile ducts: Cholecystectomy. Prominence of common bile duct, grossly stable. Pancreas: Unremarkable. No ductal dilation. Spleen: No splenomegaly. Adrenals: No mass. Kidneys and ureters: Minimal stranding about kidneys, nonspecific. Moderate pelvocaliectasis of both kidneys. Bilateral extrarenal pelvis. Few probable LEFT renal cysts, up to 1.4 cm. 1.2 cm lesion within RIGHT kidney, indeterminate by CT criteria. Normal caliber ureters. Stomach and bowel: Tiny contrast-filled duodenal diverticulum. Multiple diverticula within sigmoid colon. No associated inflammatory stranding. No definite mural thickening. No obstruction. Appendix: No findings to suggest acute appendicitis. PELVIS: Bladder: Unremarkable. No stones. Reproductive: Hysterectomy. ABDOMEN and PELVIS: Intraperitoneal space: No significant fluid collection. No free air. Bones/joints: Degenerative changes of spine. No acute fracture. Soft tissues: Tiny umbilical hernia containing fat. Vasculature: Extensive atherosclerotic disease. No aneurysm. Lymph nodes: No pathologically enlarged lymph nodes. IMPRESSION: 1. Diverticulosis without definite CT evidence of diverticulitis. 2. Right kidney lesion, incompletely characterized. Recommend nonemergent ultrasound or MRI. 3. Incidental/non-acute findings are described above.
--- NOTE | 2017-11-04 23:17 | CARD ---
APPROVED REPORT EXAM: Two-dimensional and M-mode echocardiogram with Doppler and color Doppler. INDICATION 2D DIMENSIONS Left Atrium (2D)3.4 (1.6-4.0cm)IVSd0.8 (0.7-1.1cm) LVDd4.6 (3.9-5.9cm)PWd1.2 (0.7-1.1cm) LVDs3.0 (2.5-4.0cm)FS (%) 20.2 % LVEF (%)53.2 (>50%) M-Mode DIMENSIONS Aortic Root2.80 (2.2-3.7cm)Aortic Cusp Exc.1.70 (1.5-2.0cm) Aortic Valve AoV Peak Zfobabfd962.0cm/Monie Peak GR.8mmHg Mitral Valve MV E Wkcaatmx48.3cm/sMV A Mrlqqvdz36.9cm/sE/A ratio0.9 TDI Lateral E' Peak V8.97cm/sMedial E' Peak V7.60cm/sE/Lateral E'7.8 E/Medial E'9.3 Tricuspid Valve TR Peak Fyzhcfbd390mz/sRAP WUVDNAOG13loBgOU Peak Gr.12mmHg [id number] LEFT VENTRICLE The left ventricle is normal size. There is normal left ventricular wall thickness. The left ventricular function is normal. The left ventricular ejection fraction is within the normal range. There is normal LV segmental wall motion. Transmitral Doppler flow pattern is Grade I-abnormal relaxation pattern. RIGHT VENTRICLE The right ventricle is normal size. The right ventricle is mildly hypertrophied. The right ventricular systolic function is normal. ATRIA The left atrium size is normal. The right atrium size is normal. AORTIC VALVE The aortic valve is not well visualized. No aortic regurgitation is present. There is no aortic valvular stenosis. MITRAL VALVE The mitral valve is not well visualized. There is no mitral valve regurgitation noted. There is no mitral valve stenosis. TRICUSPID VALVE The tricuspid valve is normal in structure. There is no tricuspid valve regurgitation noted. GREAT VESSELS The aortic root is normal in size. PERICARDIAL EFFUSION There is a small loculated anterior pericardial effusion. <Conclusion> The left ventricle is normal size. There is normal left ventricular wall thickness. The left ventricular function is normal. The left ventricular ejection fraction is within the normal range. There is normal LV segmental wall motion. Transmitral Doppler flow pattern is Grade I-abnormal relaxation pattern.
--- NOTE | 2017-11-04 23:41 | CON ---
DATE: 11/04/2017 HISTORY OF PRESENT ILLNESS: The patient is a 72-year-old woman who presents with what appears to be a lower GI bleed.. She is found to be markedly anemic. She complains of exertional shortness of breath without chest pain. The patient's cardiac history includes a history of coronary bypass surgery, history of PTCA and stent in the past. She has been noncompliant to cardiac followup. She is an active smoker and only admits recently has stopped smoking. She suffers from hypercholesterolemia. SOCIAL HISTORY The patient lives at home and it is unclear whether she still smokes. REVIEW OF SYSTEMS: A 14-point review of systems was reviewed in detail. Other than shortness of breath, there are no other cardiac symptomatology is noted. PHYSICAL EXAMINATION: VITAL SIGNS: Blood pressure is 143/58, heart rate in the 60s. NECK: Negative JVD. LUNGS: Without rales. HEART: S1, S2. EXTREMITIES: Without edema. LABORATORY DATA: Laboratories includes an EKG that shows diffuse ST-T changes. Hemoglobin is 6.4. Chemistries, BUN and creatinine unremarkable. Troponins are negative x2. IMPRESSION: 1. Gastrointestinal bleed. 2. Symptomatic shortness of breath, likely secondary to marked anemia. 3. No evidence for acute coronary syndrome. 4. History of coronary bypass surgery. 5. History of percutaneous transluminal coronary angioplasty and stent. 6. Chronic obstructive pulmonary disease. 7. Hypercholesterolemia. 8. Recurrent noncompliance with medical advice. PLAN: Given these findings, red blood cells transfusion has been ordered. We will order an echocardiogram to evaluate her LV function. Hebert Leiva MD
[2017-11-05] MEDS: Sodium Chloride 0.9% 1,000 ML IV SCH (00:51)
--- NOTE | 2017-11-05 01:09 | CON ---
DATE: 11/04/2017 GASTROENTEROLOGY CONSULTATION REQUESTING PHYSICIAN: Gregoria Torres MD. REASON FOR CONSULTATION: I have been asked to see this 72-year-old female with multiple comorbidities including advance COPD requiring home oxygen, severe peripheral arterial disease with left carotid stent placement, left subclavian stenosis, coronary artery disease with a history of coronary artery bypass surgery, CVA, and hypothyroidism who was found to be anemic on routine blood work in her doctor's office. The patient apparently had a hemoglobin of 7.7 with iron deficiency with an iron saturation of 6% and a ferritin of 4. She currently denies any overt GI bleeding such as melena, rectal bleeding, hematemesis, chest pain, or shortness of breath. She does admit to generalized weakness and difficulty ambulating. She also has had increased fatigue. The patient had one episode of a dark bowel movement approximately 1 week ago. She apparently has advanced dementia. She is frequently forgetful. The patient is on Eliquis at home for atrial fibrillation. The patient has refused blood transfusion but finally agreed this morning to accept blood transfusion. PAST MEDICAL HISTORY: As above. Again, she has a history of advanced COPD, advanced dementia, peripheral arterial disease with carotid artery stent, left subclavian stenosis, coronary artery disease, hypothyroidism, CVA. PAST SURGICAL HISTORY: Notable for right kidney surgery, coronary artery bypass surgery, carotid endarterectomy, and cataract surgery. SOCIAL HISTORY The patient smokes between 2-3 packs of cigarettes per day for 40 years. She denies alcohol use. FAMILY HISTORY: Noncontributory. REVIEW OF SYSTEMS: A 14-point review of systems is notable for generalized weakness, difficulty ambulating, increased fatigue, and one episode of melena a week ago. MEDICATIONS: At home include Brovana inhaler twice a day, Cardizem 120 mg once a day, Celexa 20 mg at bedtime, Ferrex 150 daily, Imdur 60 mg each a.m., aspirin 81 mg daily, Eliquis 5 mg b.i.d., Cardizem 120 mg daily, omeprazole 40 mg daily, Synthroid 100 mcg daily, Namenda 5 mg daily, fluticasone 1 puff every 12 hours, and Xanax 1 mg every 6 hours. PHYSICAL EXAMINATION: GENERAL: Elderly female appearing extremely pale, lying in bed, in no acute distress. VITAL SIGNS: Reveal temperature of 98, blood pressure 120/73, heart rate 66. HEENT: Reveals sclerae to be white. Conjunctivae pale. NECK: Supple. CHEST: Reveals distant breath sounds. HEART: Reveals an irregularly irregular rate. ABDOMEN: Soft, nontender. EXTREMITIES: Show no edema. LABORATORY DATA: Reveals normal electrolytes, calcium 8.3, iron 14, total iron binding capacity 391, percent saturation of 4, ferritin of 4.9. Laboratory data reveals this morning hemoglobin 6.4, down from 7.7 on admission; reticulocyte count 2.66; white blood cell count 4.9; platelet count 243,000. Coags reveal PT 14, INR 1.21. Urinalysis shows positive nitrates, small leukocyte esterase, and many bacteria. IMPRESSION: A 72-year-old female with multiple comorbidities including peripheral arterial disease, coronary artery disease, dementia, advanced chronic obstructive pulmonary disease with severe anemia. The patient gives a history of one episode of melena 1 week ago but has not had any further signs of bleeding since then. I suspect that this is a chronic anemia. RECOMMENDATIONS: 1. Transfuse packed red blood cells to a hematocrit of 30%. 2. Hold Eliquis and aspirin for now. 3. Check stool guaiacs. 4. Check CT scan of the abdomen and pelvis for any obvious lesions in the GI tract. Macho Garcia MD
[2017-11-05 07:56] LABS: MEAN CELL VOLUME 78.8 fl (80.0-105.0); MEAN CORPUSCULAR HEMOGLOBIN 23.3 pg (25.0-35.0); MEAN CORPUSCULAR HGB CONC 29.5 g/dl (31.0-37.0); MEAN PLATELET VOLUME 10.2 fl (7.0-11.0); RED CELL DISTRIBUTION WIDTH 17.6 % (11.5-14.5); WHITE BLOOD COUNT 5.3 10^3/ul (4.5-11.0)
[2017-11-05] MEDS: Budesonide 0.5 mg/2 ml Inhal Susp UD IH SCH ×2 (07:57→19:49)
[2017-11-05] MEDS: Arformoterol 15 mcg/2 ml Inh Sol IH SCH ×2 (07:57→19:49)
[2017-11-05 07:59] LABS: HEMOGLOBIN 9.3 g/dL (12.0-16.0)
[2017-11-05 08:55] LABS: ALB/GLOB RATIO 1.2 (1.1-1.8); ALBUMIN 3.4 g/dL (3.0-4.8); ALT/SGPT 19 U/L (7-56); AST/SGOT 16 U/L (14-36); BLOOD UREA NITROGEN 12 mg/dL (7-21); CALCIUM 8.8 mg/dL (8.4-10.5); GFR AFRICAN-AMERICAN > 60; GFR NON-AFRICAN AMERICAN > 60
[2017-11-05] MEDS: Levothyroxine 100 MCG TAB PO SCH (09:45)
[2017-11-05] MEDS: Iron Complex Polysacch 150mg Cap PO SCH (09:52)
[2017-11-05] MEDS: levoFLOXacin 500 mg in D5W 500 MG/100 ML BAG IVPB SCH (09:53)
[2017-11-05] MEDS: diltiaZEM 120 mg/24 Hours CD Cap PO SCH (09:53)
--- NOTE | 2017-11-05 12:26 | PN ---
DATE: SUBJECTIVE: The patient is lying in bed, comfortable. She denies any abdominal pain, rectal bleeding, nausea or vomiting. PHYSICAL EXAMINATION: VITAL SIGNS: Reveal temperature of 98.2, blood pressure 145/69, heart rate is 74. HEENT: Reveals sclerae to be white. Conjunctivae pale. NECK: Supple. CHEST/LUNGS: Clear. HEART: Reveals regular rate and rhythm. ABDOMEN: Soft, nontender. No mass. EXTREMITIES: Show no edema. LABORATORY DATA: No new laboratory data are available. CT scan of the abdomen and pelvis revealed diverticulosis, a 1.2 cm indeterminate right kidney lesion. No mass throughout the GI tract. Stool for occult blood was positive. IMPRESSION AND PLAN: 1. Anemia with heme-positive stool. Patient did have a colonoscopy approximately 4 years ago, which revealed some polyps. 2. Indeterminate lesion of right kidney on CAT scan. We will request an ultrasound. 3. Plans for an endoscopy on Monday. Macho Garcia MD
--- NOTE | 2017-11-05 14:24 | CP.PCM.PN ---
<Deena Amador - Last Filed: 11/05/17 14:15> Subjective - Date & Time of Evaluation Date of Evaluation: 11/05/17 Time of Evaluation: 08:00 - Subjective Subjective: Progress Note for Hospitalist, Jean Amador PGY2 Patient seen and examined at bedside. As per nursing staff, there were no acute overnight events. Patient reports feeling much better today after her blood transfusion. She denies having any dark colored stool or blood in stool. She denies chest pain, shortness of breath, nausea/vomiting/diarrhea, numbness/ tingling, fever or chills, dysuria or hematuria. She does complain of some urinary frequency. Objective - Vital Signs/Intake and Output Vital Signs (last 24 hours): Temp Pulse Resp BP Pulse Ox 97.7 F 89 17 159/71 H 96 11/05/17 12:00 11/05/17 12:10 11/05/17 12:00 11/05/17 12:00 11/05/17 06:00 Intake and Output: 11/05/17 11/05/17 06:59 18:59 Intake Total 840 Balance 840 - Medications Medications: Current Medications Acetaminophen (Tylenol 325mg Tab) 650 mg PO Q6H PRN PRN Reason: Fever >100.4 F Last Admin: 11/04/17 13:21 Dose: 650 mg Albuterol/Ipratropium (Duoneb 3 Mg/0.5 Mg (3 Ml) Ud) 3 ml IH Q2H PRN PRN Reason: Shortness of Breath Alprazolam (Xanax) 1 mg PO Q6H PRN; Protocol PRN Reason: Anxiety Last Admin: 11/05/17 09:52 Dose: 1 mg Arformoterol Tartrate (Brovana) 15 mcg IH [id number] [facility] Last Admin: 11/05/17 07:57 Dose: 15 mcg Atorvastatin Calcium (Lipitor) 40 mg PO DIN [facility] Last Admin: 11/04/17 22:27 Dose: 40 mg Budesonide (Pulmicort Respules) 0.5 mg IH [id number] [facility] Last Admin: 11/05/17 07:57 Dose: 0.5 mg Citalopram Hydrobromide (Celexa) 20 mg PO HS [facility] Last Admin: 11/04/17 22:26 Dose: 20 mg Diltiazem HCl (Cardizem Cd) 120 mg PO DAILY [facility] Last Admin: 11/05/17 09:53 Dose: 120 mg Levofloxacin/Dextrose (Levaquin 500mg) 500 mg in 100 mls @ 100 mls/hr IVPB DAILY [facility] PRN Reason: Protocol Last Admin: 11/05/17 09:53 Dose: 100 mls/hr Isosorbide Mononitrate (Imdur) 60 mg PO QAM [facility] Last Admin: 11/05/17 09:45 Dose: 60 mg Levothyroxine Sodium (Synthroid) 100 mcg PO ACB [facility] Last Admin: 11/05/17 09:45 Dose: 100 mcg Memantine (Namenda) 5 mg PO DAILY [facility] Last Admin: 11/05/17 09:52 Dose: 5 mg Ondansetron HCl (Zofran Inj) 4 mg IVP Q6H PRN PRN Reason: Nausea/Vomiting Pantoprazole Sodium (Protonix Inj) 40 mg IVP Q12 [facility] Last Admin: 11/05/17 09:45 Dose: 40 mg Polysaccharide Iron Complex (Ferrex-150) 150 mg PO DAILY [facility] Last Admin: 11/05/17 09:52 Dose: 150 mg - Labs Labs: 11/05/17 07:30 11/05/17 07:30 PT 14.0 SECONDS (9.4-12.5) H 11/04/17 07:00 INR 1.21 (0.93-1.08) H 11/04/17 07:00 APTT 30.5 Seconds (25.1-36.5) 11/04/17 07:00 - Constitutional Appears: No Acute Distress - Head Exam Head Exam: ATRAUMATIC, NORMAL INSPECTION, NORMOCEPHALIC - Eye Exam Eye Exam: Normal appearance, PERRL Pupil Exam: NORMAL ACCOMODATION, PERRL - ENT Exam ENT Exam: Mucous Membranes Moist - Respiratory Exam Respiratory Exam: Clear to Ausculation Bilateral, NORMAL BREATHING PATTERN. absent: Rales, Rhonchi, Wheezes - Cardiovascular Exam Cardiovascular Exam: REGULAR RHYTHM, +S1, +S2. absent: Gallop, Rubs, Murmur - GI/Abdominal Exam GI & Abdominal Exam: Soft, Normal Bowel Sounds. absent: Rigid, Tenderness, Mass , Rebound - Extremities Exam Extremities Exam: Normal Inspection. absent: Calf Tenderness, Pedal Edema - Neurological Exam Neurological Exam: Alert, Awake, CN II-XII Intact, Oriented x3 - Psychiatric Exam Psychiatric exam: Normal Affect, Normal Mood - Skin Skin Exam: Dry, Intact, Normal Color, Warm. absent: Pallor Assessment and Plan - Assessment and Plan (Free Text) Assessment: This is a 72yo F with PMH COPD on home O2, a.fib (on Eliquis), anxiety/ depression, PAD, CAD s/p CABG, hypothyroidism, CVA x3, Carotid disease s/p L carotid stent who was admitted for symptomatic anemia most likely secondary to GI bleed. Plan: 1. Anemia - Secondary to GI bleed most likely, patient also on ASA and Eliquis at home - s/p 2U PRBC - Hgb now 9.3 from 6.4 - Will continue to monitor - Tranfuse if Hgb <7.0 - CT A/P showed diverticulosis and a R kidney lesion. - GI consulted- recommended to do EGD on Monday - B12 low- was given Vitamin B12 injection - Iron, %sat and Ferritin are low. TIBC normal consistent with iron deficiency anemia - Protonix q12 - Continue Iron supplementation - Fall precaution 2. UTI - Afebrile, no leukocytosis - Awaiting sensitivities - Continue Levaquin 3. Hx of A.fib - Continue Cardizem - Hold ASA and Eliquis - Echo showed EF 53%, normal LV function - Cardio consulted for recommendations on anticoagulation 4. Hx of CAD s/p CABG - Lipitor and Imdur 5. Hx of Hypothyroidism - Continue Synthroid 6. Hx of COPD on home O2 - Continue Brovana and pulmicort - Duoneb prn - Continue O2 via nasal cannula 7. Hx of Anxiety/depression - Continue Celexa and Xanax home doses GI ppx: Protonix DVT ppx: SCDs- hold anticoagulation due to anemia and possible GI bleed Dispo: Patient will have EGD on Monday. She will need to be evaluated by PT as well. Case seen, discussed and reviewed with attending. Jean Amador PGY2 <Gregoria Torres - Last Filed: 11/05/17 14:50> Objective - Vital Signs/Intake and Output Vital Signs (last 24 hours): Temp Pulse Resp BP Pulse Ox 97.7 F 89 17 159/71 H 96 11/05/17 12:00 11/05/17 12:10 11/05/17 12:00 11/05/17 12:00 11/05/17 06:00 Intake and Output: 11/05/17 11/05/17 06:59 18:59 Intake Total 840 Balance 840 - Medications Medications: Current Medications Acetaminophen (Tylenol 325mg Tab) 650 mg PO Q6H PRN PRN Reason: Fever >100.4 F Last Admin: 11/04/17 13:21 Dose: 650 mg Albuterol/Ipratropium (Duoneb 3 Mg/0.5 Mg (3 Ml) Ud) 3 ml IH Q2H PRN PRN Reason: Shortness of Breath Alprazolam (Xanax) 1 mg PO Q6H PRN; Protocol PRN Reason: Anxiety Last Admin: 11/05/17 09:52 Dose: 1 mg Arformoterol Tartrate (Brovana) 15 mcg IH [id number] [facility] Last Admin: 11/05/17 07:57 Dose: 15 mcg Atorvastatin Calcium (Lipitor) 40 mg PO DIN [facility] Last Admin: 11/04/17 22:27 Dose: 40 mg Budesonide (Pulmicort Respules) 0.5 mg IH [id number] [facility] Last Admin: 11/05/17 07:57 Dose: 0.5 mg Citalopram Hydrobromide (Celexa) 20 mg PO HS [facility] Last Admin: 11/04/17 22:26 Dose: 20 mg Diltiazem HCl (Cardizem Cd) 120 mg PO DAILY [facility] Last Admin: 11/05/17 09:53 Dose: 120 mg Levofloxacin/Dextrose (Levaquin 500mg) 500 mg in 100 mls @ 100 mls/hr IVPB DAILY [facility] PRN Reason: Protocol Last Admin: 11/05/17 09:53 Dose: 100 mls/hr Isosorbide Mononitrate (Imdur) 60 mg PO QAM [facility] Last Admin: 11/05/17 09:45 Dose: 60 mg Levothyroxine Sodium (Synthroid) 100 mcg PO ACB [facility] Last Admin: 11/05/17 09:45 Dose: 100 mcg Memantine (Namenda) 5 mg PO DAILY [facility] Last Admin: 11/05/17 09:52 Dose: 5 mg Ondansetron HCl (Zofran Inj) 4 mg IVP Q6H PRN PRN Reason: Nausea/Vomiting Pantoprazole Sodium (Protonix Inj) 40 mg IVP Q12 [facility] Last Admin: 11/05/17 09:45 Dose: 40 mg Polysaccharide Iron Complex (Ferrex-150) 150 mg PO DAILY [facility] Last Admin: 11/05/17 09:52 Dose: 150 mg - Labs Labs: 11/05/17 07:30 11/05/17 07:30 PT 14.0 SECONDS (9.4-12.5) H 11/04/17 07:00 INR 1.21 (0.93-1.08) H 11/04/17 07:00 APTT 30.5 Seconds (25.1-36.5) 11/04/17 07:00 Attending/Attestation - Attestation I have personally seen and examined this patient.: Yes I have fully participated in the care of the patient.: Yes I have reviewed all pertinent clinical information, including history, physical exam and plan: Yes Notes (Text): 11/05/17 14:48 Attending note ; Patient seen and examined with resident. Patient is a 72-year-old female with PMH of O2 dependent COPD, PAD, Carotid disease s/p L carotid stent, L subclavian stenosis, CAD s/p CABG, hypothyroidism , CVA x3, and prior R kidney surgery who was instructed to present to [facility] [place] [facility] by her PMD after labs obtained in the office yesterday revealed anemia. Hemoglobin was 6.4 yesterday. s/p 2 units of blood transfusion yesterday. Hb is 9.3 today. No active bleeding. Stool guaiac was positive. Case discussed with GI Dr. Garcia in detail. Possible endoscopy next week. Denies any chest pain, shortness of breath. Hold aspirin and Eliquis. COPD; oxygen dependent. Continue oxygen nasal cannula. PT evaluation requested. case managr evaluation in [place] for home health aid arrangements. Monitor closely in telemetry. Upon discharge the patient will follow-up with PMD . 11/05/17 14:49
--- NOTE | 2017-11-05 15:12 | US ---
PROCEDURE: Ultrasound of the Kidneys HISTORY: Right renal mass seen on CT scan. COMPARISON: None available. TECHNIQUE: Sonogram of the kidneys. FINDINGS: RIGHT KIDNEY: Measures: 11.6 x 3.4 x 4.2 cm. Markedly dilated right renal pelvis. Previously described indeterminate 1.2 cm lesion right kidney is not appreciated on this exam. Additional imaging needed for further evaluation of this lesion if indicated. . No evidence of obstructing calculi seen LEFT KIDNEY: Measures: 11.8 x 3.5 x 5.0 cm. Markedly dilated on left-sided extrarenal pelvis. In addition, there appears to be at least 2 cysts of 1 in the upper pole measuring 3.9 cm in greatest dimension and another in the lower pole measuring approximate 1.3 cm in greatest dimension. No evidence of obstructing calculi OTHER FINDINGS: None. IMPRESSION: Enlarged -dilated bilateral extrarenal pelves. There are at least 2 right renal cysts present as above. Previously described 1.2 cm lesion indeterminate lesion right kidney is not appreciated on this exam. Followup additional imaging needed further evaluation of this lesion
--- NOTE | 2017-11-05 15:17 | PN ---
DATE: FOLLOWUP Covering for Dr. Hebert Leiva. SUBJECTIVE: I was asked by the nurse to evaluate Mrs. Del Rosario because she was complaining of her heart fluttering. The patient was evaluated by Dr. Leiva yesterday. She has a history of coronary artery bypass surgery and coronary stenting in the past. She denies any chest pain at this time. Monitor earlier revealed sinus bradycardia and she is currently in sinus rhythm. PHYSICAL EXAMINATION: VITAL SIGNS: Blood pressure 159/71, heart rate 77, temperature 97.7, respirations 17. HEENT: Pale conjunctivae. CHEST: Clear. HEART: S1 and S2 regular. EXTREMITIES: Trace leg edema. LABORATORY DATA: Today's hemoglobin and hematocrit after packed RBC transfusion are 9.3 and 31.4 and after received packed RBC transfusion of 2 units. SMA-7 is within normal limits except for carbon dioxide of 34. Echocardiography study performed yesterday revealed normal left ventricular size or thickness and ejection fraction with grade I abnormal relaxation pattern. ASSESSMENT: 1. Gastrointestinal bleed, status post packed red blood cells transfusion. 2. History of coronary artery disease, status post coronary artery bypass surgery as well as coronary stenting in the past. 3. Sinus bradycardia was noted earlier. The patient is currently in sinus rhythm. RECOMMENDATIONS: Continue current Cardizem at 120 mg daily, Imdur 60 mg once a day, Lipitor 40 mg once a day, Synthroid 100 mcg once a day. No further cardiac workup at this time. Jakob Lopez MD
[2017-11-06 07:38] LABS: HEMOGLOBIN 9.8 g/dL (12.0-16.0); MEAN CELL VOLUME 78.7 fl (80.0-105.0); MEAN CORPUSCULAR HEMOGLOBIN 23.2 pg (25.0-35.0); MEAN CORPUSCULAR HGB CONC 29.4 g/dl (31.0-37.0); RBC 4.23 10^6/uL (3.5-6.1); RED CELL DISTRIBUTION WIDTH 17.9 % (11.5-14.5); WHITE BLOOD COUNT 6.6 10^3/ul (4.5-11.0)
[2017-11-06 08:02] LABS: ALB/GLOB RATIO 1.3 (1.1-1.8); ALBUMIN 3.7 g/dL (3.0-4.8); ALT/SGPT 15 U/L (7-56); AST/SGOT 19 U/L (14-36); BLOOD UREA NITROGEN 14 mg/dL (7-21); CALCIUM 9.4 mg/dL (8.4-10.5); GFR AFRICAN-AMERICAN > 60; GFR NON-AFRICAN AMERICAN > 60
[2017-11-06] MEDS: Levothyroxine 100 MCG TAB PO SCH (08:19)
[2017-11-06] MEDS: levoFLOXacin 500 mg in D5W 500 MG/100 ML BAG IVPB SCH (10:06)
[2017-11-06] MEDS: Iron Complex Polysacch 150mg Cap PO SCH (10:06)
[2017-11-06] MEDS: diltiaZEM 120 mg/24 Hours CD Cap PO SCH (10:08)
[2017-11-06] MEDS ORDERED: levoFLOXacin 250 mg in D5W 250 MG/50 ML BAG IVPB SCH (10:13)
--- NOTE | 2017-11-06 10:40 | PN ---
DATE: 11/06/2017 CARDIOLOGY FOLLOWUP SUBJECTIVE: The patient's breathing is much improved. PHYSICAL EXAMINATION: VITAL SIGNS: Stable. NECK: Negative JVD. LUNGS: Without rales. HEART: Reveals S1, S2. EXTREMITIES: Without edema. LABORATORY DATA: Hemoglobin is stable and at 9. IMPRESSION: 1. Status post gastrointestinal bleed. 2. Marked anemia. 3. Symptoms improved after transfusions. 4. History of coronary artery bypass surgery. 5. History of percutaneous transluminal coronary angioplasty. 6. Chronic obstructive pulmonary disease. 7. Hypercholesterolemia. PLAN: Given these findings, we will wait for GI suggestions for possible endoscopy. Hebert Leiva MD
--- NOTE | 2017-11-06 12:41 | PN ---
DATE: 11/06/2017 SUBJECTIVE: The patient is lying in bed comfortable. She denies any rectal bleeding, abdominal pain, nausea, vomiting. OBJECTIVE: VITAL SIGNS: Reveal temperature of 97.9, blood pressure 148/71, heart rate of 78. HEENT: Reveal sclerae to be white. Conjunctivae pale. NECK: Supple. CHEST: Reveal lungs to be clear. HEART: Reveals a irregularly irregular rate. ABDOMEN: Soft, nontender. EXTREMITIES: Show no edema. DATA: Laboratory data reveal hemoglobin of 9.8, white blood cell count 6.6. Chemistries reveal normal electrolytes with a bicarbonate of 36. AST, ALT, alkaline phosphatase were all normal. IMPRESSION: This is a 72-year-old female with profound anemia with a history of severe peripheral arterial disease, on Eliquis; history of coronary artery disease, cerebrovascular accident; chronic obstructive pulmonary disease with seen positive stools. The patient had been on Eliquis, which is on hold for now. RECOMMENDATIONS: I will schedule the patient for an upper endoscopy in the morning. Macho Garcia MD
[2017-11-06] MEDS: Arformoterol 15 mcg/2 ml Inh Sol IH SCH ×2 (13:27→19:46)
[2017-11-06] MEDS: Budesonide 0.5 mg/2 ml Inhal Susp UD IH SCH ×2 (13:27→19:46)
--- NOTE | 2017-11-06 14:31 | CP.PCM.PN ---
<Jose A Oakley - Last Filed: 11/06/17 14:28> Subjective - Date & Time of Evaluation Date of Evaluation: 11/06/17 Time of Evaluation: 14:28 - Subjective Subjective: Medicine Progress Note Pt seen and examined at bedside. No acute overnight events. Pt states that she feels better overall after being transfused, but still feels fatigued due to not being able to sleep much in the hospital. Pt states that the right side of her abdomen is tender. Pt denies CP, SOB, n/v/d, fever, chills, MEANS, or dizziness. Objective - Vital Signs/Intake and Output Vital Signs (last 24 hours): Temp Pulse Resp BP Pulse Ox 97.9 F 78 20 148/71 99 11/06/17 06:00 11/06/17 10:08 11/06/17 06:00 11/06/17 10:08 11/06/17 06:00 Intake and Output: 11/06/17 11/06/17 06:59 18:59 Intake Total 460 Balance 460 - Medications Medications: Current Medications Acetaminophen (Tylenol 325mg Tab) 650 mg PO Q6H PRN PRN Reason: Fever >100.4 F Last Admin: 11/04/17 13:21 Dose: 650 mg Albuterol/Ipratropium (Duoneb 3 Mg/0.5 Mg (3 Ml) Ud) 3 ml IH Q2H PRN PRN Reason: Shortness of Breath Alprazolam (Xanax) 1 mg PO Q6H PRN; Protocol PRN Reason: Anxiety Last Admin: 11/06/17 10:06 Dose: 1 mg Arformoterol Tartrate (Brovana) 15 mcg IH [id number] [facility] Last Admin: 11/06/17 13:27 Dose: 15 mcg Atorvastatin Calcium (Lipitor) 40 mg PO DIN [facility] Last Admin: 11/05/17 17:48 Dose: 40 mg Budesonide (Pulmicort Respules) 0.5 mg IH [id number] [facility] Last Admin: 11/06/17 13:27 Dose: 0.5 mg Citalopram Hydrobromide (Celexa) 20 mg PO HS [facility] Last Admin: 11/05/17 22:30 Dose: Not Given Cyanocobalamin (Vitamin B12 1000 Mcg Tab) 1,000 mcg PO DAILY [facility] Diltiazem HCl (Cardizem Cd) 120 mg PO DAILY [facility] Last Admin: 11/06/17 10:08 Dose: 120 mg Levofloxacin/Dextrose (Levaquin 250mg) 250 mg in 50 mls @ 100 mls/hr IVPB DAILY [facility] PRN Reason: Protocol Isosorbide Mononitrate (Imdur) 60 mg PO QAM [facility] Last Admin: 11/06/17 10:08 Dose: 60 mg Levothyroxine Sodium (Synthroid) 100 mcg PO ACB [facility] Last Admin: 11/06/17 08:19 Dose: 100 mcg Memantine (Namenda) 5 mg PO DAILY [facility] Last Admin: 11/06/17 10:06 Dose: 5 mg Ondansetron HCl (Zofran Inj) 4 mg IVP Q6H PRN PRN Reason: Nausea/Vomiting Pantoprazole Sodium (Protonix Inj) 40 mg IVP Q12 [facility] Last Admin: 11/06/17 10:06 Dose: 40 mg Polysaccharide Iron Complex (Ferrex-150) 150 mg PO DAILY [facility] Last Admin: 11/06/17 10:06 Dose: 150 mg - Labs Labs: 11/06/17 07:00 11/06/17 07:00 PT 14.0 SECONDS (9.4-12.5) H 11/04/17 07:00 INR 1.21 (0.93-1.08) H 11/04/17 07:00 APTT 30.5 Seconds (25.1-36.5) 11/04/17 07:00 - Constitutional Appears: No Acute Distress - Head Exam Head Exam: NORMAL INSPECTION - Eye Exam Eye Exam: Normal appearance Pupil Exam: NORMAL ACCOMODATION - ENT Exam ENT Exam: Normal Exam - Neck Exam Neck Exam: Normal Inspection - Respiratory Exam Respiratory Exam: Clear to Ausculation Bilateral. absent: Rales, Rhonchi, Wheezes - Cardiovascular Exam Cardiovascular Exam: RRR, +S1, +S2. absent: Gallop, Rubs, Murmur - GI/Abdominal Exam GI & Abdominal Exam: Soft, Tenderness (right sided). absent: Distended, Guarding, Rebound - Back Exam Back Exam: NORMAL INSPECTION - Neurological Exam Neurological Exam: Alert, Awake, CN II-XII Intact, Oriented x3 - Psychiatric Exam Psychiatric exam: Normal Affect, Normal Mood - Skin Skin Exam: Dry, Intact, Pallor, Warm Assessment and Plan - Assessment and Plan (Free Text) Assessment: 72 yo F with PMH COPD on home O2, a.fib (on Eliquis), anxiety/depression, PAD, CAD s/p CABG, hypothyroidism, CVA x3, Carotid disease s/p L carotid stent who was admitted for symptomatic anemia most likely secondary to GI bleed. Plan: 1. Anemia - Secondary to GI bleed most likely, patient also on ASA and Eliquis at home - s/p 2U PRBC - Hgb 9.8, stable over last 24 hrs - Tranfuse if Hgb <7.0 - CT A/P showed diverticulosis and a R kidney lesion. - Renal US showed 2 right renal cysts - GI consulted- Endoscopy tomorrow - B12 low- was given Vitamin B12 injection - Iron, %sat and Ferritin are low. TIBC normal consistent with iron deficiency anemia - Protonix q12 - Continue Iron supplementation - Fall precaution 2. UTI - Afebrile, no leukocytosis - Awaiting sensitivities - Continue Levaquin 3. Hx of A.fib - Continue Cardizem - Hold ASA and Eliquis, restart pending GI recs - Echo showed EF 53%, normal LV function - Cardio consulted for recommendations on anticoagulation, pending GI findings 4. Hx of CAD s/p CABG - Lipitor and Imdur 5. Hx of Hypothyroidism - Continue Synthroid 6. Hx of COPD on home O2 - Continue Brovana and pulmicort - Duoneb prn - Continue O2 via nasal cannula 7. Hx of Anxiety/depression - Continue Celexa and Xanax home doses 8. B12 deficiency - PO B12 started GI ppx: Protonix DVT ppx: SCDs- hold anticoagulation due to anemia and possible GI bleed Dispo: Patient will have EGD on Monday. PT recommends TCU on discharge. Case seen, discussed and reviewed with Dr. Chamberlain. Jamie Oakley, PGY1 <Jones Chamberlain - Last Filed: 11/07/17 16:34> Objective - Vital Signs/Intake and Output Vital Signs (last 24 hours): Temp Pulse Resp BP Pulse Ox 98.2 F 59 L 15 114/60 99 11/07/17 12:15 11/07/17 12:15 11/07/17 12:15 11/07/17 12:15 11/07/17 12:15 Intake and Output: 11/07/17 11/07/17 06:59 18:59 Intake Total 0 85 Output Total 1000 Balance -1000 85 - Medications Medications: Current Medications Acetaminophen (Tylenol 325mg Tab) 650 mg PO Q6H PRN PRN Reason: Fever >100.4 F Last Admin: 11/04/17 13:21 Dose: 650 mg Albuterol/Ipratropium (Duoneb 3 Mg/0.5 Mg (3 Ml) Ud) 3 ml IH Q2H PRN PRN Reason: Shortness of Breath Alprazolam (Xanax) 1 mg PO Q6H PRN; Protocol PRN Reason: Anxiety Last Admin: 11/07/17 15:25 Dose: 1 mg Arformoterol Tartrate (Brovana) 15 mcg IH [id number] [facility] Last Admin: 11/07/17 08:30 Dose: Not Given Atorvastatin Calcium (Lipitor) 40 mg PO DIN [facility] Last Admin: 11/06/17 17:55 Dose: 40 mg Budesonide (Pulmicort Respules) 0.5 mg IH [id number] [facility] Last Admin: 11/07/17 08:29 Dose: Not Given Ciprofloxacin (Cipro) 500 mg PO Q12 [facility] PRN Reason: Protocol Stop: 11/08/17 13:03 Citalopram Hydrobromide (Celexa) 20 mg PO HS [facility] Last Admin: 11/06/17 22:51 Dose: 20 mg Cyanocobalamin (Vitamin B12 1000 Mcg Tab) 1,000 mcg PO DAILY [facility] Last Admin: 11/07/17 12:48 Dose: 1,000 mcg Diltiazem HCl (Cardizem Cd) 120 mg PO DAILY [facility] Last Admin: 11/07/17 10:16 Dose: 120 mg Sodium Chloride (Sodium Chloride 0.9%) 1,000 mls @ 100 mls/hr IV .Q10H [facility] Isosorbide Mononitrate (Imdur) 60 mg PO QAM [facility] Last Admin: 11/07/17 10:16 Dose: 60 mg Levothyroxine Sodium (Synthroid) 100 mcg PO ACB [facility] Last Admin: 11/07/17 12:48 Dose: 100 mcg Magnesium Citrate (Citrate Of Mag) 300 ml PO ONCE ONE Stop: 11/07/17 19:01 Memantine (Namenda) 5 mg PO DAILY [facility] Last Admin: 11/07/17 12:48 Dose: 5 mg Ondansetron HCl (Zofran Inj) 4 mg IVP Q6H PRN PRN Reason: Nausea/Vomiting Pantoprazole Sodium (Protonix Inj) 40 mg IVP Q12 [facility] Last Admin: 11/07/17 10:13 Dose: 40 mg Polysaccharide Iron Complex (Ferrex-150) 150 mg PO DAILY [facility] Last Admin: 11/07/17 12:48 Dose: 150 mg - Labs Labs: 11/07/17 06:30 11/07/17 06:30 PT 14.0 SECONDS (9.4-12.5) H 11/04/17 07:00 INR 1.21 (0.93-1.08) H 11/04/17 07:00 APTT 30.5 Seconds (25.1-36.5) 11/04/17 07:00 Attending/Attestation - Attestation I have personally seen and examined this patient.: Yes I have fully participated in the care of the patient.: Yes I have reviewed all pertinent clinical information, including history, physical exam and plan: Yes Notes (Text): I have seen and examined the patient at bedside. Agree with the above note with the following additions/ exceptions: Briefly this is 72 year old female with history of O2 dependent COPD, PAD, Carotid disease s/p L carotid stent, L subclavian stenosis, CAD s/p CABG, hypothyroidism, CVA x3, and prior R kidney surgery who was sent by PMD for evaluation of anemia. Upon admission Hb was 6.4 and now its 9 s/p 2 units prbc. FOBT positive. Patient is scheduled for endoscopy this Monday. Continue to hold aspirin and eliquis. Continue NC for copd. PT recommended TCU eval. Upon discharge the patient will follow-up with PMD .
[2017-11-07 07:18] LABS: HEMOGLOBIN 9.7 g/dL (12.0-16.0); MEAN CELL VOLUME 79.4 fl (80.0-105.0); MEAN CORPUSCULAR HEMOGLOBIN 23.3 pg (25.0-35.0); MEAN CORPUSCULAR HGB CONC 29.3 g/dl (31.0-37.0); MEAN PLATELET VOLUME 10.2 fl (7.0-11.0); RBC 4.17 10^6/uL (3.5-6.1); RED CELL DISTRIBUTION WIDTH 17.9 % (11.5-14.5)
[2017-11-07 07:40] LABS: ALB/GLOB RATIO 1.3 (1.1-1.8); ALBUMIN 3.8 g/dL (3.0-4.8); ALT/SGPT 18 U/L (7-56); AST/SGOT 14 U/L (14-36); BLOOD UREA NITROGEN 18 mg/dL (7-21); CALCIUM 9.3 mg/dL (8.4-10.5); GFR AFRICAN-AMERICAN > 60; GFR NON-AFRICAN AMERICAN > 60
[2017-11-07] MEDS: Arformoterol 15 mcg/2 ml Inh Sol IH SCH ×2 (08:28→08:30)
[2017-11-07] MEDS: Budesonide 0.5 mg/2 ml Inhal Susp UD IH SCH (08:29)
[2017-11-07] MEDS: diltiaZEM 120 mg/24 Hours CD Cap PO SCH (10:16)
[2017-11-07] MEDS ORDERED: Propofol 10 mg/ml Inj (20 ML) ONE (11:09)
[2017-11-07] MEDS: Iron Complex Polysacch 150mg Cap PO SCH (12:48)
[2017-11-07] MEDS: Levothyroxine 100 MCG TAB PO SCH (12:48)
[2017-11-07] MEDS ORDERED: Magnesium Citrate Oral SOL (300 ml) PO ONE ×2 (13:01→19:00)
--- NOTE | 2017-11-07 14:11 | CP.PCM.PN ---
<Jose A Oakley - Last Filed: 11/07/17 14:07> Subjective - Date & Time of Evaluation Date of Evaluation: 11/07/17 Time of Evaluation: 14:07 - Subjective Subjective: Medicine Progress Note Pt seen and examined at bedside. No acute overnight events. Pt states she is sleeping better. Fatigue as improved. Pt denies any hematesis, hematochezia, or melena. Pt ambulating well. Pt denies CP, SOB, n/v/d, abdominal pain, fever, chills, MEANS, or dizziness. Objective - Vital Signs/Intake and Output Vital Signs (last 24 hours): Temp Pulse Resp BP Pulse Ox 98.2 F 59 L 15 114/60 99 11/07/17 12:15 11/07/17 12:15 11/07/17 12:15 11/07/17 12:15 11/07/17 12:15 Intake and Output: 11/07/17 11/07/17 06:59 18:59 Intake Total 0 85 Output Total 1000 Balance -1000 85 - Medications Medications: Current Medications Acetaminophen (Tylenol 325mg Tab) 650 mg PO Q6H PRN PRN Reason: Fever >100.4 F Last Admin: 11/04/17 13:21 Dose: 650 mg Albuterol/Ipratropium (Duoneb 3 Mg/0.5 Mg (3 Ml) Ud) 3 ml IH Q2H PRN PRN Reason: Shortness of Breath Alprazolam (Xanax) 1 mg PO Q6H PRN; Protocol PRN Reason: Anxiety Last Admin: 11/06/17 22:51 Dose: 1 mg Arformoterol Tartrate (Brovana) 15 mcg IH [id number] [facility] Last Admin: 11/07/17 08:30 Dose: Not Given Atorvastatin Calcium (Lipitor) 40 mg PO DIN [facility] Last Admin: 11/06/17 17:55 Dose: 40 mg Budesonide (Pulmicort Respules) 0.5 mg IH [id number] [facility] Last Admin: 11/07/17 08:29 Dose: Not Given Ciprofloxacin (Cipro) 500 mg PO Q12 [facility] PRN Reason: Protocol Stop: 11/08/17 13:03 Citalopram Hydrobromide (Celexa) 20 mg PO HS [facility] Last Admin: 11/06/17 22:51 Dose: 20 mg Cyanocobalamin (Vitamin B12 1000 Mcg Tab) 1,000 mcg PO DAILY [facility] Last Admin: 11/07/17 12:48 Dose: 1,000 mcg Diltiazem HCl (Cardizem Cd) 120 mg PO DAILY [facility] Last Admin: 11/07/17 10:16 Dose: 120 mg Isosorbide Mononitrate (Imdur) 60 mg PO QAM [facility] Last Admin: 11/07/17 10:16 Dose: 60 mg Levothyroxine Sodium (Synthroid) 100 mcg PO ACB [facility] Last Admin: 11/07/17 12:48 Dose: 100 mcg Magnesium Citrate (Citrate Of Mag) 300 ml PO ONCE ONE Stop: 11/07/17 19:01 Memantine (Namenda) 5 mg PO DAILY [facility] Last Admin: 11/07/17 12:48 Dose: 5 mg Ondansetron HCl (Zofran Inj) 4 mg IVP Q6H PRN PRN Reason: Nausea/Vomiting Pantoprazole Sodium (Protonix Inj) 40 mg IVP Q12 [facility] Last Admin: 11/07/17 10:13 Dose: 40 mg Polysaccharide Iron Complex (Ferrex-150) 150 mg PO DAILY [facility] Last Admin: 11/07/17 12:48 Dose: 150 mg - Labs Labs: 11/07/17 06:30 11/07/17 06:30 PT 14.0 SECONDS (9.4-12.5) H 11/04/17 07:00 INR 1.21 (0.93-1.08) H 11/04/17 07:00 APTT 30.5 Seconds (25.1-36.5) 11/04/17 07:00 - Constitutional Appears: No Acute Distress - Head Exam Head Exam: NORMAL INSPECTION - Eye Exam Eye Exam: Normal appearance - ENT Exam ENT Exam: Normal Exam - Neck Exam Neck Exam: Normal Inspection - Respiratory Exam Respiratory Exam: Clear to Ausculation Bilateral. absent: Decreased Breath Sounds, Rales, Rhonchi, Wheezes - Cardiovascular Exam Cardiovascular Exam: RRR, +S1, +S2. absent: Gallop, Rubs, Murmur - GI/Abdominal Exam GI & Abdominal Exam: Soft, Tenderness (right sided). absent: Distended, Guarding, Rebound - Extremities Exam Extremities Exam: Normal Inspection - Back Exam Back Exam: NORMAL INSPECTION - Neurological Exam Neurological Exam: Alert, Awake, CN II-XII Intact, Oriented x3 - Psychiatric Exam Psychiatric exam: Normal Affect, Normal Mood - Skin Skin Exam: Dry, Intact, Pallor, Warm Assessment and Plan - Assessment and Plan (Free Text) Assessment: 72 yo F with PMH COPD on home O2, a.fib (on Eliquis), anxiety/depression, PAD, CAD s/p CABG, hypothyroidism, CVA x3, Carotid disease s/p L carotid stent who was admitted for symptomatic anemia most likely secondary to GI bleed. Plan: 1. Anemia - Secondary to GI bleed most likely, patient also on ASA and Eliquis at home - s/p 2U PRBC - Hgb 9.8, stable over last 24 hrs - Tranfuse if Hgb <7.0 - GI consulted Upper endoscopy showed single AVM, duodenal polyp biopsied Plan for colonoscopy tomorrow NPO, IVF after midnight - CT A/P showed diverticulosis and a R kidney lesion. - Renal US showed 2 right renal cysts - Iron, %sat and Ferritin are low. TIBC normal consistent with iron deficiency anemia - Protonix q12 - Continue Iron supplementation - Fall precaution 2. UTI - Afebrile, no leukocytosis - Levaquin d/c - Cipro PO started 3. Hx of A.fib - Continue Cardizem - Hold ASA and Eliquis, restart pending GI recs - Echo showed EF 53%, normal LV function - Cardio consulted for recommendations on anticoagulation, pending GI findings 4. Hx of CAD s/p CABG - Lipitor and Imdur 5. Hx of Hypothyroidism - Continue Synthroid 6. Hx of COPD on home O2 - Continue Brovana and pulmicort - Duoneb prn - Continue O2 via nasal cannula 7. Hx of Anxiety/depression - Continue Celexa and Xanax home doses 8. B12 deficiency - PO B12 started - B12 low- was given Vitamin B12 injection GI ppx: Protonix DVT ppx: SCDs- hold anticoagulation due to anemia and possible GI bleed Dispo: Patient will have EGD on Monday. PT recommends TCU on discharge. Case seen, discussed and reviewed with Dr. Chamberlain. Jamie Oakley, PGY1 <Jones Chamberlain - Last Filed: 11/07/17 16:40> Objective - Vital Signs/Intake and Output Vital Signs (last 24 hours): Temp Pulse Resp BP Pulse Ox 98.2 F 59 L 15 114/60 99 11/07/17 12:15 11/07/17 12:15 11/07/17 12:15 11/07/17 12:15 11/07/17 12:15 Intake and Output: 11/07/17 11/07/17 06:59 18:59 Intake Total 0 85 Output Total 1000 Balance -1000 85 - Medications Medications: Current Medications Acetaminophen (Tylenol 325mg Tab) 650 mg PO Q6H PRN PRN Reason: Fever >100.4 F Last Admin: 11/04/17 13:21 Dose: 650 mg Albuterol/Ipratropium (Duoneb 3 Mg/0.5 Mg (3 Ml) Ud) 3 ml IH Q2H PRN PRN Reason: Shortness of Breath Alprazolam (Xanax) 1 mg PO Q6H PRN; Protocol PRN Reason: Anxiety Last Admin: 11/07/17 15:25 Dose: 1 mg Arformoterol Tartrate (Brovana) 15 mcg IH [id number] [facility] Last Admin: 11/07/17 08:30 Dose: Not Given Atorvastatin Calcium (Lipitor) 40 mg PO DIN [facility] Last Admin: 11/06/17 17:55 Dose: 40 mg Budesonide (Pulmicort Respules) 0.5 mg IH [id number] [facility] Last Admin: 11/07/17 08:29 Dose: Not Given Ciprofloxacin (Cipro) 500 mg PO Q12 [facility] PRN Reason: Protocol Stop: 11/08/17 13:03 Citalopram Hydrobromide (Celexa) 20 mg PO HS [facility] Last Admin: 11/06/17 22:51 Dose: 20 mg Cyanocobalamin (Vitamin B12 1000 Mcg Tab) 1,000 mcg PO DAILY [facility] Last Admin: 11/07/17 12:48 Dose: 1,000 mcg Diltiazem HCl (Cardizem Cd) 120 mg PO DAILY [facility] Last Admin: 11/07/17 10:16 Dose: 120 mg Sodium Chloride (Sodium Chloride 0.9%) 1,000 mls @ 100 mls/hr IV .Q10H [facility] Isosorbide Mononitrate (Imdur) 60 mg PO QAM [facility] Last Admin: 11/07/17 10:16 Dose: 60 mg Levothyroxine Sodium (Synthroid) 100 mcg PO ACB [facility] Last Admin: 11/07/17 12:48 Dose: 100 mcg Magnesium Citrate (Citrate Of Mag) 300 ml PO ONCE ONE Stop: 11/07/17 19:01 Memantine (Namenda) 5 mg PO DAILY [facility] Last Admin: 11/07/17 12:48 Dose: 5 mg Ondansetron HCl (Zofran Inj) 4 mg IVP Q6H PRN PRN Reason: Nausea/Vomiting Pantoprazole Sodium (Protonix Inj) 40 mg IVP Q12 [facility] Last Admin: 11/07/17 10:13 Dose: 40 mg Polysaccharide Iron Complex (Ferrex-150) 150 mg PO DAILY [facility] Last Admin: 11/07/17 12:48 Dose: 150 mg - Labs Labs: 11/07/17 06:30 11/07/17 06:30 PT 14.0 SECONDS (9.4-12.5) H 11/04/17 07:00 INR 1.21 (0.93-1.08) H 11/04/17 07:00 APTT 30.5 Seconds (25.1-36.5) 11/04/17 07:00 Attending/Attestation - Attestation I have personally seen and examined this patient.: Yes I have fully participated in the care of the patient.: Yes I have reviewed all pertinent clinical information, including history, physical exam and plan: Yes Notes (Text): I have seen and examined the patient at bedside. Agree with the above note with the following additions/ exceptions: Briefly this is 72 year old female with history of O2 dependent COPD, PAD, Carotid disease s/p L carotid stent, L subclavian stenosis, CAD s/p CABG, hypothyroidism, CVA x3, and prior R kidney surgery who was sent by PMD for evaluation of anemia. Upon admission Hb was 6.4 and now its 9 s/p 2 units prbc. FOBT positive. Patient underwent endoscopy which revealed single non bleeding AVM in duodenum. Continue to hold aspirin and eliquis. Continue NC for copd. PT recommended TCU eval. Upon discharge the patient will follow-up with PMD .
--- NOTE | 2017-11-07 15:22 | PN ---
DATE: 11/07/2017 CARDIOLOGY FOLLOWUP SUBJECTIVE: The patient tolerated endoscopy, no repeat bleeding has been noted. PHYSICAL EXAMINATION VITAL SIGNS: Blood pressure is 114/60, the heart rate is in the 60s. NECK: Negative JVD. LUNGS: Without rales. HEART: Reveals S1, S2. EXTREMITIES: Without edema. LABORATORY DATA: Hemoglobin remained stable at 9.7 for the past 3 days. BUN and creatinine are unremarkable. IMPRESSION: 1. Marked anemia. 2. No evidence for a source of gastrointestinal bleed. 3. Stable angina. 4. History of coronary artery bypass surgery. 5. History of percutaneous transluminal coronary angioplasty. 6. Chronic obstructive pulmonary disease. 7. Hypercholesterolemia. 8. Recurrent noncompliance to medical advice. PLAN: Given these findings, we will discontinue telemetry today. Given her high risks and documented coronary disease, we will arrange for an outpatient stress test next week. Hebert Leiva MD
[2017-11-08] MEDS: Budesonide 0.5 mg/2 ml Inhal Susp UD IH SCH ×2 (07:17→19:21)
[2017-11-08] MEDS: Arformoterol 15 mcg/2 ml Inh Sol IH SCH ×2 (07:17→19:21)
[2017-11-08 07:33] LABS: HEMOGLOBIN 9.6 g/dL (12.0-16.0); MEAN CELL VOLUME 80.9 fl (80.0-105.0); MEAN CORPUSCULAR HEMOGLOBIN 23.2 pg (25.0-35.0); MEAN CORPUSCULAR HGB CONC 28.7 g/dl (31.0-37.0); MEAN PLATELET VOLUME 10.3 fl (7.0-11.0); RBC 4.14 10^6/uL (3.5-6.1); RED CELL DISTRIBUTION WIDTH 17.9 % (11.5-14.5)
[2017-11-08 07:40] LABS: ALB/GLOB RATIO 1.3 (1.1-1.8); ALBUMIN 3.6 g/dL (3.0-4.8); ALT/SGPT 19 U/L (7-56); AST/SGOT 13 U/L (14-36); BLOOD UREA NITROGEN 20 mg/dL (7-21); CALCIUM 8.8 mg/dL (8.4-10.5); GFR AFRICAN-AMERICAN > 60; GFR NON-AFRICAN AMERICAN > 60
[2017-11-08] MEDS: Levothyroxine 100 MCG TAB PO SCH (08:26)
[2017-11-08] MEDS: diltiaZEM 120 mg/24 Hours CD Cap PO SCH (09:39)
[2017-11-08] MEDS ORDERED: Propofol 10 mg/ml Inj (20 ML) ONE (12:16)
[2017-11-08] MEDS: Iron Complex Polysacch 150mg Cap PO SCH (12:56)
[2017-11-08] MEDS ORDERED: Sodium Chloride 0.9% 1,000 ML IV SCH ×2 (13:00)
[2017-11-08 13:13] VITALS: TEMP 97.9
--- NOTE | 2017-11-08 14:46 | PN ---
DATE: 11/08/2017 CARDIOLOGY FOLLOWUP SUBJECTIVE: The patient is in no distress. PHYSICAL EXAMINATION: VITAL SIGNS: Stable. Physical exam is unchanged. LABORATORY DATA: Hemoglobin is 9.6, which is stable. Chemistries unremarkable. IMPRESSION: 1. Status post gastrointestinal bleed. 2. Anemia, which is stable. 3. Coronary artery disease. 4. Stable angina. 5. History of bypass surgery. 6. History of percutaneous transluminal coronary angioplasty. 7. Chronic obstructive pulmonary disease. 8. Hypercholesterolemia. The patient is for colonoscopy today. Hebert Leiva MD
[2017-11-08 15:58] VITALS: BP 121/56; PULSE 70; RESP 20; O2SAT 95
--- NOTE | 2017-11-08 18:34 | CP.PCM.DIS ---
<Jose A Oakley - Last Filed: 11/08/17 18:31> Provider - Provider Date of Admission: 11/03/17 18:22 Attending physician: Jones Chamberlain MD Primary care physician: Macho Wick MD Consults: Cardio: Cali GI: Jose Time Spent in preparation of Discharge (in minutes): 45 Hospital Course - Lab Results Lab Results: Most Recent Lab Values WBC 8.0 10^3/ul (4.5-11.0) 11/08/17 07:10 RBC 4.14 10^6/uL (3.5-6.1) 11/08/17 07:10 Hgb 9.6 g/dL (12.0-16.0) L 11/08/17 07:10 Hct 33.5 % (36.0-48.0) L 11/08/17 07:10 MCV 80.9 fl (80.0-105.0) 11/08/17 07:10 MCH 23.2 pg (25.0-35.0) L 11/08/17 07:10 MCHC 28.7 g/dl (31.0-37.0) L 11/08/17 07:10 RDW 17.9 % (11.5-14.5) H 11/08/17 07:10 Plt Count 227 10^3/uL (120.0-450.0) 11/08/17 07:10 MPV 10.3 fl (7.0-11.0) 11/08/17 07:10 Gran % 63.2 % (50.0-68.0) 11/04/17 07:00 Lymph % (Auto) 23.4 % (22.0-35.0) 11/04/17 07:00 Hudson % (Auto) 7.3 % (1.0-6.0) H 11/04/17 07:00 Eos % (Auto) 5.7 % (1.5-5.0) H 11/04/17 07:00 Baso % (Auto) 0.4 % (0.0-3.0) 11/04/17 07:00 Gran # 3.11 (1.4-6.5) 11/04/17 07:00 Lymph # (Auto) 1.2 (1.2-3.4) 11/04/17 07:00 Hudson # (Auto) 0.4 (0.1-0.6) 11/04/17 07:00 Eos # (Auto) 0.3 (0.0-0.7) 11/04/17 07:00 Baso # (Auto) 0.02 K/mm3 (0.0-2.0) 11/04/17 07:00 Retic Count 2.66 % (0.5-1.5) H 11/03/17 16:10 PT 14.0 SECONDS (9.4-12.5) H 11/04/17 07:00 INR 1.21 (0.93-1.08) H 11/04/17 07:00 APTT 30.5 Seconds (25.1-36.5) 11/04/17 07:00 Sodium 143 mmol/L (132-148) 11/08/17 07:10 Potassium 4.0 mmol/L (3.6-5.0) 11/08/17 07:10 Chloride 99 mmol/L (98-107) 11/08/17 07:10 Carbon Dioxide 37 mmol/L (21-33) H 11/08/17 07:10 Anion Gap 10 (10-20) 11/08/17 07:10 BUN 20 mg/dL (7-21) 11/08/17 07:10 Creatinine 0.9 mg/dl (0.7-1.2) 11/08/17 07:10 Est GFR ( Amer) > 60 11/08/17 07:10 Est GFR (Non-Af Amer) > 60 11/08/17 07:10 Random Glucose 96 mg/dL (70-110) 11/08/17 07:10 Calcium 8.8 mg/dL (8.4-10.5) 11/08/17 07:10 Phosphorus 3.9 mg/dL (2.5-4.5) 11/04/17 07:00 Magnesium 1.9 mg/dL (1.7-2.2) 11/04/17 07:00 Iron 14 ug/dL (45-180) L 11/04/17 10:00 TIBC 391 ug/dL (265-497) 11/04/17 10:00 % Saturation 4 % (20-55) L 11/04/17 10:00 Ferritin 4.9 ng/mL 11/04/17 09:00 Total Bilirubin 0.2 mg/dL (0.2-1.3) 11/08/17 07:10 AST 13 U/L (14-36) L 11/08/17 07:10 ALT 19 U/L (7-56) 11/08/17 07:10 Alkaline Phosphatase 57 U/L (38-126) 11/08/17 07:10 Lactate Dehydrogenase 483 U/L (333-699) 11/03/17 16:10 Total Creatine Kinase 37 U/L (35-230) 11/03/17 16:10 Troponin I < 0.01 ng/mL 11/04/17 07:00 Total Protein 6.3 g/dL (5.8-8.3) 11/08/17 07:10 Albumin 3.6 g/dL (3.0-4.8) 11/08/17 07:10 Globulin 2.8 gm/dL 11/08/17 07:10 Albumin/Globulin Ratio 1.3 (1.1-1.8) 11/08/17 07:10 Amylase 86 U/L (35-125) 11/03/17 16:10 Lipase 94 U/L (23-300) 11/03/17 16:10 Vitamin B12 207 pg/mL (239-931) L 11/04/17 09:00 Folate 6.5 ng/mL 11/04/17 09:00 TSH 3rd Generation 1.52 mIU/mL (0.46-4.68) 11/03/17 16:10 Urine Color Yellow (YELLOW) 11/04/17 09:00 Urine Appearance Cloudy (CLEAR) 11/04/17 09:00 Urine pH 6.0 (4.7-8.0) 11/04/17 09:00 Ur Specific [facility] 1.015 (1.005-1.035) 11/04/17 09:00 Urine Protein Negative mg/dL (<30 mg/dL) 11/04/17 09:00 Urine Glucose (UA) Negative mg/dL (NEGATIVE) 11/04/17 09:00 Urine Ketones Negative mg/dL (NEGATIVE) 11/04/17 09:00 Urine Blood Negative (NEGATIVE) 11/04/17 09:00 Urine Nitrate Positive (NEGATIVE) H 11/04/17 09:00 Urine Bilirubin Negative (NEGATIVE) 11/04/17 09:00 Urine Urobilinogen 0.2 E.U./dL (<1 E.U./dL) 11/04/17 09:00 Ur Leukocyte Esterase Small Gonzalez/uL (NEGATIVE) H 11/04/17 09:00 Urine RBC 0 - 2 /hpf (0-2) 11/04/17 09:00 Urine WBC 2 - 5 /hpf (0-6) 11/04/17 09:00 Ur Epithelial Cells 1 - 3 /hpf (0-5) 11/04/17 09:00 Urine Bacteria Many (NEG) 11/04/17 09:00 Stool Occult Blood Positive (NEGATIVE) H 11/04/17 16:30 Blood Type A POSITIVE 11/03/17 16:10 Blood Type Confirm A POSITIVE 11/03/17 17:40 Antibody Screen Negative 11/03/17 16:10 Crossmatch See Detail 11/03/17 16:10 BBK History Checked No verified bt 11/03/17 16:10 - Hospital Course Hospital Course: Patient is a 72 yo F with PMH of O2 dependent COPD, PAD, Carotid disease s/p L carotid stent, L subclavian stenosis, CAD s/p CABG, a-fib on eliquis, hypothyroidism, CVA x3, and prior R kidney surgery who was instructed to present to [facility] by her PMD after labs obtained in the office yesterday revealed iron deficiency anemia (Hgb 7.7, MCV 75.8, Fe 26, TIBC 458, % Sat 6, Ferritin 4) . Patient had originally presented to PMD's office with complaints of worsening shortness of breath, fatigue, sleepiness, and increased falls when getting out of bed, although then and today she denied any syncope/near-syncope , only attributing it to weakness and somnolence. Patient did admit to 1 episode of mixed melena and hematochezia approximately 1 week prior to admission , but denied any further recurrence. Patient denied any further complaints. Patient was admitted for symptomatic anemia. Anticoagulation was held. Initially , patient denied transfusions due to fear of aj a blood borne illness. However, during hospital course, Hgb dropped to 6.4. At that time patient agreed to transfusion. 2 units of pRBC was given, after which Hgb remained stable in the 9s. GI was consulted and performed EGD and colonscopy. EGD showed 1 AVM and a duodenal polyp, which was biopsied. Colonscopy showed diverticulosis and sessile polyps which were biopsied. Cardiology was consulted due to history of A-fib on eliquis and ASA. Cardiology resumed anticoagulation after GI workup and stated that patient will need outpatient stress test. Today , patient was seen and evaluated at bedside. As patient was cleared by GI and cardiology, patient was discharged to TCU under the recommendation of PT. Patient will continue PT for deconditioning. All medicines from hospital course will be resumed. Anticoagulation will be resumed in 3 days per GI. Discharge Diagnosis - Iron deficiency anemia 2/2 GI bleed - UTI - History of atrial fibrillation - CAD s/p CABG - Hypothyroidism - COPD - B12 deficiency - Anxiety/Depression Discharge Exam - Head Exam Head Exam: NORMAL INSPECTION - Eye Exam Eye Exam: Normal appearance - ENT Exam ENT Exam: Normal Exam - Neck Exam Neck exam: Normal Inspection - Respiratory Exam Respiratory Exam: Clear to PA & Lateral. absent: Rales, Rhonchi, Wheezes - Cardiovascular Exam Cardiovascular Exam: RRR, +S1. absent: Diastolic murmur, Gallop, Rubs, Systolic Murmur - GI/Abdominal Exam GI & Abdominal Exam: Soft. absent: Distended, Guarding, Rebound, Tenderness - Extremities Exam Extremities exam: normal inspection - Back Exam Back exam: NORMAL INSPECTION - Neurological Exam Neurological exam: Alert, CN II-XII Intact, Oriented x3 - Psychiatric Exam Psychiatric exam: Normal Affect, Normal Mood - Skin Skin Exam: Dry, Intact, Normal Color, Warm Discharge Plan - Follow Up Plan Condition: FAIR Disposition: TRANSF TO SNF Instructions: Anemia Caused by Low Iron, Adult (DC), Colonoscopy (DC), Gastrointestinal Bleeding (DC), Upper GI Endoscopy (DC) Additional Instructions: Continue all medications on hospital course Hold Eliquis and ASA Continue Cardio consult only Discharge to TCU Referrals: Macho Wick MD [Primary Care Provider] - Macho Garcia MD [Staff Provider] - Hebert Leiva MD [Staff Provider] - <Jones Chamberlain - Last Filed: 11/09/17 14:16> Provider - Provider Date of Admission: 11/03/17 18:22 Attending physician: Jones Chamberlain MD Primary care physician: Macho Wick MD Hospital Course - Lab Results Lab Results: Most Recent Lab Values WBC 8.0 10^3/ul (4.5-11.0) 11/08/17 07:10 RBC 4.14 10^6/uL (3.5-6.1) 11/08/17 07:10 Hgb 9.6 g/dL (12.0-16.0) L 11/08/17 07:10 Hct 33.5 % (36.0-48.0) L 11/08/17 07:10 MCV 80.9 fl (80.0-105.0) 11/08/17 07:10 MCH 23.2 pg (25.0-35.0) L 11/08/17 07:10 MCHC 28.7 g/dl (31.0-37.0) L 11/08/17 07:10 RDW 17.9 % (11.5-14.5) H 11/08/17 07:10 Plt Count 227 10^3/uL (120.0-450.0) 11/08/17 07:10 MPV 10.3 fl (7.0-11.0) 11/08/17 07:10 Gran % 63.2 % (50.0-68.0) 11/04/17 07:00 Lymph % (Auto) 23.4 % (22.0-35.0) 11/04/17 07:00 Hudson % (Auto) 7.3 % (1.0-6.0) H 11/04/17 07:00 Eos % (Auto) 5.7 % (1.5-5.0) H 11/04/17 07:00 Baso % (Auto) 0.4 % (0.0-3.0) 11/04/17 07:00 Gran # 3.11 (1.4-6.5) 11/04/17 07:00 Lymph # (Auto) 1.2 (1.2-3.4) 11/04/17 07:00 Hudson # (Auto) 0.4 (0.1-0.6) 11/04/17 07:00 Eos # (Auto) 0.3 (0.0-0.7) 11/04/17 07:00 Baso # (Auto) 0.02 K/mm3 (0.0-2.0) 11/04/17 07:00 Retic Count 2.66 % (0.5-1.5) H 11/03/17 16:10 PT 14.0 SECONDS (9.4-12.5) H 11/04/17 07:00 INR 1.21 (0.93-1.08) H 11/04/17 07:00 APTT 30.5 Seconds (25.1-36.5) 11/04/17 07:00 Sodium 143 mmol/L (132-148) 11/08/17 07:10 Potassium 4.0 mmol/L (3.6-5.0) 11/08/17 07:10 Chloride 99 mmol/L (98-107) 11/08/17 07:10 Carbon Dioxide 37 mmol/L (21-33) H 11/08/17 07:10 Anion Gap 10 (10-20) 11/08/17 07:10 BUN 20 mg/dL (7-21) 11/08/17 07:10 Creatinine 0.9 mg/dl (0.7-1.2) 11/08/17 07:10 Est GFR ( Amer) > 60 11/08/17 07:10 Est GFR (Non-Af Amer) > 60 11/08/17 07:10 Random Glucose 96 mg/dL (70-110) 11/08/17 07:10 Calcium 8.8 mg/dL (8.4-10.5) 11/08/17 07:10 Phosphorus 3.9 mg/dL (2.5-4.5) 11/04/17 07:00 Magnesium 1.9 mg/dL (1.7-2.2) 11/04/17 07:00 Iron 14 ug/dL (45-180) L 11/04/17 10:00 TIBC 391 ug/dL (265-497) 11/04/17 10:00 % Saturation 4 % (20-55) L 11/04/17 10:00 Ferritin 4.9 ng/mL 11/04/17 09:00 Total Bilirubin 0.2 mg/dL (0.2-1.3) 11/08/17 07:10 AST 13 U/L (14-36) L 11/08/17 07:10 ALT 19 U/L (7-56) 11/08/17 07:10 Alkaline Phosphatase 57 U/L (38-126) 11/08/17 07:10 Lactate Dehydrogenase 483 U/L (333-699) 11/03/17 16:10 Total Creatine Kinase 37 U/L (35-230) 11/03/17 16:10 Troponin I < 0.01 ng/mL 11/04/17 07:00 Total Protein 6.3 g/dL (5.8-8.3) 11/08/17 07:10 Albumin 3.6 g/dL (3.0-4.8) 11/08/17 07:10 Globulin 2.8 gm/dL 11/08/17 07:10 Albumin/Globulin Ratio 1.3 (1.1-1.8) 11/08/17 07:10 Amylase 86 U/L (35-125) 11/03/17 16:10 Lipase 94 U/L (23-300) 11/03/17 16:10 Vitamin B12 207 pg/mL (239-931) L 11/04/17 09:00 Folate 6.5 ng/mL 11/04/17 09:00 TSH 3rd Generation 1.52 mIU/mL (0.46-4.68) 11/03/17 16:10 Urine Color Yellow (YELLOW) 11/04/17 09:00 Urine Appearance Cloudy (CLEAR) 11/04/17 09:00 Urine pH 6.0 (4.7-8.0) 11/04/17 09:00 Ur Specific [facility] 1.015 (1.005-1.035) 11/04/17 09:00 Urine Protein Negative mg/dL (<30 mg/dL) 11/04/17 09:00 Urine Glucose (UA) Negative mg/dL (NEGATIVE) 11/04/17 09:00 Urine Ketones Negative mg/dL (NEGATIVE) 11/04/17 09:00 Urine Blood Negative (NEGATIVE) 11/04/17 09:00 Urine Nitrate Positive (NEGATIVE) H 11/04/17 09:00 Urine Bilirubin Negative (NEGATIVE) 11/04/17 09:00 Urine Urobilinogen 0.2 E.U./dL (<1 E.U./dL) 11/04/17 09:00 Ur Leukocyte Esterase Small Gonzalez/uL (NEGATIVE) H 11/04/17 09:00 Urine RBC 0 - 2 /hpf (0-2) 11/04/17 09:00 Urine WBC 2 - 5 /hpf (0-6) 11/04/17 09:00 Ur Epithelial Cells 1 - 3 /hpf (0-5) 11/04/17 09:00 Urine Bacteria Many (NEG) 11/04/17 09:00 Stool Occult Blood Positive (NEGATIVE) H 11/04/17 16:30 Blood Type A POSITIVE 11/03/17 16:10 Blood Type Confirm A POSITIVE 11/03/17 17:40 Antibody Screen Negative 11/03/17 16:10 Crossmatch See Detail 11/03/17 16:10 BBK History Checked No verified bt 11/03/17 16:10 Attending/Attestation - Attestation I have personally seen and examined this patient.: Yes I have fully participated in the care of the patient.: Yes I have reviewed all pertinent clinical information, including history, physical exam and plan: Yes Notes (Text): I have seen and examined the patient at bedside. Agree with the above note with the following additions/ exceptions: Briefly this is 72 year old female with history of O2 dependent COPD, PAD, Carotid disease s/p L carotid stent, L subclavian stenosis, CAD s/p CABG, hypothyroidism, CVA x3, and prior R kidney surgery who was sent by PMD for evaluation of anemia. Upon admission Hb was 6.4 and now its 9 s/p 2 units prbc. FOBT positive. Patient underwent endoscopy which revealed single non bleeding AVM in duodenum. Colonoscopy revealed diverticulosis and polyps. Biopsies pending. Continue to hold aspirin and eliquis x3 days. Continue NC for copd. Patient will be transferred to TCU. Upon discharge the patient will follow-up with PMD .
== END 2017-11-08 20:53 | DRG 378 ==
LOC: ED 15:17 → ERH 18:22 → 2RSO 11-04 01:59 → 5RNO 11-08 00:34
PROVIDERS: ADMIT Internal Medicine; ATTEND Hospitalist
PROC: 30233N1 Transfusion of Nonautologous Red Blood Cells into Peripheral Vein, Percutaneous Approach (ICD-10-PCS; 2017-11-04)
PROC: 0DB98ZX Excision of Duodenum, Via Natural or Artificial Opening Endoscopic, Diagnostic (ICD-10-PCS; 2017-11-07)
PROC: 0DBL8ZX Excision of Transverse Colon, Via Natural or Artificial Opening Endoscopic, Diagnostic (ICD-10-PCS; principal; 2017-11-08 10:45)
DX: K92.2 Gastrointestinal hemorrhage, unspecified (principal); N39.0 Urinary tract infection, site not specified; D50.0 Iron deficiency anemia secondary to blood loss (chronic); I25.118 Atherosclerotic heart disease of native coronary artery with other forms of angina pectoris; J44.9 Chronic obstructive pulmonary disease, unspecified; I70.8 Atherosclerosis of other arteries; I48.91 Unspecified atrial fibrillation; E03.9 Hypothyroidism, unspecified; E53.8 Deficiency of other specified B group vitamins; D12.3 Benign neoplasm of transverse colon; K57.30 Diverticulosis of large intestine without perforation or abscess without bleeding; K31.819 Angiodysplasia of stomach and duodenum without bleeding; K44.9 Diaphragmatic hernia without obstruction or gangrene; K31.7 Polyp of stomach and duodenum; D13.2 Benign neoplasm of duodenum; E78.00 Pure hypercholesterolemia, unspecified; F32.9 Major depressive disorder, single episode, unspecified; F41.9 Anxiety disorder, unspecified; R00.1 Bradycardia, unspecified; I73.9 Peripheral vascular disease, unspecified; F03.90 Unspecified dementia, unspecified severity, without behavioral disturbance, psychotic disturbance, mood disturbance, and anxiety; N28.1 Cyst of kidney, acquired; Z79.82 Long term (current) use of aspirin; Z86.73 Personal history of transient ischemic attack (TIA), and cerebral infarction without residual deficits; Z79.01 Long term (current) use of anticoagulants; Z99.81 Dependence on supplemental oxygen; Z95.1 Presence of aortocoronary bypass graft; Z87.891 Personal history of nicotine dependence; Z88.5 Allergy status to narcotic agent; Z88.0 Allergy status to penicillin; Z91.19 Patient's noncompliance with other medical treatment and regimen

== ENCOUNTER 2017-11-08 20:46 | Inpatient (IN) | payer OTHER, MEDICAID ==
[2017-11-08 21:05] VITALS: BMI 22.4
[2017-11-08] MEDS ORDERED: Albuterol-Ipratrop 3 mg / 0.5 (3 ml) UD IH PRN (21:07)
[2017-11-08] MEDS: Sodium Chloride 0.9% 1,000 ML IV SCH (22:34)
[2017-11-09] MEDS ORDERED: Pneumococcal 23-Valent Vaccine IM ONE (00:37)
[2017-11-09] MEDS: Levothyroxine 100 MCG TAB PO SCH (05:31)
[2017-11-09] MEDS: Arformoterol 15 mcg/2 ml Inh Sol IH SCH ×2 (07:13→20:30)
[2017-11-09] MEDS: Budesonide 0.5 mg/2 ml Inhal Susp UD IH SCH ×2 (07:13→20:30)
[2017-11-09 07:30] LABS: HEMOGLOBIN 8.6 g/dL (12.0-16.0); MEAN CELL VOLUME 80.7 fl (80.0-105.0); MEAN CORPUSCULAR HEMOGLOBIN 23.4 pg (25.0-35.0); MEAN CORPUSCULAR HGB CONC 29.1 g/dl (31.0-37.0); RBC 3.67 10^6/uL (3.5-6.1); RED CELL DISTRIBUTION WIDTH 17.6 % (11.5-14.5); WHITE BLOOD COUNT 7.5 10^3/ul (4.5-11.0)
[2017-11-09 07:48] LABS: ALB/GLOB RATIO 1.2 (1.1-1.8); ALT/SGPT 15 U/L (7-56); AST/SGOT 13 U/L (14-36); BLOOD UREA NITROGEN 12 mg/dL (7-21); CALCIUM 7.9 mg/dL (8.4-10.5); GFR AFRICAN-AMERICAN > 60; GFR NON-AFRICAN AMERICAN > 60
[2017-11-09] MEDS: Sodium Chloride 0.9% 1,000 ML IV SCH (08:37)
[2017-11-09] MEDS: diltiaZEM 120 mg/24 Hours CD Cap PO SCH (10:34)
[2017-11-09] MEDS: Iron Complex Polysacch 150mg Cap PO SCH (10:34)
--- NOTE | 2017-11-09 13:18 | CP.PCM.HP ---
<Jose A Oakley - Last Filed: 11/09/17 13:15> History of Present Illness - History of Present Illness History of Present Illness: CC: Symptomatic Anemia Patient is a 72 yo F with PMH of O2 dependent COPD, PAD, Carotid disease s/p L carotid stent, L subclavian stenosis, CAD s/p CABG, a-fib on eliquis, hypothyroidism, CVA x3, and prior R kidney surgery who was instructed to present to [facility] by her PMD after labs obtained in the office yesterday revealed iron deficiency anemia (Hgb 7.7, MCV 75.8, Fe 26, TIBC 458, % Sat 6, Ferritin 4) . Patient had originally presented to PMD's office with complaints of worsening shortness of breath, fatigue, sleepiness, and increased falls when getting out of bed, although then and today she denied any syncope/near-syncope , only attributing it to weakness and somnolence. Patient did admit to 1 episode of mixed melena and hematochezia approximately 1 week prior to admission , but denied any further recurrence. Patient denied any further complaints. Patient was admitted for symptomatic anemia. Anticoagulation was held. Initially , patient denied transfusions due to fear of aj a blood borne illness. However, during hospital course, Hgb dropped to 6.4. At that time patient agreed to transfusion. 2 units of pRBC was given, after which Hgb remained stable in the 9s. GI was consulted and performed EGD and colonscopy. EGD showed 1 AVM and a duodenal polyp, which was biopsied. Colonscopy showed diverticulosis and sessile polyps which were biopsied. Cardiology was consulted due to history of A-fib on eliquis and ASA. Cardiology that patient will need outpatient stress test. PMH: as above PSH:reports 8 CABGs (possibly caths?), Carotid endarterectomy, L Carotid stenting, Cataract removal Soc Hx: Admits former tobacco (cigarettes 2.5 PPD x 40 years, quit 6 years ago) , Denies EtOH/Illicits/IVDA Fam Hx: CAD, HLD PMD: Dr. Wick Present on Admission - Present on Admission Any Indicators Present on Admission: No Review of Systems - Review of Systems Review of Systems: 12 point ROS reviewed is negative other than what is stated in HPI. Past Patient History - Infectious Disease Hx of Infectious Diseases: None - Past Medical History & Family History Past Medical History?: Yes - Past Social History Smoking Status: Former Smoker - CARDIAC Hx Cardiac Disorders: Yes Hx Hypercholesterolemia: Yes Hx Hypertension: Yes - PULMONARY Hx Chronic Obstructive Pulmonary Disease (COPD): Yes - NEUROLOGICAL Hx Dizziness: Yes Hx Migraine: Yes - HEENT Hx HEENT Problems: No - RENAL Other/Comment: right kidney surgery - ENDOCRINE/METABOLIC Hx Hypothyroidism: Yes - HEMATOLOGICAL/ONCOLOGICAL Hx Blood Transfusions: Yes Hx Blood Transfusion Reaction: No - INTEGUMENTARY Hx Dermatological Problems: No - MUSCULOSKELETAL/RHEUMATOLOGICAL Hx Falls: Yes - GASTROINTESTINAL Hx Gastrointestinal Disorders: Yes (diverticulitis/gi bleed) - GENITOURINARY/GYNECOLOGICAL Hx Genitourinary Disorders: No Hx Reproductive Disorders: No - PSYCHIATRIC Hx Anxiety: Yes Hx Substance Use: No - SURGICAL HISTORY Hx Surgeries: Yes - ANESTHESIA Hx Anesthesia Reactions: No Hx Malignant Hyperthermia: No Meds Allergies/Adverse Reactions: Allergies Allergy/AdvReac Type Severity Reaction Status Date / Time codeine Allergy ANAPHYLAXIS Verified 11/08/17 21:05 oxycodone HCl [From Percocet] Allergy ANAPHYLAXIS Verified 11/08/17 21:05 Penicillins Allergy ANAPHYLAXIS Verified 11/08/17 21:05 Physical Exam - Constitutional Appears: No Acute Distress - Head Exam Head Exam: NORMAL INSPECTION - Eye Exam Eye Exam: Normal appearance - ENT Exam ENT Exam: Normal Exam - Neck Exam Neck exam: Positive for: Normal Inspection - Respiratory Exam Respiratory Exam: Clear to Auscultation Bilateral. absent: Rales, Rhonchi, Wheezes - Cardiovascular Exam Cardiovascular Exam: RRR, +S1, +S2. absent: Diastolic murmur, Gallop, Rubs, Systolic Murmur - GI/Abdominal Exam GI & Abdominal Exam: Soft. absent: Distended, Guarding, Rebound, Tenderness - Extremities Exam Extremities exam: Positive for: normal inspection - Back Exam Back exam: NORMAL INSPECTION - Neurological Exam Neurological exam: Alert, CN II-XII Intact, Oriented x3 - Psychiatric Exam Psychiatric exam: Normal Affect, Normal Mood - Skin Skin Exam: Dry, Intact, Normal Color, Warm Results - Vital Signs Recent Vital Signs: Last Vital Signs Temp 98.3 F 11/09/17 00:06 Pulse 80 11/09/17 00:06 Resp 20 11/09/17 00:06 BP 125/76 11/09/17 10:34 Pulse Ox 96 11/08/17 21:00 - Labs Result Diagrams: 11/09/17 07:00 11/09/17 07:00 Labs: Laboratory Results - last 24 hr 11/09/17 11/09/17 07:00 07:00 WBC 7.5 RBC 3.67 Hgb 8.6 L Hct 29.6 L MCV 80.7 MCH 23.4 L MCHC 29.1 L RDW 17.6 H Plt Count 204 MPV 10.0 Sodium 142 Potassium 3.8 Chloride 105 Carbon Dioxide 32 Anion Gap 9 L BUN 12 Creatinine 0.7 Est GFR ( Amer) > 60 Est GFR (Non-Af Amer) > 60 Random Glucose 92 Calcium 7.9 L Total Bilirubin 0.2 AST 13 L ALT 15 Alkaline Phosphatase 50 Total Protein 5.4 L Albumin 3.0 Globulin 2.4 Albumin/Globulin Ratio 1.2 Assessment & Plan - Assessment and Plan (Free Text) Assessment: 72 yo F with PMH COPD on home O2, a.fib (on Eliquis), anxiety/depression, PAD, CAD s/p CABG, hypothyroidism, CVA x3, Carotid disease s/p L carotid stent who was admitted for symptomatic anemia most likely secondary to GI bleed. Now admitted to TCU for continued PT. Plan: 1. Anemia - Secondary to GI bleed most likely, patient also on ASA and Eliquis at home - s/p 2U PRBC - GI consulted Upper endoscopy showed single AVM, duodenal polyp biopsied Colonoscopy showed diverticulosis and sessile polyps - CT A/P showed diverticulosis and a R kidney lesion. - Renal US showed 2 right renal cysts - Iron, %sat and Ferritin are low. TIBC normal consistent with iron deficiency anemia - Protonix q12 - Continue Iron supplementation - Fall precaution - Cont PT 2. UTI - Afebrile, no leukocytosis - Levaquin d/c - Cipro PO 3. Hx of A.fib - Continue Cardizem - Hold ASA and Eliquis, restart in 3 days per GI - Echo showed EF 53%, normal LV function - Cardio consulted stress test on monday 4. Hx of CAD s/p CABG - Lipitor and Imdur 5. Hx of Hypothyroidism - Continue Synthroid 6. Hx of COPD on home O2 - Continue Brovana and pulmicort - Duoneb prn - Continue O2 via nasal cannula 7. Hx of Anxiety/depression - Continue Celexa and Xanax home doses 8. B12 deficiency - PO B12 started - B12 low- was given Vitamin B12 injection GI ppx: Protonix DVT ppx: SCDs- hold anticoagulation for 3 days per GI Case seen, discussed and reviewed with Dr. Chamberlain. Jamie Oakley, PGY1 <Jones Chamberlain - Last Filed: 11/09/17 16:28> Results - Vital Signs Recent Vital Signs: Last Vital Signs Temp 98.3 F 11/09/17 00:06 Pulse 80 11/09/17 00:06 Resp 20 11/09/17 00:06 BP 125/76 11/09/17 10:34 Pulse Ox 96 11/08/17 21:00 - Labs Result Diagrams: 11/09/17 07:00 11/09/17 07:00 Labs: Laboratory Results - last 24 hr 11/09/17 11/09/17 07:00 07:00 WBC 7.5 RBC 3.67 Hgb 8.6 L Hct 29.6 L MCV 80.7 MCH 23.4 L MCHC 29.1 L RDW 17.6 H Plt Count 204 MPV 10.0 Sodium 142 Potassium 3.8 Chloride 105 Carbon Dioxide 32 Anion Gap 9 L BUN 12 Creatinine 0.7 Est GFR ( Amer) > 60 Est GFR (Non-Af Amer) > 60 Random Glucose 92 Calcium 7.9 L Total Bilirubin 0.2 AST 13 L ALT 15 Alkaline Phosphatase 50 Total Protein 5.4 L Albumin 3.0 Globulin 2.4 Albumin/Globulin Ratio 1.2 Attending/Attestation - Attestation I have personally seen and examined this patient.: Yes I have fully participated in the care of the patient.: Yes I have reviewed all pertinent clinical information: Yes Notes (Text): I have seen and examined the patient at bedside. Agree with the above note with the following additions/ exceptions: Briefly this is 72 year old female with history of O2 dependent COPD, PAD, Carotid disease s/p L carotid stent, L subclavian stenosis, CAD s/p CABG, hypothyroidism, CVA x3, and prior R kidney surgery who was sent by PMD for evaluation of anemia. Upon admission Hb was 6.4 and now its 9 s/p 2 units prbc. FOBT positive. Patient underwent endoscopy which revealed single non bleeding AVM in duodenum. Colonoscopy revealed diverticulosis and polyps. Biopsies pending. Continue to hold aspirin and eliquis x3 days. Continue NC for copd. Patient is being transferred to TCU. Upon discharge the patient will follow-up with PMD .
[2017-11-09] MEDS: Pantoprazole 40 mg EC Tab PO SCH (18:29)
[2017-11-10] MEDS: Pantoprazole 40 mg EC Tab PO SCH ×2 (05:03→17:26)
[2017-11-10] MEDS: Levothyroxine 100 MCG TAB PO SCH (05:43)
[2017-11-10] MEDS: Arformoterol 15 mcg/2 ml Inh Sol IH SCH ×2 (07:23→21:13)
[2017-11-10] MEDS: Budesonide 0.5 mg/2 ml Inhal Susp UD IH SCH ×2 (07:23→21:13)
[2017-11-10 09:26] LABS: BLOOD UREA NITROGEN 8 mg/dL (7-21); GFR AFRICAN-AMERICAN > 60; GFR NON-AFRICAN AMERICAN > 60
[2017-11-10 09:27] LABS: ALB/GLOB RATIO 1.2 (1.1-1.8); ALBUMIN 3.1 g/dL (3.0-4.8); ALT/SGPT 14 U/L (7-56); AST/SGOT 13 U/L (14-36); CALCIUM 8.5 mg/dL (8.4-10.5)
[2017-11-10] MEDS: diltiaZEM 120 mg/24 Hours CD Cap PO SCH (10:38)
[2017-11-10] MEDS: Iron Complex Polysacch 150mg Cap PO SCH (10:39)
[2017-11-11] MEDS: Pantoprazole 40 mg EC Tab PO SCH ×2 (06:25→17:13)
[2017-11-11] MEDS: Levothyroxine 100 MCG TAB PO SCH (06:26)
[2017-11-11] MEDS: Arformoterol 15 mcg/2 ml Inh Sol IH SCH ×2 (07:17→20:30)
[2017-11-11] MEDS: Budesonide 0.5 mg/2 ml Inhal Susp UD IH SCH ×2 (07:17→20:30)
[2017-11-11 10:27] LABS: HEMOGLOBIN 9.3 g/dL (12.0-16.0); MEAN CELL VOLUME 81.5 fl (80.0-105.0); MEAN CORPUSCULAR HEMOGLOBIN 23.3 pg (25.0-35.0); MEAN CORPUSCULAR HGB CONC 28.6 g/dl (31.0-37.0); MEAN PLATELET VOLUME 10.2 fl (7.0-11.0); RBC 3.99 10^6/uL (3.5-6.1); RED CELL DISTRIBUTION WIDTH 17.2 % (11.5-14.5); WHITE BLOOD COUNT 7.5 10^3/ul (4.5-11.0)
[2017-11-11] MEDS: diltiaZEM 120 mg/24 Hours CD Cap PO SCH (10:32)
[2017-11-11] MEDS: Iron Complex Polysacch 150mg Cap PO SCH (10:33)
--- NOTE | 2017-11-11 11:09 | CP.PCM.PN ---
<Louis Francisco - Last Filed: 11/11/17 11:04> Subjective - Date & Time of Evaluation Date of Evaluation: 11/11/17 Time of Evaluation: 10:00 - Subjective Subjective: Subjective: Patient seen and examined at bedside. Resting comfortably in bed. No acute overnight events. Patient states fatigue, SOB, and weakness have improved relative to baseline. Offers no new complaints at this time. Denies fever, chills, chest pain, shortness of breath, abdominal pain, nausea, vomiting, diarrhea, constipation, and urinary symptoms. 12-point review of systems negative except as indicated in the HPI Physical Examination: - Constitutional Appears: No Acute Distress - Head Exam Head Exam: NORMAL INSPECTION - Eye Exam Eye Exam: Normal appearance - Neck Exam Neck exam: Positive for: Normal Inspection - Respiratory Exam Respiratory Exam: Clear to Auscultation Bilateral. absent: Rales, Rhonchi, Wheezes - Cardiovascular Exam Cardiovascular Exam: RRR, +S1, +S2. absent: Diastolic murmur, Gallop, Rubs, Systolic Murmur - GI/Abdominal Exam GI & Abdominal Exam: Soft. absent: Distended, Guarding, Rebound, Tenderness - Extremities Exam Extremities exam: Positive for: normal inspection - Neurological Exam Neurological exam: Alert, Oriented x3 - Psychiatric Exam Psychiatric exam: Normal Affect, Normal Mood - Skin Skin Exam: Dry, Intact, Normal Color, Warm Assessment and Plan: 72 yo F with PMH COPD on home O2, a.fib (on Eliquis), anxiety/depression, PAD, CAD s/p CABG, hypothyroidism, CVA x3, Carotid disease s/p L carotid stent who was admitted for symptomatic anemia most likely secondary to GI bleed. Now admitted to TCU for continued PT. Plan: Anemia - Secondary to GI bleed most likely, patient also on ASA and Eliquis at home - s/p 2U PRBC - GI consulted Upper endoscopy showed single AVM, duodenal polyp biopsied Colonoscopy showed diverticulosis and sessile polyps - CT A/P showed diverticulosis and a R kidney lesion. - Renal US showed 2 right renal cysts - Iron, %sat and Ferritin are low. TIBC normal consistent with iron deficiency anemia - Protonix q12 - Continue Iron supplementation - Fall precaution - Cont PT UTI - Afebrile, no leukocytosis - Levaquin d/c - Cipro PO Hx of A.fib - Continue Cardizem - Hold ASA and Eliquis, restart in 3 days per GI - Echo showed EF 53%, normal LV function - Cardio consulted stress test on monday Hx of CAD s/p CABG - Lipitor and Imdur Hx of Hypothyroidism - Continue Synthroid Hx of COPD on home O2 - Continue Brovana and pulmicort - Duoneb prn - Continue O2 via nasal cannula Hx of Anxiety/depression - Continue Celexa and Xanax home doses B12 deficiency - PO B12 started - B12 low- was given Vitamin B12 injection Prophylaxis GI ppx: Protonix DVT ppx: SCDs- hold anticoagulation for 3 days per GI Patient seen, case discussed with, and plan approved by attending physician. Objective - Vital Signs/Intake and Output Vital Signs (last 24 hours): Temp Pulse Resp BP Pulse Ox 98.1 F 69 18 124/62 99 11/10/17 18:02 11/11/17 10:32 11/10/17 18:02 11/11/17 10:32 11/10/17 18:02 - Medications Medications: Current Medications Acetaminophen (Tylenol 325mg Tab) 650 mg PO Q6H PRN; Protocol PRN Reason: Fever >100.4 F Albuterol/Ipratropium (Duoneb 3 Mg/0.5 Mg (3 Ml) Ud) 3 ml IH Q2H PRN; Protocol PRN Reason: Shortness of Breath Alprazolam (Xanax) 1 mg PO Q6H PRN; Protocol PRN Reason: Anxiety Last Admin: 11/11/17 08:42 Dose: 1 mg Arformoterol Tartrate (Brovana) 15 mcg IH [id number] STACY PRN Reason: Protocol Last Admin: 11/11/17 07:17 Dose: Not Given Atorvastatin Calcium (Lipitor) 40 mg PO DIN STACY PRN Reason: Protocol Last Admin: 11/10/17 17:26 Dose: 40 mg Budesonide (Pulmicort Respules) 0.5 mg IH [id number] STACY PRN Reason: Protocol Last Admin: 11/11/17 07:17 Dose: Not Given Ciprofloxacin (Cipro) 500 mg PO Q12 STACY PRN Reason: Protocol Stop: 11/14/17 13:24 Last Admin: 11/11/17 10:32 Dose: 500 mg Citalopram Hydrobromide (Celexa) 20 mg PO HS STACY PRN Reason: Protocol Last Admin: 11/10/17 22:55 Dose: 20 mg Cyanocobalamin (Vitamin B12 1000 Mcg Tab) 1,000 mcg PO DAILY STACY PRN Reason: Protocol Last Admin: 11/11/17 10:33 Dose: 1,000 mcg Diltiazem HCl (Cardizem Cd) 120 mg PO DAILY STACY PRN Reason: Protocol Last Admin: 11/11/17 10:32 Dose: 120 mg Isosorbide Mononitrate (Imdur) 60 mg PO 0600 STACY PRN Reason: Protocol Last Admin: 11/11/17 06:25 Dose: 60 mg Levothyroxine Sodium (Synthroid) 100 mcg PO 0630 STACY PRN Reason: Protocol Last Admin: 11/11/17 06:26 Dose: 100 mcg Memantine (Namenda) 5 mg PO DAILY STACY PRN Reason: Protocol Last Admin: 11/11/17 10:33 Dose: 5 mg Ondansetron HCl (Zofran Inj) 4 mg IVP Q6H PRN; Protocol PRN Reason: Nausea/Vomiting Pantoprazole Sodium (Protonix Ec Tab) 40 mg PO 0600,1600 STACY PRN Reason: Protocol Last Admin: 11/11/17 06:25 Dose: 40 mg Polysaccharide Iron Complex (Ferrex-150) 150 mg PO DAILY STACY PRN Reason: Protocol Last Admin: 11/11/17 10:33 Dose: 150 mg - Labs Labs: 11/11/17 10:23 11/10/17 08:30 <Gregoria Torres - Last Filed: 11/11/17 13:59> Objective - Vital Signs/Intake and Output Vital Signs (last 24 hours): Temp Pulse Resp BP Pulse Ox 98.1 F 69 18 124/62 99 11/10/17 18:02 11/11/17 10:32 11/10/17 18:02 11/11/17 10:32 11/10/17 18:02 - Medications Medications: Current Medications Acetaminophen (Tylenol 325mg Tab) 650 mg PO Q6H PRN; Protocol PRN Reason: Fever >100.4 F Albuterol/Ipratropium (Duoneb 3 Mg/0.5 Mg (3 Ml) Ud) 3 ml IH Q2H PRN; Protocol PRN Reason: Shortness of Breath Alprazolam (Xanax) 1 mg PO Q6H PRN; Protocol PRN Reason: Anxiety Last Admin: 11/11/17 08:42 Dose: 1 mg Arformoterol Tartrate (Brovana) 15 mcg IH [id number] STACY PRN Reason: Protocol Last Admin: 11/11/17 07:17 Dose: Not Given Atorvastatin Calcium (Lipitor) 40 mg PO DIN STACY PRN Reason: Protocol Last Admin: 11/10/17 17:26 Dose: 40 mg Budesonide (Pulmicort Respules) 0.5 mg IH [id number] STACY PRN Reason: Protocol Last Admin: 11/11/17 07:17 Dose: Not Given Ciprofloxacin (Cipro) 500 mg PO Q12 STACY PRN Reason: Protocol Stop: 11/14/17 13:24 Last Admin: 11/11/17 10:32 Dose: 500 mg Citalopram Hydrobromide (Celexa) 20 mg PO HS STACY PRN Reason: Protocol Last Admin: 11/10/17 22:55 Dose: 20 mg Cyanocobalamin (Vitamin B12 1000 Mcg Tab) 1,000 mcg PO DAILY STACY PRN Reason: Protocol Last Admin: 11/11/17 10:33 Dose: 1,000 mcg Diltiazem HCl (Cardizem Cd) 120 mg PO DAILY STACY PRN Reason: Protocol Last Admin: 11/11/17 10:32 Dose: 120 mg Isosorbide Mononitrate (Imdur) 60 mg PO 0600 STACY PRN Reason: Protocol Last Admin: 11/11/17 06:25 Dose: 60 mg Levothyroxine Sodium (Synthroid) 100 mcg PO 0630 STACY PRN Reason: Protocol Last Admin: 11/11/17 06:26 Dose: 100 mcg Memantine (Namenda) 5 mg PO DAILY STACY PRN Reason: Protocol Last Admin: 11/11/17 10:33 Dose: 5 mg Ondansetron HCl (Zofran Inj) 4 mg IVP Q6H PRN; Protocol PRN Reason: Nausea/Vomiting Pantoprazole Sodium (Protonix Ec Tab) 40 mg PO 0600,1600 STACY PRN Reason: Protocol Last Admin: 11/11/17 06:25 Dose: 40 mg Polysaccharide Iron Complex (Ferrex-150) 150 mg PO DAILY STACY PRN Reason: Protocol Last Admin: 11/11/17 10:33 Dose: 150 mg - Labs Labs: 11/11/17 10:23 11/10/17 08:30 Attending/Attestation - Attestation I have personally seen and examined this patient.: Yes I have fully participated in the care of the patient.: Yes I have reviewed all pertinent clinical information, including history, physical exam and plan: Yes Notes (Text): 11/11/17 13:57 Attending note; Patient seen and examined with resident in TCU. Patient is a 72 year old female with history of O2 dependent COPD, PAD, Carotid disease s/p L carotid stent, L subclavian stenosis, CAD s/p CABG, hypothyroidism , CVA x3, and prior R kidney surgery who was sent by PMD for evaluation of anemia. Upon admission Hb was 6.4 and now its 9 s/p 2 units prbc. FOBT positive. Patient underwent endoscopy which revealed single non bleeding AVM in duodenum. Colonoscopy revealed diverticulosis and polyps. Continue to hold aspirin and eliquis. Continue physical therapy in TCU. Plan for stress test on Monday. Nothing by mouth past midnight on Monday. Upon discharge the patient will follow-up with PMD .
[2017-11-12] MEDS: Levothyroxine 100 MCG TAB PO SCH (06:52)
[2017-11-12] MEDS: Pantoprazole 40 mg EC Tab PO SCH ×2 (06:52→16:55)
[2017-11-12] MEDS: Budesonide 0.5 mg/2 ml Inhal Susp UD IH SCH ×3 (07:20→22:15)
[2017-11-12] MEDS: Arformoterol 15 mcg/2 ml Inh Sol IH SCH ×3 (07:20→22:15)
[2017-11-12] MEDS: Iron Complex Polysacch 150mg Cap PO SCH (09:47)
[2017-11-12] MEDS: diltiaZEM 120 mg/24 Hours CD Cap PO SCH (10:42)
[2017-11-12] MEDS ORDERED: guaiFENesin 100 mg/5 ml Syrup UD PO PRN (15:52)
[2017-11-13] MEDS: Levothyroxine 100 MCG TAB PO SCH (06:35)
[2017-11-13] MEDS: Pantoprazole 40 mg EC Tab PO SCH ×2 (06:35→16:32)
[2017-11-13] MEDS: Budesonide 0.5 mg/2 ml Inhal Susp UD IH SCH ×3 (07:07→21:30)
[2017-11-13] MEDS: Arformoterol 15 mcg/2 ml Inh Sol IH SCH ×3 (07:07→21:30)
[2017-11-13] MEDS ORDERED: Aminophylline 25 mg/ml Inj ONE (07:46)
[2017-11-13] MEDS: Iron Complex Polysacch 150mg Cap PO SCH (10:14)
[2017-11-13] MEDS: diltiaZEM 120 mg/24 Hours CD Cap PO SCH (10:29)
[2017-11-13 11:09] LABS: HEMOGLOBIN 10.2 g/dL (12.0-16.0); MEAN CORPUSCULAR HEMOGLOBIN 23.4 pg (25.0-35.0); MEAN CORPUSCULAR HGB CONC 28.9 g/dl (31.0-37.0); MEAN PLATELET VOLUME 9.9 fl (7.0-11.0); RBC 4.36 10^6/uL (3.5-6.1); RED CELL DISTRIBUTION WIDTH 17.5 % (11.5-14.5); WHITE BLOOD COUNT 8.9 10^3/ul (4.5-11.0)
[2017-11-13 11:22] LABS: BLOOD UREA NITROGEN 16 mg/dL (7-21); CALCIUM 9.5 mg/dL (8.4-10.5); GFR AFRICAN-AMERICAN > 60; GFR NON-AFRICAN AMERICAN > 60
--- NOTE | 2017-11-13 11:48 | CP.PCM.PN ---
<Jose A Oakley - Last Filed: 11/13/17 13:05> Subjective - Date & Time of Evaluation Date of Evaluation: 11/13/17 Time of Evaluation: 11:45 - Subjective Subjective: Medicine Progress Note Pt seen and examined at bedside. No acute overnight events. Pt offers no complaints at this time. Pt went for stress test today. Pt denies CP, SOB, n/v/d , abdominal pain, fever, chills, MEANS, or dizziness. Objective - Vital Signs/Intake and Output Vital Signs (last 24 hours): Temp Pulse Resp BP Pulse Ox 97.8 F 70 20 137/59 L 99 11/12/17 10:00 11/13/17 10:29 11/13/17 10:00 11/13/17 10:11/13/17 10:00 - Medications Medications: Current Medications Acetaminophen (Tylenol 325mg Tab) 650 mg PO Q6H PRN; Protocol PRN Reason: Fever >100.4 F Albuterol/Ipratropium (Duoneb 3 Mg/0.5 Mg (3 Ml) Ud) 3 ml IH Q2H PRN; Protocol PRN Reason: Shortness of Breath Alprazolam (Xanax) 1 mg PO Q6H PRN; Protocol PRN Reason: Anxiety Last Admin: 11/13/17 09:52 Dose: 1 mg Arformoterol Tartrate (Brovana) 15 mcg IH [id number] STACY PRN Reason: Protocol Last Admin: 11/13/17 10:00 Dose: 15 mcg Aspirin (Aspirin Chewable) 81 mg PO DAILY STACY Last Admin: 11/13/17 11:44 Dose: 81 mg Atorvastatin Calcium (Lipitor) 40 mg PO DIN STACY PRN Reason: Protocol Last Admin: 11/12/17 16:55 Dose: 40 mg Budesonide (Pulmicort Respules) 0.5 mg IH [id number] STACY PRN Reason: Protocol Last Admin: 11/13/17 10:00 Dose: 0.5 mg Ciprofloxacin (Cipro) 500 mg PO Q12 STACY PRN Reason: Protocol Stop: 11/14/17 13:24 Last Admin: 11/13/17 10:14 Dose: 500 mg Citalopram Hydrobromide (Celexa) 20 mg PO HS STACY PRN Reason: Protocol Last Admin: 11/12/17 22:11 Dose: 20 mg Cyanocobalamin (Vitamin B12 1000 Mcg Tab) 1,000 mcg PO DAILY STACY PRN Reason: Protocol Last Admin: 11/13/17 10:15 Dose: 1,000 mcg Diltiazem HCl (Cardizem Cd) 120 mg PO DAILY STACY PRN Reason: Protocol Last Admin: 11/13/17 10:29 Dose: 120 mg Guaifenesin (Robitussin) 100 mg PO Q4H PRN PRN Reason: Cough Last Admin: 11/12/17 17:29 Dose: 100 mg Isosorbide Mononitrate (Imdur) 60 mg PO 0600 STACY PRN Reason: Protocol Last Admin: 11/13/17 06:34 Dose: Not Given Levothyroxine Sodium (Synthroid) 100 mcg PO 0630 STACY PRN Reason: Protocol Last Admin: 11/13/17 06:35 Dose: Not Given Memantine (Namenda) 5 mg PO DAILY STACY PRN Reason: Protocol Last Admin: 11/13/17 10:15 Dose: 5 mg Ondansetron HCl (Zofran Inj) 4 mg IVP Q6H PRN; Protocol PRN Reason: Nausea/Vomiting Pantoprazole Sodium (Protonix Ec Tab) 40 mg PO 0600,1600 STACY PRN Reason: Protocol Last Admin: 11/13/17 06:35 Dose: Not Given Polysaccharide Iron Complex (Ferrex-150) 150 mg PO DAILY STACY PRN Reason: Protocol Last Admin: 11/13/17 10:14 Dose: 150 mg - Labs Labs: 11/13/17 11:06 11/13/17 11:06 - Constitutional Appears: No Acute Distress - Head Exam Head Exam: NORMAL INSPECTION - Eye Exam Eye Exam: Normal appearance - ENT Exam ENT Exam: Normal Exam - Neck Exam Neck Exam: Normal Inspection - Respiratory Exam Respiratory Exam: Clear to Ausculation Bilateral. absent: Rales, Rhonchi, Wheezes - Cardiovascular Exam Cardiovascular Exam: RRR, +S1, +S2. absent: Gallop, Rubs, Murmur - GI/Abdominal Exam GI & Abdominal Exam: Soft. absent: Distended, Guarding, Tenderness, Rebound - Extremities Exam Extremities Exam: Normal Inspection - Back Exam Back Exam: NORMAL INSPECTION - Neurological Exam Neurological Exam: Alert, Awake, CN II-XII Intact, Oriented x3 - Psychiatric Exam Psychiatric exam: Normal Affect, Normal Mood - Skin Skin Exam: Dry, Intact, Normal Color, Warm Assessment and Plan - Assessment and Plan (Free Text) Assessment: 72 yo F with PMH COPD on home O2, a.fib (on Eliquis), anxiety/depression, PAD, CAD s/p CABG, hypothyroidism, CVA x3, Carotid disease s/p L carotid stent who was admitted for symptomatic anemia most likely secondary to GI bleed. Now admitted to TCU for continued PT. Plan: Anemia - Secondary to GI bleed - s/p 2U PRBC - GI consulted Upper endoscopy showed single AVM, duodenal polyp biopsied Colonoscopy showed diverticulosis and sessile polyps - CT A/P showed diverticulosis and a R kidney lesion. - Renal US showed 2 right renal cysts - Iron, %sat and Ferritin are low. TIBC normal consistent with iron deficiency anemia - Protonix q12 - Continue Iron supplementation - Fall precaution - Cont PT UTI - Afebrile, no leukocytosis - Cipro PO Hx of A.fib - Continue Cardizem - Restarted ASA - Hold Eliquis for 1 more week per GI (MondayNovember 20) - Echo showed EF 53%, normal LV function - Cardio consulted stress test on monday Hx of CAD s/p CABG - Lipitor and Imdur Hx of Hypothyroidism - Continue Synthroid Hx of COPD on home O2 - Continue Brovana and pulmicort - Duoneb prn - Continue O2 via nasal cannula Hx of Anxiety/depression - Continue Celexa and Xanax home doses B12 deficiency - PO B12 started - B12 low- was given Vitamin B12 injection Prophylaxis GI ppx: Protonix DVT ppx: SCDs Patient seen and discussed in detail with Dr. Torres. Jamie Oakley, PGY1 <Gregoria Torres - Last Filed: 11/14/17 13:40> Objective - Vital Signs/Intake and Output Vital Signs (last 24 hours): Temp Pulse Resp BP Pulse Ox 98 F 69 18 124/62 99 11/13/17 16:00 11/14/17 09:10 11/13/17 16:00 11/14/17 09:10 11/13/17 16:00 - Medications Medications: Current Medications Acetaminophen (Tylenol 325mg Tab) 650 mg PO Q6H PRN; Protocol PRN Reason: Fever >100.4 F Albuterol/Ipratropium (Duoneb 3 Mg/0.5 Mg (3 Ml) Ud) 3 ml IH Q2H PRN; Protocol PRN Reason: Shortness of Breath Alprazolam (Xanax) 1 mg PO Q6H PRN; Protocol PRN Reason: Anxiety Last Admin: 11/14/17 05:16 Dose: 1 mg Arformoterol Tartrate (Brovana) 15 mcg IH [id number] STACY PRN Reason: Protocol Last Admin: 11/14/17 07:14 Dose: Not Given Aspirin (Aspirin Chewable) 81 mg PO DAILY [facility] Last Admin: 11/14/17 09:11 Dose: 81 mg Atorvastatin Calcium (Lipitor) 40 mg PO DIN STACY PRN Reason: Protocol Last Admin: 11/13/17 17:14 Dose: 40 mg Budesonide (Pulmicort Respules) 0.5 mg IH [id number] STACY PRN Reason: Protocol Last Admin: 11/14/17 07:15 Dose: Not Given Ciprofloxacin (Cipro) 500 mg PO Q12 STACY PRN Reason: Protocol Stop: 11/14/17 23:59 Last Admin: 11/14/17 09:11 Dose: 500 mg Citalopram Hydrobromide (Celexa) 20 mg PO HS STACY PRN Reason: Protocol Last Admin: 11/13/17 21:14 Dose: 20 mg Cyanocobalamin (Vitamin B12 1000 Mcg Tab) 1,000 mcg PO DAILY STACY PRN Reason: Protocol Last Admin: 11/14/17 09:11 Dose: 1,000 mcg Diltiazem HCl (Cardizem Cd) 120 mg PO DAILY STACY PRN Reason: Protocol Last Admin: 11/14/17 09:10 Dose: 120 mg Guaifenesin (Robitussin) 100 mg PO Q4H PRN PRN Reason: Cough Last Admin: 11/12/17 17:29 Dose: 100 mg Isosorbide Mononitrate (Imdur) 60 mg PO 0600 STCAY PRN Reason: Protocol Last Admin: 11/14/17 05:15 Dose: 60 mg Levothyroxine Sodium (Synthroid) 100 mcg PO 0630 STACY PRN Reason: Protocol Last Admin: 11/14/17 05:39 Dose: 100 mcg Memantine (Namenda) 5 mg PO DAILY STACY PRN Reason: Protocol Last Admin: 11/14/17 09:11 Dose: 5 mg Ondansetron HCl (Zofran Inj) 4 mg IVP Q6H PRN; Protocol PRN Reason: Nausea/Vomiting Pantoprazole Sodium (Protonix Ec Tab) 40 mg PO 0600,1600 STACY PRN Reason: Protocol Last Admin: 11/14/17 05:15 Dose: 40 mg Polysaccharide Iron Complex (Ferrex-150) 150 mg PO DAILY STACY PRN Reason: Protocol Last Admin: 11/14/17 09:11 Dose: 150 mg - Labs Labs: 11/13/17 11:06 11/13/17 11:06 Attending/Attestation - Attestation I have personally seen and examined this patient.: Yes I have fully participated in the care of the patient.: Yes I have reviewed all pertinent clinical information, including history, physical exam and plan: Yes Notes (Text): 11/14/17 13:40 Attending note; Patient seen and examined with resident in TCU. Patient is a 72 year old female with history of O2 dependent COPD, PAD, Carotid disease s/p L carotid stent, L subclavian stenosis, CAD s/p CABG, hypothyroidism , CVA x3, and prior R kidney surgery who was sent by PMD for evaluation of anemia. Upon admission Hb was 6.4 and now its 9 s/p 2 units prbc. FOBT positive. Patient underwent endoscopy which revealed single non bleeding AVM in duodenum. Colonoscopy revealed diverticulosis and polyps. case discussed with GI in detail. started on aspirin today. we will start eliquis next week. Hemoglobin is stable. Continue physical therapy in TCU. status post stress test today. Upon discharge the patient will follow-up with PMD .
[2017-11-13 16:32] VITALS: RESP 18
[2017-11-14] MEDS: Pantoprazole 40 mg EC Tab PO SCH ×2 (05:15→17:00)
[2017-11-14] MEDS: Levothyroxine 100 MCG TAB PO SCH (05:39)
[2017-11-14] MEDS: Arformoterol 15 mcg/2 ml Inh Sol IH SCH ×2 (07:14→19:29)
[2017-11-14] MEDS: Budesonide 0.5 mg/2 ml Inhal Susp UD IH SCH ×2 (07:15→19:29)
[2017-11-14] MEDS: diltiaZEM 120 mg/24 Hours CD Cap PO SCH (09:10)
[2017-11-14] MEDS: Iron Complex Polysacch 150mg Cap PO SCH (09:11)
[2017-11-15] MEDS: Levothyroxine 100 MCG TAB PO SCH (05:31)
[2017-11-15] MEDS: Pantoprazole 40 mg EC Tab PO SCH ×2 (05:31→15:38)
[2017-11-15] MEDS: Arformoterol 15 mcg/2 ml Inh Sol IH SCH ×2 (07:22→19:52)
[2017-11-15] MEDS: Budesonide 0.5 mg/2 ml Inhal Susp UD IH SCH ×2 (07:22→19:52)
--- NOTE | 2017-11-15 09:11 | CP.PCM.PN ---
<Jose A Oakley - Last Filed: 11/15/17 09:19> Subjective - Date & Time of Evaluation Date of Evaluation: 11/15/17 Time of Evaluation: 09:08 - Subjective Subjective: Medicine Progress Note Pt seen and examined at bedside. No acute overnight events. Pt offers no complaints at this time. Pt tolerating diet. Pt denies CP, SOB, n/v/d, abdominal pain, fever, chills, fatigue, MEANS, or dizziness. Objective - Vital Signs/Intake and Output Vital Signs (last 24 hours): Temp Pulse Resp BP Pulse Ox 97.1 F L 82 18 127/67 100 11/14/17 16:00 11/14/17 16:00 11/14/17 16:00 11/14/17 16:00 11/14/17 16:00 - Medications Medications: Current Medications Acetaminophen (Tylenol 325mg Tab) 650 mg PO Q6H PRN; Protocol PRN Reason: Fever >100.4 F Albuterol/Ipratropium (Duoneb 3 Mg/0.5 Mg (3 Ml) Ud) 3 ml IH Q2H PRN; Protocol PRN Reason: Shortness of Breath Last Admin: 11/14/17 19:29 Dose: 3 ml Alprazolam (Xanax) 1 mg PO Q6H PRN; Protocol PRN Reason: Anxiety Last Admin: 11/14/17 23:14 Dose: 1 mg Arformoterol Tartrate (Brovana) 15 mcg IH [id number] STACY PRN Reason: Protocol Last Admin: 11/15/17 07:22 Dose: Not Given Aspirin (Aspirin Chewable) 81 mg PO DAILY [facility] Last Admin: 11/14/17 09:11 Dose: 81 mg Atorvastatin Calcium (Lipitor) 40 mg PO DIN STACY PRN Reason: Protocol Last Admin: 11/14/17 17:21 Dose: 40 mg Budesonide (Pulmicort Respules) 0.5 mg IH [id number] STACY PRN Reason: Protocol Last Admin: 11/15/17 07:22 Dose: Not Given Citalopram Hydrobromide (Celexa) 20 mg PO HS STACY PRN Reason: Protocol Last Admin: 11/14/17 23:14 Dose: 20 mg Cyanocobalamin (Vitamin B12 1000 Mcg Tab) 1,000 mcg PO DAILY STACY PRN Reason: Protocol Last Admin: 11/14/17 09:11 Dose: 1,000 mcg Diltiazem HCl (Cardizem Cd) 120 mg PO DAILY STACY PRN Reason: Protocol Last Admin: 11/14/17 09:10 Dose: 120 mg Guaifenesin (Robitussin) 100 mg PO Q4H PRN PRN Reason: Cough Last Admin: 11/12/17 17:29 Dose: 100 mg Isosorbide Mononitrate (Imdur) 60 mg PO 0600 STACY PRN Reason: Protocol Last Admin: 11/15/17 05:33 Dose: Not Given Levothyroxine Sodium (Synthroid) 100 mcg PO 0630 STACY PRN Reason: Protocol Last Admin: 11/15/17 05:31 Dose: 100 mcg Memantine (Namenda) 5 mg PO DAILY STACY PRN Reason: Protocol Last Admin: 11/14/17 09:11 Dose: 5 mg Ondansetron HCl (Zofran Inj) 4 mg IVP Q6H PRN; Protocol PRN Reason: Nausea/Vomiting Pantoprazole Sodium (Protonix Ec Tab) 40 mg PO 0600,1600 STACY PRN Reason: Protocol Last Admin: 11/15/17 05:31 Dose: 40 mg Polysaccharide Iron Complex (Ferrex-150) 150 mg PO DAILY STACY PRN Reason: Protocol Last Admin: 11/14/17 09:11 Dose: 150 mg - Labs Labs: 11/13/17 11:06 11/13/17 11:06 - Constitutional Appears: No Acute Distress - Head Exam Head Exam: NORMAL INSPECTION - Eye Exam Eye Exam: Normal appearance Pupil Exam: NORMAL ACCOMODATION - ENT Exam ENT Exam: Normal Exam - Neck Exam Neck Exam: Normal Inspection - Respiratory Exam Respiratory Exam: Clear to Ausculation Bilateral. absent: Rales, Rhonchi, Wheezes, Respiratory Distress - Cardiovascular Exam Cardiovascular Exam: RRR, +S1, +S2. absent: Diastolic murmur, Gallop, Rubs, Murmur - GI/Abdominal Exam GI & Abdominal Exam: Soft. absent: Distended, Guarding, Tenderness, Rebound - Extremities Exam Extremities Exam: Normal Inspection - Back Exam Back Exam: NORMAL INSPECTION - Neurological Exam Neurological Exam: Alert, Awake, CN II-XII Intact, Oriented x3 - Psychiatric Exam Psychiatric exam: Normal Affect, Normal Mood - Skin Skin Exam: Dry, Intact, Normal Color, Warm Assessment and Plan - Assessment and Plan (Free Text) Assessment: 72 yo F with PMH COPD on home O2, a.fib (on Eliquis), anxiety/depression, PAD, CAD s/p CABG, hypothyroidism, CVA x3, Carotid disease s/p L carotid stent who was admitted for symptomatic anemia most likely secondary to GI bleed. Now admitted to TCU for continued PT. Plan: Anemia - Secondary to GI bleed - s/p 2U PRBC - GI consulted Upper endoscopy showed single AVM, duodenal polyp biopsied Colonoscopy showed diverticulosis and sessile polyps - CT A/P showed diverticulosis and a R kidney lesion. - Renal US showed 2 right renal cysts - Iron, %sat, and Ferritin are low. TIBC normal consistent with iron deficiency anemia - Protonix q12 - Continue Iron supplementation - Fall precaution - Cont PT UTI - Afebrile, no leukocytosis - Cipro PO Hx of A.fib - Continue Cardizem - Restarted ASA - Hold Eliquis for 1 more week per GI (MondayNovember 20) - Echo showed EF 53%, normal LV function Hx of CAD s/p CABG - Lipitor and Imdur - Stress test from 11/13 normal Hx of Hypothyroidism - Continue Synthroid Hx of COPD on home O2 - Continue Brovana and pulmicort - Duoneb prn - Continue O2 via nasal cannula Hx of Anxiety/depression - Continue Celexa and Xanax home doses B12 deficiency - PO B12 started - B12 low- was given Vitamin B12 injection Prophylaxis GI ppx: Protonix DVT ppx: SCDs Dispo: Last TCU day tomorrow, 11/16/17. Patient seen and discussed in detail with Dr. Torres. Jamie Oakley, PGY1 <Gregoria Torres - Last Filed: 11/15/17 17:28> Objective - Vital Signs/Intake and Output Vital Signs (last 24 hours): Temp Pulse Resp BP Pulse Ox 97.9 F 69 18 126/45 L 97 11/15/17 16:00 11/15/17 16:00 11/15/17 16:00 11/15/17 16:00 11/15/17 16:00 - Medications Medications: Current Medications Acetaminophen (Tylenol 325mg Tab) 650 mg PO Q6H PRN; Protocol PRN Reason: Fever >100.4 F Albuterol/Ipratropium (Duoneb 3 Mg/0.5 Mg (3 Ml) Ud) 3 ml IH Q2H PRN; Protocol PRN Reason: Shortness of Breath Last Admin: 11/14/17 19:29 Dose: 3 ml Alprazolam (Xanax) 1 mg PO Q6H PRN; Protocol PRN Reason: Anxiety Last Admin: 11/15/17 15:41 Dose: 1 mg Arformoterol Tartrate (Brovana) 15 mcg IH [id number] STACY PRN Reason: Protocol Last Admin: 11/15/17 07:22 Dose: Not Given Aspirin (Aspirin Chewable) 81 mg PO DAILY STACY Last Admin: 11/15/17 10:03 Dose: 81 mg Atorvastatin Calcium (Lipitor) 40 mg PO DIN STACY PRN Reason: Protocol Last Admin: 11/14/17 17:21 Dose: 40 mg Budesonide (Pulmicort Respules) 0.5 mg IH [id number] STACY PRN Reason: Protocol Last Admin: 11/15/17 07:22 Dose: Not Given Citalopram Hydrobromide (Celexa) 20 mg PO HS STACY PRN Reason: Protocol Last Admin: 11/14/17 23:14 Dose: 20 mg Cyanocobalamin (Vitamin B12 1000 Mcg Tab) 1,000 mcg PO DAILY STACY PRN Reason: Protocol Last Admin: 11/15/17 10:04 Dose: 1,000 mcg Diltiazem HCl (Cardizem Cd) 120 mg PO DAILY STACY PRN Reason: Protocol Last Admin: 11/15/17 10:03 Dose: 120 mg Guaifenesin (Robitussin) 100 mg PO Q4H PRN PRN Reason: Cough Last Admin: 11/12/17 17:29 Dose: 100 mg Isosorbide Mononitrate (Imdur) 60 mg PO 0600 STACY PRN Reason: Protocol Last Admin: 11/15/17 05:33 Dose: Not Given Levothyroxine Sodium (Synthroid) 100 mcg PO 0630 STACY PRN Reason: Protocol Last Admin: 11/15/17 05:31 Dose: 100 mcg Memantine (Namenda) 5 mg PO DAILY STACY PRN Reason: Protocol Last Admin: 11/15/17 10:03 Dose: 5 mg Ondansetron HCl (Zofran Inj) 4 mg IVP Q6H PRN; Protocol PRN Reason: Nausea/Vomiting Pantoprazole Sodium (Protonix Ec Tab) 40 mg PO 0600,1600 STACY PRN Reason: Protocol Last Admin: 11/15/17 05:31 Dose: 40 mg Polysaccharide Iron Complex (Ferrex-150) 150 mg PO DAILY STACY PRN Reason: Protocol Last Admin: 11/15/17 10:03 Dose: 150 mg - Labs Labs: 11/15/17 10:40 11/15/17 10:40 Attending/Attestation - Attestation I have personally seen and examined this patient.: Yes I have fully participated in the care of the patient.: Yes I have reviewed all pertinent clinical information, including history, physical exam and plan: Yes Notes (Text): 11/15/17 17:27 Attending note; Patient seen and examined with resident in TCU. Patient is a 72 year old female with history of O2 dependent COPD, PAD, Carotid disease s/p L carotid stent, L subclavian stenosis, CAD s/p CABG, hypothyroidism , CVA x3, and prior R kidney surgery who was sent by PMD for evaluation of anemia. Upon admission Hb was 6.4 and now its 9 s/p 2 units prbc. FOBT positive. Patient underwent endoscopy which revealed single non bleeding AVM in duodenum. Colonoscopy revealed diverticulosis and polyps. case discussed with GI in detail. started on aspirin today. we will start eliquis next week. Hemoglobin is stable. Continue physical therapy in TCU. stress test shows no new ischemic changes. Plan for Discharge home tomorrow. Upon discharge the patient will follow-up with PMD .
[2017-11-15] MEDS: diltiaZEM 120 mg/24 Hours CD Cap PO SCH (10:03)
[2017-11-15] MEDS: Iron Complex Polysacch 150mg Cap PO SCH (10:03)
[2017-11-15 10:53] LABS: HEMOGLOBIN 9.4 g/dL (12.0-16.0); MEAN CELL VOLUME 81.2 fl (80.0-105.0); MEAN CORPUSCULAR HEMOGLOBIN 23.2 pg (25.0-35.0); MEAN CORPUSCULAR HGB CONC 28.6 g/dl (31.0-37.0); MEAN PLATELET VOLUME 10.2 fl (7.0-11.0); RBC 4.05 10^6/uL (3.5-6.1); RED CELL DISTRIBUTION WIDTH 17.6 % (11.5-14.5); WHITE BLOOD COUNT 7.8 10^3/ul (4.5-11.0)
[2017-11-15 11:09] LABS: BLOOD UREA NITROGEN 22 mg/dL (7-21); CALCIUM 9.3 mg/dL (8.4-10.5); GFR AFRICAN-AMERICAN > 60; GFR NON-AFRICAN AMERICAN > 60
[2017-11-16] MEDS: Pantoprazole 40 mg EC Tab PO SCH (05:18)
[2017-11-16] MEDS: Levothyroxine 100 MCG TAB PO SCH (05:31)
[2017-11-16] MEDS: Arformoterol 15 mcg/2 ml Inh Sol IH SCH (07:21)
[2017-11-16] MEDS: Budesonide 0.5 mg/2 ml Inhal Susp UD IH SCH (07:22)
[2017-11-16] MEDS: diltiaZEM 120 mg/24 Hours CD Cap PO SCH (10:24)
[2017-11-16] MEDS: Iron Complex Polysacch 150mg Cap PO SCH (10:24)
[2017-11-16 10:27] VITALS: BP 138/74; PULSE 62
[2017-11-16 12:28] VITALS: TEMP 98.3; O2SAT 99
--- NOTE | 2017-11-16 12:46 | CP.PCM.DIS ---
<Jose A Oakley - Last Filed: 11/16/17 12:41> Provider - Provider Date of Admission: 11/08/17 20:46 Attending physician: Gregoria Torres MD Primary care physician: Macho Wick MD Consults: Cardio: Cali Time Spent in preparation of Discharge (in minutes): 45 Hospital Course - Lab Results Lab Results: Most Recent Lab Values WBC 7.8 10^3/ul (4.5-11.0) 11/15/17 10:40 RBC 4.05 10^6/uL (3.5-6.1) 11/15/17 10:40 Hgb 9.4 g/dL (12.0-16.0) L 11/15/17 10:40 Hct 32.9 % (36.0-48.0) L 11/15/17 10:40 MCV 81.2 fl (80.0-105.0) 11/15/17 10:40 MCH 23.2 pg (25.0-35.0) L 11/15/17 10:40 MCHC 28.6 g/dl (31.0-37.0) L 11/15/17 10:40 RDW 17.6 % (11.5-14.5) H 11/15/17 10:40 Plt Count 252 10^3/uL (120.0-450.0) 11/15/17 10:40 MPV 10.2 fl (7.0-11.0) 11/15/17 10:40 Sodium 139 mmol/L (132-148) 11/15/17 10:40 Potassium 4.8 mmol/L (3.6-5.0) 11/15/17 10:40 Chloride 96 mmol/L (98-107) L 11/15/17 10:40 Carbon Dioxide 38 mmol/L (21-33) H 11/15/17 10:40 Anion Gap 10 (10-20) 11/15/17 10:40 BUN 22 mg/dL (7-21) H 11/15/17 10:40 Creatinine 0.9 mg/dl (0.7-1.2) 11/15/17 10:40 Est GFR ( Amer) > 60 11/15/17 10:40 Est GFR (Non-Af Amer) > 60 11/15/17 10:40 Random Glucose 101 mg/dL (70-110) 11/15/17 10:40 Calcium 9.3 mg/dL (8.4-10.5) 11/15/17 10:40 Total Bilirubin 0.2 mg/dL (0.2-1.3) 11/10/17 08:30 AST 13 U/L (14-36) L 11/10/17 08:30 ALT 14 U/L (7-56) 11/10/17 08:30 Alkaline Phosphatase 48 U/L (38-126) 11/10/17 08:30 Total Protein 5.8 g/dL (5.8-8.3) 11/10/17 08:30 Albumin 3.1 g/dL (3.0-4.8) 11/10/17 08:30 Globulin 2.7 gm/dL 11/10/17 08:30 Albumin/Globulin Ratio 1.2 (1.1-1.8) 11/10/17 08:30 - Hospital Course Hospital Course: Patient is a 72 yo F with PMH of O2 dependent COPD, PAD, Carotid disease s/p L carotid stent, L subclavian stenosis, CAD s/p CABG, a-fib on eliquis, hypothyroidism, CVA x3, and prior R kidney surgery who was instructed to present to [facility] by her PMD after labs obtained in the office yesterday revealed iron deficiency anemia (Hgb 7.7, MCV 75.8, Fe 26, TIBC 458, % Sat 6, Ferritin 4) . Patient had originally presented to PMD's office with complaints of worsening shortness of breath, fatigue, sleepiness, and increased falls when getting out of bed, although then and today she denied any syncope/near-syncope , only attributing it to weakness and somnolence. Patient did admit to 1 episode of mixed melena and hematochezia approximately 1 week prior to admission , but denied any further recurrence. Patient was admitted for symptomatic anemia. Anticoagulation was held. Initially, patient denied transfusions due to fear of aj a blood borne illness. However, during hospital course, Hgb dropped to 6.4. At that time patient agreed to transfusion. 2 units of pRBC was given, after which Hgb remained stable in the 9s. GI was consulted and performed EGD and colonscopy. EGD showed 1 AVM and a duodenal polyp, which was biopsied. Colonscopy showed diverticulosis and sessile polyps which were biopsied. Cardiology was consulted, recommendations were appreciated. Patient was medically stable and discharged to TCU. During TCU, patient continued physical therapy, which she tolerated well. Patient also had outpatient stress test with cardiology which was normal. PO antibiotics for UTI was completed. Today, the patient was seen and examined at bedside. No acute overnight events. As patient is medically stable and completed her stay in TCU, she was discharged. Patient will follow up with her PMD and boarder hand upon discharge and resume medications as instructed. Eliquis will be held for 3 more days per GI. Discharge Diagnosis - Iron deficiency anemia 2/2 GI bleed, stable - UTI, resolved - History of atrial fibrillation - CAD s/p CABG - Hypothyroidism - COPD - B12 deficiency - Anxiety/Depression Discharge Exam - Head Exam Head Exam: NORMAL INSPECTION - Eye Exam Eye Exam: Normal appearance Pupil Exam: NORMAL ACCOMODATION - ENT Exam ENT Exam: Normal Exam - Neck Exam Neck exam: Normal Inspection - Respiratory Exam Respiratory Exam: Clear to PA & Lateral. absent: Rales, Rhonchi, Wheezes - Cardiovascular Exam Cardiovascular Exam: RRR, +S1, +S2. absent: Diastolic murmur, Gallop, Rubs, Systolic Murmur - GI/Abdominal Exam GI & Abdominal Exam: Soft. absent: Distended, Guarding, Rebound, Tenderness - Extremities Exam Extremities exam: normal inspection - Back Exam Back exam: NORMAL INSPECTION - Neurological Exam Neurological exam: Alert, CN II-XII Intact, Oriented x3 - Psychiatric Exam Psychiatric exam: Normal Affect, Normal Mood - Skin Skin Exam: Dry, Intact, Normal Color, Warm Discharge Plan - Follow Up Plan Condition: GOOD Disposition: HOME/ ROUTINE Instructions: Gastrointestinal Bleeding (DC) Additional Instructions: 1. Follow up with PMD within 1 week 2. Follow up with boarder hand within 1 week 3. Follow up with GI within 1 week 4. May resume Eliquis on Monday, November 20, 2017 5. Take all other medications as prescribed 6. Return to ED if symptoms worsen Referrals: Macho Wick MD [Primary Care Provider] - Macho Garcia MD [Staff Provider] - Hebert Leiva MD [Staff Provider] - <Gregoria Torres - Last Filed: 11/16/17 14:18> Provider - Provider Date of Admission: 11/08/17 20:46 Attending physician: Gregoria Torres MD Primary care physician: Macho Wick MD Hospital Course - Lab Results Lab Results: Most Recent Lab Values WBC 7.8 10^3/ul (4.5-11.0) 11/15/17 10:40 RBC 4.05 10^6/uL (3.5-6.1) 11/15/17 10:40 Hgb 9.4 g/dL (12.0-16.0) L 11/15/17 10:40 Hct 32.9 % (36.0-48.0) L 11/15/17 10:40 MCV 81.2 fl (80.0-105.0) 11/15/17 10:40 MCH 23.2 pg (25.0-35.0) L 11/15/17 10:40 MCHC 28.6 g/dl (31.0-37.0) L 11/15/17 10:40 RDW 17.6 % (11.5-14.5) H 11/15/17 10:40 Plt Count 252 10^3/uL (120.0-450.0) 11/15/17 10:40 MPV 10.2 fl (7.0-11.0) 11/15/17 10:40 Sodium 139 mmol/L (132-148) 11/15/17 10:40 Potassium 4.8 mmol/L (3.6-5.0) 11/15/17 10:40 Chloride 96 mmol/L (98-107) L 11/15/17 10:40 Carbon Dioxide 38 mmol/L (21-33) H 11/15/17 10:40 Anion Gap 10 (10-20) 11/15/17 10:40 BUN 22 mg/dL (7-21) H 11/15/17 10:40 Creatinine 0.9 mg/dl (0.7-1.2) 11/15/17 10:40 Est GFR ( Amer) > 60 11/15/17 10:40 Est GFR (Non-Af Amer) > 60 11/15/17 10:40 Random Glucose 101 mg/dL (70-110) 11/15/17 10:40 Calcium 9.3 mg/dL (8.4-10.5) 11/15/17 10:40 Total Bilirubin 0.2 mg/dL (0.2-1.3) 11/10/17 08:30 AST 13 U/L (14-36) L 11/10/17 08:30 ALT 14 U/L (7-56) 11/10/17 08:30 Alkaline Phosphatase 48 U/L (38-126) 11/10/17 08:30 Total Protein 5.8 g/dL (5.8-8.3) 11/10/17 08:30 Albumin 3.1 g/dL (3.0-4.8) 11/10/17 08:30 Globulin 2.7 gm/dL 11/10/17 08:30 Albumin/Globulin Ratio 1.2 (1.1-1.8) 11/10/17 08:30 Attending/Attestation - Attestation I have personally seen and examined this patient.: Yes I have fully participated in the care of the patient.: Yes I have reviewed all pertinent clinical information, including history, physical exam and plan: Yes Notes (Text): 11/16/17 14:18 Attending note; Patient seen and examined with resident in TCU. Patient is a 72 year old female with history of O2 dependent COPD, PAD, Carotid disease s/p L carotid stent, L subclavian stenosis, CAD s/p CABG, hypothyroidism , CVA x3, and prior R kidney surgery who was sent by PMD for evaluation of anemia. Upon admission Hb was 6.4 and now its 9 s/p 2 units prbc. FOBT positive. Patient underwent endoscopy which revealed single non bleeding AVM in duodenum. Colonoscopy revealed diverticulosis and polyps. case discussed with GI in detail. started on aspirin today. we will start eliquis next week. Hemoglobin is stable. stress test shows no new ischemic changes. discharge home today. Upon discharge the patient will follow-up with PMD . case discussed with DR. Wick in detail.
== END 2017-11-16 13:45 | disposition home or self-care (01) | DRG 812 ==
LOC: TRCU 20:46
PROVIDERS: ADMIT Hospitalist; ATTEND Internal Medicine
PROC: F07Z9ZZ Gait Training/Functional Ambulation Treatment (ICD-10-PCS; principal; 2017-11-10)
PROC: F07Z5ZZ Bed Mobility Treatment (ICD-10-PCS; 2017-11-10)
PROC: F07Z8ZZ Transfer Training Treatment (ICD-10-PCS; 2017-11-10)
PROC: F07L6YZ Therapeutic Exercise Treatment of Musculoskeletal System - Lower Back / Lower Extremity using Other Equipment (ICD-10-PCS; 2017-11-10)
PROC: F08Z2ZZ Grooming/Personal Hygiene Treatment (ICD-10-PCS; 2017-11-10)
PROC: F08Z0ZZ Bathing/Showering Techniques Treatment (ICD-10-PCS; 2017-11-12)
DX: D50.0 Iron deficiency anemia secondary to blood loss (chronic) (principal); N39.0 Urinary tract infection, site not specified; K31.819 Angiodysplasia of stomach and duodenum without bleeding; K63.5 Polyp of colon; K31.7 Polyp of stomach and duodenum; K57.30 Diverticulosis of large intestine without perforation or abscess without bleeding; I48.91 Unspecified atrial fibrillation; I25.10 Atherosclerotic heart disease of native coronary artery without angina pectoris; E03.9 Hypothyroidism, unspecified; J44.9 Chronic obstructive pulmonary disease, unspecified; I73.9 Peripheral vascular disease, unspecified; I70.8 Atherosclerosis of other arteries; E78.00 Pure hypercholesterolemia, unspecified; E53.8 Deficiency of other specified B group vitamins; F32.9 Major depressive disorder, single episode, unspecified; F41.9 Anxiety disorder, unspecified; Z95.1 Presence of aortocoronary bypass graft; Z87.891 Personal history of nicotine dependence; Z86.73 Personal history of transient ischemic attack (TIA), and cerebral infarction without residual deficits; Z99.81 Dependence on supplemental oxygen; Z79.02 Long term (current) use of antithrombotics/antiplatelets; Z79.82 Long term (current) use of aspirin; Z88.0 Allergy status to penicillin; Z88.5 Allergy status to narcotic agent; I10 Essential (primary) hypertension